=== PATIENT | female | born 1940 | race Caucasian/White ===

== ENCOUNTER 2023-05-29 19:45 | Inpatient (IN) | payer MEDICARE, OTHER, SELFPAY ==
[2023-05-29] VITALS (9 sets, daily range): BP systolic 92–162; BP diastolic 56–108; BMI 25.0; BMI 22.4
[2023-05-29] MEDS: DUONEB 3 ML INH ×2 (15:12→20:31)
--- NOTE | 2023-05-29 15:20 | ED.GENMED ---
History of Present Illness
General
Chief Complaint: Breathing Problem
Source: patient, family (Daughter) and ambulance crew
Exam Limitations: none
Time Seen by Provider: 05/29/23 15:13
Nursing documentation reviewed up to this point in time: agreed with
Travel History
Have you had any contact with someone who has COVID-19?: No
Do you have any symptoms of coronavirus? Fever > 100 degrees, chills, cough, shortness of breath, sore throat, loss of taste or smell, muscle aches, or headache?: No
History of Present Illness
History of Present Illness:
82-year-old female with past medical history of TIA/CVA, seizures, hypothyroidism who presents to the emergency department via EMS for evaluation of shortness of breath. Patient lives at home with her daughter. Patient reports rather sudden onset
of symptoms while she was walking during a PT session at home just prior to arrival. Per daughter she was in her normal state of health and then suddenly became very short of breath and began coughing and wheezing. EMS called. Per EMS on their
arrival she was hypoxic in the 70s although they did have difficulty getting a good pleth on pulse oximetry. She was placed on CPAP and was transported to the emergency room. On arrival here she continues to complain of shortness of breath. She
denies any chest pain. She says she started coughing shortly after onset of shortness of breath but has not had a cough prior to this. She denies any recent fevers or chills. Has not noticed any swelling or pain in the legs. Per daughter patient
had a recent echocardiogram that was normal.
Past History
Past History
ED Past Medical History: CVA, HTN, Hypercholesterolemia and Hypothyroidism
ED Past Surgical History: Gynecological (partial hysterectomy) and Orthopedic (right hip fracture)
Social History
Tobacco: Former smoker
Alcohol: Occasional
Personal:
Living: alone (with aids)
Review of Systems
Review of Systems
All Other Systems: ROS reviewed and negative except as documented in HPI and ROS
Constitutional: Denies fever or chills
EENT: Denies sore throat
Respiratory: Reports cough and trouble breathing
Cardiac: Denies chest pain or palpitations
ABD/GI: Denies abdominal pain, nausea or vomiting
: Denies flank pain
Musculoskeletal: Denies neck pain or back pain
Neurological: Denies headache, weakness or numbness
Phy Exam
Physical Exam
Physical Exam:
General: Awake, alert, oriented x3
Head: Normocephalic, atraumatic
Eyes: Conjunctiva normal, sclera anicteric
Throat: Airway intact, handling secretions
Neck: Trachea midline, supple without meningismus
Lungs: Mild tachypnea, low normal pulse ox 90-91% on room air; she is faint expiratory wheezing scattered throughout all lung cuellar and occasional coughing
Heart: Regular rate and rhythm, no murmurs, gallops, or rubs
Abd: Soft, non distended, nontender
Neuro: Cranial nerves grossly intact, speech fluid
Skin: no rash
Extremities: No edema in extremities, equal pulses in all extremities
Scores
Heart Failure Risk
Heart Failure Risk Score: Not Applicable
Heart Score for Chest Pain Patients
STEMI patient?: Not applicable
Withdrawal Assessment of Alcohol
Withdrawal Assessment Completed?: Not applicable
Course
Orders/Labs/Results
Orders:
Orders
05/29/23 14:59
Electrocardiogram (*1) Urgent
Reason for Study: Other
Other Reason for Exam: Respiratory Distress
Cardiac Monitoring- Treatment ONCE
EKG- Treatment ONCE
IV Insert/Care/Rem.- Treatment PRN
Pulse Ox/cont/shift [RESP] Urgent
Quantity: 1
Special Instructions: continuous pulse ox
05/29/23 15:03
Portable Chest Xray [CR Chest Portable - 1 View] Urgent
Comment:
Reason For Exam: sob
Reason Study Needs to be Portable: Patient Unstable
05/29/23 15:09
Ipratropium/Albuterol Sulfate [Duoneb] 3 ml .ROUTE .STK-MED ONE
05/29/23 15:10
Ipratropium/Albuterol Sulfate [Duoneb] 3 ml INH R NOW ONE
05/29/23 15:19
CT Chest Pe Study Urgent
Comment:
Reason For Exam: sudden onset SOB and hypoxia
05/29/23 15:23
Complete Blood Count/With Diff Urgent
Comprehensive Metabolic Panel Urgent
NT-proBNP Urgent
Troponin I Urgent
05/29/23 17:33
COVID-19 Antigen Urgent
Source: Nasal Swab
Influenza A+B Rapid Molecular Urgent
IRVING Source: Nasal Swab
Specimen Description:
Abnormal Lab Results
05/29/23
15:23
RBC 3.87 L 10^6/uL
(4.20-5.40)
MCV 104.1 H fL
(81.0-99.0)
MCH 35.7 H pg
(27.0-31.0)
Absolute Monos (auto) 1.0 H 10^3/uL
(0.1-0.6)
Monocytes % 14.2 H %
(1.7-9.3)
BUN 20 H mg/dl
(7-17)
Glucose 109 H mg/dl
(70-99)
Calcium 8.3 L mg/dl
(8.4-10.2)
AST 43 H U/L
(14-36)
05/29/23 15:23
05/29/23 15:23
Vital Signs
Initial and Last Documented VS:
Initial Vital Signs
Pulse Resp BP
92 27 132/89
05/29/23 15:00 05/29/23 15:00 05/29/23 15:00
Last Documented Vital Signs
Temp Pulse Resp BP Pulse Ox
36.6 C 77 19 122/108 96
05/29/23 15:40 05/29/23 16:30 05/29/23 16:30 05/29/23 16:00 05/29/23 16:30
MDM/Problems Addressed
Differential Diagnosis Includes:
Pneumonia/pneumonitis, asthma/bronchitis, pulmonary embolism, less likely acute MS without any chest pain
MDM/Problems Addressed:
82-year-old female with history as above presents for evaluation of abrupt onset shortness of breath associated with some coughing and wheezing. Hypoxic per EMS, apparently 70s prior to arrival though she is 90s here on room air. Mild tachypnea.
Physical exam as above. She does not appear edematous. She is normotensive. Somewhat goes against flash pulmonary edema; daughter reports recent echocardiogram was normal. PE would be a consideration given abrupt onset although she denies any
chest pain and no specific risk factors. Call for stat pleural chest x-ray, stat EKG. IV placed labs ongoing CBC and CMP, troponin, BNP. Given her wheezing we will treat the DuoNeb and some IV steroid. Will monitor closely reassess after the
above.
EKG shows sinus rhythm no STEMI. Chest x-ray reviewed by me appears to have opacity in the right midlung�although pneumonia would be consideration history really not consistent with this diagnosis. Will check CTA to rule out pulmonary embolism.
Labs reviewed: CBC unremarkable, CMP shows no clinically significant abnormalities. Troponin negative x 1, BNP was slightly elevated at 1610 but she has no overt signs of CHF on exam. Her CTA was negative for PE does show some widespread
groundglass opacities nonspecific which could include pulmonary edema or other inflammatory etiologies�I wonder if this may be an acute bronchitis; CHF consideration but she is not particularly edematous on exam and she apparently had a reassuring
echo recently�will hold on Lasix for now. She has improved wheezing with DuoNeb and steroid although her pulse ox did drop a bit to the high 80s she was placed on 2 L nasal cannula. Will admit now for continued treatment of suspected acute
bronchitis with resultant acute respiratory failure with hypoxia. Discussed with hospitalist for admission
*Radiology
Radiology exam reviewed: preliminary read by ED provider and radiology read reviewed
*Pulse Oximetry
Patient hypoxic: yes
*EKG
Comparison EKG: no comparison EKG present
Heart Rate: 85
Rate: normal
Rhythm: sinus
[place]: left axis deviation
Interval: normal interval
QRS Pattern: left bundle branch block
Ischemia: no ischemia
*Critical Care Note
Total Time (30-74mins, 75-104mins- exclusive of procedures): Not Applicable
Data Reviewed
Source: patient, family and ambulance crew
Patient Management
Discussion with other providers: Hospitalist (Discussed with hospitalist)
Escalation/DeEscalation of care consider admission/obs:
Admission indicated
ED Attending Note
-
Portions of this chart may have been created with voice recognition software.� Occasional wrong word or��sound alike� substitutions may have occurred due to the inherent limitations of voice recognition software.
Discharge Plan
Departure
Patient Disposition: Admit
Date of Disposition: 05/29/23
Time of Disposition: 17:41
Admit to doctor: Shanon
Presentation/result/management discussed w/ accepting MD/DO: Hospitalist
Discharge Problem:
Acute respiratory failure with hypoxia, Acute bronchitis
Prescriptions:
No Action
alendronate 70 MG tablet
70 mg PO VEGA
aspirin 81 MG tablet,delayed release (DR/EC)
81 mg PO DAILY
levothyroxine 100 MCG tablet
100 mcg PO DAILY
carbamazepine 200 MG tablet
200 mg PO TID
amlodipine 10 MG tablet
10 mg PO DAILY
geriatric fqpkxxpr-nwda-lwap [Spectravite Senior] 1 EACH tablet
1 ea PO DAILY@1200
metoprolol tartrate 25 MG tablet
25 mg PO BID
Fish Oil
1 cap PO DAILY@1200
atorvastatin 40 MG tablet
40 mg PO QPM 0RF
acetaminophen 325 MG tablet
650 mg PO Q4HPRN PRN (Reason: temp greater than 100.4 F) 0RF
prochlorperazine maleate 10 MG tablet
10 mg PO Q6HPRN PRN (Reason: Headache) 0RF
calcium carbonate [Oyster Shell Calcium 500] 500 MG tablet
500 mg PO NOON 0RF
ascorbic acid (vitamin C) [Vitamin C] 500 MG tablet
500 mg PO NOON 0RF
magnesium L-lactate [Magtab] 84 MG tablet extended release
84 mg PO NOON 0RF
ketorolac 10 MG tablet
10 mg PO Q6HPRN PRN (Reason: Pain ) Qty: 12 0RF
acetaminophen-codeine 1 TABLET tablet
1 tab PO Q4HPRN PRN (Reason: pain) Qty: 17 0RF
hydrocodone-acetaminophen 5-325 mg tablet
1 tab PO Q8H PRN (Reason: Pain) Qty: 10 0RF
Referrals:
UNKNOWN - PT DOES,NOT KNOW [Family Provider] -
Interventions
Interventions:
*Risk Screen - Suicide Last Done: 05/29/23 15:04
*General Assessment Last Done: 05/29/23 15:04
*Neglect/Abuse Screening Last Done: 05/29/23 15:04
ED- Cardiac Assessment Last Done: 05/29/23 15:33
ED- Pulmonary Assessment Last Done: 05/29/23 15:33
[2023-05-29 15:30] LABS: % Basophils 0.9 % (0-2); % Eosinophils 3.4 % (0-6); % Immature Granulocytes 0.4 % (0-0.5); % Lymphocytes 30.6 % (20.5-51.1); % Monocytes 14.2 % (1.7-9.3); % Neutrophils 50.5 % (42.2-75.2); Absolute Basophils 0.1 10^3/uL (0-0.2); Absolute Eosinophils 0.2 10^3/uL (0-0.7); Absolute Lymphocytes 2.1 10^3/uL (1.2-3.4); Absolute Neutrophils 3.4 10^3/uL (1.4-6.5); Hematocrit 40.3 % (37.0-47.0); Hemoglobin 13.8 g/dL (12.0-16.0); Mean Corp Hgb Conc. 34.2 g/dL (33.0-37.0); Mean Corpuscular Hgb 35.7 pg (27.0-31.0); Mean Corpuscular Volume 104.1 fL (81.0-99.0); Mean Platelet Volume 9.9 fL (7.4-10.4); Nucleated Red Blood Cells % 0 %; Platelet Count 166 10^3/uL (130-400); Red Blood Cell Count 3.87 10^6/uL (4.20-5.40); Red Cell Dist. Width 12.1 % (11.5-14.5); White Blood Cell Count 6.8 10^3/uL (4.8-10.8)
[2023-05-29 15:58] LABS: ALT (SGPT) 32 U/L (0-35); AST (SGOT) 43 U/L (14-36); Albumin 3.8 g/dl (3.5-5.0); Alkaline Phosphatase 95 U/L (38-126); Blood Urea Nitrogen 20 mg/dl (7-17); Calcium 8.3 mg/dl (8.4-10.2); Carbon Dioxide 27 mmol/L (22-30); Chloride 106 mmol/L (98-107); Glucose 109 mg/dl (70-99); Potassium 4.9 mmol/L (3.5-5.1); Sodium 137 mmol/L (135-145); Total Bilirubin 0.5 mg/dl (0.2-1.3); Total Protein 6.4 g/dl (6.3-8.2); eGFR > 60.00
[2023-05-29 16:03] LABS: NT-proBNP 1610 pg/ml; Troponin I 0.024 ng/ml
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
[2023-05-29 18:05] LABS: COVID-19 Antigen Negative (Negative)
[2023-05-29] MEDS: SOLU-MEDROL PF 40 MG IV (19:45)
--- NOTE | 2023-05-29 20:00 | PTCARENOTE ---
Patient received from ED via stretcher, patient unable to stand r/t respiratory status. Patient transferred to bed via draw sheet. Patient pleasantly confused, Arrived on 4L O2, patient weaned to 2L O2 by RT. Patient educated on room safety, fall
precautions, and call stacy. Reinforcement provided. Will monitor.
[2023-05-29] MEDS: LOPRESSOR 37.5 MG PO (21:04)
[2023-05-29] MEDS: TEGRETOL 200 MG PO (21:04)
[2023-05-29] MEDS: ARICEPT 10 MG PO (21:05)
[2023-05-29] MEDS: LIPITOR 40 MG PO (21:05)
[2023-05-29] MEDS: DESYREL 50 MG PO (21:05)
[2023-05-29] MEDS: ROBITUSSIN 200 MG PO (21:05)
[2023-05-29] MEDS: DEPAKOTE (12 HR RELEASE) 500 MG PO (21:11)
[2023-05-29] MEDS: XALATAN OPHTHALMIC SOLUTION 1 DROP BOTH EYES ×2 (22:01)
[2023-05-29] MEDS: COMBIGAN EYE DROPS 1 DROP LEFT EYE (22:02)
[2023-05-29] MEDS: AZOPT 1% OPHTHALMIC SUSPENSION 1 DROP LEFT EYE (22:02)
--- NOTE | 2023-05-29 23:48 | PTCARENOTE ---
Patient's 2300 BP low, PCT reported it was 92/58 on right arm. This RN checked BP manually on right and got 106/62. Patient completely asymptomatic. SBP was 166 when she arrived to floor. CARLTON Ochoa made aware of change in SBP. No new orders
received at this time. Will monitor.
[2023-05-30] VITALS (8 sets, daily range): BP systolic 75–146; BP diastolic 49–72; PULSE 67; O2SAT 99; BMI 22.4
[2023-05-30] MEDS: SOLU-MEDROL PF 40 MG IV ×2 (02:15→10:10)
[2023-05-30] MEDS: DUONEB INH ×2 (02:19→15:17)
--- NOTE | 2023-05-30 02:43 | PTCARENOTE ---
PCT reported BP to RN in patient's right arm. Patient again completely asymptomatic, mentation unchanged. This RN obtained manual BP of 80/55 in right arm. BP in left arm 140/72 manually. CARLTON Schaefer aware, will pass on in report to only
check BP in left arm. Per BATH TESTER patient has a hx low BP in right. Will monitor.
[2023-05-30 07:04] LABS: % Basophils 0.4 % (0-2); % Immature Granulocytes 0.5 % (0-0.5); % Lymphocytes 30.4 % (20.5-51.1); % Monocytes 3.8 % (1.7-9.3); % Neutrophils 64.9 % (42.2-75.2); Absolute Lymphocytes 1.7 10^3/uL (1.2-3.4); Absolute Monocytes 0.2 10^3/uL (0.1-0.6); Absolute Neutrophils 3.6 10^3/uL (1.4-6.5); Hematocrit 35.9 % (37.0-47.0); Hemoglobin 12.7 g/dL (12.0-16.0); Mean Corp Hgb Conc. 35.4 g/dL (33.0-37.0); Mean Corpuscular Volume 98.9 fL (81.0-99.0); Mean Platelet Volume 10.5 fL (7.4-10.4); Nucleated Red Blood Cells % 0 %; Platelet Count 146 10^3/uL (130-400); Red Blood Cell Count 3.63 10^6/uL (4.20-5.40); White Blood Cell Count 5.5 10^3/uL (4.8-10.8)
[2023-05-30] MEDS: ROBITUSSIN 200 MG PO ×3 (07:34→21:07)
[2023-05-30] MEDS: THERAGRAN 1 TABLET PO (07:34)
[2023-05-30] MEDS: SYNTHROID 100 MCG PO (07:34)
[2023-05-30] MEDS: LOPRESSOR PO (07:34)
[2023-05-30] MEDS: DEPAKOTE (12 HR RELEASE) 250 MG PO (07:34)
[2023-05-30] MEDS: TEGRETOL 200 MG PO ×3 (07:34→21:11)
[2023-05-30] MEDS: KCL 20 MEQ PO (07:34)
[2023-05-30] MEDS: COMBIGAN EYE DROPS 1 DROP LEFT EYE ×2 (07:35→21:12)
[2023-05-30] MEDS: AZOPT 1% OPHTHALMIC SUSPENSION 1 DROP LEFT EYE ×2 (07:35→21:12)
[2023-05-30] MEDS: DUONEB 3 ML INH ×2 (07:36→19:51)
[2023-05-30 09:19] LABS: Blood Urea Nitrogen 19 mg/dl (7-17); Calcium 8.4 mg/dl (8.4-10.2); Carbon Dioxide 25 mmol/L (22-30); Chloride 107 mmol/L (98-107); Estimated Creatinine Clearance 51 ml/min; Glucose 131 mg/dl (70-99); Potassium 4.9 mmol/L (3.5-5.1); Sodium 137 mmol/L (135-145); eGFR > 60.00
--- NOTE | 2023-05-30 09:46 | PTOTSP ---
ST Swallowing Assessment
Pt presents with mild oropharyngeal dysphagia characterized by difficulty with mastication 2/2 denture presence, prolonged mastication and bolus formation, timely and delayed, weak throat clears with liquid ingestion (straws>cups, sequential
sips>single sips) suggestive of possible penetration/aspiration, as well as intermittent belching s/p ingestion of liquids with subsequent throat clears suggestive of possible retrograde flow and/or penetration/aspiration events.
Pt presents with cognitive linguistic deficits that are suspected to be consistent with baseline 2/2 previous CVA and vascular dementia. Would confirm with pt's daughter when able.
Recommendations:
- IDDSI 6 (Soft Bite Sized Solids)/IDDSI 0 (Thin Liquids) - NO STRAWS, small single cup sips; med whole with water as tolerated (one at a time).
- Aspiration & reflux precautions
- Video fluoroscopic swallow study for further assessment.
--- NOTE | 2023-05-30 11:13 | W.PN.HOSP.TC ---
Today's Communication/Plan
-
echo
lasix
Assessment / Plan
Assessment / Plan
82-year-old male came to the hospital with worsening cough with sputum. Patient has chronic lower extremity swelling unchanged. Patient was taken off of Lasix few months ago secondary to worsening renal function.
She was wheezing for a couple months. Yesterday was doing PT and she had sudden SOB and wheezing . They have an Oxygen at home and she was placed on it. She gets [facility] services (Physician and nurses and PT) [facility] also
helps. She coughs when she eats. They cut up her food. LE edema for chronic. Patient was on Lasix at 1 point and was taken off because of dehydration. Daughter states that she does not drink enough fluids.
CTA-trachea and central airways patent. Moderate to marked GERD widespread ground glass opacities centrally and peripherally accompanying prominence of pulmonary interstitium. No pneumothorax. Pleural effusion or pericardial effusion.
# Acute hypoxic respiratory insufficiency
Admitted for acute bronchitis
On 2 to 4 L of oxygen
? CHF
COVID-negative
Status post nebulizer treatment in the ER with improvement-continue steroids and nebulizers now
Wean oxygen as tolerated
Pulmonary has been consulted, but looks more fluid OL
Rule out aspiration-speech evaluation
wean steroids
will give a dose of Lasix
# Transient hypotension with history of hypertension
Patient on metoprolol 37.5 mg p.o. twice daily as outpatient along with amlodipine 10 mg at night
# Hyperlipidemia-continue statin
# History of CVA in the past
Continue aspirin and statin
She aspirin only weekly because of 'Skin Bruising per the PCP '
Change to Daily.
PT OT
# Chronic left bundle branch block
# Vascular dementia
On donepezil and also trazodone at night for sleep
# Hypothyroidism-continue Synthroid
# Scoliosis
# History of seizures-continue carbamazepine 200mg 3 times daily, Depakote 250 mg in the morning and 5oo mg in the evening
Last SZ was several years ago.
# Glaucoma-continue Combigan eyedrops, brinzolamide, latanoprost
# Ambulatory dysfunction with severe left knee osteoarthritis
Follows with Dr. Lewis recently got injection
# Chronic osteoporotic compression fractures
T6, T9, T11, L1
# DVT prophylaxis-Lovenox
# Full code
Discussed with the patient's daughter
Plan of care discussed.
CODE STATUS addressed-full code for now
Anticipated Discharge: 24 - 48 hours
Subjective/Interval History
-
Date of Service: May 30, 2023
Objective Data
-
Labs:
Laboratory Results
05/30/23 05/30/23
06:37 08:23
WBC 5.5
Hgb 12.7
Hct 35.9 L
Plt Count 146
Sodium Cancelled 137
Potassium Cancelled 4.9
Chloride Cancelled 107
Carbon Dioxide Cancelled 25
BUN Cancelled 19 H
Creatinine Cancelled 0.8
Glucose Cancelled 131 H
Calcium Cancelled 8.4
Vital Signs:
Vital Signs
Temp Pulse Resp BP Pulse Ox
97.7 F 69 16 100/72 99
05/30/23 07:20 05/30/23 07:35 05/30/23 07:35 05/30/23 07:34 05/30/23 10:18
I&O
05/29/23 05/30/23 05/31/23
06:59 06:59 06:59
Intake Total 240 / 240
Balance 240 / 240
--- NOTE | 2023-05-30 12:29 | CON.PUL ---
Consultation
Consultation Request
Date/Time Consultation Requested: 05/30/23
Date/Time Consultation Performed: 05/30/23
Performing Provider: Renee
Reason for Consultation: Hypoxia
Medical History
-
History of Present Illness:
Patient is a 82 year old F with past history of CVA, vascular dementia, HTN/HLD, Seizures, presenting to ER for subacute onset of SOB and wheezing over the past couple weeks. She also reports concern for aspiration, notes coughing with
solid/liquid intake. She has history of chronic leg swelling but was taken off lasix few months prior due to worsening kidney function.
In ER, she was noted to have CTA with ground glass changes, proBNP 1610. Given Duoneb treatment and IV Solumedrol 40mg IV Q8h.
Was a former smoker, 1/2 PPD for 40 years, quit 30 years ago. Never diagnosed wtih asthma or COPD, denies family history of lung disease. Never had a PFT.
Past Medical History
Past Medical History: Other (see list below)
Social History
Tobacco: Former Smoker
Alcohol: None
Drug: None
Family History
Family History: Reviewed & Not Pertinent
Allergies / Home Medications
Allergies
Allergy/AdvReac Type Severity Reaction Status Date / Time
No Known Allergies Allergy Verified 04/27/23 11:49
Home Medications
Medication Instructions Recorded Confirmed Last Taken Type
amlodipine 10 mg tablet 10 mg PO HS 01/09/17 05/29/23 05/28/23 History
aspirin 81 mg tablet,delayed 81 mg PO WEEKLY 01/09/17 05/29/23 05/28/23 History
release
carbamazepine 200 mg tablet 200 mg PO TID 01/09/17 05/29/23 05/29/23 History
levothyroxine 100 mcg tablet 100 mcg PO DAILY 01/09/17 05/29/23 05/29/23 History
metoprolol tartrate 25 mg tablet 37.5 mg PO BID 01/09/17 05/29/23 05/29/23 History
atorvastatin 40 mg tablet 40 mg PO HS 05/29/23 05/29/23 05/28/23 History
brimonidine 0.2 %-timolol 0.5 % 1 drp LEFT EYE BID 05/29/23 05/29/23 05/29/23 History
eye drops (Combigan)
brinzolamide 1 % eye 1 drp LEFT EYE BID 05/29/23 05/29/23 05/29/23 History
drops,suspension
divalproex 250 mg tablet,delayed 250 mg PO DAILY 05/29/23 05/29/23 05/29/23 History
release
divalproex 250 mg tablet,delayed 500 mg PO QPM 05/29/23 05/29/23 05/28/23 History
release
donepezil 10 mg tablet 10 mg PO HS 05/29/23 05/29/23 05/28/23 History
latanoprost 0.005 % eye drops 1 drp BOTH EYES HS 05/29/23 05/29/23 05/28/23 History
isxbwbilcwss-owxrirsz-zptsut tablet 1 tab PO DAILY 05/29/23 05/29/23 05/29/23 History
potassium chloride 20 mEq 20 meq PO DAILY 05/29/23 05/29/23 05/29/23 History
tablet,extended release(part/cryst)
trazodone 50 mg tablet 50 mg PO HS 05/29/23 05/29/23 05/28/23 History
Review of Systems
-
History Source: Patient
All other systems: Negative unless noted
Vitals / Labs / Diagnostic Testing
Vital Signs
Temp Pulse Resp BP Pulse Ox
97.8 F 72 16 112/53 98
05/30/23 11:14 05/30/23 11:14 05/30/23 11:14 05/30/23 11:14 05/30/23 11:14
Lab Data
05/30/23 06:37
05/30/23 08:23
Microbiology
05/29/23 17:37 Nasal Swab Influenza Types A & B (LAURA) - Final
Negative for Influenza A & B, NAAT
Negative results must be combined with clinical observations
and patient history.
Nucleic Acid Amplification test (NAAT)performed on the
[employer] platform.
Diagnostic Testing:
Physical Exam
-
HEENT: Normocephalic, Anicteric and Moist Mucous Membranes
Cardiovascular: S1/S2, Regular Rhythm and Peripheral Edema
Respiratory: Rales and Non-Labored Respirations
GI: Soft, Non Distended and Non Tender
Neurology: Awake, Alert, Oriented, AO x 3 and No Motor Deficits
Skin: Warm, Dry and Good Color
General: Comfortable and Other (NAD)
Assessment
-
Patient is a 82 year old F with past history of CVA, vascular dementia, HTN/HLD, Seizures, presenting to ER for subacute onset of SOB and wheezing over the past couple weeks. She also reports concern for aspiration, notes coughing with
solid/liquid intake. She has history of chronic leg swelling but was taken off lasix few months prior due to worsening kidney function.
In ER, she was noted to have CTA with ground glass changes, proBNP 1610. Given Duoneb treatment and IV Solumedrol 40mg IV Q8h.
AE of HFpEF
Pulmonary edema
LE swelling
SOB
Suspect underlying COPD
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
Former smoker
HTN
CVA/TIAs
Vascular dementia
Osteoporosis
History of VTE
Hepatitis
Seizures
Hypothyroidism
Plan
No oxygen was needed on admission, currently saturating 95% on RA
Placed on 2L at 99%, can likely wean to off
She is not on home O2
No known history of lung disease is noted --
Was a former smoker, 1/2 PPD for 40 years, quit 30 years ago.
Never diagnosed wtih asthma or COPD, denies family history of lung disease.
Never had a PFT.
Suspect patient has underlying AE HFpEF given history/imaging
CXR obtained indicating pulmonary edema, LE swelling noted
Other imaging reviewed
ECHO results reviewed--normal function
proBNP 1610
Rule out infectious causes, check procal
Started on IV steroids, but currently not wheezing
I would stop this
Will need outpatient pulmonary evaluation in our office for PFTs and 6MWT
Reviewed with patient
Smoking history noted--certainly at risk for COPD
Quit 30 years ago, would not be a candidate for lung cancer screening
We will follow
Diagnostic Data
CXR 05/29/23- IMPRESSION: Chronic lung changes. Increased interstitial fibrosis and scarring when compared to the previous exam. No focal airspace process. Density in the right lateral lung base most consistent with a previous healed right rib
fracture. Please correlate with follow-up chest CT.
CT chest 05/29/23- IMPRESSION: No evidence of central pulmonary embolism. New marked widespread bilateral pulmonary groundglass opacities both ventrally and peripherally, nonspecific. Some of several differential diagnostic possibilities include
Covid, pulmonary edema and other inflammatory etiologies. Some possible underlying mild chronic interstitial changes. Multiple thoracic vertebral compression fractures again seen, likely chronic.
07/10/20- IMPRESSION:
1. No evidence of pulmonary embolism or thoracic aortic dissection.
2. Acute fractures of the right anterior third through fifth ribs in the mid clavicular line, without associated pneumothorax or pleural effusion. Old ninth posterior rib fracture.
3. Mild bibasilar subsegmental atelectasis, otherwise clear lungs.
4. Multiple compression fractures within the thoracolumbar spine, likely chronic. Please correlate for symptoms of acute fractures.
ECHO 05/30/23- �Normal biventricular size and systolic function without regional wall motion�abnormality.�Mild to moderate mitral regurgitation.�Mild pulmonary hypertension.�Compared to previous echo 01/10/2017, the degree of mitral regurgitation
has�improved on today's study.� Otherwise the findings are similar.�
[2023-05-30] MEDS: LASIX 40 MG IV (12:44)
--- NOTE | 2023-05-30 14:15 | PTOTSP ---
Speech Language Pathology
VIDEOFLUOROSCOPIC SWALLOWING EXAMINATION (VSE) completed. Mild oral dysphagia noted. Pharyngeal phase of swallow WFL. Only trace intermittent vallecular and base of tongue residue. No penetration/aspiration noted with any consistencies trialed.
Recommend:
(1) Continue regular solids/thin liquids
(2) General aspiration precautions
(3) Meds as tolerated
(4) GAS STATION ATTENDANT to sign off. Please reconsult as indicated.
[2023-05-30] MEDS: LOVENOX 40 MG SC (17:05)
[2023-05-30] MEDS: SOLU-MEDROL PF 20 MG IV (17:06)
[2023-05-30] MEDS: DEPAKOTE (12 HR RELEASE) 500 MG PO (17:06)
[2023-05-30] MEDS: LOPRESSOR 37.5 MG PO (21:07)
[2023-05-30] MEDS: DESYREL 50 MG PO (21:07)
[2023-05-30] MEDS: ARICEPT 10 MG PO (21:10)
[2023-05-30] MEDS: LIPITOR 40 MG PO (21:10)
[2023-05-31] MEDS: DUONEB 3 ML INH ×4 (01:24→19:49)
[2023-05-31] MEDS: SOLU-MEDROL PF 20 MG IV ×2 (02:09→09:34)
[2023-05-31] MEDS: FLUSH (NSS) 1 FLUSH IV (02:11)
[2023-05-31 03:25] VITALS: BP 81/61
[2023-05-31 06:00] VITALS: BMI 22.0
[2023-05-31] MEDS: SYNTHROID 100 MCG PO (06:05)
[2023-05-31 07:00] VITALS: BP 137/65
[2023-05-31 08:40] LABS: Blood Urea Nitrogen 36 mg/dl (7-17); Calcium 8.5 mg/dl (8.4-10.2); Carbon Dioxide 27 mmol/L (22-30); Chloride 98 mmol/L (98-107); Estimated Creatinine Clearance 37 ml/min; Glucose 129 mg/dl (70-99); Magnesium 2.2 mg/dl (1.6-2.3); Sodium 135 mmol/L (135-145); eGFR 50.17
[2023-05-31 08:49] LABS: Potassium 4.7 mmol/L (3.5-5.1)
[2023-05-31] MEDS: ASPIR LOW (ENTERIC COATED) 81 MG PO (09:33)
[2023-05-31] MEDS: THERAGRAN 1 TABLET PO (09:33)
[2023-05-31] MEDS: TEGRETOL 200 MG PO ×3 (09:33→20:59)
[2023-05-31] MEDS: DEPAKOTE (12 HR RELEASE) 250 MG PO (09:33)
[2023-05-31] MEDS: LOPRESSOR 37.5 MG PO ×2 (09:33→20:58)
[2023-05-31] MEDS: ROBITUSSIN 200 MG PO ×2 (09:34→16:24)
[2023-05-31] MEDS: COMBIGAN EYE DROPS 1 DROP LEFT EYE ×2 (09:34→20:59)
[2023-05-31] MEDS: AZOPT 1% OPHTHALMIC SUSPENSION 1 DROP LEFT EYE ×2 (09:36→20:59)
[2023-05-31 11:00] VITALS: BP 99/65
--- NOTE | 2023-05-31 13:35 | W.PN.HOSP.TC ---
Today's Communication/Plan
-
wean steroids
daughter doesn't want her to go to rehab
Assessment / Plan
Assessment / Plan
82-year-old male came to the hospital with worsening cough with sputum. Patient has chronic lower extremity swelling unchanged. Patient was taken off of Lasix few months ago secondary to worsening renal function.
She was wheezing for a couple months. Yesterday was doing PT and she had sudden SOB and wheezing . They have an Oxygen at home and she was placed on it. She gets [facility] services (Physician and nurses and PT) [facility] also
helps. She coughs when she eats. They cut up her food. LE edema for chronic. Patient was on Lasix at 1 point and was taken off because of dehydration. Daughter states that she does not drink enough fluids.
CTA-trachea and central airways patent. Moderate to marked GERD widespread ground glass opacities centrally and peripherally accompanying prominence of pulmonary interstitium. No pneumothorax. Pleural effusion or pericardial effusion.
# Acute hypoxic respiratory insufficiency
Admitted for acute bronchitis
On 2 L now
CHF ruled out.
Probable Atypical Pulm edema from Atypical infection-Add Doxy
COVID-negative
Status post nebulizer treatment in the ER with improvement-wean steroids and continue nebulizers now
Wean oxygen as tolerated
Pulmonary has been consulted, but looks more fluid OL
No Aspiration on speech eval.
wean steroids
will give a dose of Lasix
# Transient hypotension with history of hypertension
Patient on metoprolol 37.5 mg p.o. twice daily as outpatient along with amlodipine 10 mg at night
# Hyperlipidemia-continue statin
# History of CVA in the past
Continue aspirin and statin
She aspirin only weekly because of 'Skin Bruising per the PCP '
Changed to Daily. discussed with daughter
PT OT
# Chronic left bundle branch block
# Vascular dementia
On donepezil and also trazodone at night for sleep
# Hypothyroidism-continue Synthroid
# Scoliosis
# History of seizures-continue carbamazepine 200mg 3 times daily, Depakote 250 mg in the morning and 5oo mg in the evening
Last SZ was several years ago.
# Glaucoma-continue Combigan eyedrops, brinzolamide, latanoprost
# Ambulatory dysfunction with severe left knee osteoarthritis
Follows with Dr. Lewis recently got injection
# Chronic osteoporotic compression fractures
T6, T9, T11, L1
# DVT prophylaxis-Lovenox
# Full code
Discussed with the patient's daughter at bed side
Plan of care discussed.
D/W RN
Anticipated Discharge: Within 24 hours
Subjective/Interval History
-
Date of Service: May 31, 2023
Objective Data
-
Labs:
Laboratory Results
05/31/23
06:57
Sodium 135
Potassium 4.7
Chloride 98
Carbon Dioxide 27
BUN 36 H
Creatinine 1.1 H
Glucose 129 H
Calcium 8.5
Vital Signs:
Vital Signs
Temp Pulse Resp BP Pulse Ox
97.8 F 76 18 99/65 96
05/31/23 11:00 05/31/23 11:00 05/31/23 11:00 05/31/23 11:00 05/31/23 11:00
I&O
05/30/23 05/31/23 06/01/23
06:59 06:59 06:59
Intake Total 240 / 240 260 / 260
Output Total 500 / 500
Balance 240 / 240 -240 / -240
[2023-05-31 15:00] VITALS: BP 138/59
--- NOTE | 2023-05-31 16:23 | W.PN.PUL3 ---
Today's Communication / Plan
-
O2 and maintain SpO2 >90-94%
Outpatient PFTs
Diurese given CT Chest findings with intralobular septal thickening and patchy GGO --> this is due to volume overload
I/O
Mucinex + flutter valve
Assessment
-
Patient is a 82 year old F with past history of CVA, vascular dementia, HTN/HLD, Seizures, presenting to ER for subacute onset of SOB and wheezing over the past couple weeks. She also reports concern for aspiration, notes coughing with
solid/liquid intake. She has history of chronic leg swelling but was taken off lasix few months prior due to worsening kidney function.
In ER, she was noted to have CTA with ground glass changes, proBNP 1610. Given Duoneb treatment and IV Solumedrol 40mg IV Q8h.
AE of HFpEF
Pulmonary edema
LE swelling
SOB
Suspect underlying COPD
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
Former smoker
HTN
CVA/TIAs
Vascular dementia
Osteoporosis
History of VTE
Hepatitis
Seizures
Hypothyroidism
Plan
Continue supplemental O2 and wean as tolerated
Check ambulatory pulse pox prior to discharge
She is not on home O2
No known history of lung disease is noted --
Was a former smoker, 1/2 PPD for 40 years, quit 30 years ago.
Never diagnosed wtih asthma or COPD, denies family history of lung disease.
Never had a PFT.
Suspect patient has underlying AE HFpEF given history/imaging with intralobular septal thickening and patchy GGO
CXR obtained indicating pulmonary edema, LE swelling noted
Other imaging reviewed
ECHO results reviewed--normal function
proBNP 1610
Rule out infectious causes, check procal
I will start lasix 40mg IV daily x 3 days
Started on IV steroids, but currently not wheezing
Stop this
Will need outpatient pulmonary evaluation in our office for PFTs and 6MWT
Reviewed with patient
Smoking history noted--certainly at risk for COPD
Quit 30 years ago, would not be a candidate for lung cancer screening
We will follow
Diagnostic Data
CXR 05/29/23- IMPRESSION: Chronic lung changes. Increased interstitial fibrosis and scarring when compared to the previous exam. No focal airspace process. Density in the right lateral lung base most consistent with a previous healed right rib
fracture. Please correlate with follow-up chest CT.
CT chest 05/29/23- IMPRESSION: No evidence of central pulmonary embolism. New marked widespread bilateral pulmonary groundglass opacities both ventrally and peripherally, nonspecific. Some of several differential diagnostic possibilities include
Covid, pulmonary edema and other inflammatory etiologies. Some possible underlying mild chronic interstitial changes. Multiple thoracic vertebral compression fractures again seen, likely chronic.
07/10/20- IMPRESSION:
1. No evidence of pulmonary embolism or thoracic aortic dissection.
2. Acute fractures of the right anterior third through fifth ribs in the mid clavicular line, without associated pneumothorax or pleural effusion. Old ninth posterior rib fracture.
3. Mild bibasilar subsegmental atelectasis, otherwise clear lungs.
4. Multiple compression fractures within the thoracolumbar spine, likely chronic. Please correlate for symptoms of acute fractures.
ECHO 05/30/23- �Normal biventricular size and systolic function without regional wall motion�abnormality.�Mild to moderate mitral regurgitation.�Mild pulmonary hypertension.�Compared to previous echo 01/10/2017, the degree of mitral regurgitation
has�improved on today's study.� Otherwise the findings are similar.�
Subjective Data
-
Date of Service:
Date of Service: May 31, 2023
Chief Complaint: Pulmonary Follow Up
Subjective:
Seen today - on 2L/min. Complains of cough with difficulty getting phlegm out. No chest pain, GERBER, abd pain, n/v/f/c.
Review of Systems
General: Other (neg unless mentioned above)
Objective Data
Data Reviewed
Vital Signs / I&O / Oxygen:
Vital Signs
Temp Pulse Resp BP Pulse Ox
97.7 F 73 17 138/59 96
05/31/23 15:00 05/31/23 15:00 05/31/23 15:00 05/31/23 15:00 05/31/23 15:00
Intake and Output
05/30/23 05/31/23 06/01/23
06:59 06:59 06:59
Intake Total 240 / 240 260 / 260
Output Total 500 / 500
Balance 240 / 240 -240 / -240
SaO2 96
Nasal Cannula flow liters per 2
minute
Physical Exam
General: Comfortable and Chills (negative)
HEENT: Normocephalic, Anicteric and Other (no tracheal stridor)
Cardiovascular: S1-S2 and Peripheral Edema (negative)
Respiratory: Wheeze (negative), Crackles (bibasilar (right base and mid lung b/l)) and Rhonchi (negative)
GI: Soft, Non Distended, Non Tender and Normal Bowel Sounds
Neurology: AO x 3
Skin: Warm and Dry
Labs/Micro/Reports
Lab Data
05/30/23 06:37
05/31/23 06:57
Microbiology
05/29/23 17:37 Nasal Swab Influenza Types A & B (LAURA) - Final
Negative for Influenza A & B, NAAT
Negative results must be combined with clinical observations
and patient history.
Nucleic Acid Amplification test (NAAT)performed on the
[employer] platform.
[2023-05-31] MEDS: LOVENOX 40 MG SC (18:06)
[2023-05-31] MEDS: SOLU-MEDROL PF 10 MG IV (18:07)
[2023-05-31] MEDS: DEPAKOTE (12 HR RELEASE) 500 MG PO (18:08)
[2023-05-31 20:58] VITALS: BP 136/56
[2023-05-31] MEDS: ARICEPT 10 MG PO (20:58)
[2023-05-31] MEDS: LIPITOR 40 MG PO (20:58)
[2023-05-31] MEDS: DESYREL 50 MG PO (20:59)
[2023-05-31] MEDS: XALATAN OPHTHALMIC SOLUTION 1 DROP BOTH EYES (20:59)
--- NOTE | 2023-05-31 21:14 | PTCARENOTE ---
Patient satting 97% on 2LNC -- placed patient on 1LNC at this time, patient with no complaints of SOB at this time. Will monitor and recheck oxygen sats throughout evening. Call stacy within reach, will ring for assistance if needed.
[2023-05-31 23:23] VITALS: BP 120/49
[2023-06-01] MEDS: DUONEB 3 ML INH ×4 (00:57→19:21)
[2023-06-01] MEDS: SOLU-MEDROL PF 10 MG IV ×3 (02:03→17:21)
[2023-06-01] MEDS: FLUSH (NSS) 1 FLUSH IV (02:04)
[2023-06-01] MEDS: SYNTHROID 100 MCG PO (05:19)
[2023-06-01 05:52] VITALS: BMI 22.0
[2023-06-01 06:21] LABS: % Basophils 0.2 % (0-2); % Immature Granulocytes 0.4 % (0-0.5); % Lymphocytes 18.9 % (20.5-51.1); % Monocytes 9.8 % (1.7-9.3); % Neutrophils 70.7 % (42.2-75.2); Absolute Immature Granulocytes 0.1 10^3/uL (0-0.05); Absolute Lymphocytes 2.2 10^3/uL (1.2-3.4); Absolute Monocytes 1.1 10^3/uL (0.1-0.6); Absolute Neutrophils 8.3 10^3/uL (1.4-6.5); Hematocrit 34.4 % (37.0-47.0); Hemoglobin 11.8 g/dL (12.0-16.0); Mean Corp Hgb Conc. 34.3 g/dL (33.0-37.0); Mean Corpuscular Hgb 35.6 pg (27.0-31.0); Mean Corpuscular Volume 103.9 fL (81.0-99.0); Mean Platelet Volume 10.2 fL (7.4-10.4); Nucleated Red Blood Cells % 0 %; Platelet Count 156 10^3/uL (130-400); Red Blood Cell Count 3.31 10^6/uL (4.20-5.40); Red Cell Dist. Width 12.2 % (11.5-14.5); White Blood Cell Count 11.7 10^3/uL (4.8-10.8)
[2023-06-01 06:36] LABS: NT-proBNP 1830 pg/ml
[2023-06-01 06:40] LABS: Blood Urea Nitrogen 31 mg/dl (7-17); Carbon Dioxide 27 mmol/L (22-30); Chloride 101 mmol/L (98-107); Estimated Creatinine Clearance 37 ml/min; Glucose 131 mg/dl (70-99); Magnesium 2.3 mg/dl (1.6-2.3); Phosphorus 4.9 mg/dl (2.5-4.5); Potassium 4.6 mmol/L (3.5-5.1); Sodium 133 mmol/L (135-145); eGFR 50.17
[2023-06-01 06:46] LABS: Procalcitonin < 0.05 ng/ml (0.0-0.25)
[2023-06-01] MEDS: LOPRESSOR 37.5 MG PO ×2 (07:22→23:03)
[2023-06-01] MEDS: MUCINEX 1200 MG PO ×2 (07:22→23:03)
[2023-06-01] MEDS: TEGRETOL 200 MG PO ×3 (07:23→23:04)
[2023-06-01] MEDS: ASPIR LOW (ENTERIC COATED) 81 MG PO (07:23)
[2023-06-01] MEDS: DEPAKOTE (12 HR RELEASE) 250 MG PO (07:23)
[2023-06-01] MEDS: LASIX 40 MG IV (07:23)
[2023-06-01] MEDS: THERAGRAN 1 TABLET PO (07:27)
[2023-06-01] MEDS: AZOPT 1% OPHTHALMIC SUSPENSION 1 DROP LEFT EYE ×2 (07:27→23:02)
[2023-06-01] MEDS: COMBIGAN EYE DROPS 1 DROP LEFT EYE ×2 (07:28→23:02)
[2023-06-01 07:43] VITALS: BP 124/53
[2023-06-01 08:45] VITALS: PULSE 70; O2SAT 92
--- NOTE | 2023-06-01 10:40 | CM ---
receivable manager reviewed patient's chart and met with patient and spoke with patient's daughter Negra this morning. Patient has dementia. Per patient's daughter patient lives with daughter and son in law in a elevator accessible apartment. Patient is
independent with adl's and uses a walker with ambulation, both patient's daughter and son in law provide care for patient at home, patient has [facility] 9am-5pm, 10am-8am, patient also has [facility] home physical therapy [phone], Fax [phone]
[phone], patient is currently on one liter of oxygen, and patient did not require oxygen prior to admission.
Pharmacy; [facility]
Plan; Home with [facility]

[facility].
[phone]
.
[2023-06-01 11:18] VITALS: BP 131/61
--- NOTE | 2023-06-01 12:08 | W.PN.PUL3 ---
Today's Communication / Plan
-
O2 and maintain SpO2 >90-94%
Outpatient PFTs
Diurese given CT Chest findings with intralobular septal thickening and patchy GGO --> this is due to volume overload
I/O
Mucinex + flutter valve
Assessment
-
Patient is a 82 year old F with past history of CVA, vascular dementia, HTN/HLD, Seizures, presenting to ER for subacute onset of SOB and wheezing over the past couple weeks. She also reports concern for aspiration, notes coughing with
solid/liquid intake. She has history of chronic leg swelling but was taken off lasix few months prior due to worsening kidney function.
In ER, she was noted to have CTA with ground glass changes, proBNP 1610. Given Duoneb treatment and IV Solumedrol 40mg IV Q8h.
AE of HFpEF
Pulmonary edema
LE swelling
SOB
Suspect underlying COPD
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
Former smoker
HTN
CVA/TIAs
Vascular dementia
Osteoporosis
History of VTE
Hepatitis
Seizures
Hypothyroidism
Plan
Continue supplemental O2 and wean as tolerated
Check ambulatory pulse pox prior to discharge
She is not on home O2
No known history of lung disease is noted --
Was a former smoker, 1/2 PPD for 40 years, quit 30 years ago.
Never diagnosed wtih asthma or COPD, denies family history of lung disease.
Never had a PFT.
Suspect patient has underlying AE HFpEF given history/imaging with intralobular septal thickening and patchy GGO
CXR obtained indicating pulmonary edema, LE swelling noted
Other imaging reviewed
ECHO results reviewed--normal function
proBNP 1610
Rule out infectious causes, procal negative x1
Continue lasix 40mg IV daily x 3 days
Started on IV steroids, but currently not wheezing
Wean off this
Will need outpatient pulmonary evaluation in our office for PFTs and 6MWT
Reviewed with patient
Smoking history noted--certainly at risk for COPD
Quit 30 years ago, would not be a candidate for lung cancer screening
We will follow
Diagnostic Data
CXR 05/29/23- IMPRESSION: Chronic lung changes. Increased interstitial fibrosis and scarring when compared to the previous exam. No focal airspace process. Density in the right lateral lung base most consistent with a previous healed right rib
fracture. Please correlate with follow-up chest CT.
CT chest 05/29/23- IMPRESSION: No evidence of central pulmonary embolism. New marked widespread bilateral pulmonary groundglass opacities both ventrally and peripherally, nonspecific. Some of several differential diagnostic possibilities include
Covid, pulmonary edema and other inflammatory etiologies. Some possible underlying mild chronic interstitial changes. Multiple thoracic vertebral compression fractures again seen, likely chronic.
07/10/20- IMPRESSION:
1. No evidence of pulmonary embolism or thoracic aortic dissection.
2. Acute fractures of the right anterior third through fifth ribs in the mid clavicular line, without associated pneumothorax or pleural effusion. Old ninth posterior rib fracture.
3. Mild bibasilar subsegmental atelectasis, otherwise clear lungs.
4. Multiple compression fractures within the thoracolumbar spine, likely chronic. Please correlate for symptoms of acute fractures.
ECHO 05/30/23- �Normal biventricular size and systolic function without regional wall motion�abnormality.�Mild to moderate mitral regurgitation.�Mild pulmonary hypertension.�Compared to previous echo 01/10/2017, the degree of mitral regurgitation
has�improved on today's study.� Otherwise the findings are similar.�
Subjective Data
-
Date of Service:
Date of Service: June 01, 2023
Chief Complaint: Pulmonary Follow Up
Subjective:
Pt seen this AM. Resting in chair in NAD. Says her breating is better today, so is her cough. She is on 2L/min NC. Breathing comfortably. Denies CP, GERBER, f/c.
Review of Systems
General: Other (neg unless mentioned above)
Objective Data
Data Reviewed
Vital Signs / I&O / Oxygen:
Vital Signs
Temp Pulse Resp BP Pulse Ox
98.4 F 77 17 131/61 95
06/01/23 11:18 06/01/23 11:18 06/01/23 11:18 06/01/23 11:18 06/01/23 11:18
Intake and Output
05/31/23 06/01/23 06/02/23
06:59 06:59 06:59
Intake Total 260 / 260 600 / 600
Output Total 500 / 500
Balance -240 / -240 600 / 600
SaO2 95
Nasal Cannula flow liters per 1
minute
Physical Exam
General: Comfortable and Chills (negative)
HEENT: Normocephalic, Anicteric and Other (no tracheal stridor)
Cardiovascular: S1-S2 and Peripheral Edema (trace LE edema)
Respiratory: Wheeze (occasionally heard due to forced expiration), Crackles (bibasilar (right base and mid lung b/l)), Rhonchi (negative) and Accessory Resp Muscle Use (neg)
GI: Soft, Non Distended, Non Tender and Normal Bowel Sounds
Neurology: AO x 3
Skin: Warm and Dry
Labs/Micro/Reports
Lab Data
06/01/23 06:00
06/01/23 06:00
Microbiology
05/29/23 17:37 Nasal Swab Influenza Types A & B (LAURA) - Final
Negative for Influenza A & B, NAAT
Negative results must be combined with clinical observations
and patient history.
Nucleic Acid Amplification test (NAAT)performed on the
[employer] platform.
--- NOTE | 2023-06-01 12:51 | W.PN.HOSP.TC ---
Today's Communication/Plan
-
Watch creat
Wean O2 as tolerated
Hold Norvasc
Assessment / Plan
Assessment / Plan
82-year-old male came to the hospital with worsening cough with sputum. Patient has chronic lower extremity swelling unchanged. Patient was taken off of Lasix few months ago secondary to worsening renal function.
She was wheezing for a couple months. Yesterday was doing PT and she had sudden SOB and wheezing . They have an Oxygen at home and she was placed on it. She gets [facility] services (Physician and nurses and PT) [facility] also
helps. She coughs when she eats. They cut up her food. LE edema for chronic. Patient was on Lasix at 1 point and was taken off because of dehydration. Daughter states that she does not drink enough fluids.
CTA-trachea and central airways patent. Moderate to marked GERD widespread ground glass opacities centrally and peripherally accompanying prominence of pulmonary interstitium. No pneumothorax. Pleural effusion or pericardial effusion.
# Acute hypoxic respiratory insufficiency
Admitted for acute bronchitis
On 2 L now
CHF ruled out per echo, But still has clinical findings leading towards that
Probable Atypical Pulm edema from Atypical infection ?-Add Doxy
COVID-negative
Status post nebulizer treatment in the ER with improvement-wean steroids and continue nebulizers now
Wean oxygen as tolerated
Pulmonary has been consulted, but looks more fluid OL
No Aspiration on speech eval.
wean steroids
Got Lasix
# Transient hypotension with history of hypertension
Was on Metoprolol and Amlodipine as OP
Patient on metoprolol 37.5 mg p.o. twice daily as outpatient
Hold Amlodipine.
eventually change to JASPAL/ARB when creat stable given LE edema
# Hyperlipidemia-continue statin
# History of CVA in the past
Continue aspirin and statin
She aspirin only weekly because of 'Skin Bruising per the PCP '
Changed to Daily. discussed with daughter
PT OT
# Chronic left bundle branch block
# Vascular dementia
On donepezil and also trazodone at night for sleep
# Hypothyroidism-continue Synthroid
# Scoliosis
# History of seizures-continue carbamazepine 200mg 3 times daily, Depakote 250 mg in the morning and 5oo mg in the evening
Last SZ was several years ago.
# Glaucoma-continue Combigan eyedrops, brinzolamide, latanoprost
# Ambulatory dysfunction with severe left knee osteoarthritis
Follows with Dr. Lewis recently got injection
# Chronic osteoporotic compression fractures
T6, T9, T11, L1
# DVT prophylaxis-Lovenox
# Full code
05/31/23-Discussed with the patient's daughter at bed side
D/W RN
D/W Pulm
Anticipated Discharge: 24 - 48 hours
Subjective/Interval History
-
Date of Service: June 01, 2023
Objective Data
-
Labs:
Laboratory Results
06/01/23
06:00
WBC 11.7 H
Hgb 11.8 L
Hct 34.4 L
Plt Count 156
Sodium 133 L
Potassium 4.6
Chloride 101
Carbon Dioxide 27
BUN 31 H
Creatinine 1.1 H
Glucose 131 H
Calcium 8.0 L
Vital Signs:
Vital Signs
Temp Pulse Resp BP Pulse Ox
98.4 F 77 17 131/61 95
06/01/23 11:18 06/01/23 11:18 06/01/23 11:18 06/01/23 11:18 06/01/23 11:18
I&O
05/31/23 06/01/23 06/02/23
06:59 06:59 06:59
Intake Total 260 / 260 600 / 600
Output Total 500 / 500
Balance -240 / -240 600 / 600
[2023-06-01 15:11] VITALS: BP 137/45
[2023-06-01] MEDS: LOVENOX 40 MG SC (17:21)
[2023-06-01] MEDS: DEPAKOTE (12 HR RELEASE) 500 MG PO (17:21)
[2023-06-01] MEDS: XALATAN OPHTHALMIC SOLUTION 1 DROP BOTH EYES (23:02)
[2023-06-01] MEDS: ARICEPT 10 MG PO (23:03)
[2023-06-01] MEDS: DESYREL 50 MG PO (23:04)
[2023-06-01] MEDS: LIPITOR 40 MG PO (23:04)
[2023-06-01 23:20] VITALS: BP 163/62
[2023-06-02] MEDS: DUONEB 3 ML INH ×3 (01:26→13:48)
[2023-06-02] MEDS: SOLU-MEDROL PF 10 MG IV ×2 (02:30→09:30)
[2023-06-02 06:00] VITALS: BMI 22.1
[2023-06-02] MEDS: SYNTHROID 100 MCG PO (06:21)
[2023-06-02 07:42] VITALS: BP 110/64
[2023-06-02] MEDS: MUCINEX 1200 MG PO ×2 (09:13→21:48)
[2023-06-02] MEDS: THERAGRAN 1 TABLET PO (09:13)
[2023-06-02] MEDS: LOPRESSOR 37.5 MG PO ×2 (09:13→21:48)
[2023-06-02] MEDS: DEPAKOTE (12 HR RELEASE) 250 MG PO (09:14)
[2023-06-02] MEDS: COMBIGAN EYE DROPS 1 DROP LEFT EYE ×2 (09:14→21:50)
[2023-06-02] MEDS: TEGRETOL 200 MG PO ×3 (09:14→21:49)
[2023-06-02] MEDS: ASPIR LOW (ENTERIC COATED) 81 MG PO (09:14)
[2023-06-02] MEDS: LASIX 40 MG IV (09:15)
[2023-06-02] MEDS: AZOPT 1% OPHTHALMIC SUSPENSION 1 DROP LEFT EYE ×2 (09:15→21:50)
--- NOTE | 2023-06-02 10:43 | W.PN.HOSP.TC ---
Addendum entered and electronically signed by Wallace Davis MD 06/02/23 17:14:
Patient seen and examined
Discussed with resident
Discussed with patient's daughter at the bedside
Discussed with nursing and cardiology.
Impression/plan:
Acute hypoxic respiratory insufficiency
Chest x-ray on presentation suggestive of pulmonary edema.
Echocardiogram with preserved biventricular function and mild pulmonary hypertension.
LBBB.
Essential hypertension.
No evidence of infection given clinical presentation, also normal white count, normal procalcitonin level.
Initiated on IV Lasix with improvement of respiratory status.
Not clear reason for systemic corticosteroids, although patient reported with possible bronchospasm upon admission. Doubt systemic vasculitis.
Appreciate cardiology input.
Follow-up with chest x-ray in a.m. in response to diuresis.
Transition to oral Lasix
Outpatient ischemic elevation with nuclear stress test.
Consideration of SGLT2 inhibitor upon discharge checking cost.
Taper Solu-Medrol
Dementia.
Mental status close to baseline
Seizure disorder continue preadmission antiepileptic regimen.
Physical therapy assessed
Original Note:
Today's Communication/Plan
-
symptoms improved on IV lasix
transition to oral lasix
Reduce oral steroid dosage to 5mg
CXR in AM to follow up on Pulmonary edema
Check cost of Zumboxxiga
Assessment / Plan
Assessment / Plan
Impression:
Acute Hypoxic Respiratory Insufficiency
Pulmonary Edema
Conditions Prior to Admission
HTN
CVA/TIAs
Vascular dementia
Osteoporosis
History of VTE
Hepatitis
Seizures
Hypothyroidism
Glaucoma
Plan
Acute hypoxic respiratory insufficiency
Continue Supplemental O2
Wean off steroids
Continue Nebulizers
CXR 05/29 �Chronic lung changes. Increased interstitial fibrosis and scarring when compared to the previous exam. No focal airspace process. Density in the right lateral lung base most consistent with a previous healed right rib fracture
CT scan 05/29 No evidence of central pulmonary embolism. New marked widespread bilateral pulmonary groundglass opacities both ventrally and peripherally, nonspecific.
Echo Normal function
proBNP 1830
Continue Lasix
Transient hypotension with history of hypertension
Previously on Metoprolol and Amlodipine as outpatient
Continue Metoprolol
Hold Amlodipine
CRE 1.1 Baseline 0.7
Switch to JASPAL/ARB when cre stable
Hyperlipidemia
Continue Current regimen Atorvastatin
History of CVA/ Multiple TIA
Continue Aspirin and Statin.
Continue PT
Vascular dementia
Continue Donepezil and also trazodone at night for sleep
Hypothyroidism
continue Synthroid
History of Seizures
continue carbamazepine, Depakote
Last SZ was several years ago.
Glaucoma
continue Combigan eyedrops, brinzolamide, latanoprost
Ambulatory dysfunction with severe left knee osteoarthritis
Supportive care. Pt follows with Dr. Frye for nonoperative therapy, recently receiving injection.
Chronic osteoporotic compression fractures
CT imaging reviewed: There are degenerative changes in the thoracic spine as well as numerous partial vertebral compression fractures again seen including T6, T9, T11 and L1 sclerotic density within T12 is stable most likely a benign bone island.
Old right rib fractures are again seen.
No reproducible TTP
Continue PT and supportive care.
DVT prophylaxis- Lovenox
Full code
Anticipated Discharge: > 48 hours
Subjective/Interval History
-
Date of Service: June 02, 2023
Objective Data
-
Vital Signs:
Vital Signs
Temp Pulse Resp BP Pulse Ox
97.7 F 68 16 110/64 100
06/02/23 07:42 06/02/23 07:46 06/02/23 07:46 06/02/23 07:42 06/02/23 07:46
I&O
02/06/02/23 06/03/23
06:59 06:59 06:59
Intake Total 600 / 600 1020 / 1020
Balance 600 / 600 1020 / 1020
Physical Exam
-
General: Well Developed and Well Nourished
Respiratory: Wheezes and Crackles
Cardiac: Regular Rhythm and S1/S2
GI: Soft, Nontender and Nondistended
Musculoskeletal: No Clubbing and No Cyanosis
Neuro: Awake, Alert and Oriented
--- NOTE | 2023-06-02 13:12 | CON.CAR ---
Addendum entered and electronically signed by Edgar Mcclelland MD 06/02/23 13:50:
I saw and examined the patient.
The MILL ROLL REWINDER's note was reviewed and I agree with the note.
82-year-old woman with history of dementia, CVA, seizure disorder, left bundle branch block who presented with shortness of breath and wheezing. CT was negative for pulmonary embolism, bilateral groundglass opacities. COVID was negative. proBNP
mildly elevated 16 100-18 100. Patient has been seen by pulmonary as well as hospitalist. Has been treated with steroids but also was given IV Lasix. Echocardiogram with normal left ventricular function. At this point patient's respiratory
status is improved. No longer wheezing and is breathing comfortably. Appears to have had some response to diuretic although it is unclear how much response she also had to use of steroids. Patient has received IV Lasix the last couple days.
-Transition Lasix to 20 mg a day. Will need to have follow-up basic metabolic profile at least 1 week after discharge
[facility]
-Can consider outpatient Lexiscan nuclear perfusion stress test after recovery. This can also be done as an outpatient.
Original Note:
Consultation
Consultation Request
Date/Time Consultation Requested: 06/02/23 12:30p
Date/Time Consultation Performed: 06/02/23 1p
Requesting Provider: Dr. Davis
Performing Provider: CARLTON Medina for Dr. Mcclelland
Reason for Consultation: CHF
Medical History
-
Chief Complaint: sob
History of Present Illness:
Mrs. Wallace is an 82 yo female with HTN, seizure disorder, CVA, TIA, vascular dementia, LBBB, HLD, hypothyroidism and OA, who presents to the ER with c/o SOB and wheezing. She had been coughing, also after eating/drinking, recently per family.
Admitted to hospitalist. We are consulted for diastolic CHF. In the past she was on Lasix for chronic LE edema, but this was stopped due to LIGIA and dehydration several months ago. She was given IV Lasix yesterday and today. She denies SOB at
rest and feels she is improved from admission. Echo 05/30/23 with normal biventricular size and function, EF 55%, mild to moderate MR, mild PHTN.
CT with new marked widespread bilateral pulmonary ground glass opacities both ventrally and peripherally, nonspecific, some of several differential diagnostic possibilities include Covid, pulmonary edema and other inflammatory etiologies with some
possible underlying mild chronic interstitial changes.
Past Medical History
Past Medical History: Other (as above)
Social History
Tobacco: Former Smoker (quit in 1995)
Alcohol: Occasional
Personal:
Living: With Family (daughter)
Family History
Family History: Reviewed & Not Pertinent
Allergies / Home Medications
Allergy/AdvReac Type Severity Reaction Status Date / Time
No Known Allergies Allergy Verified 04/27/23 11:49
Medication Instructions Recorded Confirmed Type
amlodipine 10 mg tablet 10 mg PO HS 01/09/17 05/29/23 History
aspirin 81 mg tablet,delayed 81 mg PO WEEKLY 01/09/17 05/29/23 History
release
carbamazepine 200 mg tablet 200 mg PO TID 01/09/17 05/29/23 History
levothyroxine 100 mcg tablet 100 mcg PO DAILY 01/09/17 05/29/23 History
metoprolol tartrate 25 mg tablet 37.5 mg PO BID 01/09/17 05/29/23 History
atorvastatin 40 mg tablet 40 mg PO HS 05/29/23 05/29/23 History
brimonidine 0.2 %-timolol 0.5 % 1 drp LEFT EYE BID 05/29/23 05/29/23 History
eye drops (Combigan)
brinzolamide 1 % eye 1 drp LEFT EYE BID 05/29/23 05/29/23 History
drops,suspension
divalproex 250 mg tablet,delayed 250 mg PO DAILY 05/29/23 05/29/23 History
release
divalproex 250 mg tablet,delayed 500 mg PO QPM 05/29/23 05/29/23 History
release
donepezil 10 mg tablet 10 mg PO HS 05/29/23 05/29/23 History
latanoprost 0.005 % eye drops 1 drp BOTH EYES HS 05/29/23 05/29/23 History
oulewogyaewv-fysavudb-dzxghl tablet 1 tab PO DAILY 05/29/23 05/29/23 History
potassium chloride 20 mEq 20 meq PO DAILY 05/29/23 05/29/23 History
tablet,extended release(part/cryst)
trazodone 50 mg tablet 50 mg PO HS 05/29/23 05/29/23 History
Review of Systems
-
History Source: Patient
All other systems: Negative unless noted
Physical Exam
Vital Signs
Temp Pulse Resp BP Pulse Ox
97.7 F 68 16 110/64 100
06/02/23 07:42 06/02/23 07:46 06/02/23 07:46 06/02/23 07:42 06/02/23 07:46
Lab Results
06/01/23 06:00
06/01/23 06:00
Troponin I 0.024 ng/ml 05/29/23 15:23
Lmn-A-Xwtlbfebwqk Pept 1830 pg/ml 06/01/23 06:00
Physical Exam
General: Well Developed
HEENT: Normocephalic
Respiratory: Clear (mild fleeting rales bibasilar)
Cardiac: S1/S2 and Regular Rhythm
Breast: Deferred by me
GI: Soft, Non Distended and Normal Bowel Sounds
Genito-urinary: No Costovertebral Tender
Skin: Warm and Dry
Neuro: AO x 3
Hematologic/Lymphatic: No Lymphadenopathy
Psych: Calm
Impression / Plan
-
CHF - acute on chronic.
- EF 55% on echo.
- agree with IV Lasix, would switch to PO tomorrow.
- monitor renal function closely.
- will have case management check the cost of SGLT2 inhibitors.
LBBB - chronic, stable.
HTN - stable.
- held outpatient Amlodipine.
- continue Lopressor.
Dementia - chronic, stable.
Seizures - stable on meds, continue.
Data Reviewed
-
CT Scan: Report Reviewed by me (chest: new marked widespread bilateral pulmonary ground glass opacities both ventrally and peripherally, nonspecific. Some of several differential diagnostic possibilities include Covid, pulmonary edema and other
inflammatory etiologies. Some possible underlying mild chronic interstitial changes.)
Medical Tests (Nuc Med, Echo etc): Report Reviewed by me (Echo 05/30/23 with normal biventricular size and function, EF 55%, mild to moderate MR, mild PHTN.)
Labs: Labs Reviewed by me
Old Records: Reviewed
--- NOTE | 2023-06-02 14:36 | W.PN.PUL3 ---
Today's Communication / Plan
-
D/c CS
prn DNs
Diuresis
Dispo
Assessment
-
Patient is a 82 year old F with past history of CVA, vascular dementia, HTN/HLD, Seizures, presenting to ER for subacute onset of SOB and wheezing over the past couple weeks. She also reports concern for aspiration, notes coughing with
solid/liquid intake. She has history of chronic leg swelling but was taken off lasix few months prior due to worsening kidney function.
In ER, she was noted to have CTA with ground glass changes, proBNP 1610. Given Duoneb treatment and IV Solumedrol 40mg IV Q8h.
AE of HFpEF
Pulmonary edema
Suspect underlying COPD
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
Former smoker
HTN
CVA/TIAs
Vascular dementia
Osteoporosis
History of VTE
Hepatitis
Seizures
Hypothyroidism
Plan
Continue supplemental O2 and wean as tolerated
POx 96% on RA
She is not on home O2
No known history of lung disease is noted --
Was a former smoker, 1/2 PPD for 40 years, quit 30 years ago.
Never diagnosed with asthma or COPD, denies family history of lung disease.
Never had a PFT.
Suspect patient has underlying AE HFpEF given history/imaging with intralobular septal thickening and patchy GGO
CXR obtained indicating pulmonary edema, trace LE swelling noted
Other imaging reviewed
ECHO results reviewed--normal function
proBNP 1610
Rule out infectious causes, procal negative x1
Continue lasix, Cards adjusted to oral dosing
Started on IV steroids, but currently not wheezing
D/c MP
D/c q6h DNs, keep prn only
Will need outpatient pulmonary evaluation in our office for PFTs and 6MWT
Smoking history noted--certainly at risk for COPD
Quit 30 years ago, would not be a candidate for lung cancer screening
Disposition
Diagnostic Data
CXR 05/29/23- IMPRESSION: Chronic lung changes. Increased interstitial fibrosis and scarring when compared to the previous exam. No focal airspace process. Density in the right lateral lung base most consistent with a previous healed right rib
fracture. Please correlate with follow-up chest CT.
CT chest 05/29/23- IMPRESSION: No evidence of central pulmonary embolism. New marked widespread bilateral pulmonary groundglass opacities both ventrally and peripherally, nonspecific. Some of several differential diagnostic possibilities include
Covid, pulmonary edema and other inflammatory etiologies. Some possible underlying mild chronic interstitial changes. Multiple thoracic vertebral compression fractures again seen, likely chronic.
07/10/20- IMPRESSION:
1. No evidence of pulmonary embolism or thoracic aortic dissection.
2. Acute fractures of the right anterior third through fifth ribs in the mid clavicular line, without associated pneumothorax or pleural effusion. Old ninth posterior rib fracture.
3. Mild bibasilar subsegmental atelectasis, otherwise clear lungs.
4. Multiple compression fractures within the thoracolumbar spine, likely chronic. Please correlate for symptoms of acute fractures.
ECHO 05/30/23- �Normal biventricular size and systolic function without regional wall motion�abnormality.�Mild to moderate mitral regurgitation.�Mild pulmonary hypertension.�Compared to previous echo 01/10/2017, the degree of mitral regurgitation
has�improved on today's study.� Otherwise the findings are similar.�
Subjective Data
-
Date of Service:
Date of Service: June 02, 2023
Chief Complaint: Pulmonary Follow Up
Subjective:
No major events reported
On RA, comfortable
Denies major complaints
Review of Systems
General: Fever (n), Sweats (n), Chills (n) and Satisfactory Appetite
Cardiopulmonary: Dyspnea (n), Cough, Sputum Production (n), Wheezing (n) and Chest Pain (n)
GI: Abdominal Pain (n), Nausea (n) and Vomiting (n)
Neuro: Weakness
Objective Data
Data Reviewed
Vital Signs / I&O / Oxygen:
Vital Signs
Temp Pulse Resp BP Pulse Ox
97.7 F 72 16 110/64 96
06/02/23 07:42 06/02/23 13:49 06/02/23 13:49 06/02/23 07:42 06/02/23 13:49
Intake and Output
06/01/23 06/02/23 06/03/23
06:59 06:59 06:59
Intake Total 600 / 600 1020 / 1020
Balance 600 / 600 1020 / 1020
SaO2 96
Nasal Cannula flow liters per 1
minute
Physical Exam
General: Comfortable and Chills (negative)
HEENT: Normocephalic, Anicteric, Moist Mucous Membranes and Other (no tracheal stridor)
Cardiovascular: S1-S2, Regular Rhythm and Peripheral Edema (trace SAMSON)
Respiratory: Wheeze (occasionally heard due to forced expiration), Crackles (bibasilar (right base and mid lung b/l)), Rhonchi (negative), Accessory Resp Muscle Use (neg) and Stridor (n)
GI: Soft, Non Distended, Non Tender and Normal Bowel Sounds
Neurology: AO x 3
Skin: Warm and Dry
Labs/Micro/Reports
Lab Data
06/01/23 06:00
06/01/23 06:00
[2023-06-02 16:19] VITALS: BP 117/69
[2023-06-02] MEDS: DEPAKOTE (12 HR RELEASE) 500 MG PO (17:19)
[2023-06-02] MEDS: LOVENOX 40 MG SC (17:19)
[2023-06-02] MEDS: SOLU-MEDROL PF 5 MG IV (17:19)
[2023-06-02] MEDS: DESYREL 50 MG PO (21:49)
[2023-06-02] MEDS: ARICEPT 10 MG PO (21:49)
[2023-06-02] MEDS: LIPITOR 40 MG PO (21:49)
[2023-06-02] MEDS: XALATAN OPHTHALMIC SOLUTION 1 DROP BOTH EYES (21:50)
[2023-06-02 23:10] VITALS: BP 142/60
[2023-06-03] MEDS: SYNTHROID 100 MCG PO (05:21)
[2023-06-03 05:51] LABS: Blood Urea Nitrogen 40 mg/dl (7-17); Calcium 8.4 mg/dl (8.4-10.2); Carbon Dioxide 33 mmol/L (22-30); Chloride 97 mmol/L (98-107); Estimated Creatinine Clearance 34 ml/min; Glucose 96 mg/dl (70-99); Potassium 4.1 mmol/L (3.5-5.1); Sodium 137 mmol/L (135-145); eGFR 45.19
[2023-06-03 06:00] VITALS: BMI 22.2
[2023-06-03 07:00] VITALS: BP 100/56
[2023-06-03] MEDS: DEPAKOTE (12 HR RELEASE) 250 MG PO (08:53)
[2023-06-03] MEDS: ASPIR LOW (ENTERIC COATED) 81 MG PO (08:54)
[2023-06-03] MEDS: TEGRETOL 200 MG PO ×3 (08:54→21:22)
[2023-06-03] MEDS: MUCINEX 1200 MG PO ×2 (08:54→21:22)
[2023-06-03] MEDS: THERAGRAN 1 TABLET PO (08:55)
[2023-06-03] MEDS: COMBIGAN EYE DROPS 1 DROP LEFT EYE ×2 (08:56→21:23)
[2023-06-03] MEDS: AZOPT 1% OPHTHALMIC SUSPENSION 1 DROP LEFT EYE ×2 (08:56→21:23)
[2023-06-03] MEDS: LASIX IV (09:01)
[2023-06-03] MEDS: LOPRESSOR PO (09:01)
[2023-06-03 12:05] VITALS: BP 145/55; PULSE 65; O2SAT 96
--- NOTE | 2023-06-03 13:49 | CM ---
Patient seen at bedside. CM called to patient daughter about restarting the aides, and [facility]. Patient has [facility] 9am-5pm, 10am-8am, Patient daughter and family members are her aides. Patient also has [facility]
physical therapy [phone], . Patient daughter email is [email or web address], CM will email IMM to patient daughter. All questions answered. CM will continue to follow for discharge planning needs.
Plan; home with aides/[facility].
--- NOTE | 2023-06-03 14:07 | W.PN.HOSP.TC ---
Addendum entered and electronically signed by Wallace Davis MD 06/03/23 16:14:
Patient seen and examined
Discussed with resident
Discussed with patient's daughter over the phone.
Impression/plan:
Acute hypoxic respiratory insufficiency
Acute CHF preserved EF
Acute pulmonary edema.
LIGIA while on diuresis
Good response to IV diuresis
Improved respiratory status well on room air currently.
Follow-up chest x-ray with resolution of pulmonary edema.
Blood pressure soft with LIGIA and creatinine is to 1.2.
Hold Lasix today.
Monitor blood pressure for another 24 hours
Follow BMP in a.m.
Increase activity.
Current strategy would be discharged on as needed Lasix daily as needed for dyspnea, edema, weight gain over 2 to 3 pounds.
Outpatient cardiology follow-up
Original Note:
Today's Communication/Plan
-
follow up chest Xray shows No Acute pulmonary process. Resolved pulmonary edema on Lasix.
Hold lasix. Reassess Cre.
Discharge Patient if cre level lower.
Assessment / Plan
Assessment / Plan
Impression:
Acute Hypoxic Respiratory Insufficiency
Pulmonary Edema
Conditions Prior to Admission
HTN
CVA/TIAs
Vascular dementia
Osteoporosis
History of VTE
Hepatitis
Seizures
Hypothyroidism
Glaucoma
Plan
Acute hypoxic respiratory insufficiency
Continue Supplemental O2
Wean off steroids
Continue Nebulizers
CXR 05/29 �Chronic lung changes. Increased interstitial fibrosis and scarring when compared to the previous exam. No focal airspace process. Density in the right lateral lung base most consistent with a previous healed right rib fracture
CT scan 05/29 No evidence of central pulmonary embolism. New marked widespread bilateral pulmonary groundglass opacities both ventrally and peripherally, nonspecific.
Echo Normal function
proBNP 1830
Continue Lasix
Transient hypotension with history of hypertension
Previously on Metoprolol and Amlodipine as outpatient
Continue Metoprolol
Hold Amlodipine
CRE 1.1 Baseline 0.7
Switch to JASPAL/ARB when cre stable
Hyperlipidemia
Continue Current regimen Atorvastatin
History of CVA/ Multiple TIA
Continue Aspirin and Statin.
Continue PT
Vascular dementia
Continue Donepezil and also trazodone at night for sleep
Hypothyroidism
continue Synthroid
History of Seizures
continue carbamazepine, Depakote
Last SZ was several years ago.
Glaucoma
continue Combigan eyedrops, brinzolamide, latanoprost
Ambulatory dysfunction with severe left knee osteoarthritis
Supportive care. Pt follows with Dr. Frye for nonoperative therapy, recently receiving injection.
Chronic osteoporotic compression fractures
CT imaging reviewed: There are degenerative changes in the thoracic spine as well as numerous partial vertebral compression fractures again seen including T6, T9, T11 and L1 sclerotic density within T12 is stable most likely a benign bone island.
Old right rib fractures are again seen.
No reproducible TTP
Continue PT and supportive care.
DVT prophylaxis- Lovenox
Full code
Anticipated Discharge: 24 - 48 hours
Subjective/Interval History
-
Date of Service: June 03, 2023
Objective Data
-
Labs:
Laboratory Results
06/03/23
05:09
Sodium 137
Potassium 4.1
Chloride 97 L
Carbon Dioxide 33 H
BUN 40 H
Creatinine 1.2 H
Glucose 96
Calcium 8.4
Vital Signs:
Vital Signs
Temp Pulse Resp BP Pulse Ox
97.6 F 65 17 94/59 96
06/03/23 07:00 06/03/23 09:01 06/03/23 07:00 06/03/23 09:01 06/03/23 07:00
I&O
06/02/23 06/03/23 06/04/23
06:59 06:59 06:59
Intake Total 1020 / 1020 1620 / 1620
Balance 1020 / 1020 1620 / 1620
Physical Exam
-
General: Well Developed and Well Nourished
HEENT: Normocephalic and Atraumatic
Respiratory: Clear to Auscultation
Cardiac: Regular Rhythm and S1/S2
GI: Soft, Nontender and Nondistended
Musculoskeletal: No Clubbing and No Cyanosis
Skin: Warm and Dry
Neuro: Awake and Alert
[2023-06-03 15:00] VITALS: BP 125/49
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
[2023-06-03] MEDS: DEPAKOTE (12 HR RELEASE) 500 MG PO (17:01)
[2023-06-03] MEDS: LOVENOX 40 MG SC (17:01)
[2023-06-03] MEDS: ARICEPT 10 MG PO (21:22)
[2023-06-03] MEDS: LOPRESSOR 37.5 MG PO (21:22)
[2023-06-03] MEDS: DESYREL 50 MG PO (21:22)
[2023-06-03] MEDS: LIPITOR 40 MG PO (21:22)
[2023-06-03] MEDS: XALATAN OPHTHALMIC SOLUTION 1 DROP BOTH EYES (21:23)
[2023-06-03 23:28] VITALS: BP 141/56
--- NOTE | 2023-06-04 05:41 | DOWNTIME ---
There was a [employer]ra[employer] Finisher Downtime on 06/04/2023 from 0111 to 06/04/2023 at 0405. Downtime documentation of patient's care, including medication administrations, has been reconciled in the electronic record per guidelines. Refer to the
patient's paper chart under the miscellaneous tab to see printed paper medication records and downtime forms.
[2023-06-04] MEDS: SYNTHROID 100 MCG PO (05:48)
[2023-06-04 06:00] VITALS: BMI 22.2
[2023-06-04 07:43] VITALS: BP 117/55
[2023-06-04] MEDS: MUCINEX 1200 MG PO (08:35)
[2023-06-04] MEDS: DEPAKOTE (12 HR RELEASE) 250 MG PO (08:36)
[2023-06-04] MEDS: LOPRESSOR 37.5 MG PO (08:36)
[2023-06-04] MEDS: ASPIR LOW (ENTERIC COATED) 81 MG PO (08:36)
[2023-06-04] MEDS: TEGRETOL 200 MG PO (08:37)
[2023-06-04] MEDS: THERAGRAN 1 TABLET PO (08:37)
[2023-06-04] MEDS: AZOPT 1% OPHTHALMIC SUSPENSION 1 DROP LEFT EYE (08:37)
[2023-06-04] MEDS: COMBIGAN EYE DROPS 1 DROP LEFT EYE (08:37)
--- NOTE | 2023-06-04 12:17 | CM ---
Patient daughter updated and requested referral to [facility] for VN as well as [facility] pt[facility] and aides from [facility]. CM sent referral via all scripts to [facility] for nursing and please fax the clinicals to [phone]< [facility] physical
therapy [phone]. Patient will get aides from [facility] through her family. CM will continue to follow for discharge planning needs.
Plan; home with VN/aides
[2023-06-04 12:28] LABS: Blood Urea Nitrogen 30 mg/dl (7-17); Calcium 8.1 mg/dl (8.4-10.2); Carbon Dioxide 32 mmol/L (22-30); Chloride 101 mmol/L (98-107); Estimated Creatinine Clearance 34 ml/min; Glucose 128 mg/dl (70-99); Sodium 136 mmol/L (135-145); eGFR 45.19
--- NOTE | 2023-06-04 13:03 | W.DS.TRANS ---
DC Summary - Document Analyst
-
Discharge Instructions:
Discharge Diagnosis/Procedures Acute hypoxic respiratory insufficiency
Acute CHF preserved EF
Acute pulmonary edema.
LIGIA while on diuresis
Diet 2 Gram Sodium
Instructions:
Stand-Alone Forms:
Changes to Home Medications: Yes
Discharge Medications:
DC Medications w/original date entered in [facility]!
amlodipine 10 mg tablet 10 mg PO HS Blood Pressure 01/09/17
aspirin 81 mg tablet,delayed release 81 mg PO WEEKLY Blood Clot Prevention/Tx 01/09/17
carbamazepine 200 mg tablet 200 mg PO TID Seizures 01/09/17
levothyroxine 100 mcg tablet 100 mcg PO DAILY AT 0700 Thyroid 01/09/17
metoprolol tartrate 25 mg tablet 37.5 mg PO BID Blood Pressure 01/09/17
atorvastatin 40 mg tablet 40 mg PO HS High Cholesterol 05/29/23
brimonidine 0.2 %-timolol 0.5 % eye drops (Combigan) 1 drp LEFT EYE BID Eye Condition 05/29/23
brinzolamide 1 % eye drops,suspension 1 drp LEFT EYE BID Eye Condition 05/29/23
divalproex 250 mg tablet,delayed release 250 mg PO DAILY Seizures 05/29/23
divalproex 250 mg tablet,delayed release 500 mg PO QPM Seizures 05/29/23
donepezil 10 mg tablet 10 mg PO HS dementia 05/29/23
latanoprost 0.005 % eye drops 1 drp BOTH EYES HS Eye Condition 05/29/23
epljenobandm-anliuvtj-baambc tablet 1 tab PO DAILY Supplement 05/29/23
potassium chloride 20 mEq tablet,extended release(part/cryst) 20 meq PO DAILY Electrolyte Repletion 05/29/23
trazodone 50 mg tablet 50 mg PO HS Sleep 05/29/23
furosemide 20 mg tablet 20 mg PO DAILY #30 tabs 06/04/23
Home Medication Changes
Lasix added prn for weight gain
Pending Results: No
Additional Pending Results:
b12 level
[2023-06-04 13:37] LABS: Vitamin B12 629 pg/ml (239-931)
[2023-06-04 15:57] VITALS: PULSE 68; O2SAT 98
== END 2023-06-04 16:10 | disposition home health service (06) | DRG 292 ==
LOC: 3 WEST ACU 19:45
PROVIDERS: Emergency Medicine; Hospitalist; Internal Medicine Critical Care Medicine; ADMITTING PHYSICIAN Internal Medicine; ATTENDING PHYSICIAN Internal Medicine; EMERGENCY PHYSICIAN Emergency Medicine; OTHER PHYSICIAN Internal Medicine; OTHER PHYSICIAN Internal Medicine Cardiovascular Disease
DX: I11.0 Hypertensive heart disease with heart failure (principal); N17.9 Acute kidney failure, unspecified; I50.30 Unspecified diastolic (congestive) heart failure; I44.7 Left bundle-branch block, unspecified; F01.50 Vascular dementia, unspecified severity, without behavioral disturbance, psychotic disturbance, mood disturbance, and anxiety; E03.9 Hypothyroidism, unspecified; H40.9 Unspecified glaucoma; E78.00 Pure hypercholesterolemia, unspecified; M41.9 Scoliosis, unspecified; R06.89 Other abnormalities of breathing; Z87.891 Personal history of nicotine dependence; Z11.52 Encounter for screening for COVID-19
CPT/HCPCS: 71045; 71046; 71275; 74230; 80048; 80053; 82607; 83735; 83880; 84100; 84145; 84484; 85025; 87502; 87811; 92610; 92611; 93005; 93306; 94640; 97116; 97162; 97530; 99285; Q9967

== ENCOUNTER 2023-07-08 19:27 | Inpatient (IN) | payer MEDICARE, OTHER, SELFPAY ==
[2023-07-08] VITALS (17 sets, daily range): BP systolic 79–117; BP diastolic 52–79; BMI 23.1; BMI 22.2
[2023-07-08 17:11] LABS: Glucose - Point of Care 84 mg/dl (70-99)
--- NOTE | 2023-07-08 17:27 | ED.GENMED ---
History of Present Illness
General
Chief Complaint: Breathing Problem
Source: patient, family and ambulance crew
Exam Limitations: none
Time Seen by Provider: 07/08/23 17:06
Travel History
Have you had any contact with someone who has COVID-19?: Unable to Answer
Do you have any symptoms of coronavirus? Fever > 100 degrees, chills, cough, shortness of breath, sore throat, loss of taste or smell, muscle aches, or headache?: Unable to Answer
History of Present Illness
History of Present Illness:
Progressive shortness of breath over 3 to 4 days. Responded to nebulizers at home. Worse today. Hypoxic on medic arrival.
Past History
Past History
ED Past Medical History: CVA, HTN, Hypercholesterolemia and Hypothyroidism
ED Past Surgical History: Gynecological (partial hysterectomy) and Orthopedic (right hip fracture)
Social History
Tobacco: Former smoker
Alcohol: Occasional
Personal:
Living: alone (with aids)
Review of Systems
Review of Systems
All Other Systems: Not applicable
Constitutional: Denies fever
Cardiac: Reports no symptoms
ABD/GI: Reports no symptoms
Phy Exam
Physical Exam
Physical Exam:
GENERAL: Moderate respiratory distress. On high flow oxygen
EYE: Orbits normal.
NECK: Supple, no significant adenopathy.
ENT: Pharynx without erythema
CARDIAC: Regular rate and rhythm without any obvious murmurs.
LUNGS: Moderate respiratory distress. Tachypnea. Bibasilar Rales with expiratory wheezing
ABDOMEN: Soft, without focal tenderness or distention
NEUROLOGICAL: Alert and oriented , grossly non-focal. At times trouble with her speech which apparently is old
SKIN: Warm and dry, no rash or lesion, no discoloration, skin intact.
MUSCULOSKELETAL: No edema,no deformity.Good color
PSYCH: Normal and appropriate interaction.
Scores
Heart Failure Risk
Heart Failure Risk Score: Yes
History of Stroke or TIA: No
History of intubation for respiratory distress: No
Heart rate on ED arrival >/= 110: No
SaO2 <90% on arrival on room air: Yes
HR >/=110 during 3min walk test (or too ill to perform test): Yes
ECG has acute ischemic changes: No
Urea >/=12mmol/L (BUN 33.6mg/dL): No
Serum CO2>/=35mmol/L: No
Troponin I or T elevated to AK Level (0.4mg/dL): No
NT-proBNP >/=5,000ng/L (5,000pg/ml): No
HF Risk Score: 3
Admission Status: HIGH RISK 15.9% Consider SNF treatment or admission to hospital
Course
Orders/Labs/Results
Orders:
Orders
07/08/23 17:06
CXR Port [CR Chest Portable - 1 View] Urgent
Comment:
Reason For Exam: sob
Reason Study Needs to be Portable: Unable to Transport
07/08/23 17:07
Electrocardiogram (*1) Stat
Reason for Study: Other
Other Reason for Exam: chest pain
Cardiac Monitoring- Treatment ONCE
EKG- Treatment ONCE
IV Insert/Care/Rem.- Treatment PRN
O2 Therapy [RESP] Stat
Titrate/Wean O2 to maintain O2 sat greater than (%): 94
Pulse Ox/cont/shift [RESP] Stat
Quantity: 1
07/08/23 17:15
Furosemide [Lasix] 20 mg IV NOW STA
07/08/23 17:25
Basic Metabolic Panel Urgent
COVID-19 Antigen Urgent
Source: Nasal Swab
Complete Blood Count/With Diff Urgent
Blood Culture Q30M
IRVING Source: Blood/Venous
Specimen Description:
Blood Culture Q30M
IRVING Source: Blood/Venous
Specimen Description:
Influenza A+B Rapid Molecular Urgent
IRVING Source: Nasal Swab
Specimen Description:
07/08/23 17:28
Dexamethasone Sod Phosphate [Decadron] 6 mg IV NOW STA
07/08/23 17:59
NT-proBNP Urgent
Troponin I Urgent
Abnormal Lab Results
07/08/23
17:25
RBC 3.50 L 10^6/uL
(4.20-5.40)
Hct 36.2 L %
(37.0-47.0)
MCV 103.4 H fL
(81.0-99.0)
MCH 34.9 H pg
(27.0-31.0)
Absolute Lymphs (auto) 3.9 H 10^3/uL
(1.2-3.4)
Absolute Monos (auto) 1.8 H 10^3/uL
(0.1-0.6)
Neutrophils % 39.8 L %
(42.2-75.2)
Monocytes % 17.4 H %
(1.7-9.3)
BUN 24 H mg/dl
(7-17)
Glucose 101 H mg/dl
(70-99)
07/08/23 17:25
07/08/23 17:25
Vital Signs
Initial and Last Documented VS:
Initial Vital Signs
Pulse Resp
88 20
07/08/23 17:09 07/08/23 17:09
Last Documented Vital Signs
Temp Pulse Resp BP Pulse Ox
98.0 F 90 18 117/79 98
07/08/23 17:13 07/08/23 18:31 07/08/23 18:31 07/08/23 18:31 07/08/23 18:30
*Radiology
Radiology exam reviewed: preliminary read by ED provider (Interstitial changes) and radiology read reviewed (Suspect interstitial pneumonia)
*Pulse Oximetry
Patient hypoxic: yes
*EKG
Interpreted by ED Provider?: Yes
Interpretation: abnormal
Comparison EKG: no changes
Heart Rate: 81
Rate: normal
Rhythm: sinus
Purcell: normal axis
Interval: normal interval
QRS Pattern: left bundle branch block
Ischemia: non-specific ST changes
*Field Artillery Operations Man Interpretation
Rate: normal
Interpretation: normal
Heart Rate: 80
Rhythm: sinus
*Critical Care Note
Total Time (30-74mins, 75-104mins- exclusive of procedures): Not Applicable
Update Note
Update Note:
Patient rechecked multiple times. Is remained stable. Interstitial pneumonia by x-ray. Doubt primary CHF although she does have a 2-1/2 kg weight gain. Discussed with hospitalist. Family updated.
ED Attending Note
-
Portions of this chart may have been created with voice recognition software.� Occasional wrong word or��sound alike� substitutions may have occurred due to the inherent limitations of voice recognition software.
Discharge Plan
Departure
Patient Disposition: Admit
Date of Disposition: 07/08/23
Time of Disposition: 18:13
Presentation/result/management discussed w/ accepting MD/DO: Hospitalist
Discharge Problem:
Respiratory distress, Interstitial pneumonitis, Possible mild CHF
Prescriptions:
No Action
aspirin 81 MG tablet,delayed release (DR/EC)
81 mg PO WEEKLY
levothyroxine 100 MCG tablet
100 mcg PO DAILY AT 0700
carbamazepine 200 MG tablet
200 mg PO TID
amlodipine 10 MG tablet
10 mg PO HS
metoprolol tartrate 25 MG tablet
37.5 mg PO BID
latanoprost 0.005 % drops
1 drp BOTH EYES HS
divalproex 250 mg tablet,delayed release (DR/EC)
250 mg PO DAILY
divalproex 250 mg tablet,delayed release (DR/EC)
500 mg PO QPM
trazodone 50 mg tablet
50 mg PO HS
brinzolamide 1 % drops,suspension
1 drp LEFT EYE BID
donepezil 10 mg tablet
10 mg PO HS
potassium chloride 20 mEq tablet,ER particles/crystals
20 meq PO DAILY
nvoticjjauzt-caoznuis-cweyrd Tablet
1 tab PO DAILY
brimonidine-timolol [Combigan] 0.2-0.5 % drops
1 drp LEFT EYE BID
atorvastatin 40 MG tablet
40 mg PO HS
famotidine 40 mg Tablet
40 mg PO DAILY
furosemide 20 mg tablet
20 mg PO MOWEFR
Interventions
Interventions:
*Risk Screen - Suicide Last Done: 07/08/23 17:07
*General Assessment Last Done: 07/08/23 17:07
*Neglect/Abuse Screening Last Done: 07/08/23 17:07
*ED COVID-19 Vaccine History Last Done: 07/08/23 17:07
ED- Cardiac Assessment Last Done: 07/08/23 18:25
ED- Pulmonary Assessment Last Done: 07/08/23 18:25
[2023-07-08] MEDS: DECADRON 6 MG IV (17:39)
[2023-07-08 17:43] LABS: % Basophils 0.6 % (0-2); % Eosinophils 3.7 % (0-6); % Immature Granulocytes 0.4 % (0-0.5); % Lymphocytes 38.1 % (20.5-51.1); % Monocytes 17.4 % (1.7-9.3); % Neutrophils 39.8 % (42.2-75.2); Absolute Basophils 0.1 10^3/uL (0-0.2); Absolute Eosinophils 0.4 10^3/uL (0-0.7); Absolute Lymphocytes 3.9 10^3/uL (1.2-3.4); Absolute Monocytes 1.8 10^3/uL (0.1-0.6); Hematocrit 36.2 % (37.0-47.0); Hemoglobin 12.2 g/dL (12.0-16.0); Mean Corp Hgb Conc. 33.7 g/dL (33.0-37.0); Mean Corpuscular Hgb 34.9 pg (27.0-31.0); Mean Corpuscular Volume 103.4 fL (81.0-99.0); Mean Platelet Volume 10.1 fL (7.4-10.4); Nucleated Red Blood Cells % 0 %; Platelet Count 190 10^3/uL (130-400); Red Cell Dist. Width 12.4 % (11.5-14.5); White Blood Cell Count 10.1 10^3/uL (4.8-10.8)
[2023-07-08 17:58] LABS: Blood Urea Nitrogen 24 mg/dl (7-17); Calcium 8.8 mg/dl (8.4-10.2); Carbon Dioxide 27 mmol/L (22-30); Chloride 102 mmol/L (98-107); Glucose 101 mg/dl (70-99); Sodium 135 mmol/L (135-145); eGFR > 60.00
[2023-07-08 18:10] LABS: COVID-19 Antigen Negative (Negative)
[2023-07-08 18:34] LABS: NT-proBNP 1750 pg/ml; Troponin I 0.014 ng/ml
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
[2023-07-08] MEDS: VIBRAMYCIN 260 MG IV (19:44)
[2023-07-08 20:35] LABS: Procalcitonin < 0.05 ng/ml (0.0-0.25)
[2023-07-08] MEDS: STERILE WATER FOR INJECTION 10 ML IV (20:52)
[2023-07-08] MEDS: ROCEPHIN 1000 MG IV (20:53)
[2023-07-08] MEDS: ARICEPT 10 MG PO (23:05)
[2023-07-08] MEDS: LIPITOR 40 MG PO (23:05)
[2023-07-08] MEDS: DESYREL 50 MG PO (23:06)
[2023-07-08] MEDS: TEGRETOL 200 MG PO (23:06)
[2023-07-08] MEDS: AZOPT 1% OPHTHALMIC SUSPENSION LEFT EYE (23:48)
[2023-07-08] MEDS: COMBIGAN EYE DROPS LEFT EYE (23:48)
[2023-07-08] MEDS: XALATAN OPHTHALMIC SOLUTION BOTH EYES (23:49)
--- NOTE | 2023-07-08 23:49 | PTCARENOTE ---
Addendum entered by Alexandrea Ang 07/09/23 00:03:
This RN cannot verify accuracy of VS prior to arrival to IMU
Original Note:
Pt arrived to this unit via stretcher from ED. Pt was incontinent of urine upon arrival. This RN performed hygiene care and placed a clean purewick. Pt AAOx3, but exhibits expressive aphasia at times, which is noted to be pt's baseline. Pt can
usually find the right words if given enough time to respond. Denies pain, discomfort, SOB at this time. 98% on 2L sleeping.
[2023-07-09] VITALS (47 sets, daily range): BP systolic 63–163; BP diastolic 47–106; PULSE 72; O2SAT 97; BMI 22.3
[2023-07-09] MEDS: ProAmatine 10 MG PO (02:41)
[2023-07-09] MEDS: DECADRON 4 MG IV ×2 (02:41→10:15)
--- NOTE | 2023-07-09 03:48 | PTCARENOTE ---
Pt had several episodes of low BP while sleeping. Upon waking pt, BP increased spontaneously, but still under 90 systolic. MOLD FINISHER ordered 10mg midodrine PO. BP increased to 101 systolic following dose. BP alarmed low again at next assessment and this
RN was able to capture 85/56 MAP 66 upon waking pt. Pt appears drowsy, but otherwise denies symptoms. HR follows trend, low at times of deep sleep and higher when woken up. This RN will continue to closely monitor throughout remainder of shift. Call
stacy placed within reach. Bed alarm in place for pt safety.
--- NOTE | 2023-07-09 03:58 | DOWNTIME ---
There was a [employer] Client Reexaminer Downtime on 07/09/2023 from 0100 to 07/09/2023 at 0322. Downtime documentation of patient's care, including medication administrations, has been reconciled in the electronic record per guidelines. Refer to the
patient's paper chart under the miscellaneous tab to see printed paper medication records and downtime forms.
[2023-07-09] MEDS: SYNTHROID 100 MCG PO (05:26)
[2023-07-09 05:45] LABS: % Basophils 0.4 % (0-2); % Immature Granulocytes 0.3 % (0-0.5); % Lymphocytes 23.5 % (20.5-51.1); % Monocytes 7.9 % (1.7-9.3); % Neutrophils 67.9 % (42.2-75.2); Absolute Lymphocytes 1.6 10^3/uL (1.2-3.4); Absolute Monocytes 0.5 10^3/uL (0.1-0.6); Absolute Neutrophils 4.6 10^3/uL (1.4-6.5); Hematocrit 35.3 % (37.0-47.0); Hemoglobin 12.2 g/dL (12.0-16.0); Mean Corp Hgb Conc. 34.6 g/dL (33.0-37.0); Mean Corpuscular Hgb 34.7 pg (27.0-31.0); Mean Corpuscular Volume 100.3 fL (81.0-99.0); Mean Platelet Volume 9.9 fL (7.4-10.4); Nucleated Red Blood Cells % 0 %; Platelet Count 170 10^3/uL (130-400); Red Blood Cell Count 3.52 10^6/uL (4.20-5.40); Red Cell Dist. Width 12.2 % (11.5-14.5); White Blood Cell Count 6.8 10^3/uL (4.8-10.8)
--- NOTE | 2023-07-09 06:01 | W.PN.UPDATE ---
Update Note
Progress Note Update
during [employer] downtime RN reported soft BP 80s/40s map good @70. midorine ordered. Avoiding ivf as pt may have component of HF as well.
Once [facility] returned,upon review of previous admit it seemed pt bp was better on left arm. Asked Rn to check bp on left arm- bp improved 123/77
Will have bp check in left arm going forward.
[2023-07-09 06:05] LABS: ALT (SGPT) 24 U/L (0-35); AST (SGOT) 34 U/L (14-36); Albumin 3.5 g/dl (3.5-5.0); Alkaline Phosphatase 71 U/L (38-126); Blood Urea Nitrogen 19 mg/dl (7-17); Carbon Dioxide 21 mmol/L (22-30); Chloride 108 mmol/L (98-107); Estimated Creatinine Clearance 50 ml/min; Glucose 129 mg/dl (70-99); Potassium 4.9 mmol/L (3.5-5.1); Sodium 135 mmol/L (135-145); Total Bilirubin 0.4 mg/dl (0.2-1.3); Total Protein 6.2 g/dl (6.3-8.2); eGFR > 60.00
[2023-07-09] MEDS: VIBRAMYCIN 260 MG IV ×2 (08:19→20:03)
[2023-07-09] MEDS: PEPCID 20 MG PO (08:19)
[2023-07-09] MEDS: TEGRETOL 200 MG PO ×3 (08:19→22:50)
[2023-07-09] MEDS: THERAGRAN 1 TABLET PO (08:19)
[2023-07-09] MEDS: DEPAKOTE (12 HR RELEASE) 250 MG PO (08:19)
[2023-07-09] MEDS: COMBIGAN EYE DROPS 1 DROP LEFT EYE ×2 (08:20→20:06)
[2023-07-09] MEDS: AZOPT 1% OPHTHALMIC SUSPENSION 1 DROP LEFT EYE ×2 (08:20→20:06)
--- NOTE | 2023-07-09 09:11 | CON.PUL ---
Consultation
Consultation Request
Date/Time Consultation Requested: 07/09/23
Date/Time Consultation Performed: 07/09/23
Performing Provider: Renee
Reason for Consultation: SOB
Medical History
-
History of Present Illness:
Patient is a 83-year-old female with history of CHF, CVA, dementia, HTN presenting to ED from home complaining of increased shortness of breath over the past 3 to 4 days. It was reported that she was initially improving with use of nebulizer at
home, but developed worsening symptoms in past 24 hours [employer]ONECUT[employer] despite this. EMS reported she was hypoxic on their arrival, she was 98% on arrival to ER. Family notes that she generally does not need O2 at rest, but when sick or ill she may require
O2. She has a concentrator at home.
Patient with recent admission for exacerbation of heart failure with underlying COPD suspected. She was discharged 06/04/23 was recommended outpatient follow-up with pulm for PFTs and 6-minute walk test but had yet to get to her appt which is
scheduled for next week.
Former smoker, 1PPD for 40 years, quit in her 50s.
Initial CXR showing basilar interstitial pattern, proBNP 1750. Son notes she has gained about 2lbs in weight last few days. She does not follow a fluid restricted diet.
No fever/chills, sick contacts.
Past Medical History
Past Medical History: Other (see list below)
Social History
Tobacco: Former Smoker
Alcohol: None
Drug: None
Family History
Family History: Reviewed & Not Pertinent
Allergies / Home Medications
Allergies
Allergy/AdvReac Type Severity Reaction Status Date / Time
No Known Allergies Allergy Verified 04/27/23 11:49
Home Medications
�Medication �Instructions �Recorded �Confirmed �Last Taken �Type
amlodipine 10 mg tablet 10 mg PO HS Blood Pressure 01/09/17 07/08/23 05/28/23 History
aspirin 81 mg tablet,delayed 81 mg PO WEEKLY Blood Clot 01/09/17 07/08/23 05/28/23 History
release Prevention/Tx
carbamazepine 200 mg tablet 200 mg PO TID Seizures 01/09/17 07/08/23 05/29/23 History
levothyroxine 100 mcg tablet 100 mcg PO DAILY AT 0700 Thyroid 01/09/17 07/08/23 05/29/23 History
metoprolol tartrate 25 mg tablet 37.5 mg PO BID Blood Pressure 01/09/17 07/08/23 05/29/23 History
atorvastatin 40 mg tablet 40 mg PO HS High Cholesterol 05/29/23 07/08/23 05/28/23 History
brimonidine 0.2 %-timolol 0.5 % 1 drp LEFT EYE BID Eye Condition 05/29/23 07/08/23 05/29/23 History
eye drops (Combigan)
brinzolamide 1 % eye 1 drp LEFT EYE BID Eye Condition 05/29/23 07/08/23 05/29/23 History
drops,suspension
divalproex 250 mg tablet,delayed 250 mg PO DAILY Seizures 05/29/23 07/08/23 05/29/23 History
release
divalproex 250 mg tablet,delayed 500 mg PO QPM Seizures 05/29/23 07/08/23 05/28/23 History
release
donepezil 10 mg tablet 10 mg PO HS dementia 05/29/23 07/08/23 05/28/23 History
latanoprost 0.005 % eye drops 1 drp BOTH EYES HS Eye Condition 05/29/23 07/08/23 05/28/23 History
wsbflhplxlog-fwrdrvdp-mwfdtn tablet 1 tab PO DAILY Supplement 05/29/23 07/08/23 05/29/23 History
potassium chloride 20 mEq 20 meq PO DAILY Electrolyte 05/29/23 07/08/23 05/29/23 History
tablet,extended release(part/cryst) Repletion
trazodone 50 mg tablet 50 mg PO HS Sleep 05/29/23 07/08/23 05/28/23 History
famotidine 40 mg tablet 40 mg PO DAILY Gastrointestinal 07/08/23 07/08/23 Unknown History
Issue
furosemide 20 mg tablet 20 mg PO MOWEFR Fluid 07/08/23 07/08/23 Unknown History
Retention/Swelling
Review of Systems
-
History Source: Patient
All other systems: Negative unless noted
Vitals / Labs / Diagnostic Testing
Vital Signs
Temp Pulse Resp BP Pulse Ox
96.9 F L 59 15 142/57 98
07/09/23 07:39 07/09/23 07:00 07/09/23 07:00 07/09/23 07:00 07/09/23 07:00
Lab Data
07/09/23 05:23
07/09/23 05:23
Microbiology
07/08/23 17:25 Nasal Swab Influenza Types A & B ([facility]) - Final
Negative for Influenza A & B, NAAT
Negative results must be combined with clinical observations
and patient history.
Nucleic Acid Amplification test (NAAT)performed on the
[employer] platform.
Diagnostic Testing:
Physical Exam
-
HEENT: Normocephalic, Anicteric and Moist Mucous Membranes
Cardiovascular: S1/S2 and Regular Rhythm
Respiratory: Clear and Non-Labored Respirations
GI: Soft, Non Distended and Non Tender
Neurology: Awake, Alert, Oriented, AO x 3, No Motor Deficits and Other (somewhat confused)
Skin: Warm, Dry and Good Color
General: Comfortable and Other (NAD)
Assessment
-
Patient is a 83-year-old female with history of CHF, CVA, dementia, HTN presenting to ED from home complaining of increased shortness of breath over the past 3 to 4 days. It was reported that she was initially improving with use of nebulizer at
home, but developed worsening symptoms in past 24 hours [employer] despite this. EMS reported she was hypoxic on their arrival, she was 98% on arrival to ER. Initial CXR showing basilar interstitial pattern, proBNP 1750. Son notes she has gained about
2lbs in weight last few days. We are consulted for eval.
AE of HFpEF, mild
Acute hypoxic resp insufficiency
Pulmonary edema
Suspect underlying COPD
Progressive SOB
Weight gain
Abnormal CXR
Conditions present [employer]
Chronic HFpEF
Former smoker, 1PPD for 40 years, quit in her 50s
HTN
CVA/TIAs
Vascular dementia
Osteoporosis
History of VTE/DVT
Hepatitis
Seizures
Hypothyroidism
Glaucoma
Plan
Continue supplemental O2 and wean as tolerated
POx 97% on 2L NC
Family notes that she generally does not need O2 at rest, but when sick or ill she may require O2
She has a concentrator at home
Eventual home O2 eval
No known history of lung disease is noted -- suspect COPD, but no prior PFT available
Was a former smoker, 1 PPD for 40 years, quit 30 years ago.
Never diagnosed with asthma or COPD, denies family history of lung disease.
Never had a PFT.
Outpatient FU recommended, but patient was not able to make appt yet
Not on inhalers at home, just using as needed neb treatments
Suspect patient has underlying AE HFpEF given history/imaging with intralobular septal thickening and patchy GGO
CXR obtained indicating pulmonary edema, trace LE swelling noted
Family notes 2-3 lbs weight gain
She is not following a fluid restricted diet
ECHO results reviewed--normal function
proBNP 1750, prior 1610
Continue lasix, Cards consult
Rule out infectious causes, procal negative on this admission
I would stop abx and observe off
I see no indication for IV steroids, currently not wheezing
Can evaluate on an as needed basis
Will need outpatient pulmonary evaluation in our office for PFTs and 6MWT
Smoking history noted--certainly at risk for COPD
Quit 30 years ago, would not be a candidate for lung cancer screening
Reviewed with patient and LUISA at bedside
Disposition
Patient with recent admission for exacerbation of heart failure with underlying COPD suspected. She was discharged 06/04/23 was recommended outpatient follow-up with pulm for PFTs and 6-minute walk test but had yet to get to her appt which is
scheduled for next week.
Instructed to keep appt
We will follow
Diagnostic Data
CXR 07/08/23- Interstitial airway disease at both lung bases suggesting interstitial pneumonia. There are right-sided rib fractures. There is thoracic dextroscoliosis
CXR 05/29/23- IMPRESSION: Chronic lung changes. Increased interstitial fibrosis and scarring when compared to the previous exam. No focal airspace process. Density in the right lateral lung base most consistent with a previous healed right rib
fracture. Please correlate with follow-up chest CT.
CT chest 05/29/23- IMPRESSION: No evidence of central pulmonary embolism. New marked widespread bilateral pulmonary groundglass opacities both ventrally and peripherally, nonspecific. Some of several differential diagnostic possibilities include
Covid, pulmonary edema and other inflammatory etiologies. Some possible underlying mild chronic interstitial changes. Multiple thoracic vertebral compression fractures again seen, likely chronic.
07/10/20- IMPRESSION:
1. No evidence of pulmonary embolism or thoracic aortic dissection.
2. Acute fractures of the right anterior third through fifth ribs in the mid clavicular line, without associated pneumothorax or pleural effusion. Old ninth posterior rib fracture.
3. Mild bibasilar subsegmental atelectasis, otherwise clear lungs.
4. Multiple compression fractures within the thoracolumbar spine, likely chronic. Please correlate for symptoms of acute fractures.
ECHO 05/30/23- �Normal biventricular size and systolic function without regional wall motion�abnormality.�Mild to moderate mitral regurgitation.�Mild pulmonary hypertension.�Compared to previous echo 01/10/2017, the degree of mitral regurgitation
has�improved on today's study.� Otherwise the findings are similar.�
--- NOTE | 2023-07-09 12:58 | W.PN.HOSP.TC ---
Today's Communication/Plan
-
stop steroids
tsh w/ reflex free t4
troponin
echo
cont empiric abx for now
cont to hold lasix for today
Assessment / Plan
Assessment / Plan
Physical Exam
General: Comfortable and Other (aphasia, chronic, history of memory dementia)
HEENT: NormoCephalic, Anicteric, PERRLA, [place] Conjunctivae and Other (Chronic stuttering of voice with long pauses, history of memory dementia)
Respiratory: Rhonchi (Increased left lung base on inspiration, prolonged expiratory wheezing bilaterally)
Cardiac: S1/S2 and Regular Rhythm; No Murmur, Rub, Gallop or Peripheral Edema
Breast: Deferred by me
GI: Soft, Non Tender, Non Distended and Normal Bowel Sounds
Rectal: Deferred by Provider
Genito-urinary: Deferred by me
Musculoskeletal: No Clubbing, No Cyanosis and No Edema
Skin: Warm and Dry; No Rash
Neuro: Awake, Alert, Oriented (To name, place, some of history has baseline dementia-mild with Chronic stuttering of voice with long pauses, history of memory dementia), Nonfocal/grossly intact and Cranial Nerves Intact; No Slurred Speech, Facial
Droop or Tremors
Psych: Calm
#Hypotensive episode
#?Pneumonia
-responded well to fluids
-unclear source, possibly infectious v less likely cardiac/obstructive
-Doubt obstructive as HR not tachycardic although on BB, not hypoxic nor tachypneic;
-Cont empiric abx for now
-F/u Cultures
-CT Chest to further differentiate CXR findings
-Procal neg although with presentation, would still continue empiric therapy for now
-Acapella/Incentive rich
-F/u cultures
-F/u TSh w/ reflext ft4, Troponin
-Stop steroids, no wheezing
-appreciate pulm recs
-ECHO
#Chronic CHF preserved EF
I/O, daily weights, 64.9 kg prior 62.2 kg with BNP appears same
Hold Lasix due to severe hypotension
-BNP 1758 appears prior to baseline
-If hemodynamically stable - resume tomorrow
#? COPD
#Former smoker 1/2 pack a day for 40 years quit 30 years ago
Was to follow with pulmonary for PFTs and 6-minute walk test during May admission
-f/u outpatient
#Hypertension
-hold antihypertensives
#HLD
Continue atorvastatin
#History CVA/multiple TIAs
-Continue aspirin, statin
#Hx seizures
-Last seizure was reported several years ago
-Continue Tegretol, Depakote
#Vascular dementia /chronic stuttering of voice
Continue donepezil, trazodone at night for sleep
#Hypothyroidism
Continue Synthroid
#Glaucoma
Continue eyedrops
#Chronic ambulatory dysfunction with severe left knee OA
PT/OT consult
-Patient follows with Dr. Smart gets injections
#Chronic osteoporotic compression fractures T6, T9, T11 11 and L1 sclerotic density with an T12
#Old rib fractures
DVT prophylaxis
Subcu Lovenox
Full code
Total time spent on today's encounter was 50 minutes which included time spent in counseling the patient/family regarding diagnosis and treatment plan as listed above, goals of care, and symptom management. Case was discussed with nursing staff,
specialists, and care coordinators/case management. All labs and imaging personally reviewed by me. Remainder the time spent in detailed review of previous records, lab data, imaging, and other medical provider documentation.
Anticipated Discharge: > 48 hours
Subjective/Interval History
-
Date of Service: July 09, 2023
normotensive now. still with cough.
Objective Data
-
Labs:
Laboratory Results
07/09/23
05:23
WBC 6.8
Hgb 12.2
Hct 35.3 L
Plt Count 170
Sodium 135
Potassium 4.9
Chloride 108 H
Carbon Dioxide 21 L
BUN 19 H
Creatinine 0.8
Glucose 129 H
Calcium 9.0
Total Bilirubin 0.4
AST 34
ALT 24
Alkaline Phosphatase 71
Vital Signs:
Vital Signs
Temp Pulse Resp BP Pulse Ox
98.3 F 59 15 142/57 98
07/09/23 11:30 07/09/23 07:00 07/09/23 07:00 07/09/23 07:00 07/09/23 07:00
I&O
07/08/23 07/09/23 07/10/23
06:59 06:59 06:59
Output Total 1050 / 1050
Balance -1050 / -1050
Review of Systems
-
History Source: Patient
All other systems: Not reviewed unless documented
Physical Exam
-
General: Well Developed and Well Nourished
HEENT: Normocephalic and Atraumatic
Respiratory: Clear to Auscultation
Cardiac: Regular Rhythm and S1/S2
GI: Soft, Nontender and Nondistended
Musculoskeletal: No Clubbing and No Cyanosis
Skin: Warm and Dry
Neuro: Awake and Alert
Data Reviewed
-
Diagnostic Radiology: Image personally visualized and interpreted and Report Reviewed by me
Labs: Labs Reviewed by me
[2023-07-09] MEDS: LASIX 40 MG IV (14:42)
[2023-07-09] MEDS: DUONEB 3 ML INH ×2 (14:57→19:16)
--- NOTE | 2023-07-09 15:05 | RR ---
Rec'd call from CT following test, reporting that Pt had desatted to the 70's while waiting for her next test. Following desat on monitor in IMU - Pt had some problems on the floor with pulse ox probe reading properly, however nurse checked probe
several times and wave form had a good pleth. Pt returned to floor and SpO2 ~ 60's; Placed on 100% Non-rebreather and Rapid Response called. A Rapid Response was called on this patient, please see Rapid Response form.
[2023-07-09 15:13] LABS: B.E. -5.7 mmol/L; HCO3 19.4 mmol/L (21-28); O2 Saturation % 98.5 % (94-98); PCO2 36 mmHg (32-35); PO2 157 mmHg (83-108); pH 7.34 (7.35-7.45)
[2023-07-09 15:15] LABS: Hematocrit 40.2 % (37.0-47.0); Hemoglobin 13.7 g/dL (12.0-16.0); Mean Corp Hgb Conc. 34.1 g/dL (33.0-37.0); Mean Corpuscular Hgb 34.9 pg (27.0-31.0); Mean Corpuscular Volume 102.3 fL (81.0-99.0); Mean Platelet Volume 10.1 fL (7.4-10.4); Platelet Count 210 10^3/uL (130-400); Red Blood Cell Count 3.93 10^6/uL (4.20-5.40); Red Cell Dist. Width 12.1 % (11.5-14.5); White Blood Cell Count 10.2 10^3/uL (4.8-10.8)
[2023-07-09 15:23] LABS: INR 1.05; PT 13.7 Sec (11.4-14.6)
[2023-07-09 15:27] LABS: ALT (SGPT) 25 U/L (0-35); AST (SGOT) 34 U/L (14-36); Albumin 3.8 g/dl (3.5-5.0); Alkaline Phosphatase 89 U/L (38-126); Blood Urea Nitrogen 23 mg/dl (7-17); Carbon Dioxide 19 mmol/L (22-30); Chloride 105 mmol/L (98-107); Estimated Creatinine Clearance 40 ml/min; Glucose 132 mg/dl (70-99); Potassium 5.2 mmol/L (3.5-5.1); Sodium 134 mmol/L (135-145); Total Bilirubin 0.5 mg/dl (0.2-1.3); Total Protein 6.8 g/dl (6.3-8.2)
[2023-07-09 15:28] LABS: Lactic Acid 3.6 mmol/L (0.7-2.0)
[2023-07-09 15:39] LABS: Troponin I 0.014 ng/ml
--- NOTE | 2023-07-09 16:40 | CM ---
Addendum entered by Eusebia Bates RN 07/09/23 16:56:
[facility] Request for SN/PT/OT and WHOLESALER.
Original Note:
Patient with Dx Hypotensive episode, Possible Pneumonia. Rapid response this afternoon - O2 desatted- placed on NRB. Receiving IV Abx, IV Lasix. PT & OT recommend HH.
Met with patient earlier today; she was able to speak a few sentences.
Spoke with patient's daughter Negra;
the patient resides with her daughter and son in law in a 2nd floor apartment with elevator.
She is assisted with ADLs such as showering with supervision, and is able to dress herself.
Daughter relays that patient is motivated to be as independent as possible.
The patient is ambulatory with her RW, and able to go out with her Dtr/LUISA.
The daughter is her paid caregiver through [employer] through the Waiver Program.
Negra is on disability for back problems and has some difficulty assisting her mother.
She has contacted the program to request another caregiver but none is available.
DME - RW, shower chair, w/c nebulizer
VN - current with [facility], prior recent VN with [facility]
SNF - [facility], [place]
PCP - Janette De Guzman
Pharmacy - [facility] , [place]
Daughter does not want her mother to go to SNF again for rehab and prefers she return home with VN.
The daughter would like [facility] VN again at discharge.
Referral placed for [facility].
Plan watch for home O2 needs.
Plan probable home with [facility] VN.
[2023-07-09] MEDS: LOVENOX 40 MG SC (17:11)
[2023-07-09] MEDS: DEPAKOTE (12 HR RELEASE) 500 MG PO (17:11)
[2023-07-09] MEDS: STERILE WATER FOR INJECTION 10 ML IV (20:02)
[2023-07-09] MEDS: ROCEPHIN 1000 MG IV (20:03)
[2023-07-09] MEDS: XALATAN OPHTHALMIC SOLUTION 1 DROP BOTH EYES (20:05)
[2023-07-09 20:32] LABS: TSH Reflex To Free T4 0.76 uIU/ml (0.47-4.68)
[2023-07-09 21:02] LABS: Troponin I 0.093 ng/ml
[2023-07-09] MEDS: ARICEPT 10 MG PO (22:50)
[2023-07-09] MEDS: DESYREL 50 MG PO (22:50)
[2023-07-09] MEDS: LIPITOR 40 MG PO (22:50)
[2023-07-10] VITALS (17 sets, daily range): BP systolic 64–154; BP diastolic 49–99; PULSE 89; O2SAT 94; BMI 22.4
[2023-07-10] MEDS: SYNTHROID 100 MCG PO (04:57)
[2023-07-10 05:40] LABS: % Basophils 0.5 % (0-2); % Immature Granulocytes 0.8 % (0-0.5); % Monocytes 18.1 % (1.7-9.3); % Neutrophils 49.6 % (42.2-75.2); Absolute Basophils 0.1 10^3/uL (0-0.2); Absolute Eosinophils 0.1 10^3/uL (0-0.7); Absolute Immature Granulocytes 0.1 10^3/uL (0-0.05); Absolute Lymphocytes 3.9 10^3/uL (1.2-3.4); Absolute Monocytes 2.4 10^3/uL (0.1-0.6); Absolute Neutrophils 6.5 10^3/uL (1.4-6.5); Hematocrit 31.9 % (37.0-47.0); Mean Corp Hgb Conc. 34.5 g/dL (33.0-37.0); Mean Corpuscular Hgb 35.1 pg (27.0-31.0); Mean Corpuscular Volume 101.9 fL (81.0-99.0); Mean Platelet Volume 9.9 fL (7.4-10.4); Nucleated Red Blood Cells % 0 %; Platelet Count 188 10^3/uL (130-400); Red Blood Cell Count 3.13 10^6/uL (4.20-5.40); Red Cell Dist. Width 12.4 % (11.5-14.5)
[2023-07-10 05:45] LABS: ALT (SGPT) 20 U/L (0-35); AST (SGOT) 27 U/L (14-36); Alkaline Phosphatase 84 U/L (38-126); Blood Urea Nitrogen 41 mg/dl (7-17); Calcium 8.4 mg/dl (8.4-10.2); Carbon Dioxide 26 mmol/L (22-30); Chloride 104 mmol/L (98-107); Estimated Creatinine Clearance 36 ml/min; Glucose 100 mg/dl (70-99); Potassium 4.2 mmol/L (3.5-5.1); Sodium 135 mmol/L (135-145); Total Bilirubin 0.3 mg/dl (0.2-1.3); Total Protein 5.4 g/dl (6.3-8.2); eGFR 49.86
[2023-07-10] MEDS: DUONEB 3 ML INH ×4 (07:43→19:26)
--- NOTE | 2023-07-10 08:09 | CON.CAR ---
Addendum entered and electronically signed by Edgar Mcclelland MD 07/10/23 10:34:
I saw and examined the patient.
The [employer] ACCOUNT EXECUTIVE's note was reviewed and I agree with the note.
83 y/o female with hypertension, seizure disorder, CVA, vascular dementia,
PAD,LBBB, dyslipidemia, HFpEF, suspected COPD, for SOB and cough and is being treated for suspected PNA with ABX. . Minimal elevation in troponin,non-ischemic myocardial injury in setting of acute illness. No symptoms to suggest angina.. Echo
with normal left ventricular function. No additional cardiac testing required at this time. Continue to monitor response to diuretic given for suspected acute on chronic HFpEF. Monitor renal function
Original Note:
Consultation
Consultation Request
Date/Time Consultation Requested: 07/09/232144
Date/Time Consultation Performed: 07/10/23 0800
Requesting Provider: Myriam Damon
Performing Provider: Britt VINCENT for Dr. Mcclelland
Reason for Consultation: abnormal troponin
Medical History
-
Chief Complaint: cough and SOB
History of Present Illness:
83 y/o female with hypertension, seizure disorder, CVA, TIA, vascular dementia, LBBB, dyslipidemia, HFpEF, suspected COPD, and hypothyroidism who is here for SOB and cough. She was treated for suspected PNA with ABX. She also received steroids and
breathing treatments, with suspected COPD. Finally, she is being diuresed for suspected tsaoc-sc-wqekfuj HFpEF. We are consulted since troponin was noted to be abnormal. She denies any CP.
Past Medical History
Past Medical History: CHF, COPD (suspected), CVA, HTN, Hypothyroidism, Seizures and Other (LBBB)
Social History
Tobacco: Former Smoker
Family History
Family History: Reviewed & Not Pertinent
Allergies / Home Medications
Allergy/AdvReac Type Severity Reaction Status Date / Time
No Known Allergies Allergy Verified 04/27/23 11:49
�Medication �Instructions �Recorded �Confirmed �Type
amlodipine 10 mg tablet 10 mg PO HS Blood Pressure 01/09/17 07/08/23 History
aspirin 81 mg tablet,delayed 81 mg PO WEEKLY Blood Clot 01/09/17 07/08/23 History
release Prevention/Tx
carbamazepine 200 mg tablet 200 mg PO TID Seizures 01/09/17 07/08/23 History
levothyroxine 100 mcg tablet 100 mcg PO DAILY AT 0700 Thyroid 01/09/17 07/08/23 History
metoprolol tartrate 25 mg tablet 37.5 mg PO BID Blood Pressure 01/09/17 07/08/23 History
atorvastatin 40 mg tablet 40 mg PO HS High Cholesterol 05/29/23 07/08/23 History
brimonidine 0.2 %-timolol 0.5 % 1 drp LEFT EYE BID Eye Condition 05/29/23 07/08/23 History
eye drops (Combigan)
brinzolamide 1 % eye 1 drp LEFT EYE BID Eye Condition 05/29/23 07/08/23 History
drops,suspension
divalproex 250 mg tablet,delayed 250 mg PO DAILY Seizures 05/29/23 07/08/23 History
release
divalproex 250 mg tablet,delayed 500 mg PO QPM Seizures 05/29/23 07/08/23 History
release
donepezil 10 mg tablet 10 mg PO HS dementia 05/29/23 07/08/23 History
latanoprost 0.005 % eye drops 1 drp BOTH EYES HS Eye Condition 05/29/23 07/08/23 History
sumgbqjwgwjh-wfadvejk-stjrki tablet 1 tab PO DAILY Supplement 05/29/23 07/08/23 History
potassium chloride 20 mEq 20 meq PO DAILY Electrolyte 05/29/23 07/08/23 History
tablet,extended release(part/cryst) Repletion
trazodone 50 mg tablet 50 mg PO HS Sleep 05/29/23 07/08/23 History
famotidine 40 mg tablet 40 mg PO DAILY Gastrointestinal 07/08/23 07/08/23 History
Issue
furosemide 20 mg tablet 20 mg PO MOWEFR Fluid 07/08/23 07/08/23 History
Retention/Swelling
Review of Systems
-
History Source: Patient and Other (and chart)
Respiratory: Cough and Trouble Breathing
Musculoskeletal: Edema
Physical Exam
Vital Signs
Temp Pulse Resp BP Pulse Ox
97.7 F 90 21 125/56 96
07/10/23 03:36 07/10/23 07:45 07/10/23 07:45 07/10/23 06:00 07/10/23 07:45
Lab Results
07/10/23 04:58
07/10/23 04:58
Troponin I 0.070 ng/ml H* 07/10/23 02:57
Rhv-F-Jupwvmlaeul Pept 1750 pg/ml 07/08/23 17:59
Physical Exam
General: Well Developed, Well Nourished and No Apparent Distress
HEENT: Normocephalic and Anicteric
Respiratory: Crackles and Rhonchi
Cardiac: Regular Rhythm
Musculoskeletal: Edema (+1 BLE edema)
Skin: Warm and Dry
Neuro: Awake and Alert
Psych: Calm
Impression / Plan
-
SOB/cough/hypoxia:
-improved
-likely multifactorial with PNA, suspected COPD (pulm consulted this admit), and muvtn-vb-fovdzig HFpEF exacerbation
Owtft-io-kdaffoq HFpEF:
-agree with IV lasix, which requires intensive monitoring
-recent echo as below, normal EF and mild to moderate MR
Abnormal troponin:
-up to 0.093
-acute non-ischemic myocardial injury in setting of acute illness (hypotension, hypoxia)
-Follow-up study for LVEF this admit showed normal biventricular size and systolic function without regional wall motion abnormality. Estimated LVEF 50-55%.
LBBB:
- chronic and stable
PAD:
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
-on ASA, statin
-check arm and leg BP's and document
Data Reviewed
-
EKG: Tracing Personally Visualized and interpreted (NSR with LBBB)
Radiology: Report Reviewed by me (CXR: Interstitial airway disease at both lung bases suggesting interstitial pneumonia)
CT Scan: Report Reviewed by me (CT scan: Compared to CXR, significant improvement in lung inflation. Linear densities are present within the lingula and the left lower lobe, compatible with linear atelectasis and/or scarring. No evidence of focal
consolidation to suggest pneumonia. No evidence for pulmonary mass.Significant vascul)
Medical Tests (Nuc Med, Echo etc): Report Reviewed by me (Echo 07/09/23: Follow up study for LVEF. Technically limited study. Normal biventricular size and systolic function without regional wall motion abnormality. Estimated LVEF 50-55%.) and
Other (echo 05/30/23: Normal biventricular size and systolic function without regional wall motion abnormality. Mild to moderate mitral regurgitation. Mild pulmonary hypertension.)
Labs: Labs Reviewed by me
[2023-07-10] MEDS: COMBIGAN EYE DROPS 1 DROP LEFT EYE ×2 (08:11→19:42)
[2023-07-10] MEDS: AZOPT 1% OPHTHALMIC SUSPENSION 1 DROP LEFT EYE ×2 (08:11→19:42)
[2023-07-10] MEDS: DEPAKOTE (12 HR RELEASE) 250 MG PO (08:11)
[2023-07-10] MEDS: LASIX 20 MG IV (08:12)
[2023-07-10] MEDS: PEPCID 20 MG PO (08:13)
[2023-07-10] MEDS: TEGRETOL 200 MG PO ×3 (08:13→21:13)
[2023-07-10] MEDS: THERAGRAN 1 TABLET PO (08:13)
[2023-07-10] MEDS: VIBRAMYCIN 260 MG IV (08:14)
[2023-07-10 09:49] LABS: NT-proBNP 2830 pg/ml
--- NOTE | 2023-07-10 11:47 | PN.CDI ---
CDI
- -
CDI:
Physician Documentation Request
Admit Date: 07/08/23 19:27
Dear Doctor Tay,
Please review the following and provide your response in the progress notes.
Clinical Indicators:
The diagnosis of septic shock was documented on 07/07 H&P but is not consistently noted in subsequent documentation.
- IV abx Ceftriaxone, Vibramycin given
- H&P 'Septic shock 2/2 interstitial pneumonia/pneumonitis'
Please clarify the following:
____ - Septic shock was present on admission and is now resolved.
____ - Septic shock was present on admission and is still being monitored, evaluated or treated
____ - Septic shock was ruled out
____ - Septic shock is still a likely, suspected, probable diagnosis
____ - Other
Use of terms such as suspected, likely, concern for, or probable (associated with a specific diagnosis that is being evaluated, monitored, or treated as if it exists) are acceptable and can be coded in the inpatient setting, when documented at the
time of discharge.
Thank you,
Lilly Her RN
CDI Specialist
Please use your independent medical judgment in providing your response.
--- NOTE | 2023-07-10 11:55 | PN.CDI ---
CDI
- -
CDI:
Physician Documentation Request
Admit Date: 07/08/23 19:27
Dear Doctor Tay,
Please review the following and provide your response in the progress notes.
Clinical Indicators:
The diagnosis of septic shock was documented on 07/07 H&P but is not consistently noted in subsequent documentation.
- IV abx Ceftriaxone, Vibramycin given
- H&P 'Septic shock 2/2 interstitial pneumonia/pneumonitis'
- 07/08 PN 'Hypotensive episode...responded well to fluids'
Please clarify the following:
____ - Septic shock was present on admission and is now resolved.
____ - Septic shock was present on admission and is still being monitored, evaluated or treated
____ - Septic shock was ruled out
____ - Septic shock is still a likely, suspected, probable diagnosis
____ - Other
Use of terms such as suspected, likely, concern for, or probable (associated with a specific diagnosis that is being evaluated, monitored, or treated as if it exists) are acceptable and can be coded in the inpatient setting, when documented at the
time of discharge.
Thank you,
Lilly Her RN
CDI Specialist
Please use your independent medical judgment in providing your response.
--- NOTE | 2023-07-10 12:31 | W.PN.PUL3 ---
Today's Communication / Plan
-
Currently on room air, no new events
ECHO obtained, stable
Home O2 eval, PT/OT assessments
Outpatient pulmonary FU scheduled for next week, keep appt
Discharge planning per team
Assessment
-
Patient is a 83-year-old female with history of CHF, CVA, dementia, HTN presenting to ED from home complaining of increased shortness of breath over the past 3 to 4 days. It was reported that she was initially improving with use of nebulizer at
home, but developed worsening symptoms in past 24 hours FRUIT DUMPER despite this. EMS reported she was hypoxic on their arrival, she was 98% on arrival to ER. Initial CXR showing basilar interstitial pattern, proBNP 1750. Son notes she has gained about
2lbs in weight last few days. We are consulted for eval.
AE of HFpEF, mild
Acute hypoxic resp insufficiency
Pulmonary edema
Suspect underlying COPD
Progressive SOB
Weight gain
Abnormal CXR
Conditions present FRUIT DUMPER
Chronic HFpEF
Former smoker, 1PPD for 40 years, quit in her 50s
HTN
CVA/TIAs
Vascular dementia
Osteoporosis
History of VTE/DVT
Hepatitis
Seizures
Hypothyroidism
Glaucoma
Plan
Continue supplemental O2 and wean as tolerated
POx 97%on room air
Family notes that she generally does not need O2 at rest, but when sick or ill she may require O2
She has a concentrator at home
Eventual home O2 eval
Deconditioning is a factor
No known history of lung disease is noted -- suspect COPD, but no prior PFT available
Was a former smoker, 1 PPD for 40 years, quit 30 years ago.
Never diagnosed with asthma or COPD, denies family history of lung disease.
Never had a PFT.
Outpatient FU recommended, but patient was not able to make appt yet
Not on inhalers at home, just using as needed neb treatments
Suspect patient has underlying AE HFpEF given history/imaging with intralobular septal thickening and patchy GGO
CXR obtained indicating pulmonary edema, trace LE swelling noted
Family notes 2-3 lbs weight gain
She is not following a fluid restricted diet
ECHO results reviewed--normal function
proBNP 1750, prior 1610
Continue lasix, Cards consult
Rule out infectious causes-- procal negative on this admission
I would stop abx and observe off
I see no indication for IV steroids, currently not wheezing
Can evaluate on an as needed basis
Will need outpatient pulmonary evaluation in our office for PFTs and 6MWT
Smoking history noted--certainly at risk for COPD
Quit 30 years ago, would not be a candidate for lung cancer screening
Reviewed with patient and LUISA at bedside
Disposition
Patient with recent admission for exacerbation of heart failure with underlying COPD suspected.
She was discharged 06/04/23 was recommended outpatient follow-up with pulm for PFTs and 6-minute walk test but had yet to get to her appt which is scheduled for next week.
Instructed to keep appt
PT/OT
Discharge planning per team
Diagnostic Data
CXR 07/08/23- Interstitial airway disease at both lung bases suggesting interstitial pneumonia. There are right-sided rib fractures. There is thoracic dextroscoliosis
CXR 05/29/23- IMPRESSION: Chronic lung changes. Increased interstitial fibrosis and scarring when compared to the previous exam. No focal airspace process. Density in the right lateral lung base most consistent with a previous healed right rib
fracture. Please correlate with follow-up chest CT.
CT chest 05/29/23- IMPRESSION: No evidence of central pulmonary embolism. New marked widespread bilateral pulmonary groundglass opacities both ventrally and peripherally, nonspecific. Some of several differential diagnostic possibilities include
Covid, pulmonary edema and other inflammatory etiologies. Some possible underlying mild chronic interstitial changes. Multiple thoracic vertebral compression fractures again seen, likely chronic.
07/10/20- IMPRESSION:
1. No evidence of pulmonary embolism or thoracic aortic dissection.
2. Acute fractures of the right anterior third through fifth ribs in the mid clavicular line, without associated pneumothorax or pleural effusion. Old ninth posterior rib fracture.
3. Mild bibasilar subsegmental atelectasis, otherwise clear lungs.
4. Multiple compression fractures within the thoracolumbar spine, likely chronic. Please correlate for symptoms of acute fractures.
ECHO 07/09/23- Follow up study for LVEF. Technically limited study. Normal biventricular size and systolic function without regional wall motion abnormality. Estimated LVEF 50-55%. Compared to 05/30/23: no significant change.
ECHO 05/30/23- �Normal biventricular size and systolic function without regional wall motion�abnormality.�Mild to moderate mitral regurgitation.�Mild pulmonary hypertension.�Compared to previous echo 01/10/2017, the degree of mitral regurgitation
has�improved on today's study.� Otherwise the findings are similar.�
Subjective Data
-
Date of Service:
Date of Service: July 10, 2023
Chief Complaint: Pulmonary Follow Up
Subjective:
no acute events on, RN WOUND noted
patient now on RA, no new complaints
sitting in chair
Objective Data
Data Reviewed
Vital Signs / I&O / Oxygen:
Vital Signs
Temp Pulse Resp BP Pulse Ox
98.0 F 89 20 131/99 99
07/10/23 11:00 07/10/23 11:14 07/10/23 11:14 07/10/23 11:44 07/10/23 11:14
Intake and Output
07/09/23 07/10/23 07/11/23
06:59 06:59 06:59
Output Total 1050 / 1050 550 / 550 1050 / 1050
Balance -1050 / -1050 -550 / -550 -1050 / -1050
SaO2 99
Nasal Cannula flow liters per 1
minute
Physical Exam
General: Comfortable and Other (NAD, anxious/tremors noted, answering appropriately)
HEENT: Normocephalic, Anicteric and Moist Mucous Membranes
Cardiovascular: S1-S2, Regular Rhythm and Peripheral Edema (trace)
Respiratory: Clear (otherwise), Wheeze (slight wheeze on R) and Non-Labored Respirations
GI: Soft, Non Distended and Non Tender
Neurology: Awake, Alert, Oriented (to self and place, somewhat confused on time), Tremors and Other (at baseline forgetful)
Skin: Warm, Dry and Good Color
Labs/Micro/Reports
Lab Data
07/10/23 04:58
07/10/23 04:58
Laboratory Results
07/09/23 07/09/23
14:35 14:49
PT 13.7
INR 1.05
pH 7.34 L
pCO2 36 H
pO2 157 H
HCO3 19.4 L
O2 Delivery Level
Microbiology
07/08/23 17:25 Blood/Venous Blood Culture - Preliminary
No Growth in 24 hours- Final report to follow
07/08/23 17:25 Blood/Venous Blood Culture - Preliminary
No Growth in 24 hours- Final report to follow
07/08/23 17:25 Nasal Swab Influenza Types A & B (LAURA) - Final
Negative for Influenza A & B, NAAT
Negative results must be combined with clinical observations
and patient history.
Nucleic Acid Amplification test (NAAT)performed on the
[employer] platform.
--- NOTE | 2023-07-10 13:21 | W.PN.HOSP.TC ---
Today's Communication/Plan
-
f/u final cultures
switch to po lasix
Assessment / Plan
Assessment / Plan
Physical Exam
General: Comfortable and Other (aphasia, chronic, history of memory dementia)
HEENT: NormoCephalic, Anicteric, PERRLA, [place] Conjunctivae and Other (Chronic stuttering of voice with long pauses, history of memory dementia)
Respiratory: Rhonchi (Increased left lung base on inspiration, prolonged expiratory wheezing bilaterally)
Cardiac: S1/S2 and Regular Rhythm; No Murmur, Rub, Gallop or Peripheral Edema
Breast: Deferred by me
GI: Soft, Non Tender, Non Distended and Normal Bowel Sounds
Rectal: Deferred by Provider
Genito-urinary: Deferred by me
Musculoskeletal: No Clubbing, No Cyanosis and No Edema
Skin: Warm and Dry; No Rash
Neuro: Awake, Alert, Oriented (To name, place, some of history has baseline dementia-mild with Chronic stuttering of voice with long pauses, history of memory dementia), Nonfocal/grossly intact and Cranial Nerves Intact; No Slurred Speech, Facial
Droop or Tremors
Psych: Calm
#Hypotensive episode
-responded well to fluids - may be related to antihypertensives
-unclear source, possibly infectious v less likely cardiac/obstructive
-Doubt obstructive as HR not tachycardic although on BB, not hypoxic nor tachypneic;
-Cont empiric abx for now
-F/u Cultures
-CT Chest unremarkable for consolidation
-Procal neg although with presentation, would still continue empiric therapy for now
-Acapella/Incentive rich
-F/u TSh w - WNL
-Stop steroids, no wheezing
-appreciate pulm recs
-ECHO - EF 50-55%; Mild concentric LVH
#Acute on chronic CHF preserved EF
-responded well to 40mg iv lasix after hypoxic event 07/07; crackles were present during event
-Will anticipate dcing on lasix daily with close f/u with cardiology/pcp
I/O, daily weights
#? COPD
#Former smoker 1/2 pack a day for 40 years quit 30 years ago
Was to follow with pulmonary for PFTs and 6-minute walk test during May admission
-f/u outpatient
#Leucocytosis
-ctm
#Hypertension
-hold antihypertensives
#HLD
Continue atorvastatin
#History CVA/multiple TIAs
-Continue aspirin, statin
#Hx seizures
-Last seizure was reported several years ago
-Continue Tegretol, Depakote
#Vascular dementia /chronic stuttering of voice
Continue donepezil, trazodone at night for sleep
#Hypothyroidism
Continue Synthroid
#Glaucoma
Continue eyedrops
#Chronic ambulatory dysfunction with severe left knee OA
PT/OT consult
-Patient follows with Dr. Smart gets injections
#Chronic osteoporotic compression fractures T6, T9, T11 11 and L1 sclerotic density with an T12
#Old rib fractures
DVT prophylaxis
Subcu Lovenox
Full code
Total time spent on today's encounter was 52 minutes which included time spent in counseling the patient/family regarding diagnosis and treatment plan as listed above, goals of care, and symptom management. Case was discussed with nursing staff,
specialists, and care coordinators/case management. All labs and imaging personally reviewed by me. Remainder the time spent in detailed review of previous records, lab data, imaging, and other medical provider documentation.
Anticipated Discharge: Within 24 hours
Subjective/Interval History
-
Date of Service: July 10, 2023
went hypoxic to the 80s after CT angio yest, responded well to lasix
Objective Data
-
Labs:
Laboratory Results
07/10/23
04:58
WBC 13.0 H
Hgb 11.0 L
Hct 31.9 L
Plt Count 188
Sodium 135
Potassium 4.2
Chloride 104
Carbon Dioxide 26
BUN 41 H
Creatinine 1.1 H
Glucose 100 H
Calcium 8.4
Total Bilirubin 0.3
AST 27
ALT 20
Alkaline Phosphatase 84
Vital Signs:
Vital Signs
Temp Pulse Resp BP Pulse Ox
98.0 F 101 11 119/78 97
07/10/23 11:00 07/10/23 12:01 07/10/23 12:01 07/10/23 12:01 07/10/23 12:00
I&O
07/09/23 07/10/23 07/11/23
06:59 06:59 06:59
Intake Total 980 / 980
Output Total 1050 / 1050 550 / 550 1050 / 1050
Balance -1050 / -1050 -550 / -550 -70 / -70
Review of Systems
-
History Source: Patient
All other systems: Not reviewed unless documented
Data Reviewed
-
Diagnostic Radiology: Image personally visualized and interpreted and Report Reviewed by me
Labs: Labs Reviewed by me
--- NOTE | 2023-07-10 14:52 | PTOTSP ---
Dysphagia Evaluation
Patient presents with WFL-mild oral stage of swallowing and no signs of pharyngeal dysphagia. She had a recent video swallow study 05/30/2023 with mild oral stage and WFL pharyngeal stage of swallowing. No penetration or aspiration occurred.
Recommend:
1. Regular, thin liquids
2. Medications as best tolerated
3. Meal tray set up and assist with cutting foods as needed
4. General aspiration precautions
5. No further dysphagia tx warranted at the acute care level.
[2023-07-10] MEDS: LOVENOX 40 MG SC (17:12)
[2023-07-10] MEDS: DEPAKOTE (12 HR RELEASE) 500 MG PO (17:12)
--- NOTE | 2023-07-10 17:25 | PTCARENOTE ---
Pt remained stable this shift, continues on room air, returned to bed at 5 pm, dinner tray ordered but pt declined eating, stating 'I just don't feel like eating.' Daughter called for update again this afternoon. VSS -will continue to monitor.
[2023-07-10] MEDS: ROCEPHIN 1000 MG IV (19:34)
[2023-07-10] MEDS: VIBRAMYCIN 100 MG PO (19:34)
[2023-07-10] MEDS: STERILE WATER FOR INJECTION 10 ML IV (19:34)
[2023-07-10] MEDS: ARICEPT 10 MG PO (21:12)
[2023-07-10] MEDS: LIPITOR 40 MG PO (21:12)
[2023-07-10] MEDS: DESYREL 50 MG PO (21:12)
[2023-07-10] MEDS: XALATAN OPHTHALMIC SOLUTION 1 DROP BOTH EYES (21:13)
[2023-07-11] VITALS (12 sets, daily range): BP systolic 120–157; BP diastolic 46–116; PULSE 78; O2SAT 98; BMI 22.0
[2023-07-11 04:38] LABS: % Basophils 0.6 % (0-2); % Eosinophils 1.7 % (0-6); % Immature Granulocytes 0.7 % (0-0.5); % Lymphocytes 38.2 % (20.5-51.1); % Neutrophils 39.8 % (42.2-75.2); Absolute Basophils 0.1 10^3/uL (0-0.2); Absolute Eosinophils 0.2 10^3/uL (0-0.7); Absolute Immature Granulocytes 0.1 10^3/uL (0-0.05); Absolute Lymphocytes 3.8 10^3/uL (1.2-3.4); Absolute Monocytes 1.9 10^3/uL (0.1-0.6); Absolute Neutrophils 3.9 10^3/uL (1.4-6.5); Hematocrit 29.3 % (37.0-47.0); Hemoglobin 9.9 g/dL (12.0-16.0); Mean Corp Hgb Conc. 33.8 g/dL (33.0-37.0); Mean Corpuscular Hgb 35.1 pg (27.0-31.0); Mean Corpuscular Volume 103.9 fL (81.0-99.0); Mean Platelet Volume 9.9 fL (7.4-10.4); Nucleated Red Blood Cells % 0 %; Platelet Count 170 10^3/uL (130-400); Red Blood Cell Count 2.82 10^6/uL (4.20-5.40); Red Cell Dist. Width 12.6 % (11.5-14.5); White Blood Cell Count 9.9 10^3/uL (4.8-10.8)
[2023-07-11 05:03] LABS: ALT (SGPT) 18 U/L (0-35); AST (SGOT) 26 U/L (14-36); Albumin 2.8 g/dl (3.5-5.0); Alkaline Phosphatase 67 U/L (38-126); Blood Urea Nitrogen 40 mg/dl (7-17); Calcium 8.2 mg/dl (8.4-10.2); Carbon Dioxide 26 mmol/L (22-30); Chloride 104 mmol/L (98-107); Estimated Creatinine Clearance 40 ml/min; Glucose 90 mg/dl (70-99); Potassium 4.3 mmol/L (3.5-5.1); Sodium 138 mmol/L (135-145); Total Bilirubin 0.2 mg/dl (0.2-1.3); Total Protein 5.2 g/dl (6.3-8.2)
[2023-07-11] MEDS: SYNTHROID 100 MCG PO (06:08)
[2023-07-11] MEDS: DUONEB 3 ML INH ×4 (07:04→21:09)
--- NOTE | 2023-07-11 07:54 | PN.CDI ---
CDI
- -
CDI:
Physician Documentation Request
Admit Date: 07/08/23 19:27
Dear Doctor Tay,
Please review the following and provide your response in the progress notes.
Clinical Indicators:
- 07/08 Rapid response 'Pt had desatted to the 70's while waiting for her next test'
- 'Pt returned to floor and SpO2 ~ 60's; Placed on 100% Non-rebreather'
- 07/09 PN 'went hypoxic to the 80s after CT angio yest, responded well to lasix'
Clarify which of the following accurately represents the patient's respiratory status:
Acute hypoxic respiratory failure
Hypoxia only
Other
Additional information for Respiratory Failure:
Recognized criteria for Respiratory Failure (Source: [facility] Hospitalist Feb 2013)
ABGs: (1 or more) Symptoms Please indicate type if known
1. p)2 <60 or RA SPO2 <91% on RA 1. Tachypnea, SOB, dyspnea Hypoxic
2. pCO2 50 and pH <7.35 2. Use of accessory muscles Hypercapnic
3. pO2 decrease of pCO2 increase by 3. Pallor or cyanosis Hypoxic and Hypercapnic
10 mmHg from baseline if known 4. Anxiety or restlessness Unable to determine
5. Unable to speak in full sentences
Supplemental O2 of > 40% (5LPM) Intubation is not required
Use of terms such as suspected, likely, concern for, or probable (associated with a specific diagnosis that is being evaluated, monitored, or treated as if it exists) are acceptable and can be coded in the inpatient setting, when documented at the
time of discharge.
Thank you,
Lilly Her RN
CDI Specialist
Please use your independent medical judgment in providing your response.
--- NOTE | 2023-07-11 07:59 | PN.CDI ---
CDI
- -
CDI:
Physician Documentation Request
Admit Date: 07/08/23 19:27
Dear Doctor Tay,
Please review the following and provide your response in the progress notes.
Clinical Indicators:
The diagnosis of pneumonia was documented on 07/08 PN but is not consistently noted in subsequent documentation.
- 07/08 PN 'Hypotensive episode...?Pneumonia...unclear source, possibly infectious v less likely cardiac/obstructive'
- 07/07 CXR 'Interstitial airway disease at both lung bases suggesting interstitial pneumonia'
- 07/09 Pulmonary 'Rule out infectious causes-- procal negative on this admission...I would stop abx and observe off'
- IV abx Ceftriaxone and Doxycycline
-
Please clarify the following:
____ - Pneumonia was present on admission and is now resolved.
____ - Pneumonia was present on admission and is still being monitored, evaluated or treated
____ - Pneumonia was ruled out
____ - Pneumonia is still a likely, suspected, probable diagnosis
____ - Other
Use of terms such as suspected, likely, concern for, or probable (associated with a specific diagnosis that is being evaluated, monitored, or treated as if it exists) are acceptable and can be coded in the inpatient setting, when documented at the
time of discharge.
Thank you,
Lilly Her RN
CDI Specialist
Please use your independent medical judgment in providing your response.
[2023-07-11] MEDS: PEPCID 20 MG PO (09:30)
[2023-07-11] MEDS: DEPAKOTE (12 HR RELEASE) 250 MG PO (09:30)
[2023-07-11] MEDS: THERAGRAN 1 TABLET PO (09:30)
[2023-07-11] MEDS: TEGRETOL 200 MG PO ×3 (09:30→20:36)
[2023-07-11] MEDS: VIBRAMYCIN 100 MG PO ×2 (09:30→20:36)
[2023-07-11] MEDS: LASIX 20 MG PO (09:30)
[2023-07-11] MEDS: AZOPT 1% OPHTHALMIC SUSPENSION 1 DROP LEFT EYE ×2 (09:30→20:37)
[2023-07-11] MEDS: COMBIGAN EYE DROPS 1 DROP LEFT EYE ×2 (09:31→20:37)
--- NOTE | 2023-07-11 10:21 | W.HF.CON ---
Heart Failure
- LV Function
Left ventricular function study result: LV Ejection fraction >40%
Ejection Fraction Percentage: 50-55
- ARNI
Patient already on ARNI: No
Heart Failure ARNI Not Indicated: LV Ejection Fraction >/= 40%
- ACEI/ARB
Patient already on ACEI/ARB: No
Heart Failure ACEI/ARB Not Indicated: LV Ejection Fraction > 40%
- Beta Ruthann
Patient already on Evidence Based Beta Ruthann: No
Heart Failure Evidence Based Beta Ruthann Not Indicated: LV Ejection Fraction > 40%
- Mineralocorticord Receptor Antagonist
Patient already on MRA: No
Heart Failure MRA Not Indicated: LV Ejection Fraction > 40%
- SGLT-2 Inhibitor
Patient already on SGLT-2 Inhibitor: No
Heart Failure SGLT-2 Inhibitor Not Indicated: LV Ejection Fraction >40%
- NYHA CHF Classification
NYHA CHF Classification Level: Class III - Symptoms w/ min exertion, interferes w/ nml daily activity
- ACC/AHA Stage
ACC/AHA Stage: Stage C: Symptomatic Heart Failure
--- NOTE | 2023-07-11 10:39 | W.PN.CD ---
Today's Communication / Plan
-
oximetry stable on room air. Some exertional symptoms when she went to bathroom.
Now on oral diuretic. Monitor weights and edema
Patient remains on Doxycycline
Reviewed with hospitalists who is determining discharge plan
consider ambulatory pulse ox
Impression / Plan
-
SOB/cough/hypoxia:
-improved
-likely multifactorial with PNA, suspected COPD (pulm consulted this admit), and [id number] HFpEF exacerbation
[place]-mh-wstxvkh HFpEF:
-aInitially treated with IV lasix . converted to oral by hospitalists. Monitor on current regimen . Monitor weights. If increased weights or edema then addtional dose adjustment may be needed
-recent echo as below, normal EF and mild to moderate MR
Abnormal troponin:
-up to 0.093
-acute non-ischemic myocardial injury in setting of acute illness (hypotension, hypoxia)
-Follow-up study for LVEF this admit showed normal biventricular size and systolic function without regional wall motion abnormality. Estimated LVEF 50-55%.
LBBB:
- chronic and stable
PAD:
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
-on ASA, statin
-check arm and leg BP's and document
Physical Exam
Vital Signs/Labs
Vital Signs
Temp Pulse Resp BP Pulse Ox
97.5 F 96 14 147/84 92
07/11/23 07:17 07/11/23 09:30 07/11/23 08:00 07/11/23 09:30 07/11/23 08:00
07/10/23 07/11/23 07/12/23
06:59 06:59 06:59
Actual Weight 62.8 kg 61.7 kg
07/11/23 04:09
07/11/23 04:09
PT 13.7 Sec (11.4-14.6) 07/09/23 14:35
INR 1.05 07/09/23 14:35
07/08/23 07/08/23 07/10/23
17:25 17:59 02:57
Kqf-X-Ygqhmakoydg Pept Cancelled 1750 7600
LAB Results
07/08/23 07/08/23 07/09/23
17:25 17:59 14:35
Troponin I Cancelled 0.014 0.014
07/09/23 07/10/23 07/10/23
20:24 02:57 08:00
Troponin I 0.093 H* D 0.070 H* Cancelled
Physical Exam
Constitutional: No acute distress
Cardiovascular: Rhythm & rate is regular and Pedal edema is absent
Respiratory: Rhonchi Absent
GI: Soft and Non tender
Neuro/Psych: Alert and Oriented
Other: Other (trace ankle edema)
Data Reviewed
-
Date of Service: July 11, 2023
Echo: Report Reviewed by me
Medical Tests (PFT, Pathology etc): Report Reviewed by me
Labs: Labs Reviewed by me
--- NOTE | 2023-07-11 11:08 | PTCARENOTE ---
Spoke with patient's daughter on the phone this morning. approx 0740. She was asking about discharge and an update on her mother. All questions were answered and advised we would give her a call when we know more about discharge.
Patient's daughter then at the bedside at 0900, asking the same questions that were answered on the phone. She was asking when the physician would be by and RN stated that he would when he was able. Daughter then states 'so this is a waiting game,'
which I replied yes. She appeared surprised. She also reported no one has been talking to her or answering her questions and she has not spoken with any doctors since her mother has been hospitalized.
She also has concerns about her mother being discharged (shortness of breath and weakness.) I advised patient would be seen by PT but weakness is not a reason to keep her hospitalized. I answered questions about antibiotics and heart failure. I gave
her the educational heart failure booklet, which she reports she has never seen before. I answered all questions to my ability.
--- NOTE | 2023-07-11 12:23 | W.PN.PUL3 ---
Addendum entered and electronically signed by Ly Duran, DO 07/11/23 15:04:
Ambulated with PT, sats >90%, noted to be 96% on room air
No need for O2 at rest or with exertion
Original Note:
Today's Communication / Plan
-
Home O2 eval
Continue OOB/PT, ambulation
Lasix per cards
Outpatient pulmonary FU recommended
Discharge planning per team
Assessment
-
Patient is a 83-year-old female with history of CHF, CVA, dementia, HTN presenting to ED from home complaining of increased shortness of breath over the past 3 to 4 days. It was reported that she was initially improving with use of nebulizer at
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 EMS reported she was hypoxic on their arrival, she was 98% on arrival to ER. Initial CXR showing basilar interstitial pattern, proBNP 1750. Son notes she has gained about
2lbs in weight last few days. We are consulted for eval.
AE of HFpEF, mild
Acute hypoxic resp insufficiency
Pulmonary edema
Suspect underlying COPD
Progressive SOB
Weight gain
Abnormal CXR
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
Chronic HFpEF
Former smoker, 1PPD for 40 years, quit in her 50s
HTN
CVA/TIAs
Vascular dementia
Osteoporosis
History of VTE/DVT
Hepatitis
Seizures
Hypothyroidism
Glaucoma
Plan
Continue supplemental O2 and wean as tolerated
POx 97%on room air
Family notes that she generally does not need O2 at rest, but when sick or ill she may require O2
She has a concentrator at home
Eventual home O2 eval
Deconditioning is a factor
No known history of lung disease is noted -- suspect COPD, but no prior PFT available
Was a former smoker, 1 PPD for 40 years, quit 30 years ago.
Never diagnosed with asthma or COPD, denies family history of lung disease.
Never had a PFT.
Outpatient FU recommended, but patient was not able to make appt yet
Not on inhalers at home, just using as needed neb treatments
Suspect patient has underlying AE HFpEF given history/imaging with intralobular septal thickening and patchy GGO
CXR obtained indicating pulmonary edema, trace LE swelling noted
Family notes 2-3 lbs weight gain
She is not following a fluid restricted diet
ECHO results reviewed--normal function
proBNP 1750, prior 1610
Continue lasix, Cards consult
Rule out infectious causes-- procal negative on this admission
I would stop abx and observe off
I see no indication for IV steroids, currently not wheezing
Can evaluate on an as needed basis
Will need outpatient pulmonary evaluation in our office for PFTs and 6MWT
Smoking history noted--certainly at risk for COPD
Quit 30 years ago, would not be a candidate for lung cancer screening
Reviewed with patient and LUISA at bedside
Disposition
Patient with recent admission for exacerbation of heart failure with underlying COPD suspected.
She was discharged 06/04/23 was recommended outpatient follow-up with pulm for PFTs and 6-minute walk test but had yet to get to her appt which is scheduled for next week.
Instructed to keep appt
PT/OT
Discharge planning per team
Diagnostic Data
CXR 07/08/23- Interstitial airway disease at both lung bases suggesting interstitial pneumonia. There are right-sided rib fractures. There is thoracic dextroscoliosis
CXR 05/29/23- IMPRESSION: Chronic lung changes. Increased interstitial fibrosis and scarring when compared to the previous exam. No focal airspace process. Density in the right lateral lung base most consistent with a previous healed right rib
fracture. Please correlate with follow-up chest CT.
CT chest 05/29/23- IMPRESSION: No evidence of central pulmonary embolism. New marked widespread bilateral pulmonary groundglass opacities both ventrally and peripherally, nonspecific. Some of several differential diagnostic possibilities include
Covid, pulmonary edema and other inflammatory etiologies. Some possible underlying mild chronic interstitial changes. Multiple thoracic vertebral compression fractures again seen, likely chronic.
07/10/20- IMPRESSION:
1. No evidence of pulmonary embolism or thoracic aortic dissection.
2. Acute fractures of the right anterior third through fifth ribs in the mid clavicular line, without associated pneumothorax or pleural effusion. Old ninth posterior rib fracture.
3. Mild bibasilar subsegmental atelectasis, otherwise clear lungs.
4. Multiple compression fractures within the thoracolumbar spine, likely chronic. Please correlate for symptoms of acute fractures.
ECHO 07/09/23- Follow up study for LVEF. Technically limited study. Normal biventricular size and systolic function without regional wall motion abnormality. Estimated LVEF 50-55%. Compared to 05/30/23: no significant change.
ECHO 05/30/23- �Normal biventricular size and systolic function without regional wall motion�abnormality.�Mild to moderate mitral regurgitation.�Mild pulmonary hypertension.�Compared to previous echo 01/10/2017, the degree of mitral regurgitation
has�improved on today's study.� Otherwise the findings are similar.�
Subjective Data
-
Date of Service:
Date of Service: July 11, 2023
Chief Complaint: Pulmonary Follow Up
Subjective:
no acute events on, stable on room air
able to ambulate more, less sob
no new complaints
Objective Data
Data Reviewed
Vital Signs / I&O / Oxygen:
Vital Signs
Temp Pulse Resp BP Pulse Ox
98.2 F 79 20 157/116 94
07/11/23 11:16 07/11/23 11:20 07/11/23 11:20 07/11/23 10:00 07/11/23 11:52
Intake and Output
07/10/23 07/11/23 07/12/23
06:59 06:59 06:59
Intake Total 980 / 980
Output Total 550 / 550 1050 / 1050 300 / 300
Balance -550 / -550 -70 / -70 -300 / -300
SaO2 94
Nasal Cannula flow liters per 1
minute
Physical Exam
General: Comfortable and Other (NAD, anxious/tremors noted, answering appropriately)
HEENT: Normocephalic, Anicteric and Moist Mucous Membranes
Cardiovascular: S1-S2, Regular Rhythm and Peripheral Edema (trace)
Respiratory: Clear (otherwise), Wheeze (slight wheeze on R) and Non-Labored Respirations
GI: Soft, Non Distended and Non Tender
Neurology: Awake, Alert, Oriented (to self and place, somewhat confused on time), Tremors and Other (at baseline forgetful)
Skin: Warm, Dry and Good Color
Labs/Micro/Reports
Lab Data
07/11/23 04:09
07/11/23 04:09
Microbiology
07/08/23 17:25 Blood/Venous Blood Culture - Preliminary
No Growth in 48 hours- Final report to follow
07/08/23 17:25 Blood/Venous Blood Culture - Preliminary
No Growth in 48 hours- Final report to follow
07/08/23 17:25 Nasal Swab Influenza Types A & B (LAURA) - Final
Negative for Influenza A & B, NAAT
Negative results must be combined with clinical observations
and patient history.
Nucleic Acid Amplification test (NAAT)performed on the
[employer] platform.
--- NOTE | 2023-07-11 14:55 | W.PN.HOSP.TC ---
Today's Communication/Plan
-
IV lasix
ambu pulse ox
Pt/OT
LE dopplers
Assessment / Plan
Assessment / Plan
Physical Exam
General: Comfortable and Other (aphasia, chronic, history of memory dementia)
HEENT: NormoCephalic, Anicteric, PERRLA, [place] Conjunctivae and Other (Chronic stuttering of voice with long pauses, history of memory dementia)
Respiratory: Rhonchi (Increased left lung base on inspiration, prolonged expiratory wheezing bilaterally)
Cardiac: S1/S2 and Regular Rhythm; No Murmur, Rub, Gallop or Peripheral Edema
Breast: Deferred by me
GI: Soft, Non Tender, Non Distended and Normal Bowel Sounds
Rectal: Deferred by Provider
Genito-urinary: Deferred by me
Musculoskeletal: No Clubbing, No Cyanosis and No Edema
Skin: Warm and Dry; No Rash
Neuro: Awake, Alert, Oriented (To name, place, some of history has baseline dementia-mild with Chronic stuttering of voice with long pauses, history of memory dementia), Nonfocal/grossly intact and Cranial Nerves Intact; No Slurred Speech, Facial
Droop or Tremors
Psych: Calm
#Hypotensive episode
-responded well to fluids - may be related to antihypertensives
-unclear source, possibly infectious v less likely cardiac/obstructive
-Doubt obstructive as HR not tachycardic although on BB, not hypoxic nor tachypneic at that time;
-Cont empiric abx for now - no clear source - since improvement with abx -will give 5 days abx
-F/u Cultures
-CT Chest unremarkable for consolidation
-Procal neg although with presentation, would still continue empiric therapy for now
-Acapella/Incentive rich
-F/u TSh w - WNL
-Stop steroids, no wheezing
-appreciate pulm recs
-ECHO - EF 50-55%; Mild concentric LVH
#Acute on Chronic Hypoxic Respiratory Failure
#Acute on chronic HFpEF
-responded well to 40mg iv lasix after hypoxic event 07/07; crackles were present during event
-Cont IV lasix x 1-2 days - Will anticipate dcing on lasix daily with close f/u with cardiology/pcp
I/O, daily weights
-LE dopplers
-Ambulatory Pulse Ox
-Inc Rich
#? COPD
#Former smoker 1/2 pack a day for 40 years quit 30 years ago
Was to follow with pulmonary for PFTs and 6-minute walk test during May admission
-f/u outpatient
#Leucocytosis
-ctm
#Hypertension
-hold antihypertensives
#HLD
Continue atorvastatin
#History CVA/multiple TIAs
-Continue aspirin, statin
#Hx seizures
-Last seizure was reported several years ago
-Continue Tegretol, Depakote
#Vascular dementia /chronic stuttering of voice
Continue donepezil, trazodone at night for sleep
#Hypothyroidism
Continue Synthroid
#Glaucoma
Continue eyedrops
#Chronic ambulatory dysfunction with severe left knee OA
PT/OT consult
-Patient follows with Dr. Smart gets injections
#Chronic osteoporotic compression fractures T6, T9, T11 11 and L1 sclerotic density with an T12
#Old rib fractures
DVT prophylaxis
Subcu Lovenox
Full code
Total time spent on today's encounter was 51 minutes which included time spent in counseling the patient/family regarding diagnosis and treatment plan as listed above, goals of care, and symptom management. Case was discussed with nursing staff,
specialists, and care coordinators/case management. All labs and imaging personally reviewed by me. Remainder the time spent in detailed review of previous records, lab data, imaging, and other medical provider documentation.
Anticipated Discharge: 24 - 48 hours
Subjective/Interval History
-
Date of Service: July 11, 2023
still sob upon ambulation
Objective Data
-
Labs:
Laboratory Results
07/11/23
04:09
WBC 9.9
Hgb 9.9 L
Hct 29.3 L
Plt Count 170
Sodium 138
Potassium 4.3
Chloride 104
Carbon Dioxide 26
BUN 40 H
Creatinine 1.0
Glucose 90
Calcium 8.2 L
Total Bilirubin 0.2
AST 26
ALT 18
Alkaline Phosphatase 67
Vital Signs:
Vital Signs
Temp Pulse Resp BP Pulse Ox
98.2 F 78 17 125/64 94
07/11/23 11:16 07/11/23 12:00 07/11/23 12:00 07/11/23 12:00 07/11/23 13:10
I&O
07/10/23 07/11/23 07/12/23
06:59 06:59 06:59
Intake Total 980 / 980
Output Total 550 / 550 1050 / 1050 300 / 300
Balance -550 / -550 -70 / -70 -300 / -300
Review of Systems
-
History Source: Patient
All other systems: Not reviewed unless documented
Physical Exam
-
General: Well Developed and Well Nourished
HEENT: Normocephalic and Atraumatic
Respiratory: Clear to Auscultation
Cardiac: Regular Rhythm and S1/S2
GI: Soft, Nontender and Nondistended
Musculoskeletal: No Clubbing and No Cyanosis
Skin: Warm and Dry
Neuro: Awake and Alert
--- NOTE | 2023-07-11 15:46 | CM ---
Patient with Dx Hypotensive episode, Acute on Chronic Hypoxic Respiratory Failure, Acute on chronic HF. Room air. PT/OT recommend HH, O2 sat 96% with activity.
Jodran HERNÁNDEZ accepted in [facility].
Met with patient and daughter; they are aware that Jordan HERNÁNDEZ is setup for d/c. IMM completed. Daughter aware O2 sat today shows no need for home O2.
Plan home with [place] [facility].
[2023-07-11] MEDS: LASIX 40 MG IV (15:54)
[2023-07-11] MEDS: DEPAKOTE (12 HR RELEASE) 500 MG PO (17:07)
[2023-07-11] MEDS: LOVENOX 40 MG SC (17:07)
[2023-07-11] MEDS: ROCEPHIN 1000 MG IV (20:35)
[2023-07-11] MEDS: LIPITOR 40 MG PO (20:36)
[2023-07-11] MEDS: ARICEPT 10 MG PO (20:36)
[2023-07-11] MEDS: DESYREL 50 MG PO (20:36)
[2023-07-11] MEDS: STERILE WATER FOR INJECTION 10 ML IV (20:36)
[2023-07-11] MEDS: XALATAN OPHTHALMIC SOLUTION 1 DROP BOTH EYES (20:41)
[2023-07-12] VITALS (11 sets, daily range): BP systolic 109–166; BP diastolic 48–96; BMI 22.1
[2023-07-12] MEDS: SYNTHROID 100 MCG PO (05:59)
[2023-07-12 06:14] LABS: % Basophils 0.7 % (0-2); % Immature Granulocytes 0.4 % (0-0.5); % Lymphocytes 35.2 % (20.5-51.1); % Monocytes 19.9 % (1.7-9.3); % Neutrophils 41.8 % (42.2-75.2); Absolute Basophils 0.1 10^3/uL (0-0.2); Absolute Eosinophils 0.2 10^3/uL (0-0.7); Absolute Lymphocytes 3.2 10^3/uL (1.2-3.4); Absolute Monocytes 1.8 10^3/uL (0.1-0.6); Absolute Neutrophils 3.8 10^3/uL (1.4-6.5); Hematocrit 31.9 % (37.0-47.0); Hemoglobin 10.8 g/dL (12.0-16.0); Mean Corp Hgb Conc. 33.9 g/dL (33.0-37.0); Mean Corpuscular Hgb 34.5 pg (27.0-31.0); Mean Corpuscular Volume 101.9 fL (81.0-99.0); Mean Platelet Volume 9.4 fL (7.4-10.4); Nucleated Red Blood Cells % 0 %; Platelet Count 173 10^3/uL (130-400); Red Blood Cell Count 3.13 10^6/uL (4.20-5.40); Red Cell Dist. Width 12.6 % (11.5-14.5)
[2023-07-12 06:38] LABS: ALT (SGPT) 20 U/L (0-35); AST (SGOT) 27 U/L (14-36); Albumin 2.9 g/dl (3.5-5.0); Alkaline Phosphatase 68 U/L (38-126); Blood Urea Nitrogen 35 mg/dl (7-17); Calcium 8.2 mg/dl (8.4-10.2); Carbon Dioxide 28 mmol/L (22-30); Chloride 108 mmol/L (98-107); Estimated Creatinine Clearance 40 ml/min; Glucose 99 mg/dl (70-99); Potassium 3.8 mmol/L (3.5-5.1); Sodium 138 mmol/L (135-145); Total Bilirubin 0.4 mg/dl (0.2-1.3); Total Protein 5.3 g/dl (6.3-8.2)
[2023-07-12] MEDS: DUONEB 3 ML INH ×4 (07:17→20:41)
[2023-07-12] MEDS: THERAGRAN 1 TABLET PO (08:05)
[2023-07-12] MEDS: TEGRETOL 200 MG PO ×3 (08:05→21:11)
[2023-07-12] MEDS: PEPCID 20 MG PO (08:05)
[2023-07-12] MEDS: VIBRAMYCIN 100 MG PO ×2 (08:05→21:11)
[2023-07-12] MEDS: DEPAKOTE (12 HR RELEASE) 250 MG PO (08:05)
[2023-07-12] MEDS: LASIX 40 MG IV ×2 (08:06→17:15)
--- NOTE | 2023-07-12 11:30 | W.PN.CD ---
Today's Communication / Plan
-
- I added Na+/fluid restriction to her diet
- I increased Lasix to BID
- Let's aim for weight loss and significant improvement in mild LE edema
- Once adequately diuresed we will need to add GDMT such as SGLT inhibition and MRA
Impression / Plan
-
SOB/cough/hypoxia:
-likely multifactorial with PNA, suspected COPD (pulm consulted this admit), and [id number] HFpEF exacerbation
Pmhpn-et-mzgkmgn HFpEF:
- If she has heart failure she has not achieved adequate diuresis based on her weight
- I added Na+/fluid restriction to her diet
- I increased Lasix to BID
- Let's aim for weight loss and significant improvement in mild LE edema
- Once adequately diuresed we will need to add GDMT such as SGLT inhibition and MRA
Abnormal troponin, acute non-ischemic myocardial injury in setting of acute illness (hypotension, hypoxia)
LBBB
PAD:
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
-on ASA, statin
-check arm and leg BP's and document
Physical Exam
Vital Signs/Labs
Vital Signs
Temp Pulse Resp BP Pulse Ox
98.6 F 88 18 152/78 96
07/12/23 07:35 07/12/23 11:17 07/12/23 11:17 07/12/23 09:29 07/12/23 11:17
07/11/23 07/12/23 07/13/23
06:59 06:59 06:59
Actual Weight 61.7 kg 62.1 kg
07/12/23 06:04
07/12/23 06:04
PT 13.7 Sec (11.4-14.6) 07/09/23 14:35
INR 1.05 07/09/23 14:35
07/08/23 07/08/23 07/10/23
17:25 17:59 02:57
Imi-Z-Htckdjnjpop Pept Cancelled [id number]
LAB Results
07/09/23 07/09/23 07/10/23
14:35 20:24 02:57
Troponin I 0.014 0.093 H* D 0.070 H*
07/10/23
08:00
Troponin I Cancelled
Physical Exam
Constitutional: No acute distress
Cardiovascular: Rhythm & rate is regular and Pedal edema present
Respiratory: Respiratory effort normal, Rhonchi Absent and Crackles Present
GI: Soft and Distention absent
Neuro/Psych: AO x 3
Data Reviewed
-
Date of Service: July 12, 2023
[2023-07-12] MEDS: AZOPT 1% OPHTHALMIC SUSPENSION 1 DROP LEFT EYE ×2 (12:42→21:12)
[2023-07-12] MEDS: COMBIGAN EYE DROPS 1 DROP LEFT EYE ×2 (12:42→21:12)
[2023-07-12] MEDS: SOLU-MEDROL PF 60 MG IV ×2 (12:43→17:16)
--- NOTE | 2023-07-12 13:41 | W.PN.PUL3 ---
Today's Communication / Plan
-
Home O2 eval prior to discharge
Continue OOB/PT, ambulation
Lasix per cards --> reduce aggressive diuresis as she appears more euvolemic on phsyical exam today and is on room air breathing comfortably with no volume overload seen on CT chest from 07/09/2023
Start to wean down steroids to 40mg IV q8hr tomorrow (07/13/2023)
Outpatient pulmonary FU recommended
Discharge planning per team
Assessment
-
Patient is a 83-year-old female with history of CHF, CVA, dementia, HTN presenting to ED from home complaining of increased shortness of breath over the past 3 to 4 days. It was reported that she was initially improving with use of nebulizer at
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 EMS reported she was hypoxic on their arrival, she was 98% on arrival to ER. Initial CXR showing basilar interstitial pattern, proBNP 1750. Son notes she has gained about
2lbs in weight last few days. We are consulted for eval.
AE of HFpEF, mild
Acute hypoxic resp insufficiency
Pulmonary edema
Suspect underlying COPD
Progressive SOB -at this point she appears euvolemic and there definitely seems to be component of physical deconditioning in the setting of suspected COPD exacerbation
Weight gain
Abnormal CXR
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
Chronic HFpEF
Former smoker, 1PPD for 40 years, quit in her 50s
HTN
CVA/TIAs
Vascular dementia
Osteoporosis
History of VTE/DVT
Hepatitis
Seizures
Hypothyroidism
Glaucoma
Plan
Continue supplemental O2 and wean as tolerated
POx 97%on room air
Family notes that she generally does not need O2 at rest, but when sick or ill she may require O2
She has a concentrator at home
Eventual home O2 eval
Deconditioning is a factor
No known history of lung disease is noted -- suspect COPD, but no prior PFT available
Was a former smoker, 1 PPD for 40 years, quit 30 years ago.
Never diagnosed with asthma or COPD, denies family history of lung disease.
Never had a PFT.
Currently on Solu-Medrol 60 mg IV q6hr --> would start to wean this to 40mg IV q8hr tomorrow
Outpatient FU recommended, but patient was not able to make appt yet
Not on inhalers at home, just using as needed neb treatments
Suspect patient has underlying AE HFpEF given history/imaging with intralobular septal thickening and patchy GGO
CXR obtained indicating pulmonary edema, trace LE swelling noted
CT chest from 07/09/2023 does not show groundglass opacities or evidence of volume overload
Family notes 2-3 lbs weight gain
She is not following a fluid restricted diet
ECHO results reviewed--normal function
proBNP 1750, prior 1610
As of 07/11, she currently appears euvolemic although she still has +1 lower extremity edema --> could start to become less aggressive with diuresis; cardiology on board
Rule out infectious causes-- procal negative on this admission
I would stop abx and observe off
I see no indication for IV steroids, currently not wheezing
Can evaluate on an as needed basis
Will need outpatient pulmonary evaluation in our office for PFTs and 6MWT
Smoking history noted--certainly at risk for COPD
Quit 30 years ago, would not be a candidate for lung cancer screening
Reviewed with patient and LUISA at bedside
Disposition
Patient with recent admission for exacerbation of heart failure with underlying COPD suspected.
She was discharged 06/04/23 was recommended outpatient follow-up with pulm for PFTs and 6-minute walk test but had yet to get to her appt which is scheduled for next week.
Instructed to keep appt
PT/OT
Discharge planning per team
Diagnostic Data
CXR 07/08/23- Interstitial airway disease at both lung bases suggesting interstitial pneumonia. There are right-sided rib fractures. There is thoracic dextroscoliosis
CXR 05/29/23- IMPRESSION: Chronic lung changes. Increased interstitial fibrosis and scarring when compared to the previous exam. No focal airspace process. Density in the right lateral lung base most consistent with a previous healed right rib
fracture. Please correlate with follow-up chest CT.
CT chest 05/29/23- IMPRESSION: No evidence of central pulmonary embolism. New marked widespread bilateral pulmonary groundglass opacities both ventrally and peripherally, nonspecific. Some of several differential diagnostic possibilities include
Covid, pulmonary edema and other inflammatory etiologies. Some possible underlying mild chronic interstitial changes. Multiple thoracic vertebral compression fractures again seen, likely chronic.
07/10/20- IMPRESSION:
1. No evidence of pulmonary embolism or thoracic aortic dissection.
2. Acute fractures of the right anterior third through fifth ribs in the mid clavicular line, without associated pneumothorax or pleural effusion. Old ninth posterior rib fracture.
3. Mild bibasilar subsegmental atelectasis, otherwise clear lungs.
4. Multiple compression fractures within the thoracolumbar spine, likely chronic. Please correlate for symptoms of acute fractures.
CT Chest with IV contrast 07-09-2023:
Compared to chest radiograph of July 08, 2023, significant improvement in lung inflation.
Linear densities are present within the lingula and the left lower lobe, compatible with linear atelectasis and/or scarring.
No evidence of focal consolidation to suggest pneumonia. No evidence for pulmonary mass.
Significant vascular calcifications. Findings raise concern for hemodynamically significant stenoses involving the origin of the right brachiocephalic artery and the origin of the left subclavian artery.
Multiple compression deformities of the thoracic and upper lumbar spine, stable from previous CT of May 29, 2023.
ECHO 07/09/23- Follow up study for LVEF. Technically limited study. Normal biventricular size and systolic function without regional wall motion abnormality. Estimated LVEF 50-55%. Compared to 05/30/23: no significant change.
ECHO 05/30/23- �Normal biventricular size and systolic function without regional wall motion�abnormality.�Mild to moderate mitral regurgitation.�Mild pulmonary hypertension.�Compared to previous echo 01/10/2017, the degree of mitral regurgitation
has�improved on today's study.� Otherwise the findings are similar.�
Subjective Data
-
Date of Service:
Date of Service: July 12, 2023
Chief Complaint: Pulmonary Follow Up
Subjective:
Patient seen today at bedside. Pulling 1250 cc from incentive spirometer. She is on room air breathing comfortably. Still feels short of breath with walking. No overnight events reported. She denies chest pain, headache, abdominal pain, fevers
or chills.
Review of Systems
General: Other (Negative unless mentioned above)
Objective Data
Data Reviewed
Vital Signs / I&O / Oxygen:
Vital Signs
Temp Pulse Resp BP Pulse Ox
98.2 F 112 23 159/79 76
07/12/23 11:02 07/12/23 13:05 07/12/23 13:05 07/12/23 13:05 07/12/23 13:05
Intake and Output
07/11/23 07/12/23 07/13/23
06:59 06:59 06:59
Intake Total 980 / 980 960 / 960 780 / 780
Output Total 1050 / 1050 1600 / 1600 325 / 325
Balance -70 / -70 -640 / -640 455 / 455
SaO2 76
Nasal Cannula flow liters per 1
minute
Physical Exam
General: Comfortable and Other (NAD, anxious/tremors noted, answering appropriately)
HEENT: Normocephalic, Anicteric and Moist Mucous Membranes
Cardiovascular: S1-S2 and Peripheral Edema (+1 LE edema)
Respiratory: Wheeze (Negative), Crackles (left base), Rhonchi (Negative) and Non-Labored Respirations
GI: Soft, Non Distended and Non Tender
Neurology: Awake, Alert, Oriented (to self and place, somewhat confused on time) and Other (at baseline forgetful)
Skin: Warm, Dry and Good Color
Labs/Micro/Reports
Lab Data
07/12/23 06:04
07/12/23 06:04
Microbiology
07/08/23 17:25 Blood/Venous Blood Culture - Preliminary
No Growth in 72 hours- Final report to follow
07/08/23 17:25 Blood/Venous Blood Culture - Preliminary
No Growth in 72 hours- Final report to follow
--- NOTE | 2023-07-12 14:36 | W.PN.HOSP.TC ---
Today's Communication/Plan
-
restart solumedrol
duonebs standing
iv lasix bid
Assessment / Plan
Assessment / Plan
Physical Exam
General: Comfortable and Other (aphasia, chronic, history of memory dementia)
HEENT: NormoCephalic, Anicteric, PERRLA, [place] Conjunctivae and Other (Chronic stuttering of voice with long pauses, history of memory dementia)
Respiratory: Rhonchi (Increased left lung base on inspiration, prolonged expiratory wheezing bilaterally)
Cardiac: S1/S2 and Regular Rhythm; No Murmur, Rub, Gallop or Peripheral Edema
Breast: Deferred by me
GI: Soft, Non Tender, Non Distended and Normal Bowel Sounds
Rectal: Deferred by Provider
Genito-urinary: Deferred by me
Musculoskeletal: No Clubbing, No Cyanosis and No Edema
Skin: Warm and Dry; No Rash
Neuro: Awake, Alert, Oriented (To name, place, some of history has baseline dementia-mild with Chronic stuttering of voice with long pauses, history of memory dementia), Nonfocal/grossly intact and Cranial Nerves Intact; No Slurred Speech, Facial
Droop or Tremors
Psych: Calm
#Hypotensive episode
-responded well to fluids - may be related to antihypertensives
-unclear source, possibly infectious v less likely cardiac/obstructive
-Doubt obstructive as HR not tachycardic although on BB, not hypoxic nor tachypneic at that time;
-Cont empiric abx for now - no clear source - since improvement with abx -will give 5 days abx
-F/u Cultures
-CT Chest unremarkable for consolidation
-Procal neg although with presentation, would still continue empiric therapy for now
-Acapella/Incentive rich
-F/u TSh w - WNL
-restart steroids for wheezing
-appreciate pulm recs
-ECHO - EF 50-55%; Mild concentric LVH
#Acute on Chronic Hypoxic Respiratory Failure
#Acute on chronic HFpEF
#COPD Exacerbation
-responded well to 40mg iv lasix after hypoxic event 07/07; crackles were present during event
-Lasix IV BID - i doubt this wheezing is all cardiac in nature
I/O, daily weights
-LE dopplers - negative
-Ambulatory Pulse Ox
-Inc Rich
-Start solumedrol
#? COPD
#Former smoker 1 pack a day for 50 years quit 30 years ago
Was to follow with pulmonary for PFTs and 6-minute walk test during May admission
-f/u outpatient
-see plan above
-duonebs standing
start Solumedrol
#Leucocytosis
-ctm
-resolving
#Hypertension
-hold antihypertensives
#HLD
Continue atorvastatin
#History CVA/multiple TIAs
-Continue aspirin, statin
#Hx seizures
-Last seizure was reported several years ago
-Continue Tegretol, Depakote
#Vascular dementia /chronic stuttering of voice
Continue donepezil, trazodone at night for sleep
#Hypothyroidism
Continue Synthroid
#Glaucoma
Continue eyedrops
#Chronic ambulatory dysfunction with severe left knee OA
PT/OT consult
-Patient follows with Dr. Smart gets injections
#Chronic osteoporotic compression fractures T6, T9, T11 11 and L1 sclerotic density with an T12
#Old rib fractures
DVT prophylaxis
Subcu Lovenox
Full code
Total time spent on today's encounter was 52 minutes which included time spent in counseling the patient/family regarding diagnosis and treatment plan as listed above, goals of care, and symptom management. Case was discussed with nursing staff,
specialists, and care coordinators/case management. All labs and imaging personally reviewed by me. Remainder the time spent in detailed review of previous records, lab data, imaging, and other medical provider documentation.
Anticipated Discharge: > 48 hours
Subjective/Interval History
-
Date of Service: July 12, 2023
Bilateral wheezing this morning
Objective Data
-
Labs:
Laboratory Results
07/12/23
06:04
WBC 9.0
Hgb 10.8 L
Hct 31.9 L
Plt Count 173
Sodium 138
Potassium 3.8
Chloride 108 H
Carbon Dioxide 28
BUN 35 H
Creatinine 1.0
Glucose 99
Calcium 8.2 L
Total Bilirubin 0.4
AST 27
ALT 20
Alkaline Phosphatase 68
Vital Signs:
Vital Signs
Temp Pulse Resp BP Pulse Ox
98.2 F 112 23 159/79 76
07/12/23 11:02 07/12/23 13:05 07/12/23 13:05 07/12/23 13:05 07/12/23 13:05
I&O
07/11/23 07/12/23 07/13/23
06:59 06:59 06:59
Intake Total 980 / 980 960 / 960 780 / 780
Output Total 1050 / 1050 1600 / 1600 325 / 325
Balance -70 / -70 -640 / -640 455 / 455
Review of Systems
-
History Source: Patient
All other systems: Not reviewed unless documented
Data Reviewed
-
Diagnostic Radiology: Image personally visualized and interpreted and Report Reviewed by me
Labs: Labs Reviewed by me
[2023-07-12] MEDS: LOVENOX 40 MG SC (17:16)
[2023-07-12] MEDS: DEPAKOTE (12 HR RELEASE) 500 MG PO (17:16)
[2023-07-12] MEDS: DESYREL 50 MG PO (21:11)
[2023-07-12] MEDS: ARICEPT 10 MG PO (21:11)
[2023-07-12] MEDS: LIPITOR 40 MG PO (21:11)
[2023-07-12] MEDS: STERILE WATER FOR INJECTION 10 ML IV (21:11)
[2023-07-12] MEDS: ROCEPHIN 1000 MG IV (21:12)
[2023-07-12] MEDS: XALATAN OPHTHALMIC SOLUTION 1 DROP BOTH EYES (21:13)
[2023-07-12] MEDS: NORVASC 10 MG PO (21:14)
[2023-07-13] VITALS (10 sets, daily range): BP systolic 112–149; BP diastolic 54–86; BMI 21.6
[2023-07-13] MEDS: SOLU-MEDROL PF 60 MG IV ×2 (00:21→06:01)
[2023-07-13] MEDS: SYNTHROID 100 MCG PO (06:02)
[2023-07-13 06:25] LABS: Blood Urea Nitrogen 39 mg/dl (7-17); Calcium 8.9 mg/dl (8.4-10.2); Carbon Dioxide 29 mmol/L (22-30); Chloride 102 mmol/L (98-107); Estimated Creatinine Clearance 36 ml/min; Glucose 141 mg/dl (70-99); Potassium 4.1 mmol/L (3.5-5.1); Sodium 142 mmol/L (135-145); eGFR 49.86
[2023-07-13] MEDS: DUONEB 3 ML INH ×4 (07:35→19:56)
[2023-07-13] MEDS: DEPAKOTE (12 HR RELEASE) 250 MG PO (08:38)
[2023-07-13] MEDS: AZOPT 1% OPHTHALMIC SUSPENSION 1 DROP LEFT EYE ×2 (08:38→20:11)
[2023-07-13] MEDS: TEGRETOL 200 MG PO ×3 (08:38→21:50)
[2023-07-13] MEDS: COMBIGAN EYE DROPS 1 DROP LEFT EYE ×2 (08:38→20:11)
[2023-07-13] MEDS: PEPCID 20 MG PO (08:38)
[2023-07-13] MEDS: VIBRAMYCIN 100 MG PO ×2 (08:38→20:11)
[2023-07-13] MEDS: LASIX 40 MG IV (08:38)
[2023-07-13] MEDS: THERAGRAN 1 TABLET PO (08:38)
--- NOTE | 2023-07-13 09:31 | W.PN.PUL3 ---
Today's Communication / Plan
-
Home O2 eval prior to discharge
Continue OOB/PT, ambulation
Lasix per cards --> reduce aggressive diuresis as she appears more euvolemic on physical exam (on 07/11 + 07/12) and is on room air breathing comfortably with no volume overload seen on CT chest from 07/09/2023
Start to wean down steroids to 40mg IV q8hr today (07/13/2023)
Outpatient pulmonary FU recommended
Discharge planning per team
Assessment
-
Patient is a 83-year-old female with history of CHF, CVA, dementia, HTN presenting to ED from home complaining of increased shortness of breath over the past 3 to 4 days. It was reported that she was initially improving with use of nebulizer at
home, but developed worsening symptoms in past 24 hours [employer] despite this. EMS reported she was hypoxic on their arrival, she was 98% on arrival to ER. Initial CXR showing basilar interstitial pattern, proBNP 1750. Son notes she has gained about
2lbs in weight last few days. We are consulted for eval.
AE of HFpEF, mild
Acute hypoxic resp insufficiency
Pulmonary edema
Suspect underlying COPD
Progressive SOB -at this point she appears euvolemic and there definitely seems to be component of physical deconditioning in the setting of suspected COPD exacerbation
Weight gain
Abnormal CXR
Conditions present [employer]
Chronic HFpEF
Former smoker, 1PPD for 40 years, quit in her 50s
HTN
CVA/TIAs
Vascular dementia
Osteoporosis
History of VTE/DVT
Hepatitis
Seizures
Hypothyroidism
Glaucoma
Plan
Continue supplemental O2 and wean as tolerated
POx 97%on room air
Family notes that she generally does not need O2 at rest, but when sick or ill she may require O2
She has a concentrator at home
Eventual home O2 eval
Deconditioning is a factor
No known history of lung disease is noted -- suspect COPD, but no prior PFT available
Was a former smoker, 1 PPD for 40 years, quit 30 years ago.
Never diagnosed with asthma or COPD, denies family history of lung disease.
Never had a PFT.
Currently on Solu-Medrol 60 mg IV q6hr --> would start to wean this to 40mg IV q8hr today
Outpatient FU recommended, but patient was not able to make appt yet
Not on inhalers at home, just using as needed neb treatments
Suspect patient has underlying AE HFpEF given history/imaging with intralobular septal thickening and patchy GGO
CXR obtained indicating pulmonary edema, trace LE swelling noted
CT chest from 07/09/2023 does not show groundglass opacities or evidence of volume overload
Family notes 2-3 lbs weight gain
She is not following a fluid restricted diet
ECHO results reviewed--normal function
proBNP 1750, prior 1610
As of 07/11, she currently appears euvolemic although she still has +1 lower extremity edema --> would become less aggressive with diuresis; tomorrow will change to PO lasix. Cardiology on board
Rule out infectious causes-- procal negative on this admission
I would stop abx and observe off
I see no indication for IV steroids, currently not wheezing
Can evaluate on an as needed basis
Will need outpatient pulmonary evaluation in our office for PFTs and 6MWT
Smoking history noted--certainly at risk for COPD
Quit 30 years ago, would not be a candidate for lung cancer screening
Reviewed with patient and LUISA at bedside
Disposition
Patient with recent admission for exacerbation of heart failure with underlying COPD suspected.
She was discharged 06/04/23 was recommended outpatient follow-up with pulm for PFTs and 6-minute walk test but had yet to get to her appt which is scheduled for next week.
Instructed to keep appt
PT/OT - recommending home health
Discharge planning per team
I discussed patient's clinical status with her daughter, Negra, and answered all her questions. Apparently Mara has been weak and deconditioned and sedentary at home as well with difficulty taking deep breaths; so this is a chronic process
with regards to her physical deconditioning and shortness of breath/HOPSON.
Total time spent today was 35 minutes for this encounter. Time includes reviewing laboratory test/imaging results, reviewing pertinent medical records, obtaining and reviewing medical history, performing an appropriate exam, ordering medications,
tests and procedures. Time also includes documentation of this encounter, coordinating patient care and communicating with other healthcare professionals. Total time does not include separately billed tests performed on this date of service.
Diagnostic Data
CXR 07/08/23- Interstitial airway disease at both lung bases suggesting interstitial pneumonia. There are right-sided rib fractures. There is thoracic dextroscoliosis
CXR 05/29/23- IMPRESSION: Chronic lung changes. Increased interstitial fibrosis and scarring when compared to the previous exam. No focal airspace process. Density in the right lateral lung base most consistent with a previous healed right rib
fracture. Please correlate with follow-up chest CT.
CT chest 05/29/23- IMPRESSION: No evidence of central pulmonary embolism. New marked widespread bilateral pulmonary groundglass opacities both ventrally and peripherally, nonspecific. Some of several differential diagnostic possibilities include
Covid, pulmonary edema and other inflammatory etiologies. Some possible underlying mild chronic interstitial changes. Multiple thoracic vertebral compression fractures again seen, likely chronic.
07/10/20- IMPRESSION:
1. No evidence of pulmonary embolism or thoracic aortic dissection.
2. Acute fractures of the right anterior third through fifth ribs in the mid clavicular line, without associated pneumothorax or pleural effusion. Old ninth posterior rib fracture.
3. Mild bibasilar subsegmental atelectasis, otherwise clear lungs.
4. Multiple compression fractures within the thoracolumbar spine, likely chronic. Please correlate for symptoms of acute fractures.
CT Chest with IV contrast 07-09-2023:
Compared to chest radiograph of July 08, 2023, significant improvement in lung inflation.
Linear densities are present within the lingula and the left lower lobe, compatible with linear atelectasis and/or scarring.
No evidence of focal consolidation to suggest pneumonia. No evidence for pulmonary mass.
Significant vascular calcifications. Findings raise concern for hemodynamically significant stenoses involving the origin of the right brachiocephalic artery and the origin of the left subclavian artery.
Multiple compression deformities of the thoracic and upper lumbar spine, stable from previous CT of May 29, 2023.
ECHO 07/09/23- Follow up study for LVEF. Technically limited study. Normal biventricular size and systolic function without regional wall motion abnormality. Estimated LVEF 50-55%. Compared to 05/30/23: no significant change.
ECHO 05/30/23- �Normal biventricular size and systolic function without regional wall motion�abnormality.�Mild to moderate mitral regurgitation.�Mild pulmonary hypertension.�Compared to previous echo 01/10/2017, the degree of mitral regurgitation
has�improved on today's study.� Otherwise the findings are similar.�
LE Duplex 07-11-2023: No sonographic evidence for lower extremity venous thrombosis.
Subjective Data
-
Date of Service:
Date of Service: July 13, 2023
Chief Complaint: Pulmonary Follow Up
Subjective:
Patient seen and evaluated bedside. She is on room air breathing comfortably. Heart rate 105 and BP 149/82. No acute events reported from overnight. She denies chest pain, headache, abdominal pain, fevers or chills.
Review of Systems
General: Other (Negative unless mentioned above)
Objective Data
Data Reviewed
Vital Signs / I&O / Oxygen:
Vital Signs
Temp Pulse Resp BP Pulse Ox
98.3 F 90 15 138/86 96
07/13/23 07:30 07/13/23 07:41 07/13/23 07:41 07/13/23 00:00 07/13/23 07:41
Intake and Output
07/12/23 07/13/23 07/14/23
06:59 06:59 06:59
Intake Total 960 / 960 880 / 880
Output Total 1600 / 1600 825 / 825 300 / 300
Balance -640 / -640 55 / 55 -300 / -300
SaO2 96
Nasal Cannula flow liters per 1
minute
Physical Exam
General: Comfortable and Other (NAD, anxious, answering appropriately)
HEENT: Normocephalic, Anicteric and Moist Mucous Membranes
Cardiovascular: S1-S2, Peripheral Edema (+2 LE edema) and Other (Tachycardic)
Respiratory: Wheeze (Negative), Crackles (Bibasilar), Rhonchi (Negative) and Non-Labored Respirations
GI: Soft, Non Distended and Non Tender
Neurology: Awake, Alert, Oriented (to self and place, somewhat confused on time) and Other (at baseline forgetful)
Skin: Warm, Dry and Good Color
Labs/Micro/Reports
Lab Data
07/12/23 06:04
07/13/23 06:00
Microbiology
07/08/23 17:25 Blood/Venous Blood Culture - Preliminary
No Growth in 4 days- Final report to follow
07/08/23 17:25 Blood/Venous Blood Culture - Preliminary
No Growth in 4 days- Final report to follow
--- NOTE | 2023-07-13 10:26 | W.PN.CD ---
Today's Communication / Plan
-
- Stop IV Lasix
- Start PO Lasix tomorrow
- As outpatient can consider adding GDMT such as SGLT inhibition, ARNI, MRA
Impression / Plan
-
SOB/cough/hypoxia:
-likely multifactorial with PNA, suspected COPD (pulm consulted this admit), and wxqkw-zo-dacokel HFpEF exacerbation
-Seems much more pulmonary than HF
Edheq-ko-rhguffe HFpEF:
- Goal weight may be above today's weight of 60.7 kg
- Continue Na+/fluid restriction to her diet
- Stop IV Lasix => move to PO tomorrow
- LE edema is improved
- Once adequately diuresed we will need to add GDMT such as SGLT inhibition, ARNI, and MRA => defer to outpt setting as this admit seems much more pulmonary etiology
Abnormal troponin, acute non-ischemic myocardial injury in setting of acute illness (hypotension, hypoxia)
LBBB
PAD:
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
-on ASA, statin
-check arm and leg BP's and document
Physical Exam
Vital Signs/Labs
Vital Signs
Temp Pulse Resp BP Pulse Ox
98.3 F 90 15 138/86 96
07/13/23 07:30 07/13/23 07:41 07/13/23 07:41 07/13/23 00:00 07/13/23 07:41
07/12/23 07/13/23 07/14/23
06:59 06:59 06:59
Actual Weight 62.1 kg 60.7 kg
07/12/23 06:04
07/13/23 06:00
PT 13.7 Sec (11.4-14.6) 07/09/23 14:35
INR 1.05 07/09/23 14:35
07/08/23 07/08/23 07/10/23
17:25 17:59 02:57
Hsi-U-Hamqkhqaplj Pept Cancelled [id number]
LAB Results
07/10/23
08:00
Troponin I Cancelled
Physical Exam
Constitutional: No acute distress
EENT: Anicteric
Cardiovascular: Rhythm & rate is regular and Pedal edema present (trace)
Respiratory: Crackles Absent
GI: Soft and Distention absent
Data Reviewed
-
Date of Service: July 13, 2023
--- NOTE | 2023-07-13 15:01 | W.PN.HOSP.TC ---
Today's Communication/Plan
-
stop lasix, start po tomorrow
wean steroids
Assessment / Plan
Assessment / Plan
Physical Exam
General: Comfortable and Other (aphasia, chronic, history of memory dementia)
HEENT: NormoCephalic, Anicteric, PERRLA, [place] Conjunctivae and Other (Chronic stuttering of voice with long pauses, history of memory dementia)
Respiratory: Rhonchi (Increased left lung base on inspiration, prolonged expiratory wheezing bilaterally)
Cardiac: S1/S2 and Regular Rhythm; No Murmur, Rub, Gallop or Peripheral Edema
Breast: Deferred by me
GI: Soft, Non Tender, Non Distended and Normal Bowel Sounds
Rectal: Deferred by Provider
Genito-urinary: Deferred by me
Musculoskeletal: No Clubbing, No Cyanosis and No Edema
Skin: Warm and Dry; No Rash
Neuro: Awake, Alert, Oriented (To name, place, some of history has baseline dementia-mild with Chronic stuttering of voice with long pauses, history of memory dementia), Nonfocal/grossly intact and Cranial Nerves Intact; No Slurred Speech, Facial
Droop or Tremors
Psych: Calm
#Hypotensive episode
-responded well to fluids - may be related to antihypertensives
-unclear source, possibly infectious v less likely cardiac/obstructive
-Doubt obstructive as HR not tachycardic although on BB, not hypoxic nor tachypneic at that time;
-Cont empiric abx for now - no clear source - since improvement with abx -will give 5 days abx
-F/u Cultures - ngtd
-CT Chest unremarkable for consolidation
-Procal neg although with presentation, would still continue empiric therapy for now
-Acapella/Incentive rich
-F/u TSh w - WNL
-restart steroids for wheezing
-appreciate pulm recs
-ECHO - EF 50-55%; Mild concentric LVH
#Acute on Chronic Hypoxic Respiratory Failure
#Acute on chronic HFpEF
#COPD Exacerbation
-responded well to 40mg iv lasix after hypoxic event 07/07; crackles were present during event
-Lasix IV BID - i doubt this wheezing is all cardiac in nature - stopped today, switch to PO tomorrow
I/O, daily weights
-LE dopplers - negative
-Ambulatory Pulse Ox
-Inc [place]
-Start solumedrol - wean today
#? COPD
#Former smoker 1 pack a day for 50 years quit 30 years ago
Was to follow with pulmonary for PFTs and 6-minute walk test during May admission
-f/u outpatient
-see plan above
-duonebs standing
Solumedrol - wean today
#Leucocytosis
-ctm
-resolving
#Hypertension
-hold antihypertensives
#HLD
Continue atorvastatin
#History CVA/multiple TIAs
-Continue aspirin, statin
#Hx seizures
-Last seizure was reported several years ago
-Continue Tegretol, Depakote
#Vascular dementia /chronic stuttering of voice
Continue donepezil, trazodone at night for sleep
#Hypothyroidism
Continue Synthroid
#Glaucoma
Continue eyedrops
#Chronic ambulatory dysfunction with severe left knee OA
PT/OT consult
-Patient follows with Dr. Smart gets injections
#Chronic osteoporotic compression fractures T6, T9, T11 11 and L1 sclerotic density with an T12
#Old rib fractures
DVT prophylaxis
Subcu Lovenox
Full code
Total time spent on today's encounter was 53 minutes which included time spent in counseling the patient/family regarding diagnosis and treatment plan as listed above, goals of care, and symptom management. Case was discussed with nursing staff,
specialists, and care coordinators/case management. All labs and imaging personally reviewed by me. Remainder the time spent in detailed review of previous records, lab data, imaging, and other medical provider documentation.
Anticipated Discharge: 24 - 48 hours
Subjective/Interval History
-
Date of Service: July 13, 2023
Wheezing improved today
Objective Data
-
Labs:
Laboratory Results
07/13/23
06:00
Sodium 142
Potassium 4.1
Chloride 102
Carbon Dioxide 29
BUN 39 H
Creatinine 1.1 H
Glucose 141 H
Calcium 8.9
Vital Signs:
Vital Signs
Temp Pulse Resp BP Pulse Ox
98.5 F 94 17 122/69 96
07/13/23 11:09 07/13/23 12:31 07/13/23 12:31 07/13/23 12:31 07/13/23 11:21
I&O
07/12/23 07/13/23 07/14/23
06:59 06:59 06:59
Intake Total 960 / 960 880 / 880
Output Total 1600 / 1600 825 / 825 600 / 600
Balance -640 / -640 55 / 55 -600 / -600
Review of Systems
-
History Source: Patient
All other systems: Not reviewed unless documented
Physical Exam
-
General: Well Developed and Well Nourished
HEENT: Normocephalic and Atraumatic
Respiratory: Clear to Auscultation
Cardiac: Regular Rhythm and S1/S2
GI: Soft, Nontender and Nondistended
Musculoskeletal: No Clubbing and No Cyanosis
Skin: Warm and Dry
Neuro: Awake and Alert
Data Reviewed
-
Diagnostic Radiology: Image personally visualized and interpreted and Report Reviewed by me
Labs: Labs Reviewed by me
[2023-07-13] MEDS: SOLU-MEDROL PF 40 MG IV ×2 (15:28→21:57)
[2023-07-13] MEDS: LOVENOX 40 MG SC (17:28)
[2023-07-13] MEDS: DEPAKOTE (12 HR RELEASE) 500 MG PO (17:28)
--- NOTE | 2023-07-13 18:36 | PTCARENOTE ---
Remains on Rair sao2 96%, Slightly HOPSON but improved from yesterday. Pleasant, scattered I/E wheezing, AF on tele. OOB in chair all day- educated on fluid restriction and 2 gm Na diet- d/w daughter as well.
[2023-07-13] MEDS: ROCEPHIN 1000 MG IV (20:10)
[2023-07-13] MEDS: STERILE WATER FOR INJECTION 10 ML IV (20:10)
--- NOTE | 2023-07-13 20:50 | PTCARENOTE ---
Assumed care from day RN. Pt appeared to be resting comfortably in the chair. Pt had no complaints at this time. Assessment care and vitals as charted.
[2023-07-13] MEDS: NORVASC 10 MG PO (21:50)
[2023-07-13] MEDS: DESYREL 50 MG PO (21:54)
[2023-07-13] MEDS: LIPITOR 40 MG PO (21:54)
[2023-07-13] MEDS: ARICEPT 10 MG PO (21:55)
[2023-07-13] MEDS: XALATAN OPHTHALMIC SOLUTION 1 DROP BOTH EYES (21:55)
[2023-07-14] VITALS (15 sets, daily range): BP systolic 107–151; BP diastolic 46–97; PULSE 92; O2SAT 94; BMI 21.5
[2023-07-14] MEDS: SOLU-MEDROL PF 40 MG IV ×2 (05:06→20:35)
[2023-07-14] MEDS: SYNTHROID 100 MCG PO (05:07)
[2023-07-14 05:29] LABS: Hematocrit 35.7 % (37.0-47.0); Mean Corp Hgb Conc. 33.6 g/dL (33.0-37.0); Mean Corpuscular Hgb 35.1 pg (27.0-31.0); Mean Corpuscular Volume 104.4 fL (81.0-99.0); Mean Platelet Volume 9.7 fL (7.4-10.4); Platelet Count 215 10^3/uL (130-400); Red Blood Cell Count 3.42 10^6/uL (4.20-5.40); Red Cell Dist. Width 12.6 % (11.5-14.5); White Blood Cell Count 12.6 10^3/uL (4.8-10.8)
[2023-07-14 05:55] LABS: Blood Urea Nitrogen 46 mg/dl (7-17); Calcium 8.7 mg/dl (8.4-10.2); Carbon Dioxide 28 mmol/L (22-30); Chloride 101 mmol/L (98-107); Estimated Creatinine Clearance 36 ml/min; Glucose 124 mg/dl (70-99); Potassium 4.2 mmol/L (3.5-5.1); Sodium 136 mmol/L (135-145); eGFR 49.86
[2023-07-14] MEDS: DUONEB 3 ML INH ×4 (07:58→18:10)
--- NOTE | 2023-07-14 08:23 | W.PN.CD ---
Addendum entered and electronically signed by Anastacio Vazquez MD 07/14/23 08:26:
We will sign off please call back with questions/concerns.
Original Note:
Today's Communication / Plan
-
lasix 40 mg daily
OOB and ambulate
Impression / Plan
-
SOB/cough/hypoxia:
-likely multifactorial with PNA, suspected COPD (pulm consulted this admit), and [id number] HFpEF exacerbation
-Seems much more pulmonary than HF
Yifyu-tl-evqhibt HFpEF:
- Goal weight may be above today's weight of 60.7 kg
- Continue Na+/fluid restriction to her diet
- lasix 40 mg daily
- LE edema is improved
- Once adequately diuresed we will need to add GDMT such as SGLT inhibition, ARNI, and MRA => defer to outpt setting as this admit seems much more pulmonary etiology
Abnormal troponin, acute non-ischemic myocardial injury in setting of acute illness (hypotension, hypoxia)
LBBB
PAD:
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
-on ASA, statin
-check arm and leg BP's and document
Subjective:
Continues to feel better
Physical Exam
Vital Signs/Labs
Vital Signs
Temp Pulse Resp BP Pulse Ox
97.9 F 91 16 134/50 96
07/14/23 07:54 07/14/23 08:06 07/14/23 08:06 07/14/23 06:00 07/14/23 08:06
07/13/23 07/14/23 07/15/23
06:59 06:59 06:59
Actual Weight 133 lb 13.129 oz 132 lb 15.02 oz
07/14/23 05:11
07/14/23 05:11
PT 13.7 Sec (11.4-14.6) 07/09/23 14:35
INR 1.05 07/09/23 14:35
07/08/23 07/08/23 07/10/23
17:25 17:59 02:57
How-Z-Agotavhlglf Pept Cancelled [id number]
Physical Exam
Constitutional: No acute distress
EENT: Anicteric and Moist mucous membranes
Cardiovascular: Rhythm & rate is regular and Pedal edema present (trace)
Respiratory: Respiratory effort normal, Wheeze Present (mild) and Crackles Present (trace)
GI: Soft and Non tender
Neuro/Psych: Alert and Oriented
Data Reviewed
-
Date of Service: July 14, 2023
EKG: Tracing Personally Visualized and interpreted (nsr)
Echo: Report Reviewed by me
Labs: Labs Reviewed by me
[2023-07-14] MEDS: DEPAKOTE (12 HR RELEASE) 250 MG PO (09:03)
[2023-07-14] MEDS: LASIX 40 MG PO (09:03)
[2023-07-14] MEDS: PEPCID 20 MG PO (09:03)
[2023-07-14] MEDS: VIBRAMYCIN 100 MG PO ×2 (09:03→20:35)
[2023-07-14] MEDS: THERAGRAN 1 TABLET PO (09:03)
[2023-07-14] MEDS: TEGRETOL 200 MG PO ×3 (09:03→21:25)
[2023-07-14] MEDS: COMBIGAN EYE DROPS 1 DROP LEFT EYE ×2 (09:04→20:36)
[2023-07-14] MEDS: AZOPT 1% OPHTHALMIC SUSPENSION 1 DROP LEFT EYE ×2 (09:04→20:36)
--- NOTE | 2023-07-14 09:10 | W.PN.PUL.V3 ---
Today's Communication / Plan
-
Wean oxygen
Decrease methylprednisolone
Diuresis as tolerated-on Lasix orally now
Outpatient pulmonary follow-up
Assessment
-
Patient is a 83-year-old female with history of CHF, CVA, dementia, HTN presenting to ED from home complaining of increased shortness of breath over the past 3 to 4 days. It was reported that she was initially improving with use of nebulizer at
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 EMS reported she was hypoxic on their arrival, she was 98% on arrival to ER. Initial CXR showing basilar interstitial pattern, proBNP 1750. Son notes she has gained about
2lbs in weight last few days. We are consulted for eval.
AE of HFpEF, mild
Acute hypoxic resp insufficiency
Pulmonary edema
Suspect underlying COPD
Progressive SOB -at this point she appears euvolemic and there definitely seems to be component of physical deconditioning in the setting of suspected COPD exacerbation
Weight gain
Abnormal CXR
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
Chronic HFpEF
Former smoker, 1PPD for 40 years, quit in her 50s
HTN
CVA/TIAs
Vascular dementia
Osteoporosis
History of VTE/DVT
Hepatitis
Seizures
Hypothyroidism
Glaucoma
Plan
Respiratory status slowly improving
Wean supplemental oxygen
Assess discharge supplemental oxygen needs prior to discharge-patient does have a oxygen concentrator at home
Methylprednisolone 40 mg IV every 8 hours-begin to wean
At home uses nebulizers as needed-no inhalers
Diuresis as tolerated
Monitor renal function, electrolytes, intake/output, lower extremity edema and weight
Replace electrolytes as needed
Cardiology following-correspondence reviewed-signed off 07/14/2023
Echocardiogram noted-normal function
Cultures reviewed
Observe off antibiotics
Will need outpatient pulmonary evaluation in our office for PFTs and 6MWT
Smoking history noted--certainly at risk for COPD
Quit 30 years ago, would not be a candidate for lung cancer screening
Patient with recent admission for exacerbation of heart failure with underlying COPD suspected.
She was discharged 06/04/23 was recommended outpatient follow-up with pulm for PFTs and 6-minute walk test but had yet to get to her appt which is scheduled for next week.
Instructed to keep appt
Pulmonary team has discussed patient's clinical status with her daughter, Negra, and answered all her questions. Apparently Mara has been weak and deconditioned and sedentary at home as well with difficulty taking deep breaths; so this is a
chronic process with regards to her physical deconditioning and shortness of breath/HOPSON.
Diagnostic Data
CXR 07/08/23- Interstitial airway disease at both lung bases suggesting interstitial pneumonia. There are right-sided rib fractures. There is thoracic dextroscoliosis
CXR 05/29/23- IMPRESSION: Chronic lung changes. Increased interstitial fibrosis and scarring when compared to the previous exam. No focal airspace process. Density in the right lateral lung base most consistent with a previous healed right rib
fracture. Please correlate with follow-up chest CT.
CT chest 05/29/23- IMPRESSION: No evidence of central pulmonary embolism. New marked widespread bilateral pulmonary groundglass opacities both ventrally and peripherally, nonspecific. Some of several differential diagnostic possibilities include
Covid, pulmonary edema and other inflammatory etiologies. Some possible underlying mild chronic interstitial changes. Multiple thoracic vertebral compression fractures again seen, likely chronic.
07/10/20- IMPRESSION:
1. No evidence of pulmonary embolism or thoracic aortic dissection.
2. Acute fractures of the right anterior third through fifth ribs in the mid clavicular line, without associated pneumothorax or pleural effusion. Old ninth posterior rib fracture.
3. Mild bibasilar subsegmental atelectasis, otherwise clear lungs.
4. Multiple compression fractures within the thoracolumbar spine, likely chronic. Please correlate for symptoms of acute fractures.
CT Chest with IV contrast 07-09-2023:
Compared to chest radiograph of July 08, 2023, significant improvement in lung inflation.
Linear densities are present within the lingula and the left lower lobe, compatible with linear atelectasis and/or scarring.
No evidence of focal consolidation to suggest pneumonia. No evidence for pulmonary mass.
Significant vascular calcifications. Findings raise concern for hemodynamically significant stenoses involving the origin of the right brachiocephalic artery and the origin of the left subclavian artery.
Multiple compression deformities of the thoracic and upper lumbar spine, stable from previous CT of May 29, 2023.
ECHO 07/09/23- Follow up study for LVEF. Technically limited study. Normal biventricular size and systolic function without regional wall motion abnormality. Estimated LVEF 50-55%. Compared to 05/30/23: no significant change.
ECHO 05/30/23- �Normal biventricular size and systolic function without regional wall motion�abnormality.�Mild to moderate mitral regurgitation.�Mild pulmonary hypertension.�Compared to previous echo 01/10/2017, the degree of mitral regurgitation
has�improved on today's study.� Otherwise the findings are similar.�
LE Duplex 07-11-2023: No sonographic evidence for lower extremity venous thrombosis.
Subjective Data
-
Date of Service:
Date of Service: July 14, 2023
Chief Complaint: Pulmonary Follow Up and Dyspnea Follow Up
Subjective:
Still has some shortness of breath, cough, no worse, no chest pain, abdominal pain
Review of Systems
General: Other (Per HPI)
Objective Data
Data Reviewed
Vital Signs / I&O:
Vital Signs
Temp Pulse Resp BP Pulse Ox
97.9 F 87 16 127/60 96
07/14/23 07:54 07/14/23 09:03 07/14/23 08:06 07/14/23 09:03 07/14/23 08:06
Intake and Output
07/13/23 07/14/23 07/15/23
06:59 06:59 06:59
Intake Total 880 / 880 1640 / 1640
Output Total 825 / 825 1450 / 1450
Balance 55 / 55 190 / 190
SaO2: 96
Nasal Cannula flow liters per minute: 1
Physical Exam
General: Comfortable and Other (NAD, anxious, answering appropriately)
HEENT: Normocephalic, Anicteric and Moist Mucous Membranes
Cardiovascular: S1-S2, Peripheral Edema (+2 LE edema) and Other (Tachycardic)
Respiratory: Wheeze (Negative), Crackles (Bibasilar), Rhonchi (Negative) and Non-Labored Respirations
GI: Soft, Non Distended and Non Tender
Neurology: Awake, Alert, Oriented (to self and place, somewhat confused on time) and Other (at baseline forgetful)
Skin: Warm, Dry and Good Color
Labs/Micro/Reports
Lab Data
07/14/23 05:11
07/14/23 05:11
Microbiology
07/08/23 17:25 Blood/Venous Blood Culture - Final
No Growth - Final Report
07/08/23 17:25 Blood/Venous Blood Culture - Final
No Growth - Final Report
--- NOTE | 2023-07-14 12:38 | PTCARENOTE ---
Spoke with patient's daughter and updated her over the phone. She is under the weather and not able to make it in today.
--- NOTE | 2023-07-14 14:47 | W.PN.HOSP.TC ---
Addendum entered and electronically signed by Ronald Cross MD 07/14/23 15:59:
Acute hypoxic respiratory failure
Pneumonia, unlikely although still will provide abx course
Original Note:
Today's Communication/Plan
-
po lasix
wean steroids
Assessment / Plan
Assessment / Plan
Physical Exam
General: Comfortable and Other (aphasia, chronic, history of memory dementia)
HEENT: NormoCephalic, Anicteric, PERRLA, [place] Conjunctivae and Other (Chronic stuttering of voice with long pauses, history of memory dementia)
Respiratory: Rhonchi (Increased left lung base on inspiration, prolonged expiratory wheezing bilaterally)
Cardiac: S1/S2 and Regular Rhythm; No Murmur, Rub, Gallop or Peripheral Edema
Breast: Deferred by me
GI: Soft, Non Tender, Non Distended and Normal Bowel Sounds
Rectal: Deferred by Provider
Genito-urinary: Deferred by me
Musculoskeletal: No Clubbing, No Cyanosis and No Edema
Skin: Warm and Dry; No Rash
Neuro: Awake, Alert, Oriented (To name, place, some of history has baseline dementia-mild with Chronic stuttering of voice with long pauses, history of memory dementia), Nonfocal/grossly intact and Cranial Nerves Intact; No Slurred Speech, Facial
Droop or Tremors
Psych: Calm
#Hypotensive episode
-responded well to fluids - may be related to antihypertensives
-unclear source, possibly infectious v less likely cardiac/obstructive
-Doubt obstructive as HR not tachycardic although on BB, not hypoxic nor tachypneic at that time;
-Cont empiric abx for now - no clear source - since improvement with abx -will give 5 days abx
-F/u Cultures - ngtd
-CT Chest unremarkable for consolidation
-Procal neg although with presentation, would still continue empiric therapy for now
-Acapella/Incentive rich
-F/u TSh w - WNL
-restart steroids for wheezing - slowly improving
-appreciate pulm recs
-ECHO - EF 50-55%; Mild concentric LVH
#Acute on Chronic Hypoxic Respiratory Failure
#Acute on chronic HFpEF
#COPD Exacerbation
-responded well to 40mg iv lasix after hypoxic event 07/07; crackles were present during event
-Lasix IV BID - i doubt this wheezing is all cardiac in nature - stopped today, switch to PO
I/O, daily weights
-LE dopplers - negative
-Ambulatory Pulse Ox
-Inc Rich
-solumedrol - wean today
#? COPD
#Former smoker 1 pack a day for 50 years quit 30 years ago
Was to follow with pulmonary for PFTs and 6-minute walk test during May admission
-f/u outpatient
-see plan above
-duonebs standing
Solumedrol - wean as tolerated
#Leucocytosis
-ctm
-most likely 2/2 to steroids at this time - ctm
#Hypertension
-hold antihypertensives
#HLD
Continue atorvastatin
#History CVA/multiple TIAs
-Continue aspirin, statin
#Hx seizures
-Last seizure was reported several years ago
-Continue Tegretol, Depakote
#Vascular dementia /chronic stuttering of voice
Continue donepezil, trazodone at night for sleep
#Hypothyroidism
Continue Synthroid
#Glaucoma
Continue eyedrops
#Chronic ambulatory dysfunction with severe left knee OA
PT/OT consult
-Patient follows with Dr. Smart gets injections
#Chronic osteoporotic compression fractures T6, T9, T11 11 and L1 sclerotic density with an T12
#Old rib fractures
DVT prophylaxis
Subcu Lovenox
Full code
Total time spent on today's encounter was 51 minutes which included time spent in counseling the patient/family regarding diagnosis and treatment plan as listed above, goals of care, and symptom management. Case was discussed with nursing staff,
specialists, and care coordinators/case management. All labs and imaging personally reviewed by me. Remainder the time spent in detailed review of previous records, lab data, imaging, and other medical provider documentation.
Anticipated Discharge: 24 - 48 hours
Subjective/Interval History
-
Date of Service: July 14, 2023
wheezing improved
Objective Data
-
Labs:
Laboratory Results
07/14/23
05:11
WBC 12.6 H
Hgb 12.0
Hct 35.7 L
Plt Count 215 D
Sodium 136
Potassium 4.2
Chloride 101
Carbon Dioxide 28
BUN 46 H
Creatinine 1.1 H
Glucose 124 H
Calcium 8.7
Vital Signs:
Vital Signs
Temp Pulse Resp BP Pulse Ox
98.2 F 92 24 107/90 97
07/14/23 11:10 07/14/23 12:23 07/14/23 12:23 07/14/23 12:23 07/14/23 13:21
I&O
07/13/23 07/14/23 07/15/23
06:59 06:59 06:59
Intake Total 880 / 880 1640 / 1640 360 / 360
Output Total 825 / 825 1450 / 1450
Balance 55 / 55 190 / 190 360 / 360
Review of Systems
-
History Source: Patient
All other systems: Not reviewed unless documented
Physical Exam
-
General: Well Developed and Well Nourished
HEENT: Normocephalic and Atraumatic
Respiratory: Clear to Auscultation
Cardiac: Regular Rhythm and S1/S2
GI: Soft, Nontender and Nondistended
Musculoskeletal: No Clubbing and No Cyanosis
Skin: Warm and Dry
Neuro: Awake and Alert
Data Reviewed
-
Diagnostic Radiology: Image personally visualized and interpreted and Report Reviewed by me
Labs: Labs Reviewed by me
[2023-07-14] MEDS: LOVENOX 40 MG SC (17:03)
[2023-07-14] MEDS: DEPAKOTE (12 HR RELEASE) 500 MG PO (17:03)
--- NOTE | 2023-07-14 17:33 | CM ---
Patient with Dx Hypotensive episode, Acute on Chronic Hypoxic Respiratory Failure, Acute on chronic HF. Room air. Receiving IV ceftriaxone, IV Solumedrol. PT/OT recommend HH.
CM continuing to follow.
Plan home with Jordan HERNÁNDEZ.
[2023-07-14] MEDS: ROCEPHIN 1000 MG IV (20:36)
[2023-07-14] MEDS: LIPITOR 40 MG PO (21:24)
[2023-07-14] MEDS: STERILE WATER FOR INJECTION 10 ML IV (21:24)
[2023-07-14] MEDS: ARICEPT 10 MG PO (21:25)
[2023-07-14] MEDS: NORVASC 10 MG PO (21:25)
[2023-07-14] MEDS: DESYREL 50 MG PO (21:25)
[2023-07-14] MEDS: XALATAN OPHTHALMIC SOLUTION 1 DROP BOTH EYES (21:28)
[2023-07-15] VITALS (12 sets, daily range): BP systolic 117–140; BP diastolic 45–89; PULSE 103; O2SAT 97; BMI 21.4
--- NOTE | 2023-07-15 00:35 | PTCARENOTE ---
Pt SPO2 dropping into the mid-high 80's during sleep. 1L NC applied, SPO2 92-94%. Pt easily arousable. Pt had no complaints. Assessment care and vitals as charted.
[2023-07-15] MEDS: SYNTHROID 100 MCG PO (05:36)
[2023-07-15 05:48] LABS: Hematocrit 31.4 % (37.0-47.0); Hemoglobin 10.9 g/dL (12.0-16.0); Mean Corp Hgb Conc. 34.7 g/dL (33.0-37.0); Mean Platelet Volume 9.5 fL (7.4-10.4); Platelet Count 205 10^3/uL (130-400); Red Blood Cell Count 3.11 10^6/uL (4.20-5.40); Red Cell Dist. Width 12.6 % (11.5-14.5); White Blood Cell Count 11.1 10^3/uL (4.8-10.8)
[2023-07-15 06:30] LABS: Blood Urea Nitrogen 48 mg/dl (7-17); Calcium 8.4 mg/dl (8.4-10.2); Carbon Dioxide 27 mmol/L (22-30); Chloride 105 mmol/L (98-107); Estimated Creatinine Clearance 40 ml/min; Glucose 124 mg/dl (70-99); Potassium 4.4 mmol/L (3.5-5.1); Sodium 136 mmol/L (135-145)
[2023-07-15] MEDS: DUONEB 3 ML INH ×4 (07:16→19:17)
--- NOTE | 2023-07-15 08:42 | W.PN.HOSP.TC ---
Today's Communication/Plan
-
see A/P
Assessment / Plan
Assessment / Plan
Physical Exam
General: Comfortable and Other (aphasia, chronic, history of memory dementia)
HEENT: NormoCephalic, Anicteric, PERRLA, [place] Conjunctivae and Other (Chronic stuttering of voice with long pauses, history of memory dementia)
Respiratory: Expiratory wheezing bilaterally
Cardiac: S1/S2 and Regular Rhythm; No Murmur, Rub, Gallop or Peripheral Edema
Breast: Deferred by me
GI: Soft, Non Tender, Non Distended and Normal Bowel Sounds
Rectal: Deferred by Provider
Genito-urinary: Deferred by me
Musculoskeletal: No Clubbing, No Cyanosis and No Edema
Skin: Warm and Dry; No Rash
Neuro: Awake, Alert, Oriented (To name, place, some of history has baseline dementia-mild with Chronic stuttering of voice with long pauses, history of memory dementia), Nonfocal/grossly intact and Cranial Nerves Intact; No Slurred Speech, Facial
Droop or Tremors
Psych: Calm
A/P:
# Hypotensive episode
responded well to fluids - may be related to antihypertensives
Pt was started with empiric abx Ceftriaxone/Doxycycline - no clear source - since improvement with abx - treat for 5 days
Procal neg, CT Chest unremarkable for consolidation, Cultures negative
Acapella/Incentive rich
TSH WNL at 0.76
restarted steroids for wheezing - slowly improving
appreciate pulm recs
ECHO - EF 50-55%; Mild concentric LVH
# Acute on Chronic Hypoxic Respiratory Failure
# Acute on Chronic HFpEF
# COPD Exacerbation
Responded well to 40mg iv lasix after hypoxic event 07/07; crackles were present during event
off Lasix IV BID, switch to PO Lasix 40 mg daily, I/O and daily weights
LE dopplers - negative
Check Ambulatory Pulse Ox prior to discharge
Wean Solumoledrol
# ?COPD
# Former smoker 1 pack a day for 50 years quit 30 years ago
Was to follow with pulmonary for PFTs and 6-minute walk test during May admission
f/u outpatient
duonebs standing
Wean Solumoledrol
# Mild Leucocytosis
most likely 2/2 to steroids at this time - ctm
# Hypertension
hold antihypertensives
# HLD
Continue atorvastatin
# History CVA/multiple TIAs
Continue aspirin, statin
# Hx seizures
Last seizure was reported several years ago
Continue Tegretol, Depakote
# Vascular dementia /chronic stuttering of voice
Continue donepezil, trazodone at night for sleep
# Hypothyroidism
Continue Synthroid
# Glaucoma
Continue eyedrops
# Chronic ambulatory dysfunction with severe left knee OA
PT/OT recc HH
# Chronic osteoporotic compression fractures T6, T9, T11 11 and L1 sclerotic density with an T12
# Old rib fractures
DVT prophylaxis: Subcu Lovenox
Full code
Total time spent on today's encounter was 51 minutes which included time spent in counseling the patient/family regarding diagnosis and treatment plan as listed above, goals of care, and symptom management. Case was discussed with nursing staff,
specialists, and care coordinators/case management. All labs and imaging personally reviewed by me. Remainder the time spent in detailed review of previous records, lab data, imaging, and other medical provider documentation.
Anticipated Discharge: 24 - 48 hours
Subjective/Interval History
-
Date of Service: July 15, 2023
Objective Data
-
Labs:
Laboratory Results
07/15/23
05:41
WBC 11.1 H
Hgb 10.9 L
Hct 31.4 L
Plt Count 205
Sodium 136
Potassium 4.4
Chloride 105
Carbon Dioxide 27
BUN 48 H
Creatinine 1.0
Glucose 124 H
Calcium 8.4
Vital Signs:
Vital Signs
Temp Pulse Resp BP Pulse Ox
36.4 C 81 16 140/50 94
07/15/23 03:10 07/15/23 07:17 07/15/23 07:17 07/15/23 06:00 07/15/23 07:17
I&O
07/14/23 07/15/23 07/16/23
06:59 06:59 06:59
Intake Total 1640 / 1640 1260 / 1260
Output Total 1450 / 1450 1050 / 1050 300 / 300
Balance 190 / 190 210 / 210 -300 / -300
Review of Systems
-
All other systems: Reviewed and negative
Data Reviewed
-
Diagnostic Radiology: Report Reviewed by me
CT Scan: Report Reviewed by me
Labs: Labs Reviewed by me
[2023-07-15] MEDS: LASIX 40 MG PO (08:58)
[2023-07-15] MEDS: DEPAKOTE (12 HR RELEASE) 250 MG PO (08:59)
[2023-07-15] MEDS: PEPCID 20 MG PO (08:59)
[2023-07-15] MEDS: THERAGRAN 1 TABLET PO (08:59)
[2023-07-15] MEDS: VIBRAMYCIN 100 MG PO (08:59)
[2023-07-15] MEDS: ASPIR LOW (ENTERIC COATED) 81 MG PO (08:59)
[2023-07-15] MEDS: TEGRETOL 200 MG PO ×3 (08:59→21:44)
[2023-07-15] MEDS: SOLU-MEDROL PF 40 MG IV ×2 (09:00→20:13)
[2023-07-15] MEDS: AZOPT 1% OPHTHALMIC SUSPENSION 1 DROP LEFT EYE ×2 (09:01→21:43)
[2023-07-15] MEDS: COMBIGAN EYE DROPS 1 DROP LEFT EYE ×2 (09:01→21:43)
--- NOTE | 2023-07-15 09:26 | W.PN.PUL.V3 ---
Today's Communication / Plan
-
No change in steroids
Aspiration precautions
Continue nebulizers
Wean oxygen
Stable from a pulmonary perspective for transfer out of IMU
Assessment
-
Patient is a 83-year-old female with history of CHF, CVA, dementia, HTN presenting to ED from home complaining of increased shortness of breath over the past 3 to 4 days. It was reported that she was initially improving with use of nebulizer at
home, but developed worsening symptoms in past 24 hours [employer] despite this. EMS reported she was hypoxic on their arrival, she was 98% on arrival to ER. Initial CXR showing basilar interstitial pattern, proBNP 1750. Son notes she has gained about
2lbs in weight last few days. We are consulted for eval.
AE of HFpEF, mild
Acute hypoxic resp insufficiency
Pulmonary edema
Suspect underlying COPD
Progressive SOB -at this point she appears euvolemic and there definitely seems to be component of physical deconditioning in the setting of suspected COPD exacerbation
Weight gain
Abnormal CXR
Conditions present [employer]:
Chronic HFpEF
Former smoker, 1PPD for 40 years, quit in her 50s
HTN
CVA/TIAs
Vascular dementia
Osteoporosis
History of VTE/DVT
Hepatitis
Seizures
Hypothyroidism
Glaucoma
Plan
Respiratory status still somewhat tenuous with ongoing wheezing
Wean supplemental oxygen
Assess discharge supplemental oxygen needs prior to discharge-patient does have a oxygen concentrator at home
Methylprednisolone 40 mg IV every 12 hours-no change
At home uses nebulizers as needed-no inhalers
Continue diuresis as tolerated
Monitor renal function, electrolytes, intake/output, lower extremity edema and weight
Replace electrolytes as needed
Cardiology following-correspondence reviewed-signed off 07/14/2023
Echocardiogram noted-normal function
Cultures reviewed
Continue to observe off antibiotics
Will need outpatient pulmonary evaluation in our office for PFTs and 6MWT
Smoking history noted--certainly at risk for COPD
Quit 30 years ago, would not be a candidate for lung cancer screening
Patient with recent admission for exacerbation of heart failure with underlying COPD suspected.
She was discharged 06/04/23 was recommended outpatient follow-up with pulm for PFTs and 6-minute walk test but had yet to get to her appt which is scheduled for next week.
Instructed to keep appt
Pulmonary team has discussed patient's clinical status with her daughter, Negra, and answered all her questions. Apparently Mara has been weak and deconditioned and sedentary at home as well with difficulty taking deep breaths; so this is a
chronic process with regards to her physical deconditioning and shortness of breath/HOPSON.
Diagnostic Data
CXR 07/08/23- Interstitial airway disease at both lung bases suggesting interstitial pneumonia. There are right-sided rib fractures. There is thoracic dextroscoliosis
CXR 05/29/23- IMPRESSION: Chronic lung changes. Increased interstitial fibrosis and scarring when compared to the previous exam. No focal airspace process. Density in the right lateral lung base most consistent with a previous healed right rib
fracture. Please correlate with follow-up chest CT.
CT chest 05/29/23- IMPRESSION: No evidence of central pulmonary embolism. New marked widespread bilateral pulmonary groundglass opacities both ventrally and peripherally, nonspecific. Some of several differential diagnostic possibilities include
Covid, pulmonary edema and other inflammatory etiologies. Some possible underlying mild chronic interstitial changes. Multiple thoracic vertebral compression fractures again seen, likely chronic.
07/10/20- IMPRESSION:
1. No evidence of pulmonary embolism or thoracic aortic dissection.
2. Acute fractures of the right anterior third through fifth ribs in the mid clavicular line, without associated pneumothorax or pleural effusion. Old ninth posterior rib fracture.
3. Mild bibasilar subsegmental atelectasis, otherwise clear lungs.
4. Multiple compression fractures within the thoracolumbar spine, likely chronic. Please correlate for symptoms of acute fractures.
CT Chest with IV contrast 07-09-2023:
Compared to chest radiograph of July 08, 2023, significant improvement in lung inflation.
Linear densities are present within the lingula and the left lower lobe, compatible with linear atelectasis and/or scarring.
No evidence of focal consolidation to suggest pneumonia. No evidence for pulmonary mass.
Significant vascular calcifications. Findings raise concern for hemodynamically significant stenoses involving the origin of the right brachiocephalic artery and the origin of the left subclavian artery.
Multiple compression deformities of the thoracic and upper lumbar spine, stable from previous CT of May 29, 2023.
ECHO 07/09/23- Follow up study for LVEF. Technically limited study. Normal biventricular size and systolic function without regional wall motion abnormality. Estimated LVEF 50-55%. Compared to 05/30/23: no significant change.
ECHO 05/30/23- �Normal biventricular size and systolic function without regional wall motion�abnormality.�Mild to moderate mitral regurgitation.�Mild pulmonary hypertension.�Compared to previous echo 01/10/2017, the degree of mitral regurgitation
has�improved on today's study.� Otherwise the findings are similar.�
LE Duplex 07-11-2023: No sonographic evidence for lower extremity venous thrombosis.
Subjective Data
-
Date of Service:
Date of Service: July 15, 2023
Chief Complaint: Pulmonary Follow Up and Dyspnea Follow Up
Subjective:
Feels a little better, still has some shortness of breath, no chest pain, productive cough, or abdominal pain
Review of Systems
General: Other (Per HPI)
Objective Data
Data Reviewed
Vital Signs / I&O:
Vital Signs
Temp Pulse Resp BP Pulse Ox
97.6 F 81 16 140/50 94
07/15/23 03:10 07/15/23 07:17 07/15/23 07:17 07/15/23 06:00 07/15/23 07:17
Intake and Output
07/14/23 07/15/23 07/16/23
06:59 06:59 06:59
Intake Total 1640 / 1640 1260 / 1260
Output Total 1450 / 1450 1050 / 1050 300 / 300
Balance 190 / 190 210 / 210 -300 / -300
SaO2: 94
Nasal Cannula flow liters per minute: 1
Physical Exam
General: Comfortable and Other (NAD, anxious, answering appropriately)
HEENT: Normocephalic, Anicteric and Moist Mucous Membranes
Cardiovascular: S1-S2, Peripheral Edema (+2 LE edema) and Other (Tachycardic)
Respiratory: Wheeze (Expiratory), Crackles (Bibasilar), Rhonchi (Negative) and Non-Labored Respirations
GI: Soft, Non Distended and Non Tender
Neurology: Awake, Alert, Oriented (to self and place, somewhat confused on time) and Other (at baseline forgetful)
Skin: Warm, Dry and Good Color
Labs/Micro/Reports
Lab Data
07/15/23 05:41
07/15/23 05:41
Microbiology
07/08/23 17:25 Blood/Venous Blood Culture - Final
No Growth - Final Report
07/08/23 17:25 Blood/Venous Blood Culture - Final
No Growth - Final Report
[2023-07-15] MEDS: LOVENOX 40 MG SC (17:30)
[2023-07-15] MEDS: DEPAKOTE (12 HR RELEASE) 500 MG PO (17:30)
[2023-07-15] MEDS: ARICEPT 10 MG PO (21:43)
[2023-07-15] MEDS: XALATAN OPHTHALMIC SOLUTION 1 DROP BOTH EYES (21:43)
[2023-07-15] MEDS: LIPITOR 40 MG PO (21:44)
[2023-07-15] MEDS: NORVASC 10 MG PO (21:44)
[2023-07-15] MEDS: DESYREL 50 MG PO (21:44)
[2023-07-16] VITALS (8 sets, daily range): BP systolic 97–153; BP diastolic 43–70; PULSE 96; O2SAT 97; BMI 21.6
[2023-07-16] MEDS: SYNTHROID 100 MCG PO (05:59)
[2023-07-16] MEDS: DUONEB 3 ML INH ×4 (08:23→20:43)
[2023-07-16 08:42] LABS: Hematocrit 34.5 % (37.0-47.0); Hemoglobin 11.7 g/dL (12.0-16.0); Mean Corp Hgb Conc. 33.9 g/dL (33.0-37.0); Mean Corpuscular Hgb 34.8 pg (27.0-31.0); Mean Corpuscular Volume 102.7 fL (81.0-99.0); Mean Platelet Volume 9.7 fL (7.4-10.4); Platelet Count 211 10^3/uL (130-400); Red Blood Cell Count 3.36 10^6/uL (4.20-5.40); Red Cell Dist. Width 12.6 % (11.5-14.5); White Blood Cell Count 12.1 10^3/uL (4.8-10.8)
[2023-07-16] MEDS: PEPCID 20 MG PO (08:47)
[2023-07-16] MEDS: ASPIR LOW (ENTERIC COATED) 81 MG PO (08:47)
[2023-07-16] MEDS: DEPAKOTE (12 HR RELEASE) 250 MG PO (08:47)
[2023-07-16] MEDS: THERAGRAN 1 TABLET PO (08:47)
[2023-07-16] MEDS: SOLU-MEDROL PF 40 MG IV ×2 (08:47→21:24)
[2023-07-16] MEDS: TEGRETOL 200 MG PO ×3 (08:47→21:23)
[2023-07-16] MEDS: LASIX 40 MG PO (08:47)
[2023-07-16] MEDS: AZOPT 1% OPHTHALMIC SUSPENSION 1 DROP LEFT EYE ×2 (08:48→21:27)
[2023-07-16] MEDS: COMBIGAN EYE DROPS 1 DROP LEFT EYE ×2 (08:48→21:26)
--- NOTE | 2023-07-16 08:59 | W.PN.PUL.V3 ---
Today's Communication / Plan
-
No change in methylprednisolone
Continue nebulizers
Diuresis as tolerated
Assessment
-
Patient is a 83-year-old female with history of CHF, CVA, dementia, HTN presenting to ED from home complaining of increased shortness of breath over the past 3 to 4 days. It was reported that she was initially improving with use of nebulizer at
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 EMS reported she was hypoxic on their arrival, she was 98% on arrival to ER. Initial CXR showing basilar interstitial pattern, proBNP 1750. Son notes she has gained about
2lbs in weight last few days. We are consulted for eval.
AE of HFpEF, mild
Acute hypoxic resp insufficiency
Pulmonary edema
Suspect underlying COPD
Progressive SOB -at this point she appears euvolemic and there definitely seems to be component of physical deconditioning in the setting of suspected COPD exacerbation
Weight gain
Abnormal CXR
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
Chronic HFpEF
Former smoker, 1PPD for 40 years, quit in her 50s
HTN
CVA/TIAs
Vascular dementia
Osteoporosis
History of VTE/DVT
Hepatitis
Seizures
Hypothyroidism
Glaucoma
Plan
Pulmonary status stable with exception of ongoing wheezing
Wean supplemental oxygen-attempt to wean
Assess discharge supplemental oxygen needs prior to discharge-patient does have a oxygen concentrator at home
Methylprednisolone 40 mg IV every 12 hours-no change
At home uses nebulizers as needed-no inhalers
Continue nebulizers-DuoNebs
Methylprednisolone 40 mg IV every 12 hours-no change
Diuresis as tolerated-serum creatinine increasing
Continue to follow renal function, electrolytes, intake/output, lower extremity edema and weight
Continue to replace electrolytes as needed
Cardiology following-correspondence reviewed-signed off 07/14/2023
Echocardiogram noted-normal function
Cultures reviewed
Continue to observe off antibiotics
DVT prophylaxis-on Lovenox
Nutrition
Early mobilization
Will need outpatient pulmonary evaluation in our office for PFTs and 6MWT
Smoking history noted--certainly at risk for COPD
Quit 30 years ago, would not be a candidate for lung cancer screening
Patient with recent admission for exacerbation of heart failure with underlying COPD suspected.
She was discharged 06/04/23 was recommended outpatient follow-up with pulm for PFTs and 6-minute walk test but had yet to get to her appt which is scheduled for next week.
Instructed to keep appt
Pulmonary team has discussed patient's clinical status with her daughter, Negra, and answered all her questions. Apparently Mara has been weak and deconditioned and sedentary at home as well with difficulty taking deep breaths; so this is a
chronic process with regards to her physical deconditioning and shortness of breath/H[place]SON.
Diagnostic Data
CXR 07/08/23- Interstitial airway disease at both lung bases suggesting interstitial pneumonia. There are right-sided rib fractures. There is thoracic dextroscoliosis
CXR 05/29/23- IMPRESSION: Chronic lung changes. Increased interstitial fibrosis and scarring when compared to the previous exam. No focal airspace process. Density in the right lateral lung base most consistent with a previous healed right rib
fracture. Please correlate with follow-up chest CT.
CT chest 05/29/23- IMPRESSION: No evidence of central pulmonary embolism. New marked widespread bilateral pulmonary groundglass opacities both ventrally and peripherally, nonspecific. Some of several differential diagnostic possibilities include
Covid, pulmonary edema and other inflammatory etiologies. Some possible underlying mild chronic interstitial changes. Multiple thoracic vertebral compression fractures again seen, likely chronic.
07/10/20- IMPRESSION:
1. No evidence of pulmonary embolism or thoracic aortic dissection.
2. Acute fractures of the right anterior third through fifth ribs in the mid clavicular line, without associated pneumothorax or pleural effusion. Old ninth posterior rib fracture.
3. Mild bibasilar subsegmental atelectasis, otherwise clear lungs.
4. Multiple compression fractures within the thoracolumbar spine, likely chronic. Please correlate for symptoms of acute fractures.
CT Chest with IV contrast 07-09-2023:
Compared to chest radiograph of July 08, 2023, significant improvement in lung inflation.
Linear densities are present within the lingula and the left lower lobe, compatible with linear atelectasis and/or scarring.
No evidence of focal consolidation to suggest pneumonia. No evidence for pulmonary mass.
Significant vascular calcifications. Findings raise concern for hemodynamically significant stenoses involving the origin of the right brachiocephalic artery and the origin of the left subclavian artery.
Multiple compression deformities of the thoracic and upper lumbar spine, stable from previous CT of May 29, 2023.
ECHO 07/09/23- Follow up study for LVEF. Technically limited study. Normal biventricular size and systolic function without regional wall motion abnormality. Estimated LVEF 50-55%. Compared to 05/30/23: no significant change.
ECHO 05/30/23- �Normal biventricular size and systolic function without regional wall motion�abnormality.�Mild to moderate mitral regurgitation.�Mild pulmonary hypertension.�Compared to previous echo 01/10/2017, the degree of mitral regurgitation
has�improved on today's study.� Otherwise the findings are similar.�
LE Duplex 07-11-2023: No sonographic evidence for lower extremity venous thrombosis.
Subjective Data
-
Date of Service:
Date of Service: July 16, 2023
Chief Complaint: Pulmonary Follow Up and Dyspnea Follow Up
Subjective:
No more shortness of breath than yesterday, still with some wheezing, offers no complaints of chest pain or abdominal pain
Review of Systems
General: Other (Per HPI)
Objective Data
Data Reviewed
Vital Signs / I&O:
Vital Signs
Temp Pulse Resp BP Pulse Ox
98.0 F 72 16 150/70 99
07/16/23 07:29 07/16/23 08:26 07/16/23 08:26 07/16/23 08:45 07/16/23 08:26
Intake and Output
07/15/23 07/16/23 07/17/23
06:59 06:59 06:59
Intake Total 1260 / 1260 680 / 680
Output Total 1050 / 1050 650 / 650
Balance 210 / 210 30 / 30
SaO2: 99
Nasal Cannula flow liters per minute: 1
Physical Exam
General: Respiratory Distress (n), Comfortable and Other (NAD, anxious, answering appropriately)
HEENT: Normocephalic, Anicteric and Moist Mucous Membranes
Cardiovascular: Regular Rhythm, Peripheral Edema (+2 LE edema) and Other (Tachycardic)
Respiratory: Wheeze (Expiratory), Crackles (Bibasilar), Rhonchi (Negative) and Non-Labored Respirations
GI: Soft, Non Distended and Non Tender
Neurology: Awake, Alert, No Motor Deficits and Other (at baseline forgetful)
Skin: Warm, Good Color, Cyanosis (n), Jaundice (n) and Rash (n)
Labs/Micro/Reports
Lab Data
07/16/23 08:04
Microbiology
07/08/23 17:25 Blood/Venous Blood Culture - Final
No Growth - Final Report
07/08/23 17:25 Blood/Venous Blood Culture - Final
No Growth - Final Report
[2023-07-16 09:18] LABS: Blood Urea Nitrogen 46 mg/dl (7-17); Calcium 9.1 mg/dl (8.4-10.2); Carbon Dioxide 29 mmol/L (22-30); Chloride 100 mmol/L (98-107); Estimated Creatinine Clearance 36 ml/min; Glucose 88 mg/dl (70-99); Magnesium 2.3 mg/dl (1.6-2.3); Potassium 4.3 mmol/L (3.5-5.1); Sodium 136 mmol/L (135-145); eGFR 49.86
--- NOTE | 2023-07-16 12:55 | W.PN.HOSP.TC ---
Today's Communication/Plan
-
see A/P
Assessment / Plan
Assessment / Plan
A/P:
# Hypotensive episode responded well to fluids - may be related to antihypertensives
Pt was started with empiric abx Ceftriaxone/Doxycycline - no clear source - since improvement with abx - treated for 5 days
Procal neg, CT Chest unremarkable for consolidation, cultures negative
Acapella/Incentive rich
TSH WNL at 0.76
restarted steroids for wheezing- slowly improving
appreciate pulm recs
ECHO - EF 50-55%; Mild concentric LVH
# Acute on chronic Hypoxic Respiratory Failure
# Acute on Chronic HFpEF
# COPD Exacerbation
She is on home O2, currently on RA
Responded well to 40mg iv lasix after hypoxic event 07/07; crackles were present during event
off Lasix IV BID, switch to PO Lasix 40 mg daily, I/O and daily weights
LE dopplers - negative
Check Ambulatory Pulse Ox prior to discharge
Wean Solumoledrol
# ?COPD
# Former smoker 1 pack a day for 50 years quit 30 years ago
Was to follow with pulmonary for PFTs and 6-minute walk test during May admission
f/u outpatient
duonebs standing
Wean Solumoledrol
# Mild Leucocytosis
most likely 2/2 to steroids at this time - ctm
# Hypertension
hold antihypertensives
# HLD
Continue atorvastatin
# History CVA/multiple TIAs
Continue aspirin, statin
# Hx seizures
Last seizure was reported several years ago
Continue Tegretol, Depakote
# Vascular dementia /chronic stuttering of voice
Continue donepezil, trazodone at night for sleep
# Hypothyroidism
Continue Synthroid
# Glaucoma
Continue eyedrops
# Chronic ambulatory dysfunction with severe left knee OA
PT/OT recc HH
# Chronic osteoporotic compression fractures T6, T9, T11 11 and L1 sclerotic density with an T12
# Old rib fractures
DVT prophylaxis: Subcu Lovenox
Full code
DW daughter on the phone
Anticipated Discharge: Within 24 hours
Subjective/Interval History
-
Date of Service: July 16, 2023
Objective Data
-
Labs:
Laboratory Results
07/16/23
08:04
WBC 12.1 H
Hgb 11.7 L
Hct 34.5 L
Plt Count 211
Sodium 136
Potassium 4.3
Chloride 100
Carbon Dioxide 29
BUN 46 H
Creatinine 1.1 H
Glucose 88
Calcium 9.1
Vital Signs:
Vital Signs
Temp Pulse Resp BP Pulse Ox
36.5 C 77 16 119/60 98
07/16/23 11:02 07/16/23 11:53 07/16/23 11:53 07/16/23 11:02 07/16/23 11:53
I&O
07/15/23 07/16/23 07/17/23
06:59 06:59 06:59
Intake Total 1260 / 1260 680 / 680
Output Total 1050 / 1050 650 / 650
Balance 210 / 210 30 / 30
Review of Systems
-
All other systems: Reviewed and negative
Physical Exam
-
General: Well Developed, Well Nourished, No Apparent Distress, Comfortable and Conversant
HEENT: Normocephalic and Atraumatic
Respiratory: Clear to Auscultation, Wheezes and Non Labored Respirations; Negative Accessory Resp Muscle Use
Cardiac: Regular Rhythm and S1/S2
GI: Soft, Nontender and Nondistended
Musculoskeletal: No Clubbing and No Cyanosis
Skin: Warm and Dry
Neuro: Awake, Alert and Oriented
Psych: Calm and Intact Judgement/Insight
Data Reviewed
-
Labs: Labs Reviewed by me
--- NOTE | 2023-07-16 14:40 | CM ---
Spoke with patients daughter Mara via phone.
Per daughter and MD patient for a probable d/c home tomorrow with Jordan HERNÁNDEZ to follow.
Daughter with concerns re VN coming out in a timely manner.
TC to nurse liaison and discussed.
Nurse Liaison will have admissions nurse contact the patients daughter.
Gave Liaison the patients MD and phone numbers. (they already had)
[facility] Referral updated in [facility].
Plan: home with Jordan HERNÁNDEZ, daughter will transport.
[2023-07-16] MEDS: DEPAKOTE (12 HR RELEASE) 500 MG PO (17:41)
[2023-07-16] MEDS: LOVENOX 40 MG SC (17:41)
[2023-07-16] MEDS: LIPITOR 40 MG PO (21:20)
[2023-07-16] MEDS: DESYREL 50 MG PO (21:21)
[2023-07-16] MEDS: NORVASC 10 MG PO (21:21)
[2023-07-16] MEDS: ARICEPT 10 MG PO (21:21)
[2023-07-16] MEDS: XALATAN OPHTHALMIC SOLUTION 1 DROP BOTH EYES (21:27)
[2023-07-17 04:00] VITALS: BP 116/48
[2023-07-17 05:27] VITALS: BMI 22.0
[2023-07-17] MEDS: SYNTHROID 100 MCG PO (05:30)
[2023-07-17] MEDS: DUONEB 3 ML INH ×2 (07:11→11:09)
[2023-07-17 07:30] VITALS: BP 121/91
[2023-07-17 07:31] LABS: Hematocrit 32.1 % (37.0-47.0); Mean Corp Hgb Conc. 34.3 g/dL (33.0-37.0); Mean Corpuscular Volume 102.2 fL (81.0-99.0); Mean Platelet Volume 9.8 fL (7.4-10.4); Platelet Count 215 10^3/uL (130-400); Red Blood Cell Count 3.14 10^6/uL (4.20-5.40); Red Cell Dist. Width 12.8 % (11.5-14.5); White Blood Cell Count 11.3 10^3/uL (4.8-10.8)
[2023-07-17 07:55] LABS: Blood Urea Nitrogen 46 mg/dl (7-17); Calcium 8.7 mg/dl (8.4-10.2); Carbon Dioxide 29 mmol/L (22-30); Chloride 102 mmol/L (98-107); Estimated Creatinine Clearance 33 ml/min; Glucose 121 mg/dl (70-99); Potassium 4.6 mmol/L (3.5-5.1); Sodium 135 mmol/L (135-145); eGFR 44.91
[2023-07-17] MEDS: TEGRETOL 200 MG PO (08:50)
[2023-07-17] MEDS: THERAGRAN 1 TABLET PO (08:50)
[2023-07-17] MEDS: ASPIR LOW (ENTERIC COATED) 81 MG PO (08:50)
[2023-07-17] MEDS: COMBIGAN EYE DROPS 1 DROP LEFT EYE (08:51)
[2023-07-17] MEDS: DEPAKOTE (12 HR RELEASE) 250 MG PO (08:51)
[2023-07-17] MEDS: LASIX 40 MG PO (08:51)
[2023-07-17] MEDS: PEPCID 20 MG PO (08:51)
[2023-07-17] MEDS: AZOPT 1% OPHTHALMIC SUSPENSION 1 DROP LEFT EYE (08:52)
[2023-07-17] MEDS: SOLU-MEDROL PF 40 MG IV (08:52)
--- NOTE | 2023-07-17 09:55 | W.PN.PUL.V3 ---
Today's Communication / Plan
-
Change methylprednisolone to prednisone with slow taper
Home nebulizers 3 times daily
Outpatient pulmonary follow-up
Reviewed with daughter Negra at length
Assessment
-
Patient is a 83-year-old female with history of CHF, CVA, dementia, HTN presenting to ED from home complaining of increased shortness of breath over the past 3 to 4 days. It was reported that she was initially improving with use of nebulizer at
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 EMS reported she was hypoxic on their arrival, she was 98% on arrival to ER. Initial CXR showing basilar interstitial pattern, proBNP 1750. Son notes she has gained about
2lbs in weight last few days. We are consulted for eval.
AE of HFpEF, mild
Acute hypoxic resp insufficiency
Pulmonary edema
Suspect underlying COPD
Progressive SOB -at this point she appears euvolemic and there definitely seems to be component of physical deconditioning in the setting of suspected COPD exacerbation
Weight gain
Abnormal CXR
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
Chronic HFpEF
Former smoker, 1PPD for 40 years, quit in her 50s
HTN
CVA/TIAs
Vascular dementia
Osteoporosis
History of VTE/DVT
Hepatitis
Seizures
Hypothyroidism
Glaucoma
Plan
Respiratory status has improved-ongoing mild wheezing
Wean supplemental oxygen-attempt to wean-currently on room air
Assess discharge supplemental oxygen needs prior to discharge-patient does have a oxygen concentrator at home
Convert methylprednisolone to prednisone with slow taper
At home uses nebulizers as needed-no inhalers
Continue [id number] times daily at home
Continue diuresis as tolerated-serum creatinine increasing
Monitor renal function, electrolytes, intake/output, lower extremity edema and weight
Replace electrolytes as needed
Cardiology following-correspondence reviewed-signed off 07/14/2023
Echocardiogram noted-normal function
Cultures reviewed
Continue to observe off antibiotics
DVT prophylaxis-on Lovenox
Nutrition
Early mobilization
Will need outpatient pulmonary evaluation in our office for PFTs and 6MWT
Smoking history noted--certainly at risk for COPD
Quit 30 years ago, would not be a candidate for lung cancer screening
Patient with recent admission for exacerbation of heart failure with underlying COPD suspected.
She was discharged 06/04/23 was recommended outpatient follow-up with pulm for PFTs and 6-minute walk test but had yet to get to her appt which is scheduled for next week.
Instructed to keep appt
Reviewed with nursing as well as daughter at the bedside
Dr. Ziegler reviewed clinical status today with daughter Negra and answered all her questions
Diagnostic Data
CXR 07/08/23- Interstitial airway disease at both lung bases suggesting interstitial pneumonia. There are right-sided rib fractures. There is thoracic dextroscoliosis
CXR 05/29/23- IMPRESSION: Chronic lung changes. Increased interstitial fibrosis and scarring when compared to the previous exam. No focal airspace process. Density in the right lateral lung base most consistent with a previous healed right rib
fracture. Please correlate with follow-up chest CT.
CT chest 05/29/23- IMPRESSION: No evidence of central pulmonary embolism. New marked widespread bilateral pulmonary groundglass opacities both ventrally and peripherally, nonspecific. Some of several differential diagnostic possibilities include
Covid, pulmonary edema and other inflammatory etiologies. Some possible underlying mild chronic interstitial changes. Multiple thoracic vertebral compression fractures again seen, likely chronic.
07/10/20- IMPRESSION:
1. No evidence of pulmonary embolism or thoracic aortic dissection.
2. Acute fractures of the right anterior third through fifth ribs in the mid clavicular line, without associated pneumothorax or pleural effusion. Old ninth posterior rib fracture.
3. Mild bibasilar subsegmental atelectasis, otherwise clear lungs.
4. Multiple compression fractures within the thoracolumbar spine, likely chronic. Please correlate for symptoms of acute fractures.
CT Chest with IV contrast 07-09-2023:
Compared to chest radiograph of July 08, 2023, significant improvement in lung inflation.
Linear densities are present within the lingula and the left lower lobe, compatible with linear atelectasis and/or scarring.
No evidence of focal consolidation to suggest pneumonia. No evidence for pulmonary mass.
Significant vascular calcifications. Findings raise concern for hemodynamically significant stenoses involving the origin of the right brachiocephalic artery and the origin of the left subclavian artery.
Multiple compression deformities of the thoracic and upper lumbar spine, stable from previous CT of May 29, 2023.
ECHO 07/09/23- Follow up study for LVEF. Technically limited study. Normal biventricular size and systolic function without regional wall motion abnormality. Estimated LVEF 50-55%. Compared to 05/30/23: no significant change.
ECHO 05/30/23- �Normal biventricular size and systolic function without regional wall motion�abnormality.�Mild to moderate mitral regurgitation.�Mild pulmonary hypertension.�Compared to previous echo 01/10/2017, the degree of mitral regurgitation
has�improved on today's study.� Otherwise the findings are similar.�
LE Duplex 07-11-2023: No sonographic evidence for lower extremity venous thrombosis.
Subjective Data
-
Date of Service:
Date of Service: July 17, 2023
Chief Complaint: Pulmonary Follow Up and Dyspnea Follow Up
Subjective:
Feels better, less short of breath, still with some wheezing, no chest pain or abdominal pain or increased leg swelling
Review of Systems
General: Other (Per HPI)
Objective Data
Data Reviewed
Vital Signs / I&O:
Vital Signs
Temp Pulse Resp BP Pulse Ox
97.7 F 87 18 121/91 98
07/17/23 07:30 07/17/23 08:51 07/17/23 07:30 07/17/23 08:51 07/17/23 07:30
Intake and Output
07/16/23 07/17/23 07/18/23
06:59 06:59 06:59
Intake Total 680 / 680 240 / 240
Output Total 650 / 650
Balance 30 / 30 240 / 240
SaO2: 98
Nasal Cannula flow liters per minute: 1
Physical Exam
General: Respiratory Distress (n), Comfortable and Other (NAD, anxious, answering appropriately)
HEENT: Normocephalic, Anicteric and Moist Mucous Membranes
Cardiovascular: Regular Rhythm, Peripheral Edema (+2 LE edema) and Other (Tachycardic)
Respiratory: Wheeze (Expiratory), Crackles (Bibasilar), Rhonchi (Negative) and Non-Labored Respirations
GI: Soft, Non Distended and Non Tender
Neurology: Awake, Alert, No Motor Deficits and Other (at baseline forgetful)
Skin: Warm, Good Color, Cyanosis (n), Jaundice (n) and Rash (n)
Labs/Micro/Reports
Lab Data
07/17/23 06:59
07/17/23 06:59
[2023-07-17 11:28] VITALS: BP 130/58
--- NOTE | 2023-07-17 13:03 | W.PN.HOSP.TC ---
Addendum entered and electronically signed by Bailey Cervantes MD 07/17/23 15:49:
Total DC time 40 minutes
Original Note:
Today's Communication/Plan
-
see A/P
Assessment / Plan
Assessment / Plan
A/P:
# Hypotensive episode responded well to fluids - may be related to antihypertensives
Pt was started with empiric abx Ceftriaxone/Doxycycline - no clear source - since improvement with abx - was treated for 5 days
Procal neg, CT Chest unremarkable for consolidation, cultures negative
Acapella/Incentive rich
TSH WNL at 0.76
restarted steroids for wheezing- slowly improving
appreciate pulm recs
ECHO - EF 50-55%; Mild concentric LVH
# Acute on chronic Hypoxic Respiratory Failure
# Acute on Chronic HFpEF
# COPD Exacerbation
She is on home O2, currently on RA
off Lasix IV BID, switch to PO Lasix 40 mg daily, I/O and daily weights
LE dopplers - negative
# COPD exacerbation
# Former smoker 1 pack a day for 50 years quit 30 years ago
Was to follow with pulmonary for PFTs and 6-minute walk test during May admission
f/u outpatient
duonebs standing
will change IV Solumoledrol to PO prednisone, start 40 mg daily and wean outpt
# Mild Leucocytosis
most likely 2/2 to steroids at this time - ctm
# Hypertension
hold antihypertensives
# HLD
Continue atorvastatin
# History CVA/multiple TIAs
Continue aspirin, statin
# Hx seizures
Last seizure was reported several years ago
Continue Tegretol, Depakote
# Vascular dementia /chronic stuttering of voice
Continue donepezil, trazodone at night for sleep
# Hypothyroidism
Continue Synthroid
# Glaucoma
Continue eyedrops
# Chronic ambulatory dysfunction with severe left knee OA
PT/OT recc HH
# Chronic osteoporotic compression fractures T6, T9, T11 11 and L1 sclerotic density with an T12
# Old rib fractures
DVT prophylaxis: Subcu Lovenox
Full code
DW Pulm
DW daughter on the phone
Anticipated Discharge: Today
Subjective/Interval History
-
Date of Service: July 17, 2023
Objective Data
-
Labs:
Laboratory Results
07/17/23
06:59
WBC 11.3 H
Hgb 11.0 L
Hct 32.1 L
Plt Count 215
Sodium 135
Potassium 4.6
Chloride 102
Carbon Dioxide 29
BUN 46 H
Creatinine 1.2 H
Glucose 121 H
Calcium 8.7
Vital Signs:
Vital Signs
Temp Pulse Resp BP Pulse Ox
36.5 C 81 20 99/49 95
07/17/23 11:32 07/17/23 11:32 07/17/23 11:32 07/17/23 11:32 07/17/23 11:12
I&O
07/16/23 07/17/23 07/18/23
06:59 06:59 06:59
Intake Total 680 / 680 240 / 240
Output Total 650 / 650
Balance 30 / 30 240 / 240
Review of Systems
-
All other systems: Reviewed and negative
Physical Exam
-
General: Well Developed, Well Nourished, No Apparent Distress, Comfortable and Conversant
HEENT: Normocephalic and Atraumatic
Respiratory: Clear to Auscultation and Non Labored Respirations; Negative Wheezes (resolved ) or Accessory Resp Muscle Use
Cardiac: Regular Rhythm and S1/S2
GI: Soft, Nontender and Nondistended
Musculoskeletal: No Clubbing and No Cyanosis
Skin: Warm and Dry
Neuro: Awake, Alert and Oriented
Psych: Calm and Intact Judgement/Insight
Data Reviewed
-
Labs: Labs Reviewed by me
--- NOTE | 2023-07-17 13:43 | W.DCSUMMARY ---
Discharge Summary
Discharge Data
Date of Admission: 07/08/23
Date of Discharge: 07/17/23
-
Pending Results: No
Hospital Course
Principal Diagnosis:
Acute on Chronic heart failure with preserved ejection fraction (HFpEF)
COPD Exacerbation
Hypotensive episode responded well to fluids, hence likely related to antihypertensives
Mild leukocytosis due to steroid
Chronic Diagnoses:�
Hypertension
Hyperlipidemia, on atorvastatin
History of stroke
History of seizure, on Tegretol, Depakote
Vascular dementia /chronic stuttering of voice
Hypothyroidism, on Synthroid
Glaucoma
Chronic ambulatory dysfunction with severe left knee osteoarthritis
Chronic osteoporotic compression fractures T6, T9, T11 11 and L1 sclerotic density with an T12
Consultations:�
Cardiology
Pulmonary
Procedures:�
None
Clinical course:�
This is a 83-year-old female, with past medical history as stated above, who presented with dry cough and shortness of breath.
Problem 1:
Acute on Chronic HFpEF.
The patient received IV Lasix initially, and this was subsequently changed to oral Lasix 40 mg daily.
She can continue with oral Lasix 40 mg daily going forward.
Problem 2:
COPD exacerbation.
The patient received IV Solumedrol while in the hospital, and was discharged with oral prednisone 40 mg daily to continue outpatient tapering.
Problem 3:
Hypotensive episode responded to fluids, hence likely related to antihypertensives.
Of note, the patient did receive empiric antibiotics Ceftriaxone/Doxycycline for 5 days.
Her Procal was negative, CT Chest was unremarkable and cultures were negative.
Her prior to admission Toprol was discontinued, and she can continue with Norvasc 10 mg daily.
As for the rest of her medical problems, they were stable during her hospital stay.
Discharge Plan
-
Patient Disposition: Home with Home Care
Discharge Diagnosis/Procedures: Acute on chronic Hypoxic Respiratory Failure with Acute on Chronic heart failure; possible COPD exacerbation; Hypotensive episode may be related to antihypertensives (responded well to fluids)
Condition: Fair
Diet: As tolerated, 2 Gram Sodium and Restrict fluids to 48 oz
Activity: As tolerated
Blood Work: BMP in 1 week, result to PCP
Other Services: VN
Specialty Instructions: Weigh Daily- Call MD for wt gain/loss 3 lbs overnight/5 lbs in 1 week
Instructions: *CBC Heart Failure Instructions
Referrals:
Ly Duran, DO [Active] - (Pt has appt next week, keep please)
UNKNOWN - PT NOT,INTERVIEWE [Family Provider] - in less than 1 week
Additional Discharge Medication Instructions: Continued Lasix at 40 mg daily.
Stop potassium supplement for now.
Continue prednisone taper as instructed.
Stop metoprolol.
Prescriptions:
New
prednisone 10 mg Tablet
See Rx Instructions .ROUTE .COMPLEX Qty: 30 0RF
Rx Instructions:
Take By Mouth:
40 mg daily x3 days, 30 mg daily x3 days,
20 mg daily x3 days, 10 mg daily x3 days.
furosemide [Lasix] 40 mg tablet
40 mg PO DAILY Qty: 30 0RF
Continued
aspirin 81 MG tablet,delayed release (DR/EC)
81 mg PO WEEKLY
levothyroxine 100 MCG tablet
100 mcg PO DAILY AT 0700
carbamazepine 200 MG tablet
200 mg PO TID
amlodipine 10 MG tablet
10 mg PO HS
latanoprost 0.005 % drops
1 drp BOTH EYES HS
divalproex 250 mg tablet,delayed release (DR/EC)
250 mg PO DAILY
divalproex 250 mg tablet,delayed release (DR/EC)
500 mg PO QPM
trazodone 50 mg tablet
50 mg PO HS
brinzolamide 1 % drops,suspension
1 drp LEFT EYE BID
donepezil 10 mg tablet
10 mg PO HS
eowvkdecshjb-ztyylubw-xuusku Tablet
1 tab PO DAILY
brimonidine-timolol [Combigan] 0.2-0.5 % drops
1 drp LEFT EYE BID
atorvastatin 40 MG tablet
40 mg PO HS
famotidine 40 mg Tablet
40 mg PO DAILY
Discontinued
metoprolol tartrate 25 MG tablet
37.5 mg PO BID
potassium chloride 20 mEq tablet,ER particles/crystals
20 meq PO DAILY
furosemide 20 mg tablet
20 mg PO MOWEFR
Discharge Orders:
Discharge Patient (As Directed); Ordered 07/17/23
Ordered By: Bailey Cervantes
Discharge Date and Time
Print Language: JAPANESE
--- NOTE | 2023-07-17 15:03 | CM ---
Spoke with patient and daughter.
Patien for d/c home, daughter and son in law will transport.
IMM completed.
Plan:home with [facility]ERN[facility]
fax# [phone]
--- NOTE | 2023-07-18 08:34 | CM ---
D/c summary faxed to [facility] (aide services under the waiver program)

x [phone].
== END 2023-07-17 15:23 | disposition home health service (06) | DRG 291 ==
LOC: 4 WEST ACU 19:27
PROVIDERS: Clinical Nurse Specialist Family Health; Internal Medicine; Internal Medicine Cardiovascular Disease; Nurse Practitioner Family; ADMITTING PHYSICIAN Hospitalist; ATTENDING PHYSICIAN Internal Medicine; EMERGENCY PHYSICIAN Emergency Medicine; OTHER PHYSICIAN Internal Medicine; OTHER PHYSICIAN Internal Medicine Cardiovascular Disease
DX: I11.0 Hypertensive heart disease with heart failure (principal); I50.33 Acute on chronic diastolic (congestive) heart failure; J96.21 Acute and chronic respiratory failure with hypoxia; J18.9 Pneumonia, unspecified organism; J44.1 Chronic obstructive pulmonary disease with (acute) exacerbation; M80.08XA Age-related osteoporosis with current pathological fracture, vertebra(e), initial encounter for fracture; J98.11 Atelectasis; I95.2 Hypotension due to drugs; I5A Non-ischemic myocardial injury (non-traumatic); E03.9 Hypothyroidism, unspecified; T46.5X5A Adverse effect of other antihypertensive drugs, initial encounter; Y92.9 Unspecified place or not applicable; E78.00 Pure hypercholesterolemia, unspecified; I44.7 Left bundle-branch block, unspecified; G40.909 Epilepsy, unspecified, not intractable, without status epilepticus; M17.12 Unilateral primary osteoarthritis, left knee; T38.0X5A Adverse effect of glucocorticoids and synthetic analogues, initial encounter; F01.50 Vascular dementia, unspecified severity, without behavioral disturbance, psychotic disturbance, mood disturbance, and anxiety; D72.829 Elevated white blood cell count, unspecified; H40.9 Unspecified glaucoma; Z11.52 Encounter for screening for COVID-19; Z90.711 Acquired absence of uterus with remaining cervical stump; Z87.891 Personal history of nicotine dependence; Z79.82 Long term (current) use of aspirin; Z79.890 Hormone replacement therapy; Z86.73 Personal history of transient ischemic attack (TIA), and cerebral infarction without residual deficits; Z86.718 Personal history of other venous thrombosis and embolism; Z99.81 Dependence on supplemental oxygen
CPT/HCPCS: 93308; 36600; 71045; 71260; 80048; 80053; 82805; 82962; 83605; 83735; 83880; 84145; 84443; 84484; 85025; 85027; 85610; 87040; 87502; 87811; 92610; 93005; 93321; 93325; 93970; 94640; 96374; 97116; 97163; 97167; 97530; 99285; Q9967

== ENCOUNTER 2024-04-19 13:03 | Inpatient (IN) | payer MEDICARE, OTHER, SELFPAY ==
[2024-04-14] VITALS (15 sets, daily range): BP systolic 72–135; BP diastolic 43–105; BMI 24.0
--- NOTE | 2024-04-14 17:18 | ED.GENMED ---
History of Present Illness
General
Chief Complaint: Failure to Thrive
Source: patient and ambulance crew
Time Seen by Provider: 04/14/24 16:58
History of Present Illness
History of Present Illness:
83-year-old female brought to the emergency room by ambulance for evaluation of generalized weakness. Per medics the patient has been less energetic and having difficulty getting around. She had a 'fall'. Patient states that she was trying to the
bathroom and sort of fell backwards she denies hitting her head but seems unclear. Medics state the family thought the patient was having difficulty speaking. She has a history of CVAs with unclear residual sequela. Patient denies vomiting or
diarrhea. Medics state the patient's had poor oral intake. She is complaining of a headache.
Past History
Past History
ED Past Medical History: CVA, HTN, Hypercholesterolemia and Hypothyroidism
ED Past Surgical History: Gynecological (partial hysterectomy) and Orthopedic (right hip fracture)
Social History
Tobacco: Former smoker
Alcohol: Occasional
Personal:
Living: alone (with aids)
Phy Exam
Physical Exam
Physical Exam:
General: Awake, Alert, Oriented X3. Patient appears chronically ill and cachectic
Vitals: Hypotensive, no fever by oral temperature though rectal temperature pending
Head: Atraumatic
Eyes: Pupils equal, EOMI
Throat: Airway intact, no exudates, significantly dry
Neck: Trachea midline, no midline tenderness to palpation
Lungs: Decreased breath sounds bilaterally with expiratory wheezing
Heart: Regular rate, no murmurs
Abd: Soft, Nontender, No pulsatile mass
Neuro: Appears to have a right facial droop, moving all 4 extremities, she is able to answer questions though perhaps mildly confused
Skin: Warm, dry, no rash
Extremities: pulses equal b/l, no edema
Course
Orders/Labs/Results
Orders:
Orders
04/14/24 17:08
EKG [Electrocardiogram (*1)] Urgent
Reason for Study: Fatigue / Weakness
04/14/24 17:09
EKG- Treatment ONCE
04/14/24 17:10
Complete Blood Count/With Diff Urgent
Comprehensive Metabolic Panel Urgent
TSH Reflex To Free T4 Urgent
Comment: ADDON
04/14/24 17:16
Cardiac Monitoring- Treatment ONCE
Straight cath- Treatment ONCE
04/14/24 17:17
Electrocardiogram (*1) Urgent
Reason for Study: Other
Other Reason for Exam: sepsis
Lactated Ringers [Lr] 1,800 ml IV BOLUS
CR Chest - 2 Views Urgent
Comment:
Reason For Exam: cough, wheezing
04/14/24 17:18
Ipratropium/Albuterol Sulfate [Duoneb] 3 ml INH R NOW ONE
04/14/24 17:19
CT Cervical Spine W/o Iv Contr Urgent
Comment:
Reason For Exam: fall possible head injury
CT Head W/o Iv Contrast Urgent
Comment:
Reason For Exam: headache, fall
04/14/24 17:32
COVID-19 Antigen Urgent
Source: Nasal Swab
Lactic Acid Q4H
Comment: CANCEL 2nd LACTIC ACID IF 1st LACTIC ACID IS LESS THAN 2
Procalcitonin Urgent
PCT Algorithmm Indication: Sepsis
Tegretol (Carbamazepine) Urgent
Urinalysis Reflex To Culture Urgent
Date Specimen was Collected: 04/14/24
Time Specimen was Collected: 17:31
Valproic Acid Level [Depakane] Urgent
Venous Blood Gas Urgent
%Oxygen/Room Air: ra
Blood Culture Urgent
IRVING Source: Blood/Venous
Specimen Description:
Influenza A+B Rapid Molecular Urgent
IRVING Source: Nasal Swab
Specimen Description:
04/14/24 19:12
Electrocardiogram (*1) Urgent
Reason for Study: Fatigue / Weakness
04/14/24 20:47
Add On- LAB Urgent
Tests Added?: tsh reflex to t4
04/14/24 20:50
Troponin I Urgent
04/14/24 22:00
Flush (0.9% Sodium Chloride) [Flush (Nss)] See Dose Instructions IV PER PROTOCOL
04/14/24 22:02
Admit/Transfer Patient As Directed
Co-Sign Provider:
Level of Care: Observation services
Assign to:: Telemetry
Physician / Group: Antoine
Diagnosis: Change in Mental Status
Reason for Telemetry: CVA/TIA
Date to Stop Telemetry: 04/17/24
Time to Stop Telemetry: 11:00
PRN Pain Medication Management As Directed
May give lesser potent ordered pain med per pt: Yes
preference::
Protocol:: Medication orders for pain may be administered in a
manner that supports deferring to patient preference
when the pt is:
- Requesting an ordered lesser potent pain medication.
Least to most potent pain medications are defined
as: acetaminophen < NSAID < tramadol < opioids
(morphine, oxycodone, hydromorphone).
- Requesting a lesser dose of the same medication IF
ORDERED.
- Requesting a less intrusive route of administration
if both routes are prescribed by the provider (PO <
IV).
04/14/24 22:04
Code Status As Directed
Resuscitation Status: Do not resuscitate
Reached after discussion with pt or family/Healthcare POA: Yes
DNR Bracelet Application ONCE
04/15/24 00:12
Acetaminophen [Tylenol] 650 mg PO Q4HPRN PRN
Carbamazepine [Tegretol] 200 mg PO BID
Divalproex Delayed Rel. 12 Hr [Depakote (12 Hr Release)] 250 mg PO BID
Lactated Ringers [Lr] 1,000 ml IV 80 mls/hr
04/15/24 00:12
Activity As Directed
Activity Level: Ambulate
With Assistance
Bladder Scan As Directed
Follow Bladder Retention/Intermittent Cath Algorithm?: Yes
PRN if no void in __ hours: 6
Frequency: Per Retention Algorithm
If Bladder Scan Result >: 400
then:: Straight cath
EKG with chest pain [ECG as needed] As Directed
ECG as needed for:: Chest Pain
I/O [Intake/ Output] As Directed
Frequency: Per unit guidelines
Neurological Checks As Directed
Frequency: q4h
Orthostatic Vital Signs As Directed
Orthostatic VS Frequency: BID
Pneumatic Compression Sleeves As Directed
Type: Knee high
Straight Cath As Directed
Frequency: Per Retention Algorithm
Additional Instructions: straight cath as needed per acute urinary retention algorithm for 24 hrs
Additional Instructions: for bladder scan greater than 400 mL
Vital Signs As Directed
Frequency: Per unit guidelines
Weight As Directed
Frequency: Daily
Oxygen Therapy [O2 Therapy] [RESP] Routine
Titrate/Wean O2 to maintain O2 sat greater than (%): 94
Ot Eval And Treat Routine
PT Consult [Pt Eval And Treat] Routine
Activity Level: Ambulate
With Assistance
Speech Therapy Eval & Treat Routine
DX Deep Vein Thrombosis Video Routine
04/15/24 06:00
EKG [Electrocardiogram (*1)] IN AM
Reason for Study: Chest Pain
Regular
At Your Request: Limited Participation
Basic Metabolic Panel IN AM
Cardiovascular Evaluation IN AM
Complete Blood Count/No Diff IN AM
Cortisol, Random IN AM
MR Brain Without Contrast IN AM
Comment:
Reason For Exam: Change in MS, Prior CVA
Recent pill cam endoscopy?: No
Levothyroxine [Synthroid] 100 mcg PO DAILY @ 0600
04/15/24 08:00
Aspirin Chewable [Low Strength Aspirin] 81 mg PO DAILY
Brimonidine Tartrate/Timolol [Combigan Eye Drops] 1 drop LEFT EYE BID
Brinzolamide [Azopt 1% Ophthalmic Suspension] 1 drop LEFT EYE BID
Famotidine [Pepcid] 20 mg PO BID
Tiotropium [place] 2.5 Mcg [Spiriva Respimat 2.5 Mcg] 2 puff INH R DAILY
04/15/24 22:00
Atorvastatin [Lipitor] 40 mg PO HS
Donepezil HCl [Aricept] 10 mg PO HS
Latanoprost [Xalatan Ophthalmic Solution] 1 drop BOTH EYES HS
Trazodone [Desyrel] 50 mg PO HS
04/17/24 11:00
DC Protocol for Telemetry ONCE
Abnormal Lab Results
04/14/24 04/14/24
17:10 17:32
RBC 3.69 L 10^6/uL
(4.20-5.40)
MCV 102.2 H fL
(81.0-99.0)
MCH 34.7 H pg
(27.0-31.0)
Absolute Monos (auto) 1.1 H 10^3/uL
(0.1-0.6)
Monocytes % 13.7 H %
(1.7-9.3)
VBG pCO2 52 H mmHg
(35-48)
VBG HCO3 32.2 H mmol/L
(22-27)
Carbon Dioxide 31 H mmol/L
(22-30)
BUN 25 H mg/dl
(7-17)
Creatinine 1.1 H mg/dL
(0.6-1.0)
Glucose 127 H mg/dl
(70-99)
AST 41 H U/L
(14-36)
04/14/24 17:10
04/14/24 17:10
Vital Signs
Initial and Last Documented VS:
Initial Vital Signs
Temp Pulse Resp BP Pulse Ox
98.3 F 79 18 83/60 99
04/14/24 16:53 04/14/24 16:53 04/14/24 16:53 04/14/24 16:53 04/14/24 16:53
Last Documented Vital Signs
Temp Pulse Resp BP Pulse Ox
97.8 F 76 16 121/52 97
04/15/24 00:31 04/15/24 00:31 04/15/24 00:31 04/15/24 00:31 04/15/24 00:31
MDM/Problems Addressed
MDM/Problems Addressed:
Previous records indicate the patient had a left MCA infarct many years ago. Previous records also reveal a significant history of COPD and congestive heart failure with preserved ejection fraction she had hypotensive episodes during her last
hospitalization which did respond to IV fluids. She also history of seizures on Tegretol and valproic acid.
There is no evidence for an acute CVA at this time. CT today looks unchanged. Patient was hypotensive on arrival which did seem to respond to IV fluids. After IV fluids were stopped however the patient again dropped her pressure into the 70s.
Remainder of fluid bolus was administered. Patient will require hospitalization to make sure that she maintains normotension. Suspect the source of hypotension is dehydration with the addition of the effective blood pressure medications.
*Radiology
Radiology exam reviewed: radiology read reviewed
*Pulse Oximetry
Patient hypoxic: no
*EKG
Interpreted by ED Provider?: Yes
Interpretation: abnormal
Heart Rate: 70
Rate: normal
Rhythm: sinus
QRS Pattern: left bundle branch block
Ischemia: no ischemia
*Supervisor Quality Control Interpretation
Rate: normal
Interpretation: abnormal
Rhythm: sinus
*Critical Care Note
Total Time (30-74mins, 75-104mins- exclusive of procedures): Not Applicable
ED Attending Note
-
Portions of this chart may have been created with voice recognition software.� Occasional wrong word or��sound alike� substitutions may have occurred due to the inherent limitations of voice recognition software.
Discharge Plan
Departure
Patient Disposition: Admit
Date of Disposition: 04/14/24
Time of Disposition: 21:13
Admit to: IMU
Presentation/result/management discussed w/ accepting MD/DO: Hospitalist
Condition: Fair
Discharge Problem:
Acute hypotension, Acute dehydration
Interventions
Interventions:
*Risk Screen - Suicide Last Done: 04/14/24 17:01
*General Assessment Last Done: 04/14/24 17:01
*Neglect/Abuse Screening Last Done: 04/14/24 17:01
ED- Fall Risk Assessment Last Done: 04/14/24 17:01
*ED COVID-19 Vaccine History Last Done: 04/14/24 17:01
[2024-04-14] MEDS: LR 1800 IV (17:38)
[2024-04-14 17:41] LABS: % Basophils 0.5 % (0-2); % Eosinophils 3.7 % (0-6); % Immature Granulocytes 0.5 % (0-0.5); % Lymphocytes 32.5 % (20.5-51.1); % Monocytes 13.7 % (1.7-9.3); % Neutrophils 49.1 % (42.2-75.2); Absolute Eosinophils 0.3 10^3/uL (0-0.7); Absolute Lymphocytes 2.7 10^3/uL (1.2-3.4); Absolute Monocytes 1.1 10^3/uL (0.1-0.6); Absolute Neutrophils 4.1 10^3/uL (1.4-6.5); Hematocrit 37.7 % (37.0-47.0); Hemoglobin 12.8 g/dL (12.0-16.0); Mean Corpuscular Hgb 34.7 pg (27.0-31.0); Mean Corpuscular Volume 102.2 fL (81.0-99.0); Mean Platelet Volume 9.7 fL (7.4-10.4); Nucleated Red Blood Cells % 0 %; Platelet Count 204 10^3/uL (130-400); Red Blood Cell Count 3.69 10^6/uL (4.20-5.40); White Blood Cell Count 8.3 10^3/uL (4.8-10.8)
[2024-04-14] MEDS: DUONEB 3 ML INH (17:41)
[2024-04-14 17:44] LABS: Urine Albumin Negative (Neg - Trace); Urine Bilirubin Negative (Negative); Urine Character Clear (Clear); Urine Color Yellow; Urine Glucose Negative (Negative); Urine Ketone Negative (Negative); Urine Leukocyte Negative (Negative); Urine Nitrite Negative (Negative); Urine Occult Blood Negative (Negative); Urine Urobilinogen Negative (Neg - 1+)
[2024-04-14 17:58] LABS: Tegretol (Carbamazepine) 10.8 ug/ml (4-12)
[2024-04-14 18:00] LABS: Depakane 66.4 ug/ml (50.0-120.0)
[2024-04-14 18:02] LABS: Venous Blood Gas B.E. 6.1 mmol/L (-4 to +4); Venous Blood Gas HCO3 32.2 mmol/L (22-27); Venous Blood Gas O2 Sat % 66.4 %; Venous Blood Gas pCO2 52 mmHg (35-48); Venous Blood Gas pO2 40 mmHg (30-50)
[2024-04-14 18:08] LABS: Procalcitonin < 0.05 ng/ml (0.0-0.25)
[2024-04-14 18:11] LABS: ALT (SGPT) 29 U/L (0-35); AST (SGOT) 41 U/L (14-36); Albumin 3.7 g/dl (3.5-5.0); Alkaline Phosphatase 92 U/L (38-126); Blood Urea Nitrogen 25 mg/dl (7-17); Calcium 8.6 mg/dl (8.4-10.2); Carbon Dioxide 31 mmol/L (22-30); Chloride 98 mmol/L (98-107); Estimated Creatinine Clearance 32 ml/min; Glucose 127 mg/dl (70-99); Potassium 3.7 mmol/L (3.5-5.1); Sodium 137 mmol/L (135-145); Total Bilirubin 0.2 mg/dl (0.2-1.3); Total Protein 6.3 g/dl (6.3-8.2); eGFR 49.86
[2024-04-14 18:50] LABS: COVID-19 Antigen Negative (Negative)
[2024-04-14 20:05] LABS: Lactic Acid 1.6 mmol/L (0.7-2.0)
[2024-04-14 21:22] LABS: Troponin I 0.023 ng/ml
[2024-04-14 21:30] LABS: TSH Reflex To Free T4 1.81 uIU/ml (0.47-4.68)
--- NOTE | 2024-04-14 22:07 | HPS.HSE ---
Family Physician
-
Family Physician: Kiana Dave
Chief Complaint
-
Weakness, Slurred Speech
History of Present Illness
Patient is an 83y F with PMH significant for ASCVD / prior CVAs, vascular dementia and hypertension who presents to ED for evaluation of weakness, confusion and slurred speech. History obtained primarily from family via phone. Patient offers no
complaints at present. She does not recall or cannot convey what events led to this hospitalization.
Family states that patient has seemed increasingly weak and confused over the past few days. Today she had great trouble even transferring / ambulating to the bathroom - which is unusual.
Her speech seemed slurred and she seemed more confused than usual.
Patient has had no recent evident symptoms of cough, N/V/D, fevers / chills, etc. Daughter was ill recently with GI symptoms - but patient has exhibited no such symptoms.
Shimon her prior history of CVAs, patient was brought to the ED for further evaluation.
In the ED, patient was noted to have multiple low BP readings. These were followed by normal BP readings only minutes later in each case and do not appear to be accurate.
Medical History
Past Medical History
Past Medical History: Reports Other
Additional Past Medical History:
ASCVD (Major CVA in her 30s. Multiple smaller events since that time)
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
Vascular Dementia
Hypertension
Hypothyroidism
Chronic HFpEF
GERD
COPD
Glaucoma
History of DVT
Past Surgical History: Reports Other
Additional Past Surgical History:
Partial Hysterectomy
Right Femur ORIF
Social History
Tobacco: Former Smoker (Quit smoking in 1995)
Alcohol: None
Drug: None
Living: With Family
Family History
Family History: Not pertinent
Allergies / Home Medications
Allergies reflects when Allergies were last updated in [employer].
Home Medications with original date entered in [employer]
Allergy/Medication List:
Allergies
Allergy/AdvReac Type Severity Reaction Status Date / Time
No Known Allergies Allergy Verified 04/27/23 11:49
Home Medications
amlodipine 10 mg tablet 10 mg PO HS Blood Pressure 01/09/17
aspirin 81 mg tablet,delayed release 81 mg PO WEEKLY Blood Clot Prevention/Tx 01/09/17
carbamazepine 200 mg tablet 200 mg PO BID Seizures 01/09/17
levothyroxine 100 mcg tablet 100 mcg PO DAILY AT 0700 Thyroid 01/09/17
atorvastatin 40 mg tablet 40 mg PO HS High Cholesterol 05/29/23
brimonidine 0.2 %-timolol 0.5 % eye drops (Combigan) 1 drp LEFT EYE BID Eye Condition 05/29/23
brinzolamide 1 % eye drops,suspension 1 drp LEFT EYE BID Eye Condition 05/29/23
divalproex 250 mg tablet,delayed release 250 mg PO BID Seizures 05/29/23
donepezil 10 mg tablet 10 mg PO HS dementia 05/29/23
latanoprost 0.005 % eye drops 1 drp BOTH EYES HS Eye Condition 05/29/23
trazodone 50 mg tablet 50 mg PO HS Sleep 05/29/23
furosemide 40 mg tablet (Lasix) 40 mg PO DAILY #30 tabs 07/17/23
albuterol sulfate 90 mcg/actuation aerosol inhaler 2 puff inhalation Q6H PRN SOB 04/14/24
famotidine 20 mg tablet 20 mg PO BID 04/14/24
potassium chloride 20 mEq tablet,extended release 20 meq PO DAILY 04/14/24
umeclidinium 62.5 mcg-vilanterol 25 mcg/actuation powdr for inhalation (Anoro Ellipta) 1 inh inhalation DAILY 04/14/24
Review of Systems
-
History Source: Patient and Family
A 12 point ROS was completed and negative except as noted: Yes
Constitutional: Reports Fatigue; Denies Fever or Chills
Respiratory: Denies Cough or Trouble Breathing
Cardiac: Denies Chest Pain or Palpitations
Abdomen/GI: Denies Abdominal Pain, Nausea, Vomiting or Diarrhea
: Denies Dysuria, Frequency or Bleeding
Musculoskeletal: Denies Edema
Neurological: Reports Weakness and Other (Slurred speech); Denies Dizzy or Headache
Psych: Denies Depression or Anxiety
Physical Exam
Vital Signs
Vital Signs
Temp Pulse Resp BP Pulse Ox
98.3 F 75 14 103/92 99
04/14/24 16:53 04/14/24 18:45 04/14/24 18:45 04/14/24 18:30 04/14/24 16:53
Physical Exam
General: Other (83y F in no acute distress.)
HEENT: Other (Dry MM. Neck supple. )
Respiratory: Clear; No Wheezes, Rales or Rhonchi
Cardiac: S1/S2 and Regular Rhythm; No Murmur
GI: Soft, Non Tender, Non Distended and Normal Bowel Sounds
Musculoskeletal: No Clubbing, No Cyanosis and No Edema
Neuro: Awake, Alert and Other (Slurred / thickened speech. ? L facial droop. Generalized weakness without evident focality.)
Psych: No Agitated, Anxious or Depressed
Laboratory Results
-
04/14/24 17:10
04/14/24 17:10
Laboratory Results
Lactic Acid Cancelled 04/14/24 21:30
Total Bilirubin 0.2 mg/dl (0.2-1.3) 04/14/24 17:10
AST 41 U/L (14-36) H 04/14/24 17:10
ALT 29 U/L (0-35) 04/14/24 17:10
Alkaline Phosphatase 92 U/L (38-126) 04/14/24 17:10
Troponin I 0.023 ng/ml 04/14/24 20:50
Impression/Plan
-
A/P: Patient is an 83y F with PMH significant for prior CVAs, hypertension and dementia who presents to ED for evaluation of weakness, slurred speech and confusion.
Weakness / Slurred Speech
ASCVD / Prior CVAs
- Observe overnight for further evaluation and treatment.
- Monitor for any neurologic changes.
- ASA daily for now (takes weekly at home?).
- MRI in AM to rule out any new areas of ischemia.
- Has large L encephalomalacia from major L MCA stroke in her 30s.
- Also noted to have severe cerebellar volume loss.
- PT / OT / Speech evaluations.
- Neuro eval if any new MRI abnormalities.
Hypotension
- BP readings are somewhat nonsensical.
- Low readings followed immediately by normal ones seem inaccurate.
- Will hold amlodipine for now.
- Had similar presentation in june and metoprolol was discontinued at that time.
- Follow BP and adjust med regimen as needed.
Seizure Disorder
- Stable. No evident seizure activity.
- VPA and Carbamazepine levels are within range.
- Continue current AEDs with no changes.
Hypothyroidism
- Stable. Continue T4 supplementation.
COPD without Acute Exacerbation
- Stable. Continue current Anoro and albuterol PRN.
Glaucoma
- Stable. Continue current gtts.
Vascular Dementia
- Stable. Continue trazodone.
DVT Prophylaxis: SCDs
Code Status: DNR
[2024-04-15] VITALS (9 sets, daily range): BP systolic 78–127; BP diastolic 45–79; PULSE 78–83; O2SAT 98; BMI 24.0
[2024-04-15] MEDS: LR 1000 IV ×2 (00:46→13:31)
[2024-04-15] MEDS: TEGRETOL 200 MG PO ×3 (01:01→19:39)
[2024-04-15] MEDS: DEPAKOTE (12 HR RELEASE) 250 MG PO ×3 (01:02→19:39)
[2024-04-15] MEDS: SYNTHROID 100 MCG PO (05:38)
[2024-04-15 06:49] LABS: Hematocrit 36.7 % (37.0-47.0); Hemoglobin 12.3 g/dL (12.0-16.0); Mean Corp Hgb Conc. 33.5 g/dL (33.0-37.0); Mean Corpuscular Hgb 35.1 pg (27.0-31.0); Mean Corpuscular Volume 104.9 fL (81.0-99.0); Platelet Count 181 10^3/uL (130-400); Red Cell Dist. Width 12.1 % (11.5-14.5); White Blood Cell Count 7.7 10^3/uL (4.8-10.8)
[2024-04-15 07:10] LABS: Blood Urea Nitrogen 16 mg/dl (7-17); Calcium 8.5 mg/dl (8.4-10.2); Carbon Dioxide 31 mmol/L (22-30); Chloride 99 mmol/L (98-107); Estimated Creatinine Clearance 35 ml/min; Glucose 92 mg/dl (70-99); HDL Cholesterol 65 mg/dl; Potassium 3.6 mmol/L (3.5-5.1); Sodium 139 mmol/L (135-145); Total Cholesterol 114 mg/dl (50-199)
[2024-04-15 07:40] LABS: Cortisol, Random 19.1 ug/dl
[2024-04-15 08:02] LABS: LDL Cholesterol, Calculated 34 mg/dl; Triglyceride 78 mg/dl (10-149); Very Low Density Lipoprotein 15 mg/dl (0-30)
[2024-04-15] MEDS: SPIRIVA RESPIMAT 2.5 MCG 2 PUFF INH (08:27)
[2024-04-15] MEDS: STRIVERDI RESPIMAT 2 PUFF INH (08:27)
[2024-04-15] MEDS: PEPCID 20 MG PO (08:30)
[2024-04-15] MEDS: LOW STRENGTH ASPIRIN 81 MG PO (08:30)
[2024-04-15] MEDS: AZOPT 1% OPHTHALMIC SUSPENSION 1 DROP LEFT EYE ×2 (08:39→21:19)
[2024-04-15 09:37] LABS: Glycohemoglobin (HgbA1c) 5.6 % (4.0-5.6)
--- NOTE | 2024-04-15 10:29 | PTOTSP ---
ST Acute Care Evaluation
Pt currently presents with clinical signs consistent with mild oropharyngeal dysphagia and possible esophageal dysfunction characterized by prolonged mastication and bolus formation, occasional coughing with ingestion of solids, and fairly
persistent belching with intake as well as reported recent ENT visualization of erythema on laryngoscopy and CT indication of possible inflammatory esophagitis.
Recommendations:
- DOWNGRADE diet to SOFT BITE SIZED SOLIDS (L6) and THIN LIQUIDS with meds as tolerated.
- ASPIRATION and REFLUX precautions: HOB upright for ALL PO intake and for 60 minutes AFTER PO intake; small bites/sips; chew food thoroughly; alternate bites/sips; eat/drink slowly.
- MACADAM RAKER to f/u re: diet tolerance and to determine if pt would benefit from an instrumental swallow study.
Communication Strategies:
- Care team members to speak loudly, slowly, with distinct word boundaries.
- Ask simple, direct, yes/no questions.
- Give patient choices to choose from.
- Avoid asking open-ended questions.
- Contact family members for more information when needed.
[2024-04-15] MEDS: COMBIGAN EYE DROPS 1 DROP LEFT EYE (12:38)
--- NOTE | 2024-04-15 12:58 | W.PN.HOSP.TC ---
Today's Communication/Plan
-
Assessment / Plan
Assessment / Plan
Concern for CVA
-brain mri
-neuro consult
-continue asa and statin
-may need to order a eeg
seizure
-continue aed's
-avoid agents that lower seizure threshold
hypothyroidism
-continue levothyroxine
Anticipated Discharge: > 48 hours
Subjective/Interval History
-
Date of Service: April 15, 2024
Seen and examined. No acute overnight
Remains lethargic. Able to tell me she is at [facility]. Still slurring her speech. Not able to tell me year. Tells me that she lives with her daughter
Objective Data
-
Labs:
Laboratory Results
04/15/24 04/15/24
05:45 05:46
WBC 7.7
Hgb 12.3
Hct 36.7 L
Plt Count 181
Sodium 139
Potassium 3.6
Chloride 99
Carbon Dioxide 31 H
BUN 16
Creatinine 1.0
Glucose 92
Calcium 8.5
Vital Signs:
Vital Signs
Temp Pulse Resp BP Pulse Ox
97.8 F 80 16 93/45 99
04/15/24 00:31 04/15/24 08:34 04/15/24 08:34 04/15/24 03:00 04/15/24 08:34
Physical Exam
-
General: Appears Chronically Ill and Cachectic
HEENT: Normocephalic and Atraumatic
Respiratory: Clear to Auscultation
Cardiac: Regular Rhythm and S1/S2; Negative Murmur
GI: Soft, Nontender, Nondistended and Normal Bowel Sounds
Skin: Warm
Neuro: Awake and Other (4/5 motor strenght in b/l UE/LE. no pronator drift. )
[2024-04-15] MEDS: NSS 500 IV (16:24)
--- NOTE | 2024-04-15 18:15 | PTCARENOTE ---
Pt pulled over from ED stretcher. BP 78/46 HR 69. MD notified, Fluid bolus ordered. AAOx2, does not know the year. Pt has slurred speech and expressive aphasia. NIH score 4. Son-in-law at bedside states she looks better than she did in the am. He
requested the results of MRI, MD notified. Pt and family member oriented to unit by this RN. Call stacy in reach, will continue to monitor.
[2024-04-15] MEDS: ALPHAGAN 0.2% EYE DROPS 1 DROP OPHTH (21:19)
[2024-04-15] MEDS: ARICEPT 10 MG PO (21:19)
[2024-04-15] MEDS: LIPITOR 40 MG PO (21:19)
[2024-04-15] MEDS: DESYREL 50 MG PO (21:19)
[2024-04-15] MEDS: TIMOPTIC 0.5% OPHTHALMIC SOLUTION 1 DROP LEFT EYE (21:20)
[2024-04-15] MEDS: COMBIGAN EYE DROPS LEFT EYE (21:24)
[2024-04-15] MEDS: XALATAN OPHTHALMIC SOLUTION BOTH EYES (22:28)
[2024-04-16 03:57] VITALS: BP 99/56
[2024-04-16] MEDS: SYNTHROID 100 MCG PO (05:23)
[2024-04-16] MEDS: LR 1000 IV (05:23)
[2024-04-16 07:00] VITALS: BP 103/50
[2024-04-16] MEDS: STRIVERDI RESPIMAT 2 PUFF INH (07:33)
[2024-04-16] MEDS: SPIRIVA RESPIMAT 2.5 MCG 2 PUFF INH (07:33)
[2024-04-16] MEDS: PEPCID 20 MG PO (09:11)
[2024-04-16] MEDS: ALPHAGAN 0.2% EYE DROPS 1 DROP OPHTH ×2 (09:12→20:12)
[2024-04-16] MEDS: TEGRETOL 200 MG PO ×2 (09:12→20:11)
[2024-04-16] MEDS: LOW STRENGTH ASPIRIN 81 MG PO (09:12)
[2024-04-16] MEDS: DEPAKOTE (12 HR RELEASE) 250 MG PO ×2 (09:12→20:11)
[2024-04-16] MEDS: TIMOPTIC 0.5% OPHTHALMIC SOLUTION 1 DROP LEFT EYE ×2 (09:13→20:12)
[2024-04-16] MEDS: AZOPT 1% OPHTHALMIC SUSPENSION 1 DROP LEFT EYE ×2 (09:14→20:12)
[2024-04-16 14:22] VITALS: BP 113/70; PULSE 75
[2024-04-16 15:00] VITALS: BP 92/62
--- NOTE | 2024-04-16 15:16 | W.PN.HOSP.TC ---
Today's Communication/Plan
-
Assessment / Plan
Assessment / Plan
Concern for CVA
-brain mri
-neuro consult
-continue asa and statin
-may need to order a eeg
seizure
-continue aed's
-avoid agents that lower seizure threshold
hypothyroidism
-continue levothyroxine.
Hypotension
-Unclear as to etiology
-Random cortisol 19, hemoglobin stable, afebrile/no white count, less likely PE as no hypoxia/tachycardia
-Check 2D echocardiogram
-IV fluids
-Sputum culture urine culture follow-up on blood culture
-Empiric antibiotic be started once cultures obtained
Anticipated Discharge: 24 - 48 hours
Subjective/Interval History
-
Date of Service: April 16, 2024
Seen and examined. More awake today. Able to tell me year where she is. No new complaints. No acute overnight events.
Daughter updated over phone
Objective Data
-
Vital Signs:
Vital Signs
Temp Pulse Resp BP Pulse Ox
97.6 F 73 16 103/50 93
04/16/24 07:00 04/16/24 07:40 04/16/24 07:40 04/16/24 07:00 04/16/24 07:40
I&O
04/15/24 04/16/24 04/17/24
06:59 06:59 06:59
Intake Total 200 / 200
Balance 200 / 200
Physical Exam
-
General: Well Developed and Well Nourished
HEENT: Normocephalic and Atraumatic
Respiratory: Clear to Auscultation
Cardiac: Regular Rhythm and S1/S2
GI: Soft, Nontender and Nondistended
Skin: Warm
Neuro: Awake and Alert
Psych: Calm
[2024-04-16] MEDS: NSS 500 IV (15:58)
[2024-04-16] MEDS: ROCEPHIN 1000 MG IV (15:58)
[2024-04-16] MEDS: STERILE WATER FOR INJECTION 10 ML IV (15:58)
--- NOTE | 2024-04-16 18:54 | CON.NEURO ---
Neuro Assessment/Plan
Assessment
Brain MRI imgs reviewed, chronic L MCA territory encephalomalacia, and area of encephalomalacia right occipital consistent with chronic stroke
exam otherwise non focal, does not support cerebrovascular cause of her symptoms.
Plan
Dementia continue Aricept 10 mg
epilepsy continue Carbamazepine 200 mg TID, Depakote 250 AM, 500 bedtime
Consultation
Order
Date of Consultation: 04/16/24
Requesting Provider: Bennett Whiteside
Reason for Consult: Stroke
Subjective/Objective
Subjective Data
Date of Service: April 16, 2024
Patient is an 83y F with PMH significant for ASCVD / prior CVAs, vascular dementia and hypertension who presents to ED for evaluation of weakness, confusion and slurred speech. History obtained primarily from family via phone. Patient offers no
complaints at present. She does not recall or cannot convey what events led to this hospitalization.
Family states that patient has seemed increasingly weak and confused over the past few days.
found to be hypotensive
today patient offers no complaints, feels at her baseline
Objective Data
Vital Signs
Temp Pulse Resp BP Pulse Ox
36.4 C 80 16 92/62 96
04/16/24 15:00 04/16/24 15:00 04/16/24 15:00 04/16/24 15:00 04/16/24 15:00
Lab Results
04/15/24 05:45
04/15/24 05:46
Sodium 139 mmol/L (135-145) 04/15/24 05:46
Potassium 3.6 mmol/L (3.5-5.1) 04/15/24 05:46
BUN 16 mg/dl (7-17) 04/15/24 05:46
Glucose 92 mg/dl (70-99) 04/15/24 05:46
Calcium 8.5 mg/dl (8.4-10.2) 04/15/24 05:46
LDL Cholesterol, Calc 34 mg/dl 04/15/24 05:46
Patient Allergies
No Known Allergies Allergy (Verified 04/27/23 11:49)
Physical Exam
-
AAOx3, speech mildly dysarthric, Aphasia conductive (difficulty repeating)
difficulty complex commands
VFF, EOMI, face symmetric
full strength b/l UE/LE
sensation intact touch/pin
Medications
-
Active Medications
Generic Name Dose Route Start Last Admin
Trade Name Freq PRN Reason Stop Dose Admin
Acetaminophen 650 mg 04/15/24 00:12
Acetaminophen 325 Mg Tablet PO 05/13/24 00:11
Q4HPRN PRN
Mild Pain / Temp > 101
Aspirin 81 mg 04/15/24 08:00 04/16/24 09:12
Aspirin 81 Mg Chewable Tablet PO 05/13/24 07:59 81 mg
DAILY VIKTOR Administration
Atorvastatin Calcium 40 mg 04/15/24 22:00 04/15/24 21:19
Atorvastatin (Lipitor) 40 Mg Tablet PO 05/13/24 21:59 40 mg
HS VIKTOR Administration
Brimonidine Tartrate 0 drop 04/15/24 21:00 04/16/24 09:12
Brimonidine 0.2% (Ophthalmic Solution) Bottle OPHTH 05/13/24 20:59 1 drop
BID VIKTOR Administration
Brinzolamide 1 drop 04/15/24 08:00 04/16/24 09:14
Brinzolamide 1% (Ophthalmic Suspension) 15 Ml Bottle LEFT EYE 05/13/24 07:59 1 drop
BID VIKTOR Administration
Carbamazepine 200 mg 04/15/24 00:12 04/16/24 09:12
Carbamazepine 200 Mg Tablet PO 05/13/24 00:11 200 mg
BID VIKTOR Administration
Ceftriaxone Sodium 1,000 mg 04/16/24 16:00 04/16/24 15:58
Ceftriaxone 1000 Mg / 10 Ml Vial IV 1,000 mg
Q24H VIKTOR Administration
Divalproex Sodium 250 mg 04/15/24 00:12 04/16/24 09:12
Divalproex 250 Mg Delayed Release (12 Hr) Tablet PO 05/13/24 00:11 250 mg
BID VIKTOR Administration
Donepezil HCl 10 mg 04/15/24 22:00 04/15/24 21:19
Donepezil Hcl 10 Mg Tablet PO 05/13/24 21:59 10 mg
HS VIKTOR Administration
Doxycycline Hyclate 100 mg 04/16/24 20:00
Doxycycline 100 Mg Capsule PO
Q12 VIKTOR
Famotidine 20 mg 04/16/24 08:00 04/16/24 09:11
Famotidine 20 Mg Tablet PO 05/14/24 07:59 20 mg
DAILY VIKTOR Administration
Sodium Chloride 500 mls @ 250 mls/hr 04/16/24 16:00 04/16/24 15:58
Nss IV 500 mls
.Q2H VIKTOR Administration
Latanoprost 1 drop 04/15/24 22:00 04/15/24 22:28
Latanoprost 0.005% (Ophthalmic Solution) 2.5 Ml Bottle BOTH EYES 05/13/24 21:59 Not Given
HS VIKTOR
Levothyroxine Sodium 100 mcg 04/15/24 06:00 04/16/24 05:23
Levothyroxine 100 Mcg Tablet PO 05/13/24 05:59 100 mcg
DAILY @ 0600 VIKTOR Administration
Olodaterol 2 puff 04/15/24 08:00 04/16/24 07:33
Olodaterol (Striverdi Respimat) 2.5 Mcg Inhaler INH 05/13/24 07:59 2 puff
R DAILY VIKTOR Administration
Sodium Chloride 0 flush 04/14/24 22:00
Sodium Chloride 0.9% (Flush) Syringe IV 05/12/24 21:59
PER PROTOCOL VIKTOR
Sterile Water 10 ml 04/16/24 16:00 04/16/24 15:58
Sterile Water For Injection 10 Ml Vial IV 05/14/24 15:59 10 ml
Q24H VIKTOR Administration
Timolol Maleate 0 drop 04/15/24 21:00 04/16/24 09:13
Timolol 0.5% (Ophthalmic Solution) Bottle LEFT EYE 05/13/24 20:59 1 drop
BID VIKTOR Administration
Tiotropium [place] 2 puff 04/15/24 08:00 04/16/24 07:33
Tiotropium (Spiriva Respimat) 2.5 Mcg Inhaler INH 05/13/24 07:59 2 puff
R DAILY VIKTOR Administration
Trazodone HCl 50 mg 04/15/24 22:00 04/15/24 21:19
Trazodone 50 Mg Tablet PO 05/13/24 21:59 50 mg
HS VIKTOR Administration
Home Medications
�Medication �Instructions �Recorded
amlodipine 10 mg tablet 10 mg PO HS Blood Pressure 01/09/17
carbamazepine 200 mg tablet 200 mg PO TID Seizures 01/09/17
levothyroxine 100 mcg tablet 100 mcg PO DAILY AT 0700 Thyroid 01/09/17
atorvastatin 40 mg tablet 40 mg PO HS High Cholesterol 05/29/23
brimonidine 0.2 %-timolol 0.5 % 1 drp LEFT EYE BID Eye Condition 05/29/23
eye drops (Combigan)
brinzolamide 1 % eye 1 drp LEFT EYE BID Eye Condition 05/29/23
drops,suspension
divalproex 250 mg tablet,delayed 250 mg PO DAILY Seizures 05/29/23
release
donepezil 10 mg tablet 10 mg PO HS memory/dementia 05/29/23
latanoprost 0.005 % eye drops 1 drp BOTH EYES HS Eye Condition 05/29/23
trazodone 50 mg tablet 50 - 100 mg PO HS sleep 05/29/23
albuterol sulfate 90 mcg/actuation 2 puff inhalation R Q6HPRN PRN SOB 04/14/24
aerosol inhaler
famotidine 20 mg tablet 20 mg PO BID Gastrointestinal Issue 04/14/24
potassium chloride 20 mEq 20 meq PO DAILY Electrolyte 04/14/24
tablet,extended release Repletion
umeclidinium 62.5 mcg-vilanterol 1 inh inhalation R DAILY 04/14/24
25 mcg/actuation powdr for Lung/Breathing Issues
inhalation (Anoro Ellipta)
divalproex 250 mg tablet,delayed 500 mg PO QPM Seizures 04/15/24
release
revefenacin 175 mcg/3 mL solution 175 mcg inhalation R DAILYPRN PRN 04/15/24
for nebulization (Yupelri) only if cannot inhale anoro
[2024-04-16 19:38] VITALS: BP 125/66
[2024-04-16] MEDS: VIBRAMYCIN 100 MG PO (20:19)
[2024-04-16] MEDS: NSS 1000 IV (20:26)
[2024-04-16] MEDS: NSS IV ×2 (20:29)
[2024-04-16] MEDS: XALATAN OPHTHALMIC SOLUTION 1 DROP BOTH EYES (21:25)
[2024-04-16] MEDS: DESYREL 50 MG PO (21:25)
[2024-04-16] MEDS: LIPITOR 40 MG PO (21:25)
[2024-04-16] MEDS: ARICEPT 10 MG PO (21:25)
[2024-04-16 23:34] VITALS: BP 124/60
[2024-04-17] VITALS (8 sets, daily range): BP systolic 86–156; BP diastolic 53–95; PULSE 71–103; BMI 24.0
[2024-04-17] MEDS: SYNTHROID 100 MCG PO (05:43)
[2024-04-17] MEDS: SPIRIVA RESPIMAT 2.5 MCG 2 PUFF INH (08:41)
[2024-04-17] MEDS: STRIVERDI RESPIMAT 2 PUFF INH (08:41)
[2024-04-17] MEDS: DEPAKOTE (12 HR RELEASE) 250 MG PO ×2 (09:59→20:04)
[2024-04-17] MEDS: VIBRAMYCIN 100 MG PO ×2 (09:59→20:05)
[2024-04-17] MEDS: PEPCID 20 MG PO (09:59)
[2024-04-17] MEDS: TEGRETOL 200 MG PO ×2 (10:00→20:04)
[2024-04-17] MEDS: LOW STRENGTH ASPIRIN 81 MG PO (10:00)
[2024-04-17] MEDS: ALPHAGAN 0.2% EYE DROPS 1 DROP OPHTH ×2 (10:11→20:06)
[2024-04-17] MEDS: TIMOPTIC 0.5% OPHTHALMIC SOLUTION 1 DROP LEFT EYE ×2 (10:12→20:06)
[2024-04-17] MEDS: AZOPT 1% OPHTHALMIC SUSPENSION 1 DROP LEFT EYE ×2 (10:13→20:06)
--- NOTE | 2024-04-17 13:20 | CM ---
Addendum entered by Tita Rubio 04/17/24 14:44:
[facility], [facility] Office

Original Note:
Initial assessment completed with patient's daughter/primary contact via phone
Pharmacy verified: [facility] @ [address] [facility]
CASAS form explained to daughter; form dated and timed @ 1311
Daughter reported that patient lives with her and her son-in-law in a one floor apartment; elevator access to 2nd floor apartment entry; patient's bathroom has tub w/ shower
PLOF: Daughter reported that patient able to toilet, dress, and feed self; ambulates with a Rollator; utilizes a bath bench to get in/out of tub; Private Caregivers assist with ADLs; Daughter manages medication administration
SNF stay 5 years ago
Explained to daughter that PT recommended SNF; Daughter plans to take patient home with [facility] services (Referral sent via [facility])
Son-in-law will transport home
Plan: Discharge to Home when medically stable with [facility]
--- NOTE | 2024-04-17 13:35 | W.PN.HOSP.TC ---
Today's Communication/Plan
-
Assessment / Plan
Assessment / Plan
General: Well Developed and Well Nourished
HEENT: Normocephalic and Atraumatic
Respiratory: Clear to Auscultation
Cardiac: Regular Rhythm and S1/S2
GI: Soft, Nontender and Nondistended
Skin: Warm
Neuro: Awake and Alert
Psych: Calm
Concern for CVA
-brain mri with no acute findings
-As there were no acute findings on brain MRI and no evidence of focal neurological deficits on exam known agent for neurology at this time
-continue asa and statin
-may need to order a eeg
seizure
-continue aed's
-avoid agents that lower seizure threshold
hypothyroidism
-continue levothyroxine.
Hypotension
-Unclear as to etiology
-Random cortisol 19, hemoglobin stable, afebrile/no white count, less likely PE as no hypoxia/tachycardia
-Check 2D echocardiogram
-IV fluids
-Sputum culture urine culture follow-up on blood culture
-Empiric antibiotic be started once cultures obtained
--- Initially improved therefore suspected that empiric antibiotics did help however after returning from CT scan again hypotensive
------ will check right upper quadrant ultrasound as CT cannot exclude acute cholecystitis
------ check orthostatic vitals to rule out autonomic instability as a potential etiology
------ maintain MAP greater than 65 or follow-up mental status, give IV fluids as needed
Anticipated Discharge: 24 - 48 hours
Subjective/Interval History
-
Date of Service: April 17, 2024
Seen and examined. No new complaints. No acute overnight events.
Blood pressure since 7 PM last night has remained stable however after returning from CT scan repeat blood pressure again hypotensive without change in mental status per
Check right upper quadrant ultrasound and orthostatic
Objective Data
-
Vital Signs:
Vital Signs
Temp Pulse Resp BP Pulse Ox
97.5 F 70 19 90/64 98
04/17/24 12:03 04/17/24 12:03 04/17/24 12:03 04/17/24 12:03 04/17/24 12:03
I&O
04/16/24 04/17/24 04/18/24
06:59 06:59 06:59
Intake Total 200 / 200 660 / 660
Balance 200 / 200 660 / 660
[2024-04-17] MEDS: STERILE WATER FOR INJECTION 10 ML IV (15:50)
[2024-04-17] MEDS: ROCEPHIN 1000 MG IV (15:50)
[2024-04-17] MEDS: LIPITOR 40 MG PO (21:14)
[2024-04-17] MEDS: ARICEPT 10 MG PO (21:14)
[2024-04-17] MEDS: DESYREL 50 MG PO (21:14)
[2024-04-17] MEDS: XALATAN OPHTHALMIC SOLUTION 1 DROP BOTH EYES (21:14)
[2024-04-18 03:23] VITALS: BP 106/75
[2024-04-18] MEDS: SYNTHROID 100 MCG PO (05:07)
[2024-04-18 06:00] VITALS: BMI 23.8
[2024-04-18 07:27] LABS: Hematocrit 33.8 % (37.0-47.0); Hemoglobin 11.4 g/dL (12.0-16.0); Mean Corp Hgb Conc. 33.7 g/dL (33.0-37.0); Mean Corpuscular Hgb 35.3 pg (27.0-31.0); Mean Corpuscular Volume 104.6 fL (81.0-99.0); Mean Platelet Volume 9.7 fL (7.4-10.4); Platelet Count 164 10^3/uL (130-400); Red Blood Cell Count 3.23 10^6/uL (4.20-5.40); Red Cell Dist. Width 12.3 % (11.5-14.5); White Blood Cell Count 8.1 10^3/uL (4.8-10.8)
[2024-04-18 07:57] LABS: Blood Urea Nitrogen 12 mg/dl (7-17); Calcium 8.2 mg/dl (8.4-10.2); Carbon Dioxide 30 mmol/L (22-30); Chloride 105 mmol/L (98-107); Estimated Creatinine Clearance 39 ml/min; Glucose 104 mg/dl (70-99); Potassium 3.8 mmol/L (3.5-5.1); Sodium 141 mmol/L (135-145); eGFR > 60.00
[2024-04-18] MEDS: STRIVERDI RESPIMAT 2 PUFF INH (08:06)
[2024-04-18] MEDS: SPIRIVA RESPIMAT 2.5 MCG 2 PUFF INH (08:06)
[2024-04-18 08:46] VITALS: BP 130/64
[2024-04-18] MEDS: ALPHAGAN 0.2% EYE DROPS 1 DROP OPHTH ×2 (10:21→20:13)
[2024-04-18] MEDS: VIBRAMYCIN 100 MG PO ×2 (10:22→20:13)
[2024-04-18] MEDS: LOW STRENGTH ASPIRIN 81 MG PO (10:22)
[2024-04-18] MEDS: TIMOPTIC 0.5% OPHTHALMIC SOLUTION 1 DROP LEFT EYE ×2 (10:22→20:14)
[2024-04-18] MEDS: DEPAKOTE (12 HR RELEASE) 250 MG PO ×2 (10:22→20:13)
[2024-04-18] MEDS: PEPCID 20 MG PO (10:22)
[2024-04-18] MEDS: TEGRETOL 200 MG PO ×2 (10:22→20:13)
[2024-04-18] MEDS: AZOPT 1% OPHTHALMIC SUSPENSION 1 DROP LEFT EYE ×2 (10:22→20:13)
[2024-04-18 12:30] VITALS: BP 150/77
--- NOTE | 2024-04-18 15:14 | CHAP ---
Kendal was welcoming - greeted me with a smile, even though it's an effort for her to speak. 'I'm hanging in there,' she said. She appreciated prayer. Emotional and spiritual support provided.
[2024-04-18 16:33] VITALS: BP 99/52
[2024-04-18] MEDS: ROCEPHIN 1000 MG IV (16:53)
[2024-04-18] MEDS: STERILE WATER FOR INJECTION 10 ML IV (16:53)
--- NOTE | 2024-04-18 17:20 | W.PN.HOSP.TC ---
Today's Communication/Plan
-
Continues to have intermittent hypotensive episodes
Unclear sure as to etiology
As her blood pressure is labile hesitant starting midodrine at this time.
Continue empiric antibiotics for now.
Follow-up on abdominal ultrasound
Assessment / Plan
Assessment / Plan
General: Well Developed and Well Nourished
HEENT: Normocephalic and Atraumatic
Respiratory: Clear to Auscultation
Cardiac: Regular Rhythm and S1/S2
GI: Soft, Nontender and Nondistended
Skin: Warm
Neuro: Awake and Alert
Psych: Calm
Concern for CVA
-brain mri with no acute findings
-As there were no acute findings on brain MRI and no evidence of focal neurological deficits on exam known agent for neurology at this time
-continue asa and statin
-may need to order a eeg
seizure
-continue aed's
-avoid agents that lower seizure threshold
hypothyroidism
-continue levothyroxine.
Hypotension
-Unclear as to etiology
-Random cortisol 19, hemoglobin stable, afebrile/no white count, less likely PE as no hypoxia/tachycardia
-Check 2D echocardiogram
-IV fluids
-Sputum culture urine culture follow-up on blood culture
-Empiric antibiotic be started once cultures obtained
--- Initially improved therefore suspected that empiric antibiotics did help however after returning from CT scan again hypotensive
------ will check right upper quadrant ultrasound as CT cannot exclude acute cholecystitis
------ check orthostatic vitals to rule out autonomic instability as a potential etiology
------ maintain MAP greater than 65 or follow-up mental status, give IV fluids as needed
Anticipated Discharge: 24 - 48 hours
Subjective/Interval History
-
Date of Service: April 18, 2024
Seen and examined. No new complaint
Objective Data
-
Labs:
Laboratory Results
04/18/24
07:13
WBC 8.1
Hgb 11.4 L
Hct 33.8 L
Plt Count 164
Sodium 141
Potassium 3.8
Chloride 105
Carbon Dioxide 30
BUN 12
Creatinine 0.9
Glucose 104 H
Calcium 8.2 L
Vital Signs:
Vital Signs
Temp Pulse Resp BP Pulse Ox
97.3 F 90 20 99/52 99
04/18/24 16:33 04/18/24 16:33 04/18/24 16:33 04/18/24 16:33 04/18/24 16:33
I&O
04/17/24 04/18/24 04/19/24
06:59 06:59 06:59
Intake Total 660 / 660 1020 / 1020
Balance 660 / 660 1020 / 1020
[2024-04-18 19:05] VITALS: BP 148/64
[2024-04-18 19:59] VITALS: BP 125/63
[2024-04-18] MEDS: LIPITOR 40 MG PO (21:07)
[2024-04-18] MEDS: ARICEPT 10 MG PO (21:07)
[2024-04-18] MEDS: DESYREL 50 MG PO (21:08)
[2024-04-18] MEDS: XALATAN OPHTHALMIC SOLUTION 1 DROP BOTH EYES (21:08)
[2024-04-19 03:40] VITALS: BP 128/65
[2024-04-19] MEDS: SYNTHROID 100 MCG PO (05:16)
[2024-04-19 06:00] VITALS: BMI 23.9
[2024-04-19 07:10] VITALS: BP 94/60
[2024-04-19 07:19] LABS: Hematocrit 33.6 % (37.0-47.0); Hemoglobin 11.1 g/dL (12.0-16.0); Mean Corpuscular Hgb 34.5 pg (27.0-31.0); Mean Corpuscular Volume 104.3 fL (81.0-99.0); Mean Platelet Volume 9.8 fL (7.4-10.4); Platelet Count 165 10^3/uL (130-400); Red Blood Cell Count 3.22 10^6/uL (4.20-5.40); Red Cell Dist. Width 12.4 % (11.5-14.5); White Blood Cell Count 7.8 10^3/uL (4.8-10.8)
[2024-04-19] MEDS: STRIVERDI RESPIMAT 2 PUFF INH (07:20)
[2024-04-19] MEDS: SPIRIVA RESPIMAT 2.5 MCG 2 PUFF INH (07:20)
[2024-04-19 07:58] LABS: Blood Urea Nitrogen 14 mg/dl (7-17); Calcium 8.2 mg/dl (8.4-10.2); Carbon Dioxide 31 mmol/L (22-30); Chloride 106 mmol/L (98-107); Estimated Creatinine Clearance 39 ml/min; Glucose 99 mg/dl (70-99); Potassium 4.3 mmol/L (3.5-5.1); Sodium 141 mmol/L (135-145); eGFR > 60.00
[2024-04-19] MEDS: TEGRETOL 200 MG PO ×2 (08:06→21:16)
[2024-04-19] MEDS: ALPHAGAN 0.2% EYE DROPS 1 DROP OPHTH ×2 (08:06→21:16)
[2024-04-19] MEDS: LOW STRENGTH ASPIRIN 81 MG PO (08:06)
[2024-04-19] MEDS: VIBRAMYCIN 100 MG PO (08:06)
[2024-04-19] MEDS: DEPAKOTE (12 HR RELEASE) 250 MG PO ×2 (08:06→21:16)
[2024-04-19] MEDS: PEPCID 20 MG PO (08:07)
[2024-04-19] MEDS: TIMOPTIC 0.5% OPHTHALMIC SOLUTION 1 DROP LEFT EYE ×2 (08:07→21:15)
[2024-04-19] MEDS: AZOPT 1% OPHTHALMIC SUSPENSION 1 DROP LEFT EYE ×2 (08:07→21:16)
--- NOTE | 2024-04-19 10:09 | PTOTSP ---
Speech Therapy Follow-Up:
Assessed tolerance of upgraded regular solids with thins. WFL-mild oral phase of swallow with no signs of pharyngeal dysphagia at bedside. No overt s/s aspiration. Patient denied difficulty.
Recommend:
1. Upgrade to regular, thin liquids
2. Medications as best tolerated
3. Meal tray set up/assist as needed
4. Aspiration precautions
ST to f/u to ensure diet tolerance. Discussed recommendations with MD and RN.
--- NOTE | 2024-04-19 10:50 | W.PN.HOSP.TC ---
Today's Communication/Plan
-
Stop antibiotics
Midodrine
Cardiology consult
PT/OT
Assessment / Plan
Assessment / Plan
Gen-awake, alert, NAD
HEENT-NC, AT, anicteric, clear oral mm
Neck-supple
CV-reg, no M, +S1/S2
Lungs-clear B/L
Abd-soft, NT, ND
Ext-no edema
Musculoskeletal-no cyanosis, clubbing
Skin-warm and dry
Neuro-grossly non-focal
Psych-calm, cooperative
Presentation with weakness/slurred speech -brain MRI completed, no stroke noted.
Persistent hypotension -pressure in the left arm (94/60) is higher than the right arm. Not orthostatic based on vitals. Seems asymptomatic from a hypotension standpoint. No evidence of adrenal insufficiency. No evidence of infection. No
evidence of volume depletion. Echocardiogram shows LVEF 55 to 60%, no regional wall motion abnormalities, normal RV size and function, mild to moderate MR, aortic sclerosis without stenosis. Mild TR.
Possible autonomic insufficiency. Can start midodrine and monitor. Antihypertensives are on hold. Discussed with daughter at the bedside. Daughter requesting cardiology consult.
Hyperlipidemia - atorvastatin.
No history of epilepsy -confirmed with daughter and primary care physician. She has been on chronic carbamazepine and Depakote for mood stabilization. Carbamazepine dose was reduced to twice daily compared to 3 times daily prior to admission.
Hypothyroidism
-continue levothyroxine.
COPD without exacerbation
Glaucoma
Vascular dementia
DNR
Dispo - potential discharge tomorrow if stable. Updated daughter at the bedside. -She is requesting home with home care, not interested in SNF.
Anticipated Discharge: Within 24 hours
Subjective/Interval History
-
Date of Service: April 19, 2024
Patient seen and examined. Complaining of head pain.
Objective Data
-
Labs:
Laboratory Results
04/19/24
07:00
WBC 7.8
Hgb 11.1 L
Hct 33.6 L
Plt Count 165
Sodium 141
Potassium 4.3
Chloride 106
Carbon Dioxide 31 H
BUN 14
Creatinine 0.9
Glucose 99
Calcium 8.2 L
Vital Signs:
Vital Signs
Temp Pulse Resp BP Pulse Ox
97.8 F 77 15 94/60 98
04/19/24 07:10 04/19/24 07:25 04/19/24 07:25 04/19/24 07:10 04/19/24 07:25
I&O
04/18/24 04/19/24 04/20/24
06:59 06:59 06:59
Intake Total 1020 / 1020 600 / 600
Balance 1020 / 1020 600 / 600
Review of Systems
-
Unable to obtain full review of systems at this time due to: Dementia
History Source: Patient and Family
All other systems: Reviewed and negative
[2024-04-19 11:10] VITALS: BP 99/63
--- NOTE | 2024-04-19 11:17 | CON.CAR ---
Addendum entered and electronically signed by Matthew Hernandez MD 04/19/24 15:59:
I saw and examined the patient.
The GLOVE TAGGER's note was reviewed and I agree with the note.
Comment: BP seems to be low in all 4 extremities despite evidence of upper extremity arterial disease. Echo, tele, single troponin, and echo are unremarkable. Etiology of hypotension is unclear. Her cortisol drawn early AM is over 18 so adrenal
insufficiency seems less likely. Let's stop amlodipine and use midodrine. If the low BP proves to be temporary than suspect that midodrine will be able to be weaned off and likely amlodipine will need to be introduced. No good cardiac reason for
hypotension. Will defer further w/u of hypotension to medicine. LBBB and mild/mod MR are stable. Her HFpEF has not needed active treatment recently.
Original Note:
Consultation
Consultation Request
Date/Time Consultation Requested: 04/19/2024 11:00
Date/Time Consultation Performed: 04/19/2024 11:15
Requesting Provider: Dr. Coulter
Performing Provider: CARLTON Nickerson for Dr. Hernandez
Reason for Consultation: Hypotension
Medical History
-
Chief Complaint: Weakness
History of Present Illness:
Kendal Wallace is an 83-year-old female (known to Dr. Mcclelland, her primary outside machinist), with HFpEF, COPD, prior CVA, LBBB, PAD, vascular dementia, and COPD who presented to the emergency department with a chief complaint of weakness. Her
daughter is at the bedside and is assisting in this consultation as the patient has chronic aphasia. The patient's daughter had been caring for both her mother (this patient) and her [id number] together in the same room when her [id number]
on . She states her mother got a little depressed and spent a day in bed. She has had a significant decline since [place]. She was having difficulties transferring and ambulating to the bathroom. At her baseline, she is
able to use the steps and ambulate with a walker. Neurology saw the patient as there were reports of weakness along with slurred speech on admission. Her MRI was stable. Cardiology was consulted for hypotension.
Past Medical History
Past Medical History: CHF, COPD, CVA, HTN, Hypercholesterolemia, Hypothyroidism, Psychiatric (Mood disorder) and Other (Vascular dementia, PAD, LBBB)
Social History
Tobacco: Former Smoker
Alcohol: None
Living: With Family
Employment: Retired
Family History
Family History: Reviewed & Not Pertinent
Allergies / Home Medications
Allergy/AdvReac Type Severity Reaction Status Date / Time
No Known Allergies Allergy Verified 04/27/23 11:49
�Medication �Instructions �Recorded �Confirmed �Type
amlodipine 10 mg tablet 10 mg PO HS Blood Pressure 01/09/17 04/15/24 History
carbamazepine 200 mg tablet 200 mg PO TID Seizures 01/09/17 04/15/24 History
levothyroxine 100 mcg tablet 100 mcg PO DAILY AT 0700 Thyroid 01/09/17 04/15/24 History
atorvastatin 40 mg tablet 40 mg PO HS High Cholesterol 05/29/23 04/15/24 History
brimonidine 0.2 %-timolol 0.5 % 1 drp LEFT EYE BID Eye Condition 05/29/23 04/15/24 History
eye drops (Combigan)
brinzolamide 1 % eye 1 drp LEFT EYE BID Eye Condition 05/29/23 04/15/24 History
drops,suspension
divalproex 250 mg tablet,delayed 250 mg PO DAILY Seizures 05/29/23 04/15/24 History
release
donepezil 10 mg tablet 10 mg PO HS memory/dementia 05/29/23 04/15/24 History
latanoprost 0.005 % eye drops 1 drp BOTH EYES HS Eye Condition 05/29/23 04/15/24 History
trazodone 50 mg tablet 50 - 100 mg PO HS sleep 05/29/23 04/15/24 History
albuterol sulfate 90 mcg/actuation 2 puff inhalation R Q6HPRN PRN SOB 04/14/24 04/15/24 History
aerosol inhaler
famotidine 20 mg tablet 20 mg PO BID Gastrointestinal Issue 04/14/24 04/15/24 History
potassium chloride 20 mEq 20 meq PO DAILY Electrolyte 04/14/24 04/15/24 History
tablet,extended release Repletion
umeclidinium 62.5 mcg-vilanterol 1 inh inhalation R DAILY 04/14/24 04/15/24 History
25 mcg/actuation powdr for Lung/Breathing Issues
inhalation (Anoro Ellipta)
divalproex 250 mg tablet,delayed 500 mg PO QPM Seizures 04/15/24 04/15/24 History
release
revefenacin 175 mcg/3 mL solution 175 mcg inhalation R DAILYPRN PRN 04/15/24 04/15/24 History
for nebulization (Yupelri) only if cannot inhale anoro
Review of Systems
-
History Source: Patient
All other systems: Negative unless noted
Constitutional: Fatigue
EENT: No Symptoms
Respiratory: No Symptoms
Cardiac: No Symptoms
Abdomen/GI: No Symptoms
: No Symptoms
Musculoskeletal: No Symptoms
Skin: No Symptoms
Neurological: No Symptoms
Endocrine: No Symptoms
Hematologic/Lymphatic: No Symptoms
Physical Exam
Vital Signs
Temp Pulse Resp BP Pulse Ox
97.9 F 78 17 99/63 98
04/19/24 11:10 04/19/24 11:10 04/19/24 11:10 04/19/24 11:10 04/19/24 11:10
Lab Results
04/19/24 07:00
04/19/24 07:00
Troponin I 0.023 ng/ml 04/14/24 20:50
Physical Exam
General: Well Developed, Well Nourished, No Apparent Distress and Comfortable
HEENT: Normocephalic and Anicteric
Respiratory: Clear and Non Labored Respirations
Cardiac: S1/S2, Regular Rhythm and Peripheral Edema (Trace bilateral lower extremity edema)
Breast: Deferred by me
GI: Soft, Non Tender, Non Distended and Normal Bowel Sounds
Rectal: Deferred by Provider
Genito-urinary: No Costovertebral Tender
Musculoskeletal: No Clubbing and No Cyanosis
Skin: Warm and Dry
Neuro: AO x 3
Hematologic/Lymphatic: No Lymphadenopathy
Psych: Calm
Impression / Plan
-
Hypotension
-Check supine BP on all extremities
-Amlodipine on hold
-Random cortisol 19
HFpEF, chronic
-Not in acute/decompensated HF, dry weight ~60-61kg
-Follow daily weight, I/O, and BMP
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
Prior CVAs, left MCA infarct, posterior right occipital infarct, MRI stable
LBBB, chronic
Vascular dementia
Mood disorder, on carbamazepine & divalproex
COPD, without acute exacerbation
Data Reviewed
-
EKG: Report Reviewed by me (Sinus rhythm, LBBB)
Medical Tests (Nuc Med, Echo etc): Report Reviewed by me
Labs: Labs Reviewed by me
Old Records: Reviewed
[2024-04-19 15:10] VITALS: BP 71/49
[2024-04-19] MEDS: ProAmatine 5 MG PO ×2 (15:31→18:31)
[2024-04-19] MEDS: NSS 250 IV (15:32)
[2024-04-19 19:05] VITALS: BP 148/64
[2024-04-19] MEDS: XALATAN OPHTHALMIC SOLUTION 1 DROP BOTH EYES (21:15)
[2024-04-19] MEDS: ARICEPT 10 MG PO (21:16)
[2024-04-19] MEDS: DESYREL 50 MG PO (21:16)
[2024-04-19] MEDS: LIPITOR 40 MG PO (21:16)
[2024-04-19 23:04] VITALS: BP 109/73
[2024-04-20] VITALS (7 sets, daily range): BP systolic 88–164; BP diastolic 54–80; BMI 24.1
[2024-04-20] MEDS: SYNTHROID 100 MCG PO (05:33)
[2024-04-20 07:09] LABS: Hematocrit 33.4 % (37.0-47.0); Hemoglobin 11.2 g/dL (12.0-16.0); Mean Corp Hgb Conc. 33.5 g/dL (33.0-37.0); Mean Corpuscular Hgb 34.8 pg (27.0-31.0); Mean Corpuscular Volume 103.7 fL (81.0-99.0); Mean Platelet Volume 9.4 fL (7.4-10.4); Platelet Count 166 10^3/uL (130-400); Red Blood Cell Count 3.22 10^6/uL (4.20-5.40); Red Cell Dist. Width 12.4 % (11.5-14.5); White Blood Cell Count 7.6 10^3/uL (4.8-10.8)
[2024-04-20] MEDS: SPIRIVA RESPIMAT 2.5 MCG 2 PUFF INH (07:19)
[2024-04-20] MEDS: STRIVERDI RESPIMAT 2 PUFF INH (07:19)
[2024-04-20 07:55] LABS: Blood Urea Nitrogen 14 mg/dl (7-17); Calcium 8.3 mg/dl (8.4-10.2); Carbon Dioxide 28 mmol/L (22-30); Chloride 105 mmol/L (98-107); Estimated Creatinine Clearance 44 ml/min; Glucose 98 mg/dl (70-99); Potassium 4.5 mmol/L (3.5-5.1); Sodium 138 mmol/L (135-145); eGFR > 60.00
--- NOTE | 2024-04-20 08:10 | W.PN.CD ---
Today's Communication / Plan
-
check bp in LUE
check carotid u/s
check le art u/s with yo
Impression / Plan
-
83-year-old female (known to Dr. Mcclelland, her primary metal melter), with HFpEF, COPD, prior CVA with chronic aphasia, LBBB, PAD, vascular dementia, and COPD who presented to the emergency department with a chief complaint of weakness. She has had
a steady decline since with the of her roommate and subsequent depression.
Hypotension
-labs all normal, no signs of hypoperfusion
-Review of imaging showed extensive atherosclerosis of the brachiocephalic and Left subclavian stnenosis.
-BP seems elevated in the LUE
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 GIven gradients seen on vs, will assume the right sided is significant.
-will check le u/s and YO to see if we can obtain an accurate bp in the lest.
-echo normal
-Random cortisol 19
-continue amlodipine hold and give midodrine
HFpEF, chronic
-Not in acute/decompensated HF, dry weight ~60-61kg
-Follow daily weight, I/O, and BMP
PAD, hemodynamically significant stenoses involving the origin of the right brachiocephalic artery and the origin of the left subclavian artery on CT, continue high dose statin and asa
Prior CVAs, left MCA infarct, posterior right occipital infarct, MRI stable
LBBB, chronic
Vascular dementia
Mood disorder, on carbamazepine & divalproex
COPD, without acute exacerbation
Subjective:
she has expressive aphasia, but alert and comfortable
Data:
TTE 04/16/24: LV ejection fraction is 55-60%. No regional wall motion abnormalities are seen.
Normal right ventricular size and function.
Mild to moderate mitral regurgitation.
Aortic sclerosis without stenosis.
Mild tricuspid regurgitation. Estimated pulmonary artery pressure of 35-[address] Chest; 07/09/23:
Vascular calcification with no thoracic aortic aneurysm. There is significant calcification at the origin of the right brachiocephalic artery, suggestive of a hemodynamically significant stenosis. No evidence for significant stenosis of the left
common carotid artery origin. There is focal calcification at the origin of the left subclavian artery, fairly significant, also raising concern for a hemodynamically significant stenosis.
CTA of head and neck 01/09/2017:The origins of the great vessels are remarkable for significant ossification at the origin of the RIGHT vertebral artery, with limited visualization, no definite contrast within the RIGHT vertebral artery at the mid
cervical neck region. The RIGHT vertebral artery is diminutive compared to the LEFT.
-There is significant atherosclerotic vascular disease, with calcification at the origin of the RIGHT vertebral artery suggesting occlusion at the origin with reconstitution in the mid cervical neck. There is also significant calcification at the
origin of the brachiocephalic artery.
Physical Exam
Vital Signs/Labs
Vital Signs
Temp Pulse Resp BP Pulse Ox
97.7 F 78 16 88/54 97
04/20/24 07:10 04/20/24 07:22 04/20/24 07:22 04/20/24 07:10 04/20/24 07:22
04/19/24 04/20/24 04/21/24
06:59 06:59 06:59
Actual Weight 61.099 kg 61.643 kg
04/20/24 06:51
04/20/24 06:51
Triglycerides 78 mg/dl (10-149) 04/15/24 05:46
LDL Cholesterol, Calc 34 mg/dl 04/15/24 05:46
VLDL Cholesterol, Calc 15 mg/dl (0-30) 04/15/24 05:46
HDL Cholesterol 65 mg/dl 04/15/24 05:46
Physical Exam
Constitutional: No acute distress
Cardiovascular: Rhythm & rate is regular, Pedal edema is absent, JVD pressure is normal, Systolic murmur absent and Diastolic murmur absent
Respiratory: Respiratory effort normal, Lungs clear to auscul., Wheeze Absent and Crackles Absent
Neuro/Psych: AO x 3
Data Reviewed
-
Date of Service: April 20, 2024
Medical Decision Making: Review of Case with other Provider (nurse macias check bp in [facility], Dr Coulter will try to establish the site for most accurate bp evaluation)
EKG: Other (sinus on tele)
Old Records: Reviewed (imaging of chest and head/neck see note )
[2024-04-20] MEDS: DEPAKOTE (12 HR RELEASE) 250 MG PO ×2 (08:27→20:40)
[2024-04-20] MEDS: TEGRETOL 200 MG PO ×2 (08:27→20:40)
[2024-04-20] MEDS: PEPCID 20 MG PO (08:27)
[2024-04-20] MEDS: TIMOPTIC 0.5% OPHTHALMIC SOLUTION 1 DROP LEFT EYE ×2 (08:28→20:40)
[2024-04-20] MEDS: AZOPT 1% OPHTHALMIC SUSPENSION 1 DROP LEFT EYE ×2 (08:29→20:40)
[2024-04-20] MEDS: ALPHAGAN 0.2% EYE DROPS 1 DROP OPHTH ×2 (08:29→20:39)
[2024-04-20] MEDS: ProAmatine 10 MG PO (08:31)
[2024-04-20] MEDS: LOW STRENGTH ASPIRIN 81 MG PO (08:32)
--- NOTE | 2024-04-20 10:15 | W.PN.HOSP.TC ---
Addendum entered and electronically signed by Rudi Coulter DO 04/20/24 16:26:
Carotid and upper extremity ultrasound concerning for subclavian steal syndrome. Does have bilateral subclavian arterial disease, appears to be worse on the right side accounting for the lower pressures on the right arm. She does have complaints
of lightheadedness and presented to the hospital with complaints of weakness and slurred speech.
Consult vascular surgery.
Confirms severe PAD with a right ankle-brachial index of 0.4. Right toe brachial index 0.17.
Left a voicemail for patient's daughter. Discussed with nursing.
Original Note:
Today's Communication/Plan
-
Await ultrasound
Discharge
Assessment / Plan
Assessment / Plan
Gen-awake, alert, NAD
HEENT-NC, AT, anicteric, clear oral mm
Neck-supple
CV-reg, no M, +S1/S2
Lungs-clear B/L
Abd-soft, NT, ND
Ext-no edema
Musculoskeletal-no cyanosis, clubbing
Skin-warm and dry
Neuro-grossly non-focal
Psych-calm, cooperative
Presentation with weakness/slurred speech -brain MRI completed, no stroke noted.
Persistent hypotension -pressure in the left arm is higher than the right arm, concern for right subclavian arterial stenosis. Not orthostatic based on vitals. Seems asymptomatic from a hypotension standpoint. No evidence of adrenal
insufficiency. No evidence of infection. No evidence of volume depletion. Echocardiogram shows LVEF 55 to 60%, no regional wall motion abnormalities, normal RV size and function, mild to moderate MR, aortic sclerosis without stenosis. Mild TR.
Started on midodrine 5 mg 3 times daily yesterday, dose increased to 10 mg this morning. Will likely discharge on 5 mg dose.
Ultrasound of upper extremities to evaluate for subclavian arterial stenosis ordered by cardiology.
Hyperlipidemia - atorvastatin.
No history of epilepsy -confirmed with daughter and primary care physician. She has been on chronic carbamazepine and Depakote for mood stabilization. Carbamazepine dose was reduced to twice daily compared to 3 times daily prior to admission.
Hypothyroidism
-continue levothyroxine.
COPD without exacerbation
Glaucoma
Vascular dementia
DNR
Dispo - potential discharge today if stable. Daughter is requesting home with home care, not interested in SNF.
Anticipated Discharge: Today
Subjective/Interval History
-
Date of Service: April 20, 2024
Patient seen and examined. Sleeping when I walked in. Looks comfortable. Admits to feeling lightheaded and dizzy.
Objective Data
-
Labs:
Laboratory Results
04/20/24
06:51
WBC 7.6
Hgb 11.2 L
Hct 33.4 L
Plt Count 166
Sodium 138
Potassium 4.5
Chloride 105
Carbon Dioxide 28
BUN 14
Creatinine 0.8
Glucose 98
Calcium 8.3 L
Vital Signs:
Vital Signs
Temp Pulse Resp BP Pulse Ox
97.7 F 78 16 88/54 97
04/20/24 07:10 04/20/24 07:22 04/20/24 07:22 04/20/24 07:10 04/20/24 07:22
I&O
04/19/24 04/20/24 04/21/24
06:59 06:59 06:59
Intake Total 600 / 600 660 / 660
Balance 600 / 600 660 / 660
Review of Systems
-
Unable to obtain full review of systems at this time due to: Dementia
History Source: Patient
All other systems: Reviewed and negative
[2024-04-20] MEDS: ProAmatine PO (12:53)
--- NOTE | 2024-04-20 17:18 | CM ---
Spoke with Awa at [facility] to provide update. Awa requested that she be notified of when patient is discharged.
Plan: Case management will continue to follow and assist with discharge planning. Home with Jordan HERNÁNDEZ.
[2024-04-20] MEDS: ProAmatine 5 MG PO (17:29)
[2024-04-20] MEDS: LIPITOR PO (21:47)
[2024-04-20] MEDS: LIPITOR 40 MG PO (21:47)
[2024-04-20] MEDS: XALATAN OPHTHALMIC SOLUTION 1 DROP BOTH EYES (21:48)
[2024-04-20] MEDS: DESYREL 50 MG PO (21:48)
[2024-04-20] MEDS: ARICEPT 10 MG PO (21:48)
[2024-04-21] VITALS (10 sets, daily range): BP systolic 93–164; BP diastolic 59–85; PULSE 73–75; O2SAT 98; BMI 24.3
[2024-04-21] MEDS: SYNTHROID 100 MCG PO (05:05)
[2024-04-21 08:00] LABS: Hematocrit 32.1 % (37.0-47.0); Hemoglobin 10.6 g/dL (12.0-16.0); Mean Corpuscular Hgb 34.3 pg (27.0-31.0); Mean Corpuscular Volume 103.9 fL (81.0-99.0); Mean Platelet Volume 9.7 fL (7.4-10.4); Platelet Count 162 10^3/uL (130-400); Red Blood Cell Count 3.09 10^6/uL (4.20-5.40); Red Cell Dist. Width 12.5 % (11.5-14.5); White Blood Cell Count 7.5 10^3/uL (4.8-10.8)
[2024-04-21] MEDS: SPIRIVA RESPIMAT 2.5 MCG 2 PUFF INH (08:15)
[2024-04-21] MEDS: STRIVERDI RESPIMAT 2 PUFF INH (08:15)
--- NOTE | 2024-04-21 08:16 | W.PN.CD ---
Today's Communication / Plan
-
-Continue to use left arm for BPs and then will await vascular input.
- note lower BP this morning was right arm. reviewed with nursing to use left arm for BP
Impression / Plan
-
83-year-old female (known to Dr. 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 She has had
a steady decline since with the of her roommate and subsequent depression.
Hypotension
-labs all normal, no signs of hypoperfusion
-Review of imaging showed extensive atherosclerosis of the brachiocephalic and Left subclavian stnenosis. on CT. patient has since had Daiana, carotid IS whoch demonstrate bilat sibcalian stenosi among other findings.
-Continue to use left arm for BPs and then will await vascular input.
-Random cortisol 19
-continue amlodipine hold and give midodrine
PAD, hemodynamically significant stenoses involving the origin of the right brachiocephalic artery and the origin of the left subclavian artery on CT, Carotid US and lower ext arterial us/daiana as below . await vascular input.
HFpEF, chronic
- resp status stable
-Not in acute/decompensated HF, dry weight ~60-61kg
-Follow daily weight, I/O, and BMP
Prior CVAs, left MCA infarct, posterior right occipital infarct, MRI stable
LBBB, chronic
Vascular dementia
Mood disorder, on carbamazepine & divalproex
COPD, without acute exacerbation
Subjective:
she has expressive aphasia, but alert and comfortable
Data:
TTE 04/16/24: LV ejection fraction is 55-60%. No regional wall motion abnormalities are seen.
Normal right ventricular size and function.
Mild to moderate mitral regurgitation.
Aortic sclerosis without stenosis.
Mild tricuspid regurgitation. Estimated pulmonary artery pressure of 35-40
mmHg.
US artewrial lower ext04/20/23
1. Right ankle-brachial index measures 0.4, severely depressed. Right toe brachial index 0.17. Abnormal spectral Doppler waveforms throughout the arteries of the right lower extremity is suggestive of aortoiliac inflow disease. Moderate stenosis
within the proximal SFA, peak systolic velocity 411 cm/s. Mild stenosis near the origin of the profunda femoris artery. Infrapopliteal and small vessel disease may be present.
2. Left ankle brachial index 1.13, within normal limits. Left toe brachial index 0.67. Scattered arterial plaque. Mild stenosis within the left proximal SFA.
vascular US 04/20/23
1. RIGHT CAROTID: Low velocity is seen throughout the right common carotid artery, possibly related to brachiocephalic plaque/stenosis seen on prior CT dated 04/17/2024. This makes internal to common carotid ratios inaccurate to quantify carotid bulb
stenosis. Calcified plaque is seen within the right carotid bulb, however cannot be accurately quantified on ultrasound. Consider CTA or MRI of the neck for further characterization.
2. Retrograde flow within the right vertebral artery, and multifocal stenoses within the right subclavian artery, suggestive of subclavian steal.
3. LEFT CAROTID: Heavily calcified plaque within the left carotid bulb. Velocity measurements are suggestive of greater than 70% stenosis, however internal to common carotid ratio is suggestive of 50-69%. CTA or MRA may be helpful for further
characterization.
4. Multifocal plaque and stenosis within the left subclavian artery.
CT Chest; 07/09/23:
Vascular calcification with no thoracic aortic aneurysm. There is significant calcification at the origin of the right brachiocephalic artery, suggestive of a hemodynamically significant stenosis. No evidence for significant stenosis of the left
common carotid artery origin. There is focal calcification at the origin of the left subclavian artery, fairly significant, also raising concern for a hemodynamically significant stenosis.
CTA of head and neck 01/09/2017:The origins of the great vessels are remarkable for significant ossification at the origin of the RIGHT vertebral artery, with limited visualization, no definite contrast within the RIGHT vertebral artery at the mid
cervical neck region. The RIGHT vertebral artery is diminutive compared to the LEFT.
-There is significant atherosclerotic vascular disease, with calcification at the origin of the RIGHT vertebral artery suggesting occlusion at the origin with reconstitution in the mid cervical neck. There is also significant calcification at the
origin of the brachiocephalic artery.
Physical Exam
Vital Signs/Labs
Vital Signs
Temp Pulse Resp BP Pulse Ox
97.7 F 44 16 93/72 97
04/21/24 07:41 04/21/24 07:41 04/21/24 07:41 04/21/24 07:41 04/21/24 07:41
04/20/24 04/21/24 04/22/24
06:59 06:59 06:59
Actual Weight 61.643 kg 62.142 kg
04/21/24 07:29
Triglycerides 78 mg/dl (10-149) 04/15/24 05:46
LDL Cholesterol, Calc 34 mg/dl 04/15/24 05:46
VLDL Cholesterol, Calc 15 mg/dl (0-30) 04/15/24 05:46
HDL Cholesterol 65 mg/dl 04/15/24 05:46
Physical Exam
Cardiovascular: Rhythm & rate is regular
Respiratory: Lungs clear to auscul.
GI: Soft and Non tender
Neuro/Psych: Alert
Data Reviewed
-
Date of Service: April 21, 2024
Medical Decision Making: Reviewed Test Results and Review of Case with other Provider (reviewed issueswith nursing staff)
Medical Tests (PFT, Pathology etc): Report Reviewed by me
Labs: Labs Reviewed by me
[2024-04-21 08:22] LABS: Blood Urea Nitrogen 17 mg/dl (7-17); Calcium 7.9 mg/dl (8.4-10.2); Carbon Dioxide 27 mmol/L (22-30); Estimated Creatinine Clearance 39 ml/min; Glucose 102 mg/dl (70-99); Potassium 4.3 mmol/L (3.5-5.1); Sodium 137 mmol/L (135-145); eGFR > 60.00
[2024-04-21] MEDS: PEPCID 20 MG PO (08:33)
[2024-04-21] MEDS: LOW STRENGTH ASPIRIN 81 MG PO (08:33)
[2024-04-21] MEDS: TEGRETOL 200 MG PO ×2 (08:33→21:10)
[2024-04-21] MEDS: DEPAKOTE (12 HR RELEASE) 250 MG PO ×2 (08:33→21:10)
[2024-04-21] MEDS: ProAmatine 5 MG PO ×2 (08:33→14:00)
[2024-04-21] MEDS: ALPHAGAN 0.2% EYE DROPS 1 DROP OPHTH ×2 (08:34→21:12)
[2024-04-21] MEDS: TIMOPTIC 0.5% OPHTHALMIC SOLUTION 1 DROP LEFT EYE ×2 (08:34→21:11)
[2024-04-21] MEDS: AZOPT 1% OPHTHALMIC SUSPENSION 1 DROP LEFT EYE ×2 (08:35→21:11)
[2024-04-21 08:38] LABS: Chloride 106 mmol/L (98-107)
--- NOTE | 2024-04-21 10:17 | W.PN.HOSP.TC ---
Today's Communication/Plan
-
Await vascular surgery input
Assessment / Plan
Assessment / Plan
Gen-awake, alert, NAD
HEENT-NC, AT, anicteric, clear oral mm
Neck-supple
CV-reg, no M, +S1/S2
Lungs-clear B/L
Abd-soft, NT, ND
Ext-no edema
Musculoskeletal-no cyanosis, clubbing
Skin-warm and dry
Neuro-grossly non-focal
Psych-calm, cooperative
Presentation with weakness/slurred speech -brain MRI completed, no stroke noted. Concern for subclavian steal syndrome as the cause.
Persistent hypotension -pressure in the left arm is higher than the right arm, concern for right subclavian arterial stenosis. Not orthostatic based on vitals. Seems asymptomatic from a hypotension standpoint. No evidence of adrenal
insufficiency. No evidence of infection. No evidence of volume depletion. Echocardiogram shows LVEF 55 to 60%, no regional wall motion abnormalities, normal RV size and function, mild to moderate MR, aortic sclerosis without stenosis. Mild TR.
Started on midodrine 5 mg 3 times daily.
Ultrasound of upper extremities concerning for subclavian steal syndrome, worse disease on the right side. Vascular surgery consulted.
Hyperlipidemia - atorvastatin.
No history of epilepsy -confirmed with daughter and primary care physician. She has been on chronic carbamazepine and Depakote for mood stabilization. Carbamazepine dose was reduced to twice daily compared to 3 times daily prior to admission.
Hypothyroidism
-continue levothyroxine.
COPD without exacerbation
Glaucoma
Vascular dementia
DNR
Family updated at the bedside.
Anticipated Discharge: > 48 hours
Subjective/Interval History
-
Date of Service: April 21, 2024
Patient seen and examined. No complaints.
Objective Data
-
Labs:
Laboratory Results
04/21/24
07:29
WBC 7.5
Hgb 10.6 L
Hct 32.1 L
Plt Count 162
Sodium 137
Potassium 4.3
Chloride 106
Carbon Dioxide 27
BUN 17
Creatinine 0.9
Glucose 102 H
Calcium 7.9 L
Vital Signs:
Vital Signs
Temp Pulse Resp BP Pulse Ox
97.7 F 83 16 126/66 93
04/21/24 07:41 04/21/24 08:16 04/21/24 08:16 04/21/24 08:54 04/21/24 08:16
I&O
04/20/24 04/21/24 04/22/24
06:59 06:59 06:59
Intake Total 660 / 660 1240 / 1240
Balance 660 / 660 1240 / 1240
Review of Systems
-
Unable to obtain full review of systems at this time due to: Dementia
History Source: Patient
All other systems: Reviewed and negative
--- NOTE | 2024-04-21 11:13 | CON.VAS ---
Consultation
Consultation Request
Performing Provider: Sundeep
Reason for Consultation: subclavian steal
Medical History
-
Chief Complaint: Confusion, slurred speech
History of Present Illness:
83 yo female with PMH ASCVD/prior CVAs and TIAs, dementia, CHF, COPD, and hypertension. Pt admitted through the ER on 04/19/24 for evaluation of weakness, confusion and slurred speech. Family states pt usually had some difficulty getting her words out
but not usual for her to slur her words. They believe that the 3 days prior to admission she seemed weaker then usual and increasingly confused. Pt has dementia at baseline. Former smoker, quit in 1995.
Patients's daughter notes that the patient chronically has episodes of some slurring of speech following her prior strokes. Often these occur in the setting of a UTI or other infectious process. However on Day she had an acute episode
that the daughter felt was distinct with somewhat aphasia difficulty getting any words out. Daughter noted that the patient generally became weak. Not unilateral. But generalized weakness overall. Therefore presented to the hospital. Patient
denies any prior recent episodes of amaurosis, unilateral numbness or weakness or any other expressive aphasia type episodes.
Pt seen at bedside this am with Dr Urbano and Daughter at bedside.
Past Medical History
Past Medical History: Other (ASCVD (Major CVA in her 30s. 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
Past Surgical History: Other (Partial Hysterectomy, Right Femur ORIF)
Social History
Tobacco: Former Smoker (Quit in )
Living: With Family
Family History
Family History: Reviewed & Not Pertinent
Allergies / Home Medications
Allergy/AdvReac Type Severity Reaction Status Date / Time
No Known Allergies Allergy Verified 04/27/23 11:49
�Medication �Instructions �Recorded �Confirmed �Type
amlodipine 10 mg tablet 10 mg PO HS Blood Pressure 01/09/17 04/15/24 History
carbamazepine 200 mg tablet 200 mg PO TID Seizures 01/09/17 04/15/24 History
levothyroxine 100 mcg tablet 100 mcg PO DAILY AT 0700 Thyroid 01/09/17 04/15/24 History
atorvastatin 40 mg tablet 40 mg PO HS High Cholesterol 05/29/23 04/15/24 History
brimonidine 0.2 %-timolol 0.5 % 1 drp LEFT EYE BID Eye Condition 05/29/23 04/15/24 History
eye drops (Combigan)
brinzolamide 1 % eye 1 drp LEFT EYE BID Eye Condition 05/29/23 04/15/24 History
drops,suspension
divalproex 250 mg tablet,delayed 250 mg PO DAILY Seizures 05/29/23 04/15/24 History
release
donepezil 10 mg tablet 10 mg PO HS memory/dementia 05/29/23 04/15/24 History
latanoprost 0.005 % eye drops 1 drp BOTH EYES HS Eye Condition 05/29/23 04/15/24 History
trazodone 50 mg tablet 50 - 100 mg PO HS sleep 05/29/23 04/15/24 History
albuterol sulfate 90 mcg/actuation 2 puff inhalation R [id number] PRN SOB 04/14/24 04/15/24 History
aerosol inhaler
famotidine 20 mg tablet 20 mg PO BID Gastrointestinal Issue 04/14/24 04/15/24 History
potassium chloride 20 mEq 20 meq PO DAILY Electrolyte 04/14/24 04/15/24 History
tablet,extended release Repletion
umeclidinium 62.5 mcg-vilanterol 1 inh inhalation R DAILY 04/14/24 04/15/24 History
25 mcg/actuation powdr for Lung/Breathing Issues
inhalation (Anoro Ellipta)
divalproex 250 mg tablet,delayed 500 mg PO QPM Seizures 04/15/24 04/15/24 History
release
revefenacin 175 mcg/3 mL solution 175 mcg inhalation R DAILYPRN PRN 04/15/24 04/15/24 History
for nebulization (Yupelri) only if cannot inhale anoro
Review of Systems
-
History Source: Family
All other systems: Negative unless noted
Constitutional: Reports No Symptoms
EENT: Reports No Symptoms
Respiratory: Reports No Symptoms
Cardiac: Reports No Symptoms
Abdomen/GI: Reports No Symptoms
: Reports No Symptoms
Musculoskeletal: Reports No Symptoms
Skin: Reports No Symptoms
Neurological: Reports Weakness
Endocrine: Reports No Symptoms
Physical Exam
Vital Signs
Temp Pulse Resp BP Pulse Ox
97.7 F 83 16 126/66 93
04/21/24 07:41 04/21/24 08:16 04/21/24 08:16 04/21/24 08:54 04/21/24 08:16
Lab Results
04/21/24 07:29
04/21/24 07:29
Troponin I 0.023 ng/ml 04/14/24 20:50
Physical Exam
General: No Apparent Distress
HEENT: Normocephalic and Atraumatic
Respiratory: Non Labored Respirations
Cardiac: Negative JVD
Breast: Deferred by me
GI: Soft and Non Tender
Musculoskeletal: No Clubbing, No Cyanosis and No Edema
Skin: Warm
Neuro: Awake and Alert
Psych: Calm
Pulses: Left Dorsalis Pedis: +1 and Right Dorsalis Pedis: Doppler (nonpalpable)
Assessment / Plan
-
83 yo female with carotid stenosis, R subclavian steal, here with slurred speech, confusion
MRI suggests old infarcts, nothing acute
Carotid US:
RIGHT CAROTID: Low velocity is seen throughout the right common carotid artery, possibly related to brachiocephalic plaque/stenosis seen on prior CT dated 04/17/2024. This makes internal to common carotid ratios inaccurate to quantify carotid bulb
stenosis. Calcified plaque is seen within the right carotid bulb, however cannot be accurately quantified on ultrasound. Consider CTA or MRI of the neck for further characterization.
2. Retrograde flow within the right vertebral artery, and multifocal stenoses within the right subclavian artery, suggestive of subclavian steal.
3. LEFT CAROTID: Heavily calcified plaque within the left carotid bulb. Velocity measurements are suggestive of greater than 70% stenosis, however internal to common carotid ratio is suggestive of 50-69%. CTA or MRA may be helpful for further
characterization.
4. Multifocal plaque and stenosis within the left subclavian artery.
Plan:
-CTA head/neck
-Will follow up after scan complete
--- NOTE | 2024-04-21 11:21 | W.PN.UPDATE ---
Update Note
Progress Note Update
Seen and examined. Full consultation to follow. Briefly 83-year-old female with extensive medical history. History of recurrent strokes per her daughter who assists with providing the history and she was at the bedside. Patient presented with
weakness/confusion/slurred speech. The patient daughter notes that the patient chronically has episodes of some slurring of speech following her prior strokes. Often these occur in the setting of a UTI or other infectious process. However on New
Year's Day she had an acute episode that the daughter felt was distinct with somewhat aphasia difficulty getting any words out. Daughter noted that the patient generally became weak. Not unilateral. But generalized weakness overall. Therefore
presented to the hospital. Patient denies any prior recent episodes of amaurosis, unilateral numbness or weakness or any other expressive aphasia type episodes.
On exam/she is awake and alert. Head is normocephalic and atraumatic. Eyes are anicteric. Neck is soft without jugular venous distention. Speech slightly slow, mildly slurred at baseline. Breathing unlabored. Abdomen soft. Left foot with
palpable DP pulse. Nonpalpable right. Feet are both warm.
MRI brain report reviewed. Large area of encephalomalacia in left hemisphere compatible with old left MCA infarct. Right sided occipital lobe encephalomalacia compatible with old infarct as well. No acute infarcts noted. I reviewed CT scan of
the chest/abdomen/pelvis dated 04/17/2024. I also reviewed an old CT angiogram of the head and neck from 2017 that demonstrates significant near occlusive bulky innominate plaque. Moderate bilateral carotid plaque as well especially on the right
side bifurcation. Current carotid duplex demonstrates left-sided velocity measurements consistent with possible greater than 70% stenosis (although ratio and end-diastolic velocity may be consistent with lesser 50 to 69% stenosis). The right side
is difficult to interpret due to the inflow issues due to the innominate stenosis/occlusion.
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 I do not think that she had a definitive focal neurologic event related to one of her carotids or arch branch vessel disease. As would be expected her carotid duplex that she
completed demonstrates reversal of flow in the right vertebral artery (would be expected in the setting of innominate artery occlusive disease). Subclavian steal diagnosis is a clinical diagnosis not a radiographic or ultrasound based finding. The
patient does not demonstrate definitive clinical scenario of subclavian steal. She has chronically had an innominate stenosis/occlusion. I suspect her vertebral reversed flow has been chronic as well. Therefore, very unlikely to have subclavian
steal phenomenon. In addition subclavian steal typically does not result in an acute single focal event unless there was a acute posterior infarct. Her symptoms have not been posterior in nature. She had no vertigo/double vision/passing out.
Therefore, likely no intervention due to chronic findings. However, would favor CT angiogram of the head and neck to better delineate all her plaque disease and anatomy prior to definitively same that she would not benefit from an intervention. In
addition we will confirm with neurology that they do not think that she had an acute focal neurologic event.
[2024-04-21] MEDS: ProAmatine PO (17:33)
[2024-04-21] MEDS: DESYREL 50 MG PO (21:10)
[2024-04-21] MEDS: ARICEPT 10 MG PO (21:11)
[2024-04-21] MEDS: XALATAN OPHTHALMIC SOLUTION 1 DROP BOTH EYES (21:11)
[2024-04-21] MEDS: LIPITOR 40 MG PO (21:15)
[2024-04-22 03:38] VITALS: BP 131/46
[2024-04-22] MEDS: SYNTHROID 100 MCG PO (05:31)
[2024-04-22 06:00] VITALS: BMI 24.5
[2024-04-22 07:13] LABS: Hematocrit 32.3 % (37.0-47.0); Hemoglobin 11.3 g/dL (12.0-16.0); Mean Corpuscular Hgb 35.5 pg (27.0-31.0); Mean Corpuscular Volume 101.6 fL (81.0-99.0); Mean Platelet Volume 9.9 fL (7.4-10.4); Platelet Count 164 10^3/uL (130-400); Red Blood Cell Count 3.18 10^6/uL (4.20-5.40); Red Cell Dist. Width 12.3 % (11.5-14.5); White Blood Cell Count 8.2 10^3/uL (4.8-10.8)
[2024-04-22 07:32] LABS: Blood Urea Nitrogen 21 mg/dl (7-17); Calcium 8.3 mg/dl (8.4-10.2); Carbon Dioxide 25 mmol/L (22-30); Chloride 105 mmol/L (98-107); Estimated Creatinine Clearance 44 ml/min; Glucose 92 mg/dl (70-99); Potassium 3.9 mmol/L (3.5-5.1); Sodium 138 mmol/L (135-145); eGFR > 60.00
[2024-04-22 07:41] VITALS: BP 139/67
[2024-04-22] MEDS: ProAmatine 5 MG PO (07:50)
[2024-04-22] MEDS: DEPAKOTE (12 HR RELEASE) 250 MG PO (07:51)
[2024-04-22] MEDS: TEGRETOL 200 MG PO (07:51)
[2024-04-22] MEDS: PEPCID 20 MG PO (07:51)
[2024-04-22] MEDS: AZOPT 1% OPHTHALMIC SUSPENSION 1 DROP LEFT EYE (07:51)
[2024-04-22] MEDS: TIMOPTIC 0.5% OPHTHALMIC SOLUTION 1 DROP LEFT EYE (07:51)
[2024-04-22] MEDS: LOW STRENGTH ASPIRIN 81 MG PO (07:53)
[2024-04-22] MEDS: ALPHAGAN 0.2% EYE DROPS 1 DROP OPHTH (07:53)
[2024-04-22] MEDS: STRIVERDI RESPIMAT 2 PUFF INH (08:04)
[2024-04-22] MEDS: SPIRIVA RESPIMAT 2.5 MCG 2 PUFF INH (08:04)
--- NOTE | 2024-04-22 08:43 | W.PN.UPDATE ---
Update Note
Progress Note Update
I reviewed CT angiogram of the head and neck. Significant aortic arch vessel disease. There does not appear to be any acute findings. However there has been progression when I compare hpht-sd-hwbs to the CT scan from 2017 of the head and neck.
The innominate artery plaque has progressed. The right carotid bifurcation likely progressed some. Slightly diminutive flow beyond the carotid bifurcation likely secondary to poor inflow from the innominate as well as the carotid stenosis. On the
left side the common carotid artery has some plaque but no significant stenosis. (Proximally). The carotid bifurcation has a significant stenosis that has significantly progressed compared to the 2017 study. The left subclavian artery also has
progressive plaque and appears to be severely stenotic that has also progressed from 2017. There is plaque at the origin of the vertebral artery, but the vertebral artery is patent and at the dominant left vertebral artery. Right vertebral artery
appears occluded (this is chronic as it appears occluded as such on the 2017 scan). Based on all this, and my review of the neurologist note, I agree that I do not feel this is an acute cerebrovascular event that she suffered. (Neurologist noted
the same conclusion that they did not feel this was an acute cerebrovascular event as well). However, based on her risk factors, she potentially could benefit from revascularization of 1 or stage both carotids (would favor treating the left carotid
as there is no inflow disease on that side, and concomitantly potentially doing a carotid to subclavian bypass so that she would have reliable blood pressure readings at least in 1 upper extremity). However, she is 83 years old and she is certainly
not a low risk candidate. I discussed this all with the patient's daughter as per their request over the phone. Discussed that we would let her recover from this recent episode and I would see her back in the office in a few weeks and we could
further discuss risks and benefits of surgery versus continued conservative management. They are all in agreement. I will see her back in the office in a few weeks.
--- NOTE | 2024-04-22 09:28 | W.PN.CD ---
Today's Communication / Plan
-
comforatable. continue to use left arm for pressures
BPs appears stable
Complex vascular issues as outlined by Dr Urbano
call if addtional assistance required
Impression / Plan
-
83-year-old female (known to Dr. Mcclelland, her primary database manager), with HFpEF, COPD, prior CVA with chronic aphasia, LBBB, PAD, vascular dementia, and COPD who presented to the emergency department with a chief complaint of weakness. She has had
a steady decline since [place] with the of her roommate and subsequent depression.
Hypotension
-Review of imaging showed extensive atherosclerosis brachiocephalic, cartids and subclavians. seeupdate CTA from this admit and Dr Blackwood note from 04/21/23
-Continue to use left arm for BPs and then will await vascular input.
-Random cortisol 19
-arm BPs onleft currently stable , may be underestimate fo BP with vascular disease. Continued use of left arm
PAD, - complex issues as outiened by Dr Urbano 04/21/23. Addtional assessment of tx options as outaptient by Vascular surgery
HFpEF, chronic
- resp status stable
-Not in acute/decompensated HF, dry weight ~60-61kg
-Follow daily weight, I/O, and BMP
Prior CVAs, left MCA infarct, posterior right occipital infarct, MRI stable
LBBB, chronic
Vascular dementia
Mood disorder, on carbamazepine & divalproex
COPD, without acute exacerbation
Subjective:
she has expressive aphasia, but alert and comfortable
Data:
TTE 04/16/24: LV ejection fraction is 55-60%. No regional wall motion abnormalities are seen.
Normal right ventricular size and function.
Mild to moderate mitral regurgitation.
Aortic sclerosis without stenosis.
Mild tricuspid regurgitation. Estimated pulmonary artery pressure of 35-40
mmHg.
US artewrial lower ext04/20/23
1. Right ankle-brachial index measures 0.4, severely depressed. Right toe brachial index 0.17. Abnormal spectral Doppler waveforms throughout the arteries of the right lower extremity is suggestive of aortoiliac inflow disease. Moderate stenosis
within the proximal SFA, peak systolic velocity 411 cm/s. Mild stenosis near the origin of the profunda femoris artery. Infrapopliteal and small vessel disease may be present.
2. Left ankle brachial index 1.13, within normal limits. Left toe brachial index 0.67. Scattered arterial plaque. Mild stenosis within the left proximal SFA.
vascular US 04/20/23
1. RIGHT CAROTID: Low velocity is seen throughout the right common carotid artery, possibly related to brachiocephalic plaque/stenosis seen on prior CT dated 04/17/2024. This makes internal to common carotid ratios inaccurate to quantify carotid bulb
stenosis. Calcified plaque is seen within the right carotid bulb, however cannot be accurately quantified on ultrasound. Consider CTA or MRI of the neck for further characterization.
2. Retrograde flow within the right vertebral artery, and multifocal stenoses within the right subclavian artery, suggestive of subclavian steal.
3. LEFT CAROTID: Heavily calcified plaque within the left carotid bulb. Velocity measurements are suggestive of greater than 70% stenosis, however internal to common carotid ratio is suggestive of 50-69%. CTA or MRA may be helpful for further
characterization.
4. Multifocal plaque and stenosis within the left subclavian artery.
CT Chest; 07/09/23:
Vascular calcification with no thoracic aortic aneurysm. There is significant calcification at the origin of the right brachiocephalic artery, suggestive of a hemodynamically significant stenosis. No evidence for significant stenosis of the left
common carotid artery origin. There is focal calcification at the origin of the left subclavian artery, fairly significant, also raising concern for a hemodynamically significant stenosis.
CTA of head and neck 01/09/2017:The origins of the great vessels are remarkable for significant ossification at the origin of the RIGHT vertebral artery, with limited visualization, no definite contrast within the RIGHT vertebral artery at the mid
cervical neck region. The RIGHT vertebral artery is diminutive compared to the LEFT.
-There is significant atherosclerotic vascular disease, with calcification at the origin of the RIGHT vertebral artery suggesting occlusion at the origin with reconstitution in the mid cervical neck. There is also significant calcification at the
origin of the brachiocephalic artery.
CTA head and neck 04/21/23
IMPRESSION: No evidence of M1 or M2 occlusion. No carotid dissection.
greater than 70% distal right common carotid artery, proximal right internal carotid artery and mid left internal carotid artery stenosis. Stable on the right. Progressed on the left.
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 Hypoplastic remaining right vertebral artery. Stable
Moderate patchy groundglass opacities throughout the imaged lungs concerning for developing pneumonia. Interstitial lung disease not excluded. New.
Large area of encephalomalacia on the left. Stable
Multilevel degenerative disc disease. Progressed at all levels.
Straightening of the normal cervical spinal lordosis. This can be seen with muscular spasm. Stable
Physical Exam
Vital Signs/Labs
Vital Signs
Temp Pulse Resp BP Pulse Ox
98.0 F 81 16 139/67 95
04/22/24 07:41 04/22/24 08:05 04/22/24 08:05 04/22/24 07:41 04/22/24 08:05
04/21/24 04/22/24 04/23/24
06:59 06:59 06:59
Actual Weight 62.142 kg 62.596 kg
04/22/24 06:34
04/22/24 06:34
Triglycerides 78 mg/dl (10-149) 04/15/24 05:46
LDL Cholesterol, Calc 34 mg/dl 04/15/24 05:46
VLDL Cholesterol, Calc 15 mg/dl (0-30) 04/15/24 05:46
HDL Cholesterol 65 mg/dl 04/15/24 05:46
Physical Exam
Constitutional: No acute distress
Cardiovascular: Rhythm & rate is regular
Respiratory: Lungs clear to auscul.
GI: Non tender
Neuro/Psych: Alert
Data Reviewed
-
Date of Service: April 22, 2024
Medical Decision Making: Reviewed Test Results
Echo: Report Reviewed by me
Medical Tests (PFT, Pathology etc): Report Reviewed by me
Labs: Labs Reviewed by me
--- NOTE | 2024-04-22 10:34 | W.PN.HOSP.TC ---
Today's Communication/Plan
-
Discharge
Assessment / Plan
Assessment / Plan
Gen-awake, alert, NAD
HEENT-NC, AT, anicteric, clear oral mm
Neck-supple
CV-reg, no M, +S1/S2
Lungs-clear B/L
Abd-soft, NT, ND
Ext-no edema
Musculoskeletal-no cyanosis, clubbing
Skin-warm and dry
Neuro-grossly non-focal
Psych-calm, cooperative
Presentation with weakness/slurred speech -brain MRI completed, no stroke noted. Concern for subclavian steal syndrome as the cause.
Persistent hypotension -pressure in the left arm is higher than the right arm, concern for right subclavian arterial stenosis. Not orthostatic based on vitals. Seems asymptomatic from a hypotension standpoint. No evidence of adrenal
insufficiency. No evidence of infection. No evidence of volume depletion. Echocardiogram shows LVEF 55 to 60%, no regional wall motion abnormalities, normal RV size and function, mild to moderate MR, aortic sclerosis without stenosis. Mild TR.
Started on midodrine 5 mg 3 times daily.
Ultrasound of upper extremities concerning for subclavian steal syndrome, worse disease on the right side. Appreciate vascular surgery input. Discussed with Dr. Urbano. Follow-up in the office.
Hyperlipidemia - atorvastatin.
No history of epilepsy -confirmed with daughter and primary care physician. She has been on chronic carbamazepine and Depakote for mood stabilization. Carbamazepine dose was reduced to twice daily compared to 3 times daily prior to admission.
Hypothyroidism
-continue levothyroxine.
COPD without exacerbation
Glaucoma
Vascular dementia
DNR
Dispo -medically stable for discharge today. Follow-up with PCP, vascular surgery.
35 minutes spent in discharge process.
Anticipated Discharge: Today
Subjective/Interval History
-
Date of Service: April 22, 2024
Patient seen and examined. No complaints.
Objective Data
-
Labs:
Laboratory Results
04/22/24
06:34
WBC 8.2
Hgb 11.3 L
Hct 32.3 L
Plt Count 164
Sodium 138
Potassium 3.9
Chloride 105
Carbon Dioxide 25
BUN 21 H
Creatinine 0.8
Glucose 92
Calcium 8.3 L
Vital Signs:
Vital Signs
Temp Pulse Resp BP Pulse Ox
98.0 F 81 16 139/67 95
04/22/24 07:41 04/22/24 08:05 04/22/24 08:05 04/22/24 07:41 04/22/24 08:05
I&O
04/21/24 04/22/24 04/23/24
06:59 06:59 06:59
Intake Total 1240 / 1240 450 / 450
Balance 1240 / 1240 450 / 450
Review of Systems
-
Unable to obtain full review of systems at this time due to: Dementia
History Source: Patient
All other systems: Reviewed and negative
--- NOTE | 2024-04-22 10:35 | W.DS.TRANS ---
DC Summary - [employer]
-
Discharge Instructions:
Sleep Apnea Risk Low
Discharge Diagnosis/Procedures Subclavian steel syndrome
Diet As tolerated
Activity As tolerated
Driving Restrictions No driving
Bathing Restrictions None
Instructions:
Stand-Alone Forms:
Changes to Home Medications: No
Discharge Medications:
DC Medications w/original date entered in [employer]
carbamazepine 200 mg tablet 200 mg PO TID Seizures 01/09/17
levothyroxine 100 mcg tablet 100 mcg PO DAILY AT 0700 Thyroid 01/09/17
atorvastatin 40 mg tablet 40 mg PO HS High Cholesterol 05/29/23
brimonidine 0.2 %-timolol 0.5 % eye drops (Combigan) 1 drp LEFT EYE BID Eye Condition 05/29/23
brinzolamide 1 % eye drops,suspension 1 drp LEFT EYE BID Eye Condition 05/29/23
divalproex 250 mg tablet,delayed release 250 mg PO DAILY Seizures 05/29/23
donepezil 10 mg tablet 10 mg PO HS memory/dementia 05/29/23
latanoprost 0.005 % eye drops 1 drp BOTH EYES HS Eye Condition 05/29/23
trazodone 50 mg tablet 50 - 100 mg PO HS sleep 05/29/23
albuterol sulfate 90 mcg/actuation aerosol inhaler 2 puff inhalation R Q6HPRN PRN SOB 04/14/24
famotidine 20 mg tablet 20 mg PO BID Gastrointestinal Issue 04/14/24
potassium chloride 20 mEq tablet,extended release 20 meq PO DAILY Electrolyte Repletion 04/14/24
umeclidinium 62.5 mcg-vilanterol 25 mcg/actuation powdr for inhalation (Anoro Ellipta) 1 inh inhalation R DAILY Lung/Breathing Issues 04/14/24
divalproex 250 mg tablet,delayed release 500 mg PO QPM Seizures 04/15/24
revefenacin 175 mcg/3 mL solution for nebulization (Yupelri) 175 mcg inhalation R DAILYPRN PRN only if cannot inhale anoro 04/15/24
aspirin 81 mg chewable tablet 81 mg PO DAILY #0 tabs 04/22/24
midodrine 5 mg tablet 5 mg PO TID@0800,1300,1800 #90 tabs 04/22/24
Home Medication Changes
Pending Results: No
[2024-04-22 10:47] VITALS: BP 123/65
--- NOTE | 2024-04-22 12:15 | CM ---
Patient medically cleared for discharge. Placed a call to Awa Varghese at [facility] to update about discharge. Per RN, patient's friend will transport home.
Plan: Case management will continue to follow and assist with discharge planning. Home with VN services.
[2024-04-22] MEDS: ProAmatine PO (12:29)
== END 2024-04-22 13:14 | disposition home health service (06) | DRG 69 ==
LOC: 3 WEST ACU 13:03
PROVIDERS: Hospitalist; ADMITTING PHYSICIAN Hospitalist; ATTENDING PHYSICIAN Hospitalist; CONSULT PHYSICIAN Internal Medicine Cardiovascular Disease; CONSULT PHYSICIAN Psychiatry & Neurology Clinical Neurophysiology; EMERGENCY PHYSICIAN Emergency Medicine; FAMILY PHYSICIAN Family Medicine; OTHER PHYSICIAN Surgery Vascular Surgery
DX: G45.8 Other transient cerebral ischemic attacks and related syndromes (principal); I50.32 Chronic diastolic (congestive) heart failure; F01.53 Vascular dementia, unspecified severity, with mood disturbance; R62.7 Adult failure to thrive; G40.909 Epilepsy, unspecified, not intractable, without status epilepticus; I95.9 Hypotension, unspecified; I11.0 Hypertensive heart disease with heart failure; E03.9 Hypothyroidism, unspecified; J44.9 Chronic obstructive pulmonary disease, unspecified; Z66 Do not resuscitate; Z87.891 Personal history of nicotine dependence; Z11.52 Encounter for screening for COVID-19
CPT/HCPCS: 51701; 70450; 70496; 70498; 70551; 71045; 71046; 71260; 72125; 74177; 76700; 80048; 80053; 80061; 80156; 80164; 81003; 82533; 82805; 83036; 83605; 84145; 84443; 84484; 85025; 85027; 87040; 87502; 87811; 92526; 92610; 93005; 93306; 93880; 93922; 93925; 94640; 96360; 96361; 97167; 97530; 97535; 99285; Q9967

== ENCOUNTER 2024-06-23 06:02 | Inpatient (IN) | payer MEDICARE, OTHER, SELFPAY ==
[2024-06-18 09:36] VITALS: BMI 23.4
[2024-06-18 10:14] LABS: % Basophils 0.6 % (0-2); % Eosinophils 2.8 % (0-6); % Immature Granulocytes 0.3 % (0-0.5); % Lymphocytes 28.7 % (20.5-51.1); % Monocytes 17.1 % (1.7-9.3); % Neutrophils 50.5 % (42.2-75.2); Absolute Eosinophils 0.2 10^3/uL (0-0.7); Absolute Monocytes 1.2 10^3/uL (0.1-0.6); Absolute Neutrophils 3.6 10^3/uL (1.4-6.5); Hematocrit 37.5 % (37.0-47.0); Hemoglobin 12.6 g/dL (12.0-16.0); Mean Corp Hgb Conc. 33.6 g/dL (33.0-37.0); Mean Corpuscular Hgb 35.3 pg (27.0-31.0); Mean Platelet Volume 10.2 fL (7.4-10.4); Nucleated Red Blood Cells % 0 %; Platelet Count 180 10^3/uL (130-400); Red Blood Cell Count 3.57 10^6/uL (4.20-5.40); Red Cell Dist. Width 12.5 % (11.5-14.5); White Blood Cell Count 7.1 10^3/uL (4.8-10.8)
[2024-06-18 10:24] LABS: Blood Urea Nitrogen 19 mg/dl (7-17); Calcium 9.1 mg/dl (8.4-10.2); Carbon Dioxide 28 mmol/L (22-30); Chloride 105 mmol/L (98-107); Estimated Creatinine Clearance 39 ml/min; Glucose 95 mg/dl (70-99); Potassium 4.9 mmol/L (3.5-5.1); Sodium 139 mmol/L (135-145); eGFR > 60.00
[2024-06-18 10:25] LABS: APTT 27.4 Sec (23.4-35.0); INR 0.93; PT 12.8 Sec (11.4-14.6)
[2024-06-23] VITALS (15 sets, daily range): BP systolic 87–190; BP diastolic 24–168; BMI 23.4; BMI 24.1
[2024-06-23] MEDS: BACTROBAN NASAL 1 GRAM NASAL (06:57)
[2024-06-23] MEDS: PERIDEX 0.12% ORAL RINSE 15 ML PO (06:57)
[2024-06-23] MEDS: NSS 500 IV (06:58)
--- NOTE | 2024-06-23 07:09 | W.SUR.PREOP ---
Pre-Operative Surgical Note
-
I have examined this patient prior to the performance of the scheduled procedure.
The patient's condition is unchanged from the time of the current History and
Physical and the patient is able to undergo the scheduled procedure.
[2024-06-23 10:51] LABS: ACT-LR - POC 279 Seconds (116-155)
--- NOTE | 2024-06-23 11:40 | CON.INTV ---
Consultation
Consultation Request
Date/Time Consultation Requested: 06/23/2024 - 110
Date/Time Consultation Performed: 06/23/2024 - 153
Requesting Provider: CARLTON Thompson
Performing Provider: Dr. Cunha
Reason for Consultation: s/p left carotid subclavian bypass with left TCAR + left subclavian stent
Medical History
-
Chief Complaint: Elective left TCAR with left subclavian angioplasty + stent and bypass
History of Present Illness:
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
left knee OA, glaucoma and hearing loss who presents with left-sided vascular intervention of her carotid artery and left subclavian artery. Patient has a history of bilateral carotid artery stenosis and follows with Dr. Urbano in the office with last
visit on 06/01/2024. Patient's recent CTA head/neck from 04/21/2024 shows >70% distal right common carotid artery, proximal right internal carotid artery and mid left internal carotid artery stenosis which has progressed on the left compared to prior
imaging in 2017. 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 She also has subclavian artery occlusive disease on the left. Vascular surgery recommended an intervention with revascularization. The risks and
benefits of this procedure were discussed and today she underwent left common carotid artery to subclavian artery bypass with 8 mm Drummond Propaten graft, left carotid angioplasty followed by TCAR with stent and left distal subclavian artery
angioplasty and stenting. There were no immediate complications with an EBL of 300 cc, and the patient was transferred to the ICU postoperatively for further care. [employer] Equipment Repairer services were consulted for additional management/recommendations.
Patient arrived to the ICU at 1530 on 06/23/2024. When I saw the patient, she was resting in bed, currently on Miguel Angel-Synephrine at 40mcg/min, with unequal blood pressures on the left and the right upper extremity. A-line present in the left upper
extremity showed BP of 141/55, whereas NIBP on the RUE showed BP of 55/46. She saturating 95% on 2 L/min. Heart rate 78. She is lethargic, likely from recent anesthesia. She does easily awaken but then falls back asleep. She is in no acute
distress.
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
osteoarthritis, glaucoma, hearing loss
PSHx: ORIF left femur secondary to fracture, ORIF of left wrist, cataract extraction
Past Medical History
Past Medical History: Other (Above as per HPI)
Past Surgical History: Other (Above as per HPI)
Social History
Tobacco: Former Smoker (22-wuye-tgox history, quit in her early 50s)
Alcohol: None
Drug: None
Family History
Family History: CAD (Father: History of DE)
Allergies / Home Medications
Allergies
Allergy/AdvReac Type Severity Reaction Status Date / Time
No Known Allergies Allergy Verified 06/23/24 07:17
Home Medications
�Medication �Instructions �Recorded �Confirmed �Last Taken �Type
carbamazepine 200 mg tablet 200 mg PO TID Seizures 01/09/17 06/23/24 06/22/24 18:00 History
levothyroxine 100 mcg tablet 100 mcg PO DAILY AT 0700 Thyroid 01/09/17 06/23/24 06/23/24 05:00 History
atorvastatin 40 mg tablet 40 mg PO HS High Cholesterol 05/29/23 06/23/24 06/22/24 20:00 History
brimonidine 0.2 %-timolol 0.5 % 1 drp LEFT EYE BID Eye Condition 05/29/23 06/23/24 06/22/24 17:00 History
eye drops (Combigan)
brinzolamide 1 % eye 1 drp LEFT EYE BID Eye Condition 05/29/23 06/23/24 06/22/24 18:00 History
drops,suspension
divalproex 250 mg tablet,delayed 250 mg PO DAILY Seizures 05/29/23 06/23/24 06/22/24 08:00 History
release
donepezil 10 mg tablet 10 mg PO HS memory/dementia 05/29/23 06/23/24 06/22/24 19:00 History
latanoprost 0.005 % eye drops 1 drp BOTH EYES HS Eye Condition 05/29/23 06/23/24 06/22/24 08:00 History
trazodone 50 mg tablet 50 mg PO HS sleep 05/29/23 06/23/24 06/22/24 19:00 History
albuterol sulfate 90 mcg/actuation 2 puff inhalation R Q6HPRN PRN SOB 04/14/24 06/23/24 06/22/24 18:00 History
aerosol inhaler
famotidine 20 mg tablet 20 mg PO BID Gastrointestinal Issue 04/14/24 06/23/24 06/22/24 19:00 History
umeclidinium 62.5 mcg-vilanterol 1 inh inhalation R DAILY 04/14/24 06/23/24 06/22/24 10:00 History
25 mcg/actuation powdr for Lung/Breathing Issues
inhalation (Anoro Ellipta)
divalproex 250 mg tablet,delayed 500 mg PO QPM Seizures 04/15/24 06/23/24 06/22/24 18:00 History
release
revefenacin 175 mcg/3 mL solution 175 mcg inhalation R DAILYPRN PRN 04/15/24 06/23/24 06/22/24 08:00 History
for nebulization (Yupelri) only if cannot inhale anoro
aspirin 81 mg chewable tablet 81 mg PO DAILY #0 tabs 04/22/24 06/23/24 06/23/24 05:00 Rx
midodrine 5 mg tablet 5 mg PO TID@0800,1300,1800 #90 tabs 04/22/24 06/23/24 Unknown Rx
formoterol with nebulizer 20 mcg/2 2 ml inhalation PRN PRN If caoon 05/24/24 06/23/24 06/22/24 16:00 History
mL solution for nebulization take Anoro
multivitamin 1 tab PO DAILY 05/24/24 06/23/24 06/22/24 07:00 History
clopidogrel 75 mg tablet 75 mg PO DAILY 06/23/24 06/23/24 06/23/24 05:00 History
Review of Systems
-
Unable to Obtain full review of systems at this time due to: Dementia and Acuity
Vitals / Labs / Diagnostic Testing
Vital Signs
Temp Pulse Resp BP Pulse Ox
96.1 F L 72 20 139/52 100
06/23/24 16:03 06/23/24 15:15 06/23/24 15:15 06/23/24 15:15 06/23/24 15:00
Diagnostic Testing:
Physical Exam
-
HEENT: Normocephalic and Anicteric
Cardiovascular: S1/S2 and Peripheral Edema (negative)
Respiratory: Clear, Wheeze (negative), Rales (negative), Rhonchi (negative) and Non-Labored Respirations
GI: Soft, Non Distended, Non Tender and Normal Bowel Sounds
Neurology: Tremors (negative), Other (Pupils: 3 mm on the right, 4 mm on the left and brisk bilaterally) and Other (Lethargic although easily arousable but then quickly falls back asleep)
Skin: Warm and Dry
General: Respiratory Distress (negative), Comfortable, Chills (negative) and Sweats (negative)
Assessment
-
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
dementia, left knee OA, glaucoma and hearing loss who presents with left-sided vascular intervention of her carotid artery and left subclavian artery. Patient has a history of bilateral carotid artery stenosis and follows with Dr. Urbano in the office
with last visit on 06/01/2024. Patient's recent CTA head/neck from 04/21/2024 shows >70% distal right common carotid artery, proximal right internal carotid artery and mid left internal carotid artery stenosis which has progressed on the left compared
to prior imaging in 2017. 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 She also has subclavian artery occlusive disease on the left. Vascular surgery recommended an intervention with revascularization. The risks
and benefits of this procedure were discussed and on 06/23/2024, she underwent left common carotid artery to subclavian artery bypass with 8 mm Drummond Propaten graft, left carotid angioplasty followed by TCAR with stent and left distal subclavian
artery angioplasty and stenting. There were no immediate complications with an EBL of 300 cc, and the patient was transferred to the ICU postoperatively for further care. Demand Equipment Repairer services were consulted for additional
management/recommendations.
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
fractures, left knee osteoarthritis, glaucoma, hearing loss
Impression:
#Left carotid artery bifurcation stenosis with left subclavian stenosis with history of left hemispheric stroke s/p left carotid subclavian bypass with ringed Propaten graft, left TCAR + left subclavian stent placement with EEG monitoring (POD #0)
#Acute anemia due to above
#Acute thrombocytopenia due to above
#Metabolic acidosis with preserved anion gap
#Hyperglycemia likely due to acute stress due to operation
#Hypocalcemia
#History of left MCA infarction
#History of vascular dementia
#Chronic HFpEF
#Hypothyroidism
#Chronic HOPSON with suspected COPD on Anoro (Dr. Cunha previously tried to switch her to Perforomist + Oksana as an outpatient)
Plan:
Postoperative surgical intensive care unit monitoring
Supplemental oxygen as needed to maintain SpO2 >88%
While hospitalized, continuous with Spiriva respimat and add on Striverdi
prn nebulized bronchodilators � not currently bronchospastic
Incentive spirometry encouraged 10x per hour for at least 4 hrs a day
Aspiration precautions
Pain control
Neuro and vascular checks per protocol
Maintain MAP>65
Replete electrolytes with K>4, Mg>2
Maintain euglycemia with goal BG 140-180
Trend serum bicarbonate level with goal >18
Trend serum calcium level and replete as needed
Vascular surgery following-correspondence and operative notes reviewed
Transfuse blood products as needed to keep Hb>7g/dL, and plt>50k (given post-operative status)
DVT prophylaxis - HSQ
Early nutrition
Early mobilization
Critical care statement: A total of 44 minutes of critical care time was provided for this patient today. This includes management of unstable vital signs, evaluation of the patient at bedside, reviewing the patient's pertinent medical records
including radiographs, microbiology, laboratory evaluations, and discussion with primary team, consultants, pharmacy, nutrition, physical therapy, case management, charge nurse, critical care nursing, and respiratory therapy.
--- NOTE | 2024-06-23 13:00 | W.SUR.POST ---
Surgical Immediate Post Op
Note
Pre Op Diagnosis: Carotid stenosis, subclavian stenosis
Post Op Diagnosis: same
Procedure Performed: Left carotid subclavian bypass with ringed Propaten graft, left TCAR and left subclavian stent placement with EEG monitoring
Primary Surgeon: Sundeep
Assist: Ryan VINCENT
Anesthesia: General
Estimated Blood Loss: 300cc
Fluids: See anesthesia flow sheet
Drains/Shunts: None
Specimens/Cultures: None
Doppler/Duplex/Angio (Y/N): Y
Complications: none
Operative Findings: Woke from anesthesia following commands
[2024-06-23 13:25] LABS: Blood Urea Nitrogen 20 mg/dl (7-17); Calcium 6.7 mg/dl (8.4-10.2); Carbon Dioxide 16 mmol/L (22-30); Chloride 110 mmol/L (98-107); Estimated Creatinine Clearance 44 ml/min; Glucose 220 mg/dl (70-99); Potassium 4.4 mmol/L (3.5-5.1); Sodium 135 mmol/L (135-145); eGFR > 60.00
[2024-06-23] MEDS: NEO-SYNEPHRINE 250 IV (13:27)
[2024-06-23 13:48] LABS: Hematocrit 28.8 % (37.0-47.0); Hemoglobin 9.9 g/dL (12.0-16.0); Mean Corp Hgb Conc. 34.4 g/dL (33.0-37.0); Mean Corpuscular Hgb 34.1 pg (27.0-31.0); Mean Corpuscular Volume 99.3 fL (81.0-99.0); Red Cell Dist. Width 15.4 % (11.5-14.5); White Blood Cell Count 13.5 10^3/uL (4.8-10.8)
[2024-06-23 14:47] LABS: Mean Platelet Volume 10.2 fL (7.4-10.4); Platelet Count 101 10^3/uL (130-400)
--- NOTE | 2024-06-23 14:49 | SUR.PHASEI ---
Received pt from OR unresponsive and tongue deviated to left. Dr Urbano in to evaluate. Pt also had unequal pupils and Estefanía in to evaluate and Ct of head ordered. Pt had right sided weakness pre-op as reported by OR staff/ Anesthesia. Pt's speak
not clear pre-op. When pt more awake pt able to follow simple commands and able to squeeze left hand. Pt also able to wiggle b/l toes. Left le stronger than right. Pt not following commands to smile but tongue midline.
--- NOTE | 2024-06-23 16:15 | PTCARENOTE ---
Arrived to Rm [id number] via bed from PACU at 1530. Pt drowsy but arousable to loud verbal stimuli (pt Hx [place] [employer] and no hearing aides w/ pt). Oriented to name/place. Speech slurred and difficult to understand at times. Follows commands appropriately. Moves
all four extremities equally. Smile symmetrical, tongue midline. Pupils unequal in size (Rt= 3mm, Lt=4mm) but reactive to light. Pt received w/ Lt radial Jessie in place- transduced, leveled and zero-balanced. Neosynephrine gtt infusing at 20mcg/min
at time of arrival. Will titrate per ordered parameters. NS started infusing at ordered 80ml/hr. Thermistor Calero patent and draining clear yellow urine. Pt's core Temp= 95.9F on arrival. Dusty Hugger placed on pt. Pt received on simple O2 mask
6l/min- Pox 100%- pt placed on O2 at 2l/min via NC w/ POx 97-98%. Gauze dressing to Lt neck w/ ecchymosis noted - site soft to palpation. Ice pack to site per order. Rt groin dressing d/i. Bilateral DP/PT pulses weak by doppler. Generalized
ecchymosis noted to bilateral upper extremities at time of arrival. Hygiene and comfort care provided. Oral care completed. Pt too lethargic at this time to take PO- will continue to monitor. Pt's daughter in room to see pt- updated on pt's present
condition and plan of care. Dtr going home for evening- provided w/ phone number to ICU nurses station. Call regis w/in pt reach and safe environment maintained.
[2024-06-23] MEDS: NSS 1000 IV (16:18)
--- NOTE | 2024-06-23 16:45 | OR.RPT ---
Operative Report
Operative Report
PROCEDURE DATE: 06/23/2024
Preoperative diagnosis:
1. Severe left carotid bifurcation stenosis.
2. 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
3. Significant history of prior left hemispheric chronic stroke.
Postoperative diagnosis: Same
Procedure:
1. Left common carotid artery to subclavian artery bypass with 8 mm [place] Propaten graft.
2. Transcarotid left carotid artery revascularization with stent (TCAR) with Enroute 9 mm x 40 mm self-expanding stent, and utilizing Enroute MEDICAL ASSISTANT FLOAT flow reversal intraprocedural neuroprotection. Left carotid angioplasty prior to stent placement
with 6 mm x 3 cm angioplasty balloon.
3. Left distal subclavian artery angioplasty and stent with overlapping 8 mm Mobil[employer] Zilver PTX stents.
4. Intraoperative EEG/SSEP monitoring.
5. Supervision and interpretation.
Surgeon: Sundeep
Aquatics Director: ZECHARIAH Davis, required for all aspects of the procedure described below including traction/countertraction, following of suture line, assistance with closure, assistance with wire manipulation and tracking of catheters and balloon/stents.
Complications: None
Anesthesia: General
Indications for procedure:
Patient with history of significant left hemispheric stroke. Recent additional TIA type event. Severe atherosclerotic arch vessel and carotid bifurcation disease bilaterally. Given all of this we had an extensive discussion, and felt she may have
been symptomatic to the left carotid bifurcation stenosis. Therefore discussed risk/benefit/alternatives of TCAR. In addition given the fact that we were cutting down to the carotid artery to perform TCAR, given unreliable blood pressure
measurements due to bilateral arch atherosclerotic disease, and given that her left vertebral artery is dominant and had occlusive disease proximal to the vertebral artery in the subclavian artery, we felt that performing concomitant carotid to
subclavian artery bypass may be of benefit. Risk/benefits/alternatives of all of this extensively discussed. Patient understood all wished to proceed.
Description of procedure:
Patient was identified brought to the operating room placed on the table in supine position. After the adequate administration of anesthesia she was prepped and draped in the standard surgical fashion. A standard preoperative timeout was
undertaken and everybody was in agreement the plan. A transverse incision was made in the left neck about 1 fingerbreadth superior to the clavicle extending from the clavicular head of the sternocleidomastoid muscle out about 6 cm. This was
carried through skin subcutaneous tissue and with the electrocautery through the platysma muscle layer. Subplatysmal flaps were raised and self-retaining retractors were placed. The clavicular head of the sternocleidomastoid muscle was then
divided with the electrocautery. I then identified the scalene fat pad and the internal jugular vein. I dissected the scalene fat pad next extending medially from the internal jugular vein and dissecting it out laterally. Any lymphatic structures
were ligated between silk ties and divided. The thoracic duct and an additional lymphatic structure were clearly identified and ligated between silk ties and then divided. Once the fat pad was successfully retracted, identified the anterior
scalene muscle as well as the phrenic nerve. Without actual grasping of the nerve, the phrenic nerve was carefully circumferentially dissected (gently grasping the tissues around the nerve). A vessel loop was passed around it to allow gentle
manipulation. With careful retraction of the nerve medially, the anterior scalene was divided sharply and completely. Now deep to the scalene muscle, the subclavian artery was palpated. I then carefully circumferentially dissected it proximally
and passed a vessel loop around it taking great care to avoid any injury to surrounding structures. I then noted a mid subclavian artery branch which I passed a vessel loop around as well and then dissected just distal to here and passed a vessel
loop around distally. Now I had proximal and distal control in the subclavian artery.
At this point, I turned my attention to the jugular vein. I dissected just posterior to the jugular vein. And I identified the common carotid artery. Identified the vagus nerve coursing anteriorly on the common carotid artery and great care was
taken avoid any injury to this nerve. I carefully dissected a suitable portion of the common carotid artery and passed a vessel loop around approximately distally. Now that I had proximal and distal exposure for the bypass, I gave the patient 6000
units of intravenous heparin. I now clamped to the common carotid artery distally and then clamped the proximal common carotid artery. There is no EEG or SSEP changes. Of note we had driven the blood pressure up a little prior. I now made an
arteriotomy on the lateral wall of the artery with an 11 blade and extended using a Lara scissor. I then brought onto the field and 8 mm Vulcan Propaten graft which I beveled and fashioned an anastomosis in an end-to-side fashion to the sidewall of
the common carotid artery using a running Vulcan CV 6 suture. I completed and tied down the suture line. I then backbled each branch of the carotid through the graft. I then clamped the graft and released flow in the douglas carotid system. (I had
flushed heparinized saline through prior). There was good pulsatile flow in the common carotid artery. There had not been any EEG or SSEP changes. A couple of Vulcan CV 6 sutures in a [id number] fashion were placed along the suture line for
full hemostasis.
At this point, the graft was laid anterior to the phrenic nerve and brought over to the subclavian artery. (Of note the graft was posterior to the vagus nerve given the anterior location of the vagus nerve). At this point I clamped the proximal
subclavian artery and clamped distally as well. When I placed my distal clamp and noted that there was actually recurrent plaque rather hard and in the distal subclavian artery were clamped. The site I had exposed was very soft. I reviewed the
scan again and when I shadow it out some of the venous filling (on the scan the contrast had been administered through the left-sided venous system) I could see that there actually was a moderate stenosis in the subclavian artery just distal to
where it exposed. Therefore, at this point I elected to proceed with the bypass for now and then would address that distal area if needed. I therefore then made an arteriotomy on the subclavian artery with an 11 blade and extended using a Lara
scissor. I then beveled the graft and sewed an end-to-side anastomosis with a running Vulcan CV 6 suture. Prior to completing and tying down my suture line I backbled the douglas artery and flushed out the graft. I then completed and tied in my
suture line. There were a couple bleeding points that had to be repaired with [id number] Vulcan CV 6 sutures. Hemostasis was then noted except for some needle hole bleeding. There was an excellent pulse in the bypass graft. However when I
listen with a Doppler distal to the bypass graft there was an excellent Doppler signal, but when I compressed the graft it did not significantly dissipate. This suggested that that stenosis distal to the anastomosis was significant. Therefore I
felt that I would likely place a stent today. However, at this point I decided to focus on the TCAR.
Therefore, at this point the right common femoral vein was punctured with a micropuncture kit under direct duplex ultrasound guidance. An 8 [place] venous sheath was placed over 0.035 inch wire into the vein. The sheath was flushed.
Next, the carotid to subclavian artery bypass graft was punctured (towards the carotid anastomosis) with a micropuncture needle (premarked) to only 1 cm and a premarked 0.018 inch wire was inserted and then the needle was exchanged out for a
premarked micropuncture sheath and advanced to 3 cm nicholas. The dilator and wire were then removed. Left anterior oblique angiogram was performed. This delineated the carotid bifurcation. It confirmed the severe stenosis in the carotid
bulb/proximal internal carotid artery. The carotid bifurcation was marked on the screen, At this point, I then advanced a 0.035 inch wire with a J curve at the tip, and this was stopped just short of the heavy plaque at the carotid bulb. I then
exchanged for an [address] [place] [address] [place] [address] sheath, which was advanced to the footplate under fluoroscopy into the bypass graft. Once advanced to the footplate, the introducer and wire were removed. And the sheath was secured to the skin with
silk suture. The sheath was burped back and also flushed carefully. Next repeat imaging was undertaken confirming the best angulation of the gantry for imaging. At this point, the angioplasty balloon and stent were prepared. We pause to confirm
the plan regarding balloon/stent, and confirmed adequate ACT over 250. Next, I connected the arterial sheath to the venous sheath with the filter section. As such passive flow reversal was initiated. There were no evidence of any EEG or SSEP
changes. We flushed the venous sheath to confirm adequate passive flow reversal.
At this point given that we were otherwise ready, I tightened my double looped vessel loop on the common carotid artery (proximal to the bypass graft) and clamped they bypass graft on the subclavian artery, thereby initiating active flow reversal.
(Prior of note I confirmed optimization of blood pressure with anesthesiology colleagues, and glycopyrrolate had also been given). There was no EEG or SSEP changes. I now used a precurved 0.014 inch wire and roadmap assisted fluoroscopy guidance
to cannulate the internal carotid artery carefully. I was able to gain access into the distal cervical/proximal intracranial internal carotid artery. Next I used a balloon which was a 6 mm x 30 mm standard angioplasty balloon. I then
pre-angioplastied the stenosis. I then quickly exchanged out my balloon catheter for the stent (9mm x 40mm tapered Enroute stent). The stent was positioned under roadmap guidance. When I was happy with the positioning I then unsheathed in the
standard fashion. The stent delivery device was then removed. Completion angiography was undertaken after 1 to 2 minutes of waiting after deployment of the stent for the flow reversal to take effect. Completion angiogram demonstrated excellent
result and it was done in 2 obliquities to confirm. No residual stenosis was noted. Good intracranial filling was noted. At this point I was very satisfied. The 0.014 inch wire was then removed from the internal carotid artery. Next, the common
carotid artery was unclamped/vessel loop released. Finally I disconnected the flow reversal circuit.
At this point, I cut the sutures holding the sheath in place, and then I was able to actually pull the sheath back and reverse it so that it was now facing the subclavian artery anastomosis in the bypass graft. I now obtained subclavian artery
angiography identifying the area of stenosis and heavy plaque. I now used a flopping of hydrophilic wire and a glide catheter to traverse that area. Angiogram confirmed I was in the true lumen once I passed my catheter beyond that. I then
exchanged for a BioDtech wire. I now used a BioCatchlver 8 mm x 4 cm self-expanding stent. However I was careful to avoid getting too proximal, and the stent slightly lurched forward. I post angioplastied this with a 7 mm balloon. Completion
angiogram demonstrated good result but the edge of the stent was right at the edge of the stenosis. I felt that I needed to get slightly more proximally about 3 mm or so. Therefore I then used a second 8 mm stent (we only had an 8 mm x 6 cm
stent). I then overlapped that proximal enough such that it encompassed the entirety of the stenotic lesion. I was happy with its deployment and then postangioplasty with an 8 mm angioplasty balloon. Completion angiogram now demonstrated
excellent result. Of note there was excellent filling of the vertebral artery through all these angiographies. At this point I was very satisfied. I then withdrew wires and catheters. I then withdrew the sheath while clamping the bypass graft
proximally and distally. I then repaired the sheath entry site with interrupted [id number]-[id number] Vulcan CV 6 sutures. Clamps were removed and hemostasis was noted. Now there is an excellent pulse in the graft. There is an excellent Doppler signal
in the subclavian artery beyond the graft which was indeed graft augmented. At this point I was very satisfied. We now gave protamine to reverse the heparin and meticulously achieved full hemostasis. We irrigated copiously. Next we
reapproximated the scalene fat pad with 2-0 Vicryl suture. We attempted to reconnect the ends of the sternocleidomastoid (clavicular head) with interrupted 2-0 Vicryl suture. Finally we ran deep dermal running 3-0 Vicryl platysma layer followed by
4-0 Monocryl running subcuticular stitch. Dermabond was applied. The patient tolerated procedure well. She woke up at her neurologic baseline. She had a good brachial and radial pulse upon completion of the left upper extremity.
--- NOTE | 2024-06-23 17:50 | PTCARENOTE ---
Pt continues to rest quietly- denies c/o pain when questioned. Remains lethargic but arousable to loud name and follows commands appropriately. Dusty Hugger remains in use. Bilateral DP/PT pulses more pronounced by doppler as pt's core temp is
increasing. No changes in Lt neck incision/dressing or Rt groin dressing. Dr Cunha in room to see pt- aware of difference in pupil size.
[2024-06-23] MEDS: TEGRETOL PO (17:57)
--- NOTE | 2024-06-23 18:04 | PTCARENOTE ---
Pt's U/O 20ml/hr for last 3hrs. TT to Geovani VINCENT to make her aware.
[2024-06-23 18:49] LABS: Blood Urea Nitrogen 18 mg/dl (7-17); Calcium 8.5 mg/dl (8.4-10.2); Carbon Dioxide 20 mmol/L (22-30); Chloride 112 mmol/L (98-107); Estimated Creatinine Clearance 44 ml/min; Glucose 136 mg/dl (70-99); Sodium 136 mmol/L (135-145); eGFR > 60.00
[2024-06-23 18:56] LABS: Hematocrit 29.5 % (37.0-47.0); Hemoglobin 10.3 g/dL (12.0-16.0); Mean Corp Hgb Conc. 34.9 g/dL (33.0-37.0); Mean Corpuscular Hgb 33.9 pg (27.0-31.0); Mean Platelet Volume 10.1 fL (7.4-10.4); Platelet Count 132 10^3/uL (130-400); Red Blood Cell Count 3.04 10^6/uL (4.20-5.40); Red Cell Dist. Width 16.4 % (11.5-14.5); White Blood Cell Count 11.1 10^3/uL (4.8-10.8)
[2024-06-23] MEDS: HEPARIN 5000 UNITS SC (19:58)
[2024-06-23] MEDS: AZOPT 1% OPHTHALMIC SUSPENSION 1 DROP LEFT EYE (19:59)
[2024-06-23] MEDS: TIMOPTIC 0.5% OPHTHALMIC SOLUTION 1 DROP LEFT EYE (20:10)
[2024-06-23] MEDS: ProAmatine 5 MG PO (20:36)
[2024-06-23] MEDS: DEPAKOTE (12 HR RELEASE) 500 MG PO (20:37)
[2024-06-23] MEDS: ALPHAGAN 0.2% EYE DROPS 1 DROP LEFT EYE (20:38)
[2024-06-23] MEDS: XALATAN OPHTHALMIC SOLUTION 1 DROP BOTH EYES (21:59)
[2024-06-23] MEDS: LIPITOR 40 MG PO (21:59)
[2024-06-23] MEDS: TEGRETOL 200 MG PO (21:59)
[2024-06-23] MEDS: PEPCID 20 MG PO (21:59)
[2024-06-23] MEDS: ARICEPT 10 MG PO (21:59)
--- NOTE | 2024-06-23 22:33 | PTCARENOTE ---
Pt received drowsy but arousable. Hard of hearing. Speech slurred which is baseline per previous notes. tongue midline. Moves all extremities. Bilat pedal and post tib pulses obtainable by doppler. L radial pulse palpable. L radial mary lou intact
-zeroed per protocol. Non-invasive cuff pressure has not been compatible with a-line. Meds titrated per a-line readings. Pt able to sit up and take water and pills with applesauce. Assessment as charted.
[2024-06-24] VITALS (18 sets, daily range): BP systolic 55–144; BP diastolic 23–61; PULSE 74; O2SAT 99–100; BMI 24.3
[2024-06-24] MEDS: NSS 1000 IV ×2 (03:09→13:20)
[2024-06-24 04:59] LABS: Hematocrit 23.5 % (37.0-47.0); Hemoglobin 8.5 g/dL (12.0-16.0); Mean Corp Hgb Conc. 36.2 g/dL (33.0-37.0); Mean Corpuscular Hgb 35.6 pg (27.0-31.0); Mean Corpuscular Volume 98.3 fL (81.0-99.0); Platelet Count 124 10^3/uL (130-400); Red Blood Cell Count 2.39 10^6/uL (4.20-5.40); Red Cell Dist. Width 16.1 % (11.5-14.5); White Blood Cell Count 12.6 10^3/uL (4.8-10.8)
[2024-06-24 05:12] LABS: INR 1.11; PT 14.8 Sec (11.4-14.6)
[2024-06-24 05:22] LABS: Blood Urea Nitrogen 17 mg/dl (7-17); Calcium 7.8 mg/dl (8.4-10.2); Carbon Dioxide 20 mmol/L (22-30); Chloride 113 mmol/L (98-107); Estimated Creatinine Clearance 39 ml/min; Glucose 100 mg/dl (70-99); Potassium 4.5 mmol/L (3.5-5.1); Sodium 138 mmol/L (135-145); eGFR > 60.00
[2024-06-24] MEDS: SYNTHROID 100 MCG PO (05:55)
[2024-06-24] MEDS: SPIRIVA RESPIMAT 2.5 MCG 2 PUFF INH (07:31)
[2024-06-24] MEDS: STRIVERDI RESPIMAT 2 PUFF INH (07:31)
[2024-06-24] MEDS: ProAmatine 5 MG PO ×2 (07:54→12:30)
[2024-06-24] MEDS: HEPARIN 5000 UNITS SC ×2 (07:54→21:10)
[2024-06-24] MEDS: PLAVIX 75 MG PO (07:55)
[2024-06-24] MEDS: LOW STRENGTH ASPIRIN 81 MG PO (07:55)
[2024-06-24] MEDS: TEGRETOL 200 MG PO ×3 (07:55→21:12)
[2024-06-24] MEDS: THERAGRAN 1 TABLET PO (07:55)
[2024-06-24] MEDS: DEPAKOTE (12 HR RELEASE) 250 MG PO (07:56)
[2024-06-24] MEDS: ALPHAGAN 0.2% EYE DROPS 1 DROP LEFT EYE ×2 (07:57→21:09)
[2024-06-24] MEDS: TIMOPTIC 0.5% OPHTHALMIC SOLUTION 1 DROP LEFT EYE ×2 (07:57→21:07)
[2024-06-24] MEDS: AZOPT 1% OPHTHALMIC SUSPENSION 1 DROP LEFT EYE ×2 (07:57→21:06)
--- NOTE | 2024-06-24 08:13 | W.PN.VS ---
Addendum entered and electronically signed by Tito Urbano MD 06/24/24 14:55:
Seen and examined with ZECHARIAH Davis earlier this a.m. This is a late entry. Findings as noted below. Plan/as discussed and noted below.
Original Note:
Today's Communication / Plan
-
Seen and assessed with Dr. Urbano
Assessment/Plan
-
POD 1 Left common carotid artery to subclavian artery bypass with 8 mm [place] Propaten graft.
Transcarotid left carotid artery revascularization with stent (TCAR) with Enroute 9 mm x 40 mm self-expanding stent, and utilizing Enroute COMMERCIAL SALES CONSULTANT flow reversal intraprocedural neuroprotection. Left carotid angioplasty prior to stent placement with 6
mm x 3 cm angioplasty balloon.
Left distal subclavian artery angioplasty and stent with overlapping 8 mm BlogCNlver PTX stents.
Plan:
-Physical therapy/OT
-DC A-line/wean off caio as able
-Move BP cuff to left arm
-DC Calero
-Apply ice to left neck/chest as needed
-1 unit packed red blood cells
Subjective Data
-
Date of Service: June 24, 2024
Patient seen at bedside this a.m. with Dr. Urbano. Patient overnight this time. On caio drip overnight. No other events overnight.
Objective Data
-
Vital Signs
Temp Pulse Resp BP Pulse Ox
99.9 F 86 20 93/39 99
06/24/24 04:00 06/24/24 07:54 06/24/24 07:35 06/24/24 07:54 06/24/24 07:35
Intake and Output
06/23/24 06/24/24 06/25/24
06:59 06:59 06:59
Intake Total 2063 / 2063
Output Total 780 / 780
Balance 1284 / 1284
Intake:
Oral fluids 50 / 50
IV fluids (Total) 2013
NSS 1900 / 1900
Neosynephrine 114 / 114
Output:
Urine, Calero 780 / 780
Lab Results
06/24/24 04:23
06/24/24 04:22
Calcium 7.8 mg/dl (8.4-10.2) L 06/24/24 04:22
Physical Exam
-
Alert and awake
No tachypnea on 2 L nasal cannula
No tachycardia
Left neck/chest site ecchymotic, mild edema, no drainage noted, well-approximated
Left hand warm and pink
Follows commands
--- NOTE | 2024-06-24 08:17 | W.PN.INTV ---
Today's Communication / Plan
Recommendations
Up OOB as tolerated
Blood transfusion given this morning - continue to trend CBC (re-check CBC today after transfusion)
Keep MAP>65
Pain control
Aspiration precautions
Postoperative management as per vascular surgery
Maintain SpO2 >88%
Continue ICU level care until deemed stable for downgrade to telemetry per vascular surgery versus discharge home. Disposition deferred to vascular surgery. [facility] [employer] services will continue to follow along while she remains in the ICU. Once
she is downgraded or ready for discharge then we will sign off at that time.
Assessment
-
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
dementia, left knee OA, glaucoma and hearing loss who presents with left-sided vascular intervention of her carotid artery and left subclavian artery. Patient has a history of bilateral carotid artery stenosis and follows with Dr. Urbano in the office
with last visit on 06/01/2024. Patient's recent CTA head/neck from 04/21/2024 shows >70% distal right common carotid artery, proximal right internal carotid artery and mid left internal carotid artery stenosis which has progressed on the left compared
to prior imaging in 2017. 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 She also has subclavian artery occlusive disease on the left. Vascular surgery recommended an intervention with revascularization. The risks
and benefits of this procedure were discussed and on 06/23/2024, she underwent left common carotid artery to subclavian artery bypass with 8 mm [place] Propaten graft, left carotid angioplasty followed by TCAR with stent and left distal subclavian
artery angioplasty and stenting. There were no immediate complications with an EBL of 300 cc, and the patient was transferred to the ICU postoperatively for further care. [facility] [employer] services were consulted for additional
management/recommendations.
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
fractures, left knee osteoarthritis, glaucoma, hearing loss
Impression:
#Left carotid artery bifurcation stenosis with left subclavian stenosis with history of left hemispheric stroke s/p left carotid subclavian bypass with ringed Propaten graft, left TCAR + left subclavian stent placement with EEG monitoring (POD #1)
#Acute anemia due to above
#Acute thrombocytopenia due to above
#Metabolic acidosis with preserved anion gap
#Hyperglycemia likely due to acute stress due to operation - glucose now normalized
#Hypocalcemia
#History of left MCA infarction
#History of vascular dementia
#Chronic HFpEF
#Hypothyroidism
#Chronic HOPSON with suspected COPD on Anoro (Dr. Cunha previously tried to switch her to Perforomist + Yupelri as an outpatient)
Plan:
Postoperative surgical intensive care unit monitoring
Supplemental oxygen as needed to maintain SpO2 >88%
While hospitalized, continuous with Spiriva respimat and Striverdi
prn nebulized bronchodilators � not currently bronchospastic
Incentive spirometry encouraged 10x per hour for at least 4 hrs a day
Aspiration precautions
Pain control
Neuro and vascular checks per protocol
Maintain MAP>65
Replete electrolytes with K>4, Mg>2
Maintain euglycemia with goal BG 140-180
Trend serum bicarbonate level with goal >18
Trend serum calcium level and replete as needed
Vascular surgery following-correspondence and operative notes reviewed
Transfuse blood products as needed to keep Hb>7g/dL, and plt>50k (given post-operative status)
- Patient received 1 unit PRBC yesterday and another 1 this morning; continue to monitor with serial CBC
DVT prophylaxis - HSQ
Early nutrition
Early mobilization
Continue ICU level care until deemed stable for downgrade to telemetry per vascular surgery versus discharge home. Disposition deferred to vascular surgery. [facility] [employer] services will continue to follow along while she remains in the ICU. Once
she is downgraded or ready for discharge then we will sign off at that time.
Total time spent today was 56 minutes for this encounter. Time includes reviewing laboratory test/imaging results, reviewing pertinent medical records, obtaining and reviewing medical history, performing an appropriate exam, ordering medications,
tests and procedures. Time also includes documentation of this encounter, coordinating patient care and communicating with other healthcare professionals. Total time does not include separately billed tests performed on this date of service.
Subjective Dataa
Subjective Data
Date of Service:
Date of Service: June 24, 2024
Chief Complaint: [facility] [employer] Follow Up
Subjective:
Patient seen and evaluated this AM. Hb 8.5 this AM and she is getting 1 U PRBC this AM. Off Miguel Angel since this AM. She is more awake this AM - she even partially fed herself this AM. Heart rate 71, saturating 96% on 2 L/min nasal cannula and BP 95/35
via A line. She denies chest pain, SOB, nausea, fevers or chills.
Review of Systems
General: Other (Negative unless mentioned above)
Objective Data
Data Reviewed
Vital Signs / I&O / Oxygen:
Vital Signs
Temp Pulse Resp BP Pulse Ox
100.1 F 86 20 93/39 99
06/24/24 08:30 06/24/24 07:54 06/24/24 07:35 06/24/24 07:54 06/24/24 07:35
Intake and Output
06/23/24 06/24/24 06/25/24
06:59 06:59 06:59
Intake Total 2064 / 2150 246 / 246
Output Total 780 / 810 90 / 90
Balance 1284 / 1340 156 / 156
SaO2 99
Nasal Cannula flow liters per 2
minute
Physical Exam
General: Respiratory Distress (negative), Comfortable, Chills (negative) and Sweats (negative)
HEENT: Normocephalic and Anicteric
Cardiovascular: Peripheral Edema (negative)
Respiratory: Clear, Wheeze (negative), Crackles (negative), Rhonchi (negative) and Non-Labored Respirations
GI: Soft, Non Distended, Non Tender and Normal Bowel Sounds
Neurology: Tremors (negative) and Other (Sleeping in no acute distress, easily arousable and answering questions appropriately)
Skin: Warm, Dry, Cyanosis (negative) and Jaundice (negative)
Labs/Micro/Reports
Lab Data
06/24/24 04:23
06/24/24 04:22
Laboratory Results
06/24/24
04:22
PT 14.8 H
INR 1.11
APTT 30.0
[2024-06-24] MEDS: TYLENOL 650 MG PO (09:55)
--- NOTE | 2024-06-24 11:56 | PTCARENOTE ---
NIBP on L arm correlating w/ ABP. BP 101/56. Miguel Angel gtt has been off for 2.5hrs, BP remained wnl. A line dc'd at this time, Calero dc'd. Blood transfusing as ordered. Daughter at bedside. Updated and POC discussed.
--- NOTE | 2024-06-24 14:29 | PN.CDI ---
CDI
- -
CDI:
Physician Documentation Request
Admit Date: 06/23/24 06:02
Dear Estefanía VINCENT,
Patient admitted with left carotid stenosis and subclavian stenosis s/p left carotid subclavian bypass with ringed Propaten graft, left TCAR and left subclavian stent placement.
Patient received 2 unit packed red blood cells.
Hgb levels documented below:
Laboratory Tests
06/18/24 06/23/24 06/23/24
09:47 13:00 18:17
Hgb 12.6 9.9 L D 10.3 L
06/24/24
04:23
Hgb 8.5 L
Based on the above, please clarify, in your progress note, which of the following is the most likely diagnosis you are evaluating, monitoring and/or treating?
Acute blood loss anemia
Insignificant abnormal lab findings
Other
Use of terms such as suspected, likely, concern for, or probable (associated with a specific diagnosis that is being evaluated, monitored, or treated as if it exists) are acceptable and can be coded in the inpatient setting, when documented at the
time of discharge.
Thank you,
Mildred SIMMS,RN,CCDS
CDI Specialist
Available via [place] text
Please use your independent medical judgment in providing your response.
--- NOTE | 2024-06-24 14:39 | W.PN.UPDATE ---
Update Note
Progress Note Update
CDI:
Physician Documentation Request
Admit Date: 06/23/24 06:02
Patient admitted with left carotid stenosis and subclavian stenosis s/p left carotid subclavian bypass with ringed Propaten graft, left TCAR and left subclavian stent placement.
Patient received 2 unit packed red blood cells.
Hgb levels documented below:
Laboratory Tests
06/18/24 06/23/24 06/23/24
09:47 13:00 18:17
Hgb 12.6 9.9 L D 10.3 L
06/24/24
04:23
Hgb 8.5 L
Based on the above, please clarify, in your progress note, which of the following is the most likely diagnosis you are evaluating, monitoring and/or treating?
Acute blood loss anemia d/t surgical procedure, blood given, continuing to monitor, pt stable/
--- NOTE | 2024-06-24 16:32 | CM ---
chart reviewed.
IA completed
Spoke with daughter Negra & son in law Vinicius
Patient lives with daughter & LUISA in an apartment, no steps
Patient has private cg assistance 5 days/wk
PLOF: ambulates with walker
DME: walker
Has had [facility] in past, [facility] in past
PT rec SNF
Options reviewed with daughter/LUISA - prefer [facility] SNF - referral entered in [facility]
PCP: Kiana Dave
Pharmacy: [address], [place]
PLAN: SNF when medically stable, pending bed availability
[2024-06-24] MEDS: NSS 500 IV (17:13)
[2024-06-24] MEDS: ProAmatine PO (17:13)
[2024-06-24] MEDS: DEPAKOTE (12 HR RELEASE) 500 MG PO (17:13)
--- NOTE | 2024-06-24 18:19 | PTCARENOTE ---
Pt due to void, bladder scanned for only 71ml. Chelsie VINCENT notified. 500 ml NS bolus ordered. Will continue to monitor.
[2024-06-24 18:44] LABS: Hematocrit 30.5 % (37.0-47.0); Hemoglobin 10.4 g/dL (12.0-16.0); Mean Corp Hgb Conc. 34.1 g/dL (33.0-37.0); Mean Corpuscular Hgb 33.1 pg (27.0-31.0); Mean Corpuscular Volume 97.1 fL (81.0-99.0); Mean Platelet Volume 10.2 fL (7.4-10.4); Platelet Count 101 10^3/uL (130-400); Red Blood Cell Count 3.14 10^6/uL (4.20-5.40); Red Cell Dist. Width 17.1 % (11.5-14.5); White Blood Cell Count 12.3 10^3/uL (4.8-10.8)
--- NOTE | 2024-06-24 20:00 | PTCARENOTE ---
rec`d pt at 1900 sleeping in bed. arouses to verbal stimuli. drowsy. garbled speech at baseline. tongue midline. no facial droop. knows her name. left neck open to air, ecchymotic from previous shift. ice pack off and on for comfort. vascular
checks continued. hearing impaired at baseline. afebrile. SR on monitor. diminished lung sounds. RA. spot checked her with POX. takes pills in applesauce. bladder scanned. PIVS flushed and patent. call stacy in reach, safe environment maintained.
hearing aids in the manager roofing for the night.
[2024-06-24] MEDS: XALATAN OPHTHALMIC SOLUTION 1 DROP BOTH EYES (21:08)
[2024-06-24] MEDS: LIPITOR 40 MG PO (21:12)
[2024-06-24] MEDS: PEPCID 20 MG PO (21:12)
[2024-06-24] MEDS: ARICEPT 10 MG PO (21:12)
[2024-06-25] VITALS (18 sets, daily range): BP systolic 99–148; BP diastolic 46–82; BMI 24.6
--- NOTE | 2024-06-25 01:00 | PTCARENOTE ---
pt reassessed. denture care complete. +pulses via doppler. pt drowsy but AAO to self and place.
[2024-06-25 04:05] LABS: Hematocrit 25.5 % (37.0-47.0); Hemoglobin 8.7 g/dL (12.0-16.0); Mean Corp Hgb Conc. 34.1 g/dL (33.0-37.0); Mean Corpuscular Hgb 32.5 pg (27.0-31.0); Mean Corpuscular Volume 95.1 fL (81.0-99.0); Mean Platelet Volume 10.3 fL (7.4-10.4); Platelet Count 107 10^3/uL (130-400); Red Blood Cell Count 2.68 10^6/uL (4.20-5.40); White Blood Cell Count 11.5 10^3/uL (4.8-10.8)
[2024-06-25 04:31] LABS: Blood Urea Nitrogen 21 mg/dl (7-17); Calcium 7.5 mg/dl (8.4-10.2); Carbon Dioxide 18 mmol/L (22-30); Chloride 113 mmol/L (98-107); Estimated Creatinine Clearance 39 ml/min; Glucose 98 mg/dl (70-99); Potassium 3.9 mmol/L (3.5-5.1); Sodium 139 mmol/L (135-145); eGFR > 60.00
--- NOTE | 2024-06-25 04:40 | PTCARENOTE ---
no urine output. pt bladder scanned. i told pt to try and urinate. pt was able to urinate a moderate amount of urine in bed.
[2024-06-25] MEDS: SYNTHROID 100 MCG PO (06:14)
[2024-06-25] MEDS: SPIRIVA RESPIMAT 2.5 MCG 2 PUFF INH (07:39)
[2024-06-25] MEDS: STRIVERDI RESPIMAT 2 PUFF INH (07:39)
[2024-06-25] MEDS: AZOPT 1% OPHTHALMIC SUSPENSION 1 DROP LEFT EYE ×2 (07:45→20:28)
[2024-06-25] MEDS: ALPHAGAN 0.2% EYE DROPS 1 DROP LEFT EYE ×2 (07:45→20:27)
[2024-06-25] MEDS: THERAGRAN 1 TABLET PO (07:46)
[2024-06-25] MEDS: ProAmatine 5 MG PO ×3 (07:46→18:05)
[2024-06-25] MEDS: DEPAKOTE (12 HR RELEASE) 250 MG PO (07:46)
[2024-06-25] MEDS: LOW STRENGTH ASPIRIN 81 MG PO (07:46)
[2024-06-25] MEDS: TEGRETOL 200 MG PO ×3 (07:46→22:13)
[2024-06-25] MEDS: PLAVIX 75 MG PO (07:46)
[2024-06-25] MEDS: HEPARIN 5000 UNITS SC ×2 (07:46→20:28)
[2024-06-25] MEDS: TIMOPTIC 0.5% OPHTHALMIC SOLUTION 1 DROP LEFT EYE ×2 (07:50→20:28)
--- NOTE | 2024-06-25 08:16 | W.PN.VS ---
Addendum entered and electronically signed by Tito Urbano MD 06/25/24 08:53:
Seen and examined with ZECHARIAH Davis. Agree with findings as noted below. Patient much more awake and vibrant today. Left neck surgical site soft. No hematoma. Incision clean dry and intact. Ecchymosis unchanged. Neurologically stable. Moves all
extremities. Plan/as discussed and noted below. Repeat chest x-ray given slight hemoglobin drop to make sure no evidence of bleeding into chest. No obvious signs of bleeding. Likely dilutional. Remainder plan as noted below.
Original Note:
Today's Communication / Plan
-
Seen and assessed Dr. Urbano
Assessment/Plan
-
POD 2 Left common carotid artery to subclavian artery bypass with 8 mm [place] Propaten graft.
Transcarotid left carotid artery revascularization with stent (TCAR) with Enroute 9 mm x 40 mm self-expanding stent, and utilizing Enroute HAND CLOTH FOLDER flow reversal intraprocedural neuroprotection. Left carotid angioplasty prior to stent placement with 6
mm x 3 cm angioplasty balloon.
Left distal subclavian artery angioplasty and stent with overlapping 8 mm [place] Zilver PTX stents.
Plan:
-Out of bed/ambulate/PT/OT
-Chest x-ray this morning
-Hemoglobin recheck at 12
-Case management for SNF placement
Subjective Data
-
Date of Service: June 25, 2024
Patient seen at bedside exam with Dr. Urbano. Patient offers no complaints at this time. Patient noted to have increased strength to her right upper extremity. No events overnight.
Objective Data
-
Vital Signs
Temp Pulse Resp BP Pulse Ox
99.4 F 98 20 129/57 94
06/25/24 07:41 06/25/24 07:43 06/25/24 07:43 06/25/24 07:00 06/25/24 07:41
Intake and Output
06/24/24 06/25/24 06/26/24
06:59 06:59 06:59
Intake Total 2063 1616 / 1616
Output Total 780 / 810 120 / 120
Balance 1284 / 1340 1496 / 1496
Intake:
Oral fluids 50 / 50
IV fluids (Total) 2013 1066 / 1066
NSS 1899 1060 / 1060
Neosynephrine 114 / 120
Blood Products 300 / 300
Packed red blood cells 300 / 300
Blood Product Amount Infused ( 250 / 250
mL)
Packed Rbc Leukoreduced Unit 250 / 250
[id number]
Output:
Urine, Calero 780 / 810 120 / 120
Other:
How many times incontinent 1
MODERATE amount urine
Lab Results
06/25/24 03:38
06/25/24 03:38
Calcium 7.5 mg/dl (8.4-10.2) L 06/25/24 03:38
Physical Exam
-
Alert and awake
No tachypnea on room air
No tachycardia
Left neck/chest site ecchymotic, mild edema, no drainage noted, well-approximated
Left hand warm and pink
Follows commands
--- NOTE | 2024-06-25 08:22 | W.PN.INTV ---
Today's Communication / Plan
Recommendations
Up OOB as tolerated
Blood transfusion given yesterday morning - continue to trend CBC
Keep MAP>65
Pain control
Aspiration precautions
Postoperative management as per vascular surgery
Maintain SpO2 >88%
Patient is stable for downgrade out of ICU to telemetry as per vascular surgery. No additional recommendations at this time. Electrician Supervisor Airplane/Pulmonary service will now sign off. Please reconsult if there are any additional questions/concerns, or if
patient's respiratory status deteriorates.
Assessment
-
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
dementia, left knee OA, glaucoma and hearing loss who presents with left-sided vascular intervention of her carotid artery and left subclavian artery. Patient has a history of bilateral carotid artery stenosis and follows with Dr. Urbano in the office
with last visit on 06/01/2024. Patient's recent CTA head/neck from 04/21/2024 shows >70% distal right common carotid artery, proximal right internal carotid artery and mid left internal carotid artery stenosis which has progressed on the left compared
to prior imaging in 2017. 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 She also has subclavian artery occlusive disease on the left. Vascular surgery recommended an intervention with revascularization. The risks
and benefits of this procedure were discussed and on 06/23/2024, she underwent left common carotid artery to subclavian artery bypass with 8 mm [place] Propaten graft, left carotid angioplasty followed by TCAR with stent and left distal subclavian
artery angioplasty and stenting. There were no immediate complications with an EBL of 300 cc, and the patient was transferred to the ICU postoperatively for further care. Electrician Supervisor Airplane services were consulted for additional
management/recommendations.
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
fractures, left knee osteoarthritis, glaucoma, hearing loss
Impression:
#Left carotid artery bifurcation stenosis with left subclavian stenosis with history of left hemispheric stroke s/p left carotid subclavian bypass with ringed Propaten graft, left TCAR + left subclavian stent placement with EEG monitoring (POD #2)
#Acute anemia due to above
#Acute thrombocytopenia due to above
#Metabolic acidosis with preserved anion gap
#Hyperglycemia likely due to acute stress due to operation - glucose now normalized
#Hypocalcemia
#History of left MCA infarction
#History of vascular dementia
#Chronic HFpEF
#Hypothyroidism
#Chronic HOPSON with suspected COPD on Anoro (Dr. Cunha previously tried to switch her to Perforomist + Oksana as an outpatient)
Plan:
Postoperative surgical intensive care unit monitoring
Supplemental oxygen as needed to maintain SpO2 >88%
While hospitalized, continuous with Spiriva respimat and Striverdi --> resume Anoro on discharge
prn nebulized bronchodilators � not currently bronchospastic
Incentive spirometry encouraged 10x per hour for at least 4 hrs a day
Aspiration precautions
Pain control
Neuro and vascular checks per protocol
Maintain MAP>65
Replete electrolytes with K>4, Mg>2
Maintain euglycemia with goal BG 140-180
Trend serum bicarbonate level with goal >18
Trend serum calcium level and replete as needed
Vascular surgery following-correspondence and operative notes reviewed
Transfuse blood products as needed to keep Hb>7g/dL, and plt>50k (given post-operative status)
- Patient received 1 unit PRBC on 06/23 and another 1 unit on 06/24; continue to monitor with serial CBC
DVT prophylaxis - HSQ
Early nutrition
Early mobilization
Patient is stable for downgrade out of ICU to telemetry as per vascular surgery. No additional recommendations at this time. Electrician Supervisor Airplane/Pulmonary service will now sign off. Thank you for allowing us to be involved in the care of this patient.
Please reconsult if there are any additional questions/concerns, or if patient's respiratory status deteriorates.
Total time spent today was 38 minutes for this encounter. Time includes reviewing laboratory test/imaging results, reviewing pertinent medical records, obtaining and reviewing medical history, performing an appropriate exam, ordering medications,
tests and procedures. Time also includes documentation of this encounter, coordinating patient care and communicating with other healthcare professionals. Total time does not include separately billed tests performed on this date of service.
Subjective Dataa
Subjective Data
Date of Service:
Date of Service: June 25, 2024
Chief Complaint: Electrician Supervisor Airplane Follow Up
Subjective:
Pt seen and evaluated this AM. She is sitting in a chair no acute distress. Heart rate 70, BP 118/51 and on room air breathing comfortably. No acute events reported from overnight.
Review of Systems
General: Other (Negative unless mentioned above)
Objective Data
Data Reviewed
Vital Signs / I&O / Oxygen:
Vital Signs
Temp Pulse Resp BP Pulse Ox
99.4 F 75 19 107/50 94
06/25/24 07:41 06/25/24 09:00 06/25/24 09:00 06/25/24 09:00 06/25/24 08:22
Intake and Output
06/24/24 06/25/24 06/26/24
06:59 06:59 06:59
Intake Total 2064 / 2150 1616 / 1616
Output Total 780 / 810 120 / 120
Balance 1284 / 1340 1496 / 1496
SaO2 94
Nasal Cannula flow liters per 2
minute
Physical Exam
General: Respiratory Distress (negative), Comfortable, Chills (negative) and Sweats (negative)
HEENT: Normocephalic and Anicteric
Cardiovascular: Peripheral Edema (negative)
Respiratory: Clear, Wheeze (negative), Crackles (negative), Rhonchi (negative) and Non-Labored Respirations
GI: Soft, Non Distended, Non Tender and Normal Bowel Sounds
Neurology: Tremors (negative) and Other (Sleeping in no acute distress, easily arousable and answering questions appropriately)
Skin: Warm, Dry, Cyanosis (negative) and Jaundice (negative)
Labs/Micro/Reports
Lab Data
06/25/24 03:38
--- NOTE | 2024-06-25 08:28 | PTCARENOTE ---
Received pt @ change of shift; pt. drowsy, awakens to verbal stimuli, oriented x2; required reorientation to time; garbled speech denies pain. Neuro/neurovascular checks maintained per orders- see flow sheet. Vascular team to bedside, aware of
assessment. SR w BBB on monitor. SpO2 94% on RA. Auscultated dim breath sounds throughout. Hypoactive BS, abd soft/round. Tolerated pills whole in applesauce. Assisted w ordering breakfast. Assisted x2 w RW to BSC to void 250mL; PVR 239mL. S/P
BSC, assisted into chair, tolerating position. R groin dressing c/d/i. L subclavian surg site approx; ecchymotic. Chair alarm active. Pt. instructed on how to report care concerns and call stacy in reach.
--- NOTE | 2024-06-25 12:37 | CM ---
CM following re: discharge planning.
Reviewed pt's chart, met with pt.
According to pt will be ready for discharge tomorrow Friday06/26/24 and securing a bed at a SNF requested.
CM spoke to [facility] inventory control coordinator Awa Sharif and she confirmed that pt is accepted for admission to [facility] tomorrow Friday06/26/24.
CM spoke to pt's daughter Negra herrera she stated she works for [employer] and she is requested [facility]. CM explained admission criteria for acute level rehab and pt's daughter insisted to make a referral to [facility].
A referral to [facility] made.
IMM reviewed, placed on chart, pt has a copy.
D/C plan: Per daughter: Plan A: [facility] if pt is accepted
Plan B: [facility] SNF if [facility] denied.
CM will follow to assit pt with discharge to a preferred and accepted SNF.
[2024-06-25 12:53] LABS: Hematocrit 24.9 % (37.0-47.0); Hemoglobin 8.5 g/dL (12.0-16.0); Mean Corp Hgb Conc. 34.1 g/dL (33.0-37.0); Mean Corpuscular Hgb 32.7 pg (27.0-31.0); Mean Corpuscular Volume 95.8 fL (81.0-99.0); Platelet Count 97 10^3/uL (130-400); Red Cell Dist. Width 16.7 % (11.5-14.5); White Blood Cell Count 11.7 10^3/uL (4.8-10.8)
--- NOTE | 2024-06-25 13:35 | PTCARENOTE ---
No changes in assessment from previous. Vascular, Peter Nguyen, made aware of 1200 hgb results. Further orders received to downgrade to tele. Pt. remains OOB to chair; tolerating position. Pt.'s daughter updated on plan of care via phone. Chair
alarm remains active. Call stacy in reach.
[2024-06-25 13:39] LABS: Magnesium 1.9 mg/dl (1.6-2.3); Phosphorus 3.5 mg/dl (2.5-4.5)
--- NOTE | 2024-06-25 17:00 | PTCARENOTE ---
Report given to 2S RN and pt. transferred via bed on compliance monitor w belongings to rm 2110 @ 1650. Bedside hand off of neuro/neurovascular checks completed w on-coming RN; no changes from previous assessment. Pt. daughter, Negra, notified of
transfer. No further needs from this RN.
--- NOTE | 2024-06-25 17:40 | PTCARENOTE ---
pt received from ICU to room 2109 at 1650. pt transferred form bed to bed. handoff assessment completed with GRAZING EXAMINER. telemetry placed and reading SR 70's. bed alarm activated. pt oriented to new environment and plan of care. call stacy in
reach, bed locked and in lowest position. care ongoing.
[2024-06-25] MEDS: DEPAKOTE (12 HR RELEASE) 500 MG PO (18:05)
[2024-06-25] MEDS: XALATAN OPHTHALMIC SOLUTION 1 DROP BOTH EYES (22:12)
[2024-06-25] MEDS: PEPCID 20 MG PO (22:13)
[2024-06-25] MEDS: LIPITOR 40 MG PO (22:13)
[2024-06-25] MEDS: ARICEPT 10 MG PO (22:14)
[2024-06-26 03:23] VITALS: BP 139/51
[2024-06-26] MEDS: SYNTHROID 100 MCG PO (06:17)
[2024-06-26 07:13] VITALS: BP 131/51
[2024-06-26] MEDS: DEPAKOTE (12 HR RELEASE) 250 MG PO (08:47)
[2024-06-26] MEDS: HEPARIN 5000 UNITS SC ×2 (08:47→21:43)
[2024-06-26] MEDS: PLAVIX 75 MG PO (08:47)
[2024-06-26] MEDS: ProAmatine 5 MG PO ×3 (08:47→17:38)
[2024-06-26] MEDS: LOW STRENGTH ASPIRIN 81 MG PO (08:47)
[2024-06-26] MEDS: TEGRETOL 200 MG PO ×3 (08:47→21:43)
[2024-06-26 08:49] LABS: Hematocrit 26.1 % (37.0-47.0); Hemoglobin 9.2 g/dL (12.0-16.0); Mean Corp Hgb Conc. 35.2 g/dL (33.0-37.0); Mean Corpuscular Hgb 33.1 pg (27.0-31.0); Mean Corpuscular Volume 93.9 fL (81.0-99.0); Mean Platelet Volume 10.4 fL (7.4-10.4); Platelet Count 128 10^3/uL (130-400); Red Blood Cell Count 2.78 10^6/uL (4.20-5.40); White Blood Cell Count 8.2 10^3/uL (4.8-10.8)
[2024-06-26] MEDS: THERAGRAN 1 TABLET PO (08:50)
[2024-06-26] MEDS: STRIVERDI RESPIMAT 2 PUFF INH (08:52)
[2024-06-26] MEDS: ALPHAGAN 0.2% EYE DROPS 1 DROP LEFT EYE ×2 (08:52→19:42)
[2024-06-26] MEDS: SPIRIVA RESPIMAT 2.5 MCG 2 PUFF INH (08:52)
[2024-06-26] MEDS: TIMOPTIC 0.5% OPHTHALMIC SOLUTION 1 DROP LEFT EYE ×2 (08:53→19:42)
[2024-06-26] MEDS: AZOPT 1% OPHTHALMIC SUSPENSION 1 DROP LEFT EYE ×2 (08:53→19:42)
--- NOTE | 2024-06-26 09:37 | W.PN.VS ---
Addendum entered and electronically signed by Montana Calero III, MD 06/26/24 10:38:
This patient was seen and examined in collaboration with CARLTON Reina. I agree with the history and physical exam as well as the assessment and plan.
Signed:
Montana Calero III, MD
[facility] Vascular Surgery
[phone] ([phone])
Original Note:
Today's Communication / Plan
-
Patient seen and examined at bedside with Dr. Montana Calero III, below plan reviewed with attending.
Assessment/Plan
-
POD 3 Left common carotid artery to subclavian artery bypass with 8 mm [place] Propaten graft.
Transcarotid left carotid artery revascularization with stent (TCAR) with Enroute 9 mm x 40 mm self-expanding stent, and utilizing Enroute TIRE BUILDER flow reversal intraprocedural neuroprotection. Left carotid angioplasty prior to stent placement with 6
mm x 3 cm angioplasty balloon.
Left distal subclavian artery angioplasty and stent with overlapping 8 mm [place] Zilver PTX stents.
Plan:
-Out of bed/ambulate/PT/OT
-Repeat chest x-ray with 2 views given concern for possible small pleural effusion left side
-Hemoglobin stable
-Case management for SNF placement
-Continue DAPT of aspirin 81 mg p.o. daily and Plavix 75 mg p.o. daily
Subjective Data
-
Date of Service: June 26, 2024
Patient seen and examined at bedside, offers no complaints. Reports well-managed postoperative pain. Denies headache.
Objective Data
-
Vital Signs
Temp Pulse Resp BP Pulse Ox
97.7 F 75 18 131/51 99
06/26/24 07:13 06/26/24 08:58 06/26/24 08:58 06/26/24 07:13 06/26/24 08:58
Intake and Output
06/25/24 06/26/24 06/27/24
06:59 06:59 06:59
Intake Total 1616 / 1616 480 / 480
Output Total 120 / 120 550 / 550
Balance 1496 / 1496 -70 / -70
Intake:
Oral fluids 480 / 480
IV fluids (Total) 1066 / 1066
NSS 1060 / 1060
Neosynephrine 6 / 6
Blood Products 300 / 300
Packed red blood cells 300 / 300
Blood Product Amount Infused ( 250 / 250
mL)
Packed Rbc Leukoreduced Unit 250 / 250
[id number]
Output:
Urine, Calero 120 / 120
Urine, Voided 550 / 550
Other:
Number of approximated MODERATE 1
amounts of urine
How many times incontinent 1
MODERATE amount urine
Lab Results
06/26/24 08:30
Calcium Cancelled 06/26/24 08:30
Phosphorus 3.5 mg/dl (2.5-4.5) 06/25/24 03:38
Magnesium 1.9 mg/dl (1.6-2.3) 06/25/24 03:38
Physical Exam
-
Alert and awake
No tachypnea on room air
No tachycardia
Left neck/chest site ecchymotic, mild edema, no drainage noted, well-approximated
Left hand warm and pink
Follows commands
[2024-06-26 09:41] LABS: Blood Urea Nitrogen 19 mg/dl (7-17); Calcium 7.7 mg/dl (8.4-10.2); Carbon Dioxide 20 mmol/L (22-30); Chloride 112 mmol/L (98-107); Estimated Creatinine Clearance 39 ml/min; Glucose 119 mg/dl (70-99); Potassium 3.7 mmol/L (3.5-5.1); Sodium 138 mmol/L (135-145); eGFR > 60.00
[2024-06-26 11:30] VITALS: BP 134/55
[2024-06-26 15:30] VITALS: BP 123/80
[2024-06-26] MEDS: DEPAKOTE (12 HR RELEASE) 500 MG PO (17:38)
[2024-06-26 19:23] VITALS: BP 162/73
[2024-06-26] MEDS: DULCOLAX 10 MG RECTAL (19:42)
[2024-06-26] MEDS: ARICEPT 10 MG PO (21:42)
[2024-06-26] MEDS: TYLENOL 650 MG PO (21:42)
[2024-06-26] MEDS: XALATAN OPHTHALMIC SOLUTION 1 DROP BOTH EYES (21:43)
[2024-06-26] MEDS: LIPITOR 40 MG PO (21:43)
[2024-06-26] MEDS: PEPCID 20 MG PO (21:43)
[2024-06-26 23:20] VITALS: BP 166/64
[2024-06-27 00:15] VITALS: BP 162/60
[2024-06-27 03:42] VITALS: BP 147/54
[2024-06-27 05:35] LABS: Hematocrit 24.3 % (37.0-47.0); Hemoglobin 8.3 g/dL (12.0-16.0); Mean Corp Hgb Conc. 34.2 g/dL (33.0-37.0); Mean Corpuscular Hgb 32.8 pg (27.0-31.0); Mean Platelet Volume 10.6 fL (7.4-10.4); Platelet Count 137 10^3/uL (130-400); Red Blood Cell Count 2.53 10^6/uL (4.20-5.40); Red Cell Dist. Width 15.6 % (11.5-14.5)
[2024-06-27 05:56] LABS: Blood Urea Nitrogen 17 mg/dl (7-17); Calcium 7.7 mg/dl (8.4-10.2); Carbon Dioxide 22 mmol/L (22-30); Chloride 110 mmol/L (98-107); Estimated Creatinine Clearance 44 ml/min; Glucose 100 mg/dl (70-99); Potassium 4.1 mmol/L (3.5-5.1); Sodium 137 mmol/L (135-145); eGFR > 60.00
[2024-06-27] MEDS: SYNTHROID 100 MCG PO (06:23)
[2024-06-27 07:00] VITALS: BP 116/42
[2024-06-27] MEDS: STRIVERDI RESPIMAT 2 PUFF INH (08:00)
[2024-06-27] MEDS: SPIRIVA RESPIMAT 2.5 MCG 2 PUFF INH (08:00)
[2024-06-27] MEDS: HEPARIN 5000 UNITS SC ×2 (10:10→21:51)
[2024-06-27] MEDS: PLAVIX 75 MG PO (10:10)
[2024-06-27] MEDS: ProAmatine 5 MG PO ×2 (10:10→12:51)
[2024-06-27] MEDS: TEGRETOL 200 MG PO ×3 (10:10→22:02)
[2024-06-27] MEDS: DEPAKOTE (12 HR RELEASE) 250 MG PO (10:11)
[2024-06-27] MEDS: LOW STRENGTH ASPIRIN 81 MG PO (10:11)
[2024-06-27] MEDS: AZOPT 1% OPHTHALMIC SUSPENSION 1 DROP LEFT EYE ×2 (10:11→22:24)
[2024-06-27] MEDS: THERAGRAN 1 TABLET PO (10:11)
[2024-06-27] MEDS: ALPHAGAN 0.2% EYE DROPS 1 DROP LEFT EYE ×2 (10:11→21:48)
[2024-06-27] MEDS: TIMOPTIC 0.5% OPHTHALMIC SOLUTION 1 DROP LEFT EYE ×2 (10:12→21:55)
[2024-06-27 12:00] VITALS: BP 150/63
[2024-06-27 15:16] VITALS: BP 162/56
[2024-06-27] MEDS: ProAmatine PO (17:24)
[2024-06-27] MEDS: DEPAKOTE (12 HR RELEASE) 500 MG PO (17:25)
[2024-06-27] MEDS: ARICEPT 10 MG PO (22:01)
[2024-06-27] MEDS: LIPITOR 40 MG PO (22:02)
[2024-06-27] MEDS: PEPCID 20 MG PO (22:02)
[2024-06-27] MEDS: XALATAN OPHTHALMIC SOLUTION 1 DROP BOTH EYES (22:24)
[2024-06-27 23:20] VITALS: BP 120/69
--- NOTE | 2024-06-28 04:57 | PTCARENOTE ---
Large left abdominal bruise noted to LLQ. CARLTON, covering [place] in to evaluate. CARLTON sent pic to linda Vascular MD. Will reassess in am.
[2024-06-28 06:00] VITALS: BMI 24.6
[2024-06-28 06:51] LABS: Hematocrit 25.4 % (37.0-47.0); Hemoglobin 8.5 g/dL (12.0-16.0); Mean Corp Hgb Conc. 33.5 g/dL (33.0-37.0); Mean Corpuscular Hgb 33.1 pg (27.0-31.0); Mean Corpuscular Volume 98.8 fL (81.0-99.0); Mean Platelet Volume 9.7 fL (7.4-10.4); Platelet Count 173 10^3/uL (130-400); Red Blood Cell Count 2.57 10^6/uL (4.20-5.40); Red Cell Dist. Width 15.7 % (11.5-14.5); White Blood Cell Count 6.9 10^3/uL (4.8-10.8)
[2024-06-28 07:09] LABS: Blood Urea Nitrogen 15 mg/dl (7-17); Carbon Dioxide 25 mmol/L (22-30); Chloride 107 mmol/L (98-107); Estimated Creatinine Clearance 44 ml/min; Glucose 92 mg/dl (70-99); Potassium 4.3 mmol/L (3.5-5.1); Sodium 137 mmol/L (135-145); eGFR > 60.00
[2024-06-28] MEDS: SYNTHROID 100 MCG PO (07:33)
[2024-06-28 07:45] VITALS: BP 133/51
[2024-06-28] MEDS: SPIRIVA RESPIMAT 2.5 MCG 2 PUFF INH (08:11)
[2024-06-28] MEDS: STRIVERDI RESPIMAT 2 PUFF INH (08:11)
[2024-06-28] MEDS: AZOPT 1% OPHTHALMIC SUSPENSION 1 DROP LEFT EYE ×2 (08:56→19:51)
[2024-06-28] MEDS: HEPARIN 5000 UNITS SC ×2 (08:56→19:51)
[2024-06-28] MEDS: ALPHAGAN 0.2% EYE DROPS 1 DROP LEFT EYE ×2 (09:01→19:51)
[2024-06-28] MEDS: LOW STRENGTH ASPIRIN 81 MG PO (09:02)
[2024-06-28] MEDS: PLAVIX 75 MG PO (09:02)
[2024-06-28] MEDS: DEPAKOTE (12 HR RELEASE) 250 MG PO (09:02)
[2024-06-28] MEDS: ProAmatine 5 MG PO ×2 (09:02→12:15)
[2024-06-28] MEDS: THERAGRAN 1 TABLET PO (09:03)
[2024-06-28] MEDS: TIMOPTIC 0.5% OPHTHALMIC SOLUTION 1 DROP LEFT EYE ×2 (09:03→19:51)
[2024-06-28] MEDS: TEGRETOL 200 MG PO ×3 (09:03→22:25)
--- NOTE | 2024-06-28 09:39 | W.PN.VS ---
Today's Communication / Plan
-
Discussed with Dr Calero
Assessment/Plan
-
POD 5 Left common carotid artery to subclavian artery bypass with 8 mm [place] Propaten graft.
Transcarotid left carotid artery revascularization with stent (TCAR) with Enroute 9 mm x 40 mm self-expanding stent, and utilizing Enroute RUBY ENGINEER flow reversal intraprocedural neuroprotection. Left carotid angioplasty prior to stent placement with 6
mm x 3 cm angioplasty balloon.
Left distal subclavian artery angioplasty and stent with overlapping 8 mm Tissue [place] Zilver PTX stents.
Plan:
-Out of bed/ambulate/PT/OT
-Case management for SNF placement
-Continue DAPT of aspirin 81 mg p.o. daily and Plavix 75 mg p.o. daily
-OK for DC when bed avaliable
Subjective Data
-
Date of Service: June 28, 2024
Pt seen at bedside this am with Dr Calero. No events overnight. Offers no complaints at this time.
Objective Data
-
Vital Signs
Temp Pulse Resp BP Pulse Ox
98.0 F 71 18 133/51 98
06/28/24 07:45 06/28/24 08:15 06/28/24 08:15 06/28/24 07:45 06/28/24 08:15
Intake and Output
06/27/24 06/28/24 06/29/24
06:59 06:59 06:59
Intake Total 480 / 480 1620 / 1620 240 / 240
Output Total 350 / 350
Balance 130 / 130 1620 / 1620 240 / 240
Intake:
Oral fluids 480 / 480 1620 / 1620 240 / 240
Output:
UrineAbdias 350 / 350
Other:
Number of approximated MODERATE 2 2
amounts of urine
Number of approximated LARGE 1
amounts of urine
How many times incontinent 3
SATURATED amount urine
Lab Results
06/28/24 06:28
06/28/24 06:28
Calcium 8.0 mg/dl (8.4-10.2) L 06/28/24 06:28
Phosphorus 3.5 mg/dl (2.5-4.5) 06/25/24 03:38
Magnesium 1.9 mg/dl (1.6-2.3) 06/25/24 03:38
Physical Exam
-
Alert and awake
No tachypnea on room air
No tachycardia
Left neck/chest site mildly ecchymotic, mild edema, no drainage noted, well-approximated
Left hand warm and pink
Follows commands
--- NOTE | 2024-06-28 10:41 | CM ---
Addendum entered by Stella Askew 06/28/24 13:42:
CM spoke with patient daughter via phone. Patient daughter aware of request for PM&R assessment by PA and agreed to referral for [facility] and [facility] (SNF). CM will place referrals, first choice is still [facility]. CM will continue to
follow for discharge planning needs.
Original Note:
Patient seen at bedside. Patient stated her daughter would be in to see her later today. CM reviewed therapy assessments and recommendations, continue to recommend SNF. CM will reach out to [facility] liaison regarding status. CM will continue to follow
for discharge planning needs.
Plan; SNF vs Acute Rehab.
[2024-06-28 12:00] VITALS: BP 83/56; BP 85/56; BP 87/57; PULSE 77; PULSE 89; O2SAT 96
[2024-06-28 12:03] VITALS: BP 83/56; BP 85/56; BP 87/57; PULSE 79; PULSE 90; O2SAT 96
[2024-06-28 15:33] VITALS: BP 157/73
[2024-06-28] MEDS: DEPAKOTE (12 HR RELEASE) 500 MG PO (17:44)
--- NOTE | 2024-06-28 21:04 | VATNOTE ---
Called to assess for new PIV to be placed in left arm; left arm noted to be significantly swollen. Discussed with Primary RN, Ronda, who states the left arm IV was removed to it being displaced. This RN expressed concern for left arm swelling, and PCN
stated swelling is a known issue and appears improved to her. Patient with no current IV needs at this time. Will hold placement of new PIV at this time.
[2024-06-28] MEDS: LIPITOR 40 MG PO (22:20)
[2024-06-28] MEDS: TYLENOL 650 MG PO (22:21)
[2024-06-28] MEDS: ARICEPT 10 MG PO (22:21)
[2024-06-28] MEDS: PEPCID 20 MG PO (22:21)
[2024-06-28] MEDS: XALATAN OPHTHALMIC SOLUTION 1 DROP BOTH EYES (22:22)
[2024-06-28 23:20] VITALS: BP 119/57
[2024-06-29] MEDS: SYNTHROID 100 MCG PO (06:01)
[2024-06-29 06:12] LABS: Hematocrit 23.6 % (37.0-47.0); Hemoglobin 8.1 g/dL (12.0-16.0); Mean Corp Hgb Conc. 34.3 g/dL (33.0-37.0); Mean Corpuscular Hgb 33.5 pg (27.0-31.0); Mean Corpuscular Volume 97.5 fL (81.0-99.0); Mean Platelet Volume 9.9 fL (7.4-10.4); Platelet Count 196 10^3/uL (130-400); Red Blood Cell Count 2.42 10^6/uL (4.20-5.40); Red Cell Dist. Width 15.7 % (11.5-14.5); White Blood Cell Count 6.8 10^3/uL (4.8-10.8)
[2024-06-29 06:27] VITALS: BMI 24.5
[2024-06-29 06:28] LABS: Blood Urea Nitrogen 17 mg/dl (7-17); Calcium 8.1 mg/dl (8.4-10.2); Carbon Dioxide 27 mmol/L (22-30); Chloride 109 mmol/L (98-107); Estimated Creatinine Clearance 39 ml/min; Glucose 82 mg/dl (70-99); Potassium 4.1 mmol/L (3.5-5.1); Sodium 137 mmol/L (135-145); eGFR > 60.00
[2024-06-29] MEDS: STRIVERDI RESPIMAT 2 PUFF INH (07:48)
[2024-06-29] MEDS: SPIRIVA RESPIMAT 2.5 MCG 2 PUFF INH (07:48)
[2024-06-29 08:19] VITALS: BP 141/60
--- NOTE | 2024-06-29 08:55 | W.PN.VS ---
Addendum entered and electronically signed by Montana Calero III, MD 06/29/24 10:38:
This patient was seen and examined in collaboration with CARLTON Reina. I agree with the history and physical exam as well as the assessment and plan.
Signed:
Montana Calero III, MD
[facility] Vascular Surgery
[phone] ([phone])
Original Note:
Today's Communication / Plan
-
Patient seen and examined at bedside with Dr. Montana Calero III, below plan reviewed with attending
Assessment/Plan
-
POD 6 Left common carotid artery to subclavian artery bypass with 8 mm [place] Propaten graft.
Transcarotid left carotid artery revascularization with stent (TCAR) with Enroute 9 mm x 40 mm self-expanding stent, and utilizing Enroute GUN STRIPER flow reversal intraprocedural neuroprotection. Left carotid angioplasty prior to stent placement with 6
mm x 3 cm angioplasty balloon.
Left distal subclavian artery angioplasty and stent with overlapping 8 mm [place] Zilver PTX stents.
Plan:
-Out of bed/ambulate/PT/OT
-Case management for SNF placement, awaiting [facility] evaluation
-Continue DAPT of aspirin 81 mg p.o. daily and Plavix 75 mg p.o. daily
-OK for DC when bed available
Subjective Data
-
Date of Service: June 29, 2024
Patient seen examined bedside, offers no complaints.
Objective Data
-
Vital Signs
Temp Pulse Resp BP Pulse Ox
97.7 F 82 18 141/60 97
06/29/24 08:19 06/29/24 08:19 06/29/24 08:19 06/29/24 08:19 06/29/24 08:19
Intake and Output
06/28/24 06/29/24 06/30/24
06:59 06:59 06:59
Intake Total 1619 / 1619 480 / 480
Balance 1619 / 1619 480 / 480
Intake:
Oral fluids 1619 480 / 480
Other:
Number of approximated MODERATE 2
amounts of urine
Number of approximated LARGE 1
amounts of urine
How many times incontinent 3
MODERATE amount urine
How many times incontinent 3
SATURATED amount urine
Lab Results
06/29/24 05:25
06/29/24 05:25
Calcium 8.1 mg/dl (8.4-10.2) L 06/29/24 05:25
Phosphorus 3.5 mg/dl (2.5-4.5) 06/25/24 03:38
Magnesium 1.9 mg/dl (1.6-2.3) 06/25/24 03:38
Physical Exam
-
Alert and awake
No tachypnea on room air
No tachycardia
Left neck/chest site mildly ecchymotic, mild edema, no drainage noted, well-approximated
Left hand warm and pink
Follows commands
[2024-06-29] MEDS: PLAVIX 75 MG PO (09:58)
[2024-06-29] MEDS: TEGRETOL 200 MG PO ×3 (09:58→21:06)
[2024-06-29] MEDS: LOW STRENGTH ASPIRIN 81 MG PO (09:58)
[2024-06-29] MEDS: DEPAKOTE (12 HR RELEASE) 250 MG PO (09:58)
[2024-06-29] MEDS: THERAGRAN 1 TABLET PO (09:58)
[2024-06-29] MEDS: HEPARIN 5000 UNITS SC ×2 (09:59→20:12)
[2024-06-29] MEDS: AZOPT 1% OPHTHALMIC SUSPENSION 2 DROP LEFT EYE (10:00)
[2024-06-29] MEDS: ALPHAGAN 0.2% EYE DROPS 1 DROP LEFT EYE ×2 (10:00→20:13)
[2024-06-29] MEDS: TIMOPTIC 0.5% OPHTHALMIC SOLUTION 1 DROP LEFT EYE ×2 (10:03→20:13)
--- NOTE | 2024-06-29 15:12 | CM ---
Chart reviewed
PM&R consult pending
Accepted at [facility], pend bed availability on day at d/c
Discussed with daughter - requesting [facility] as 1st option
No auth required
Plan - Acute vs SNF pending PMR consult
[2024-06-29 15:37] VITALS: BP 122/77
[2024-06-29] MEDS: DEPAKOTE (12 HR RELEASE) 500 MG PO (17:04)
[2024-06-29] MEDS: AZOPT 1% OPHTHALMIC SUSPENSION 1 DROP LEFT EYE (20:12)
[2024-06-29] MEDS: LIPITOR 40 MG PO (21:06)
[2024-06-29] MEDS: ARICEPT 10 MG PO (21:07)
[2024-06-29] MEDS: XALATAN OPHTHALMIC SOLUTION 1 DROP BOTH EYES (21:07)
[2024-06-29] MEDS: PEPCID 20 MG PO (21:07)
[2024-06-29 23:12] VITALS: BP 142/53
--- NOTE | 2024-06-30 04:43 | DOWNTIME ---
There was a [employer] Specialist Downtime on 06/30/2024 from 0100 to 07/01/2023 at 0420 . Downtime documentation of patient's care, including medication administrations, has been reconciled in the electronic record per guidelines. Refer to the
patient's paper chart under the miscellaneous tab to see printed paper medication records and downtime forms.
[2024-06-30] MEDS: SYNTHROID 100 MCG PO (05:08)
[2024-06-30 07:20] VITALS: BP 163/68
[2024-06-30 07:21] LABS: Hematocrit 27.2 % (37.0-47.0); Hemoglobin 8.9 g/dL (12.0-16.0); Mean Corp Hgb Conc. 32.7 g/dL (33.0-37.0); Mean Corpuscular Hgb 32.6 pg (27.0-31.0); Mean Corpuscular Volume 99.6 fL (81.0-99.0); Mean Platelet Volume 9.2 fL (7.4-10.4); Platelet Count 222 10^3/uL (130-400); Red Blood Cell Count 2.73 10^6/uL (4.20-5.40); White Blood Cell Count 7.7 10^3/uL (4.8-10.8)
[2024-06-30] MEDS: SPIRIVA RESPIMAT 2.5 MCG 2 PUFF INH (07:23)
[2024-06-30] MEDS: STRIVERDI RESPIMAT 2 PUFF INH (07:25)
[2024-06-30] MEDS: PLAVIX 75 MG PO (07:51)
[2024-06-30] MEDS: THERAGRAN 1 TABLET PO (07:51)
[2024-06-30] MEDS: ALPHAGAN 0.2% EYE DROPS 1 DROP LEFT EYE (07:51)
[2024-06-30] MEDS: AZOPT 1% OPHTHALMIC SUSPENSION 1 DROP LEFT EYE (07:51)
[2024-06-30] MEDS: TEGRETOL 200 MG PO ×2 (07:51→16:29)
[2024-06-30] MEDS: DEPAKOTE (12 HR RELEASE) 250 MG PO (07:51)
[2024-06-30] MEDS: HEPARIN 5000 UNITS SC (07:52)
[2024-06-30] MEDS: LOW STRENGTH ASPIRIN 81 MG PO (07:52)
[2024-06-30] MEDS: TIMOPTIC 0.5% OPHTHALMIC SOLUTION 1 DROP LEFT EYE (07:57)
[2024-06-30 08:08] LABS: Blood Urea Nitrogen 17 mg/dl (7-17); Calcium 8.6 mg/dl (8.4-10.2); Carbon Dioxide 24 mmol/L (22-30); Chloride 106 mmol/L (98-107); Estimated Creatinine Clearance 35 ml/min; Glucose 97 mg/dl (70-99); Potassium 4.2 mmol/L (3.5-5.1); Sodium 139 mmol/L (135-145)
--- NOTE | 2024-06-30 10:04 | W.PN.VS ---
Today's Communication / Plan
-
Seen and assessed with Dr. Urbano
Assessment/Plan
-
POD 7 Left common carotid artery to subclavian artery bypass with 8 mm [place] Propaten graft.
Transcarotid left carotid artery revascularization with stent (TCAR) with Enroute 9 mm x 40 mm self-expanding stent, and utilizing Enroute COTTON BROKER flow reversal intraprocedural neuroprotection. Left carotid angioplasty prior to stent placement with 6
mm x 3 cm angioplasty balloon.
Left distal subclavian artery angioplasty and stent with overlapping 8 mm [employer] PTX stents.
Plan:
-Left upper extremity venous duplex this morning for some mild redness and swelling
-Out of bed/ambulate/PT/OT
-Case management for SNF placement
-Continue DAPT of aspirin 81 mg p.o. daily and Plavix 75 mg p.o. daily
-OK for DC when bed available
Subjective Data
-
Date of Service: June 30, 2024
Patient seen at bedside this a.m. with Dr. Urbano. Patient offers no complaints at this time. No events overnight. Awaiting bed availability for SNF
Objective Data
-
Vital Signs
Temp Pulse Resp BP Pulse Ox
97.9 F 83 16 163/68 98
06/30/24 07:20 06/30/24 07:29 06/30/24 07:29 06/30/24 07:20 06/30/24 07:29
Intake and Output
06/29/24 06/30/24 07/01/24
06:59 06:59 06:59
Intake Total 480 / 480 600 / 600 120 / 120
Balance 480 / 480 600 / 600 120 / 120
Intake:
Oral fluids 480 / 480 600 / 600 120 / 120
Other:
Number of approximated MODERATE 1
amounts of urine
Number of approximated LARGE 1
amounts of urine
How many times incontinent 3
MODERATE amount urine
How many times incontinent 3 3 1
SATURATED amount urine
Lab Results
06/30/24 06:39
06/30/24 06:39
Calcium 8.6 mg/dl (8.4-10.2) 06/30/24 06:39
Phosphorus 3.5 mg/dl (2.5-4.5) 06/25/24 03:38
Magnesium 1.9 mg/dl (1.6-2.3) 06/25/24 03:38
Physical Exam
-
Alert and awake
No tachypnea on room air
No tachycardia
Left neck/chest site mildly ecchymotic, mild edema, no drainage noted, well-approximated
Left hand warm and pink
Follows commands
--- NOTE | 2024-06-30 10:51 | CM ---
Addendum entered by Bridgette Alberto 06/30/24 15:25:
Transport at 5PM
Facility and family updated
Addendum entered by Bridgette Alberto 06/30/24 13:03:
Spoke with pts daughter regarding pts discharge - agreeable to transfer to [facility]
Shant at [facility] updated
Pt/family given IMM
Transport to be arranged
Plan - transfer to [facility]
R - [phone]
F - [phone]
Original Note:
Pt medically ready for discharge
Spoke with Shant at [facility] - requesting updates - sent in [facility]. Per Shant will call with determination after referral reviewed
Plan - anticipate transfer to [facility] pending review
[2024-06-30 12:04] VITALS: BMI 24.0
[2024-06-30 15:35] VITALS: BP 133/58
== END 2024-06-30 17:50 | DRG 35 ==
LOC: 2 SOUTH 06:02
PROVIDERS: Nurse Practitioner; Nurse Practitioner Acute Care; ADMITTING PHYSICIAN Surgery Vascular Surgery; CONSULT PHYSICIAN Internal Medicine Critical Care Medicine; PRIMARYCARE PHYSICIAN Family Medicine
PROC: X2AJ336 Cerebral Embolic Filtration, Extracorporeal Flow Reversal Circuit from Left Common Carotid Artery, Percutaneous Approach, New Technology Group 6 (ICD-10-PCS; 2024-06-23)
PROC: B3121ZZ Fluoroscopy of Left Subclavian Artery using Low Osmolar Contrast (ICD-10-PCS; 2024-06-23)
PROC: 031J0JY Bypass Left Common Carotid Artery to Upper Artery with Synthetic Substitute, Open Approach (ICD-10-PCS; 2024-06-23)
PROC: 037L3DZ Dilation of Left Internal Carotid Artery with Intraluminal Device, Percutaneous Approach (ICD-10-PCS; 2024-06-23)
PROC: 30233N1 Transfusion of Nonautologous Red Blood Cells into Peripheral Vein, Percutaneous Approach (ICD-10-PCS; 2024-06-23)
PROC: 037 Upper Arteries, Dilation (ICD-10-PCS; 2024-06-23)
DX: I65.23 Occlusion and stenosis of bilateral carotid arteries (principal); D62 Acute posthemorrhagic anemia; E87.20 Acidosis, unspecified; I50.32 Chronic diastolic (congestive) heart failure; I69.351 Hemiplegia and hemiparesis following cerebral infarction affecting right dominant side; I70.0 Atherosclerosis of aorta; I70.8 Atherosclerosis of other arteries; I11.0 Hypertensive heart disease with heart failure; J44.9 Chronic obstructive pulmonary disease, unspecified; E03.9 Hypothyroidism, unspecified; F01.50 Vascular dementia, unspecified severity, without behavioral disturbance, psychotic disturbance, mood disturbance, and anxiety; M81.0 Age-related osteoporosis without current pathological fracture; H91.90 Unspecified hearing loss, unspecified ear; M17.12 Unilateral primary osteoarthritis, left knee; H40.9 Unspecified glaucoma; D69.59 Other secondary thrombocytopenia; E83.51 Hypocalcemia; R73.9 Hyperglycemia, unspecified; Z87.891 Personal history of nicotine dependence; Z86.19 Personal history of other infectious and parasitic diseases; Z82.49 Family history of ischemic heart disease and other diseases of the circulatory system; Z79.890 Hormone replacement therapy; Z79.82 Long term (current) use of aspirin; Z79.02 Long term (current) use of antithrombotics/antiplatelets; Z87.311 Personal history of (healed) other pathological fracture
CPT/HCPCS: 35606; 36415; 37215; 37236; 70450; 71045; 71046; 80048; 83735; 84100; 85025; 85027; 85610; 85730; 86850; 86900; 86901; 86920; 93971; 94640; 95938; 95941; 95955; 97163; 97167; 97530; 97535; C1725; C1768; C1769; C1874; C1876; C1884; C1894; P9016; Q9967

== ENCOUNTER 2024-07-07 15:37 | Inpatient (IN) | payer MEDICARE, OTHER, SELFPAY ==
[2024-07-07] VITALS (76 sets, daily range): BP systolic 60–212; BP diastolic 30–106; BMI 25.4; BMI 23.0
--- NOTE | 2024-07-07 11:31 | ED.CVA ---
History of Present Illness
<Candy Zarate PA-C - Last Filed: 07/07/24 15:22>
General
Chief Complaint: CVA/TIA Symptoms
Source: patient, records and family
Exam Limitations: none
Time Seen by Provider: 07/07/24 11:20
Onset of Stroke Symptoms
Onset of symptoms known: Yes
Date of onset of symptoms: 07/07/24
Time of onset of symptoms: 11:00
History of Present Illness
History of Present Illness:
84yoF with a history of multiple prior strokes with baseline expressive aphasia, CHF with last EF of 55-60%, carotid stenosis s/p left carotid artery to subclavian artery bypass and L carotid and subclavian stent placement on 06/23/[address] Urbano
presenting with her son-in-law for evaluation after a syncopal episode. Patient was released from rehab yesterday after her recent surgery. She had a postoperative appointment with vascular surgery today. While she was leaving the office, she was
sitting on her rolling walker and her son-in-law was pushing her into the elevator. She slumped over and lost consciousness for about 30 seconds. Son states her L face looked droopy and she was drooling. She came immediately to the ED. Her
facial and speech symptoms have resolved. She does report feeling weaker today than she has been. No chest pain or shortness of breath.
Past History
<Candy Zarate PA-C - Last Filed: 07/07/24 15:22>
Past History
ED Past Medical History: CVA, HTN, Hypercholesterolemia and Hypothyroidism
ED Past Surgical History: Gynecological (partial hysterectomy) and Orthopedic (right hip fracture)
Social History
Tobacco: Former smoker
Alcohol: Occasional
Personal:
Living: alone (with aids)
Phy Exam
<Candy Zarate PA-C - Last Filed: 07/07/24 15:22>
Physical Exam
Physical Exam:
Appears chronically ill, non-toxic
General Physical Exam
General Presentation: no apparent distress
General Skin: warm, dry and pale
General Habitus: normal
General Mental: alert
ENT Exam
ENT Exam: normocephalic
Additional ENT: L neck surgical incision well healing, c/d/i, no swelling noted
Cardiovascular Exam
Cardiovascular Exam: regular rate/rhythm
Pulmonary Exam
Pulmonary Exam: lungs clear, no respiratory distress, no rales, no crackles and no rhonchi
Gastrointestinal Exam
Gastrointestinal Exam: non tender, soft and non distended
Neurological Exam
Neurological Exam: alert and other (No facial asymmetry noted. Negative drift x4.)
[place] Coma Scale
Eye Opening: Spontaneous
Verbal Response: Oriented
Motor Response: Obeys Commands
GCS Total Score: 15
Skin Exam
Skin Exam: warm/dry and pallor
<Abner Bansal DO - Last Filed: 07/07/24 15:50>
[place] Coma Scale
GCS Total Score: 15
Course
<Candy Zarate PA-C - Last Filed: 07/07/24 15:22>
Orders/Labs/Results
Orders:
Orders
07/07/24 11:21
ECG [Electrocardiogram (*1)] Urgent
Reason for Study: TIA/Stroke
Cardiac Monitoring- Treatment ONCE
EKG- Treatment ONCE
IV Insert/Care/Rem.- Treatment PRN
Vital Signs As Directed
Frequency: Other
Weight As Directed
Frequency: Once
Comment: ZERO STRETCHER SCALE FOR ACCURATE WEIGHT
07/07/24 11:22
PTT Urgent
Prothrombin Time Urgent
Troponin I Urgent
07/07/24 11:23
Complete Blood Count/With Diff Urgent
Comprehensive Metabolic Panel Urgent
07/07/24 11:30
0.9% Sodium Chloride 500 ml [Nss] 500 ml IV BOLUS
07/07/24 11:31
0.9% Sodium Chloride 500 ml [Nss] 500 ml IV BOLUS
07/07/24 11:45
NORepinephrine 4 MG/250 ML [Levophed] 4 mg in 250 ml IV PER PROTOCOL
Initial dose in mcg/min, then titrate:: 4
Titrate to keep:: SBP > 90 mmHg
Titrate by mcg/min:: 1-2 mcg/min
Frequency of titrations (minutes):: 5
Maximum dose in ICU in mcg/min:: 30
Maximum dose in IMU in mcg/min:: 8
Maximum dose in IVU in mcg/min:: 4
Begin to taper infusion when:: Remained at goal for 4hrs
Taper by mcg/min:: 1-2 mcg/min
Frequency of taper (minutes) if patient maintains goal:: 30
Taper to off?: Yes
If infusion off & no longer maintaining goal:: Contact Provider
07/07/24 13:25
Cr Chest Portable [CR Chest Portable - 1 View] Urgent
Comment:
Reason For Exam: SOB
Reason Study Needs to be Portable: Patient Unstable
07/07/24 13:30
Depakane Urgent
Tegretol (Carbamazepine) Urgent
07/07/24 13:40
COVID-19 Antigen Urgent
Source: Nasal Swab
Influenza A+B Rapid Molecular Urgent
IRVING Source: Nasal Swab
Specimen Description:
07/07/24 13:51
Silver Nitrate Applicator 1 each TOPICAL NOW STA
07/07/24 14:04
BNP [NT-proBNP] Urgent
Lactic Acid Urgent
07/07/24 14:21
Old Records Request [Obtain Records] As Directed
Dates of Information to be Released: june 2024
Type of Information Requested: Entire Record
Consults
Radiology Results
Obtain Records from: [facility]
07/07/24 14:32
Procalcitonin Urgent
07/07/24 14:35
VANCOMYCIN Pharmacy to Dose [VANCOCIN Pharmacy to Dose] 1 each Pharmacy To Prepare [Call Pharmacy To Prepare] 0 ml IV PER PROTOCOL
07/07/24 14:37
Urine Culture Reflexed from UA [Urinalysis Reflex To Culture] Urgent
Straight Cath As Directed
Frequency: One time now
Patient may straight cath themselves: No
Additional Instructions: obtaine u/a and urine culture
07/07/24 14:43
Dietetic Technician Consult Routine
Consulting Provider: Duane Cunha
Was physician already notified: Yes
Reason for consult: sirs, poss bilat pna, hypotension severe
07/07/24 14:46
Piperacillin/Tazo 3.375 Gram [Zosyn] 3.375 gram in 50 ml IV NOW
Vancomycin [Vancocin] 1,500 mg 0.9% Sodium Chloride 500 ml [Nss] 500 ml IV NOW
07/07/24 14:57
Admit/Transfer Patient As Directed
Co-Sign Provider:
Level of Care: Inpatient admission
Assign to:: ICU
Physician / Group: mark rangel
Diagnosis: severe hypotension conc viral vs bact pna, l facial droop conc cva
Reason for Hospitalization: severe hypotension conc viral vs bact pna, l facial droop conc cva
Expected length of stay greater than two midnights?: Yes
ELOS- Estimated Length of Stay in days: 5
I certify the patient meets the requirements for IP care: Yes
Code Status As Directed
Resuscitation Status: Do not resuscitate
Reached after discussion with pt or family/Healthcare POA: Yes
Based on pt advanced directive or healthcare POA form: Yes
Decision communicated with: Per daughter Adina DENIA on phone and son-in-law Vinicuis
07/07/24 14:58
DNR Bracelet Application ONCE
07/07/24 15:00
Vasopressin 20 Units/100 ml [Pitressin] 20 units in 100 ml IV PER PROTOCOL
Continuous dose without titration in units/min:: 0.030
07/07/24 15:03
PRN Pain Medication Management As Directed
May give lesser potent ordered pain med per pt: Yes
preference::
Protocol:: Medication orders for pain may be administered in a
manner that supports deferring to patient preference
when the pt is:
- Requesting an ordered lesser potent pain medication.
Least to most potent pain medications are defined
as: acetaminophen < NSAID < tramadol < opioids
(morphine, oxycodone, hydromorphone).
- Requesting a lesser dose of the same medication IF
ORDERED.
- Requesting a less intrusive route of administration
if both routes are prescribed by the provider (PO <
IV).
07/07/24 15:09
Midodrine [ProAmatine] 5 mg PO NOW STA
07/07/24 15:[address] [CT Head W/o Iv Contrast] Urgent
Comment:
Reason For Exam: facial droop
07/07/24 16:00
Piperacillin/Tazo 2.25 Gram [Zosyn] 2.25 grams in 50 ml IV Q6H
07/07/24 18:00
Midodrine [ProAmatine] 5 mg PO TID@0800,1300,1800
07/08/24 06:00
TSH Reflex To Free T4 IN AM
Abnormal Lab Results
07/07/24 07/07/24
11:23 13:30
RBC 3.02 L 10^6/uL
(4.20-5.40)
Hgb 10.2 L g/dL
(12.0-16.0)
Hct 31.2 L %
(37.0-47.0)
MCV 103.3 H fL
(81.0-99.0)
MCH 33.8 H pg
(27.0-31.0)
MCHC 32.7 L g/dL
(33.0-37.0)
RDW 17.8 H %
(11.5-14.5)
Abs Immat Gran (auto) 0.1 H 10^3/uL
(0-0.05)
Absolute Monos (auto) 1.5 H 10^3/uL
(0.1-0.6)
Immature Gran % 0.7 H %
(0-0.5)
Monocytes % 15.4 H %
(1.7-9.3)
Chloride 113 H mmol/L
(98-107)
Glucose 117 H mg/dl
(70-99)
AST 37 H U/L
(14-36)
Total Protein 6.1 L g/dl
(6.3-8.2)
Albumin 3.4 L g/dl
(3.5-5.0)
Valproic Acid 39.2 L ug/ml
(50.0-120.0)
07/07/24 11:23
07/07/24 11:23
Vital Signs
Initial and Last Documented VS:
Initial Vital Signs
Temp Pulse Resp BP Pulse Ox
97.4 F 82 18 146/62 98
07/07/24 11:10 07/07/24 11:10 07/07/24 11:10 07/07/24 11:10 07/07/24 11:10
Last Documented Vital Signs
Temp Pulse Resp BP Pulse Ox
97.4 F 105 23 99/70 95
07/07/24 11:10 07/07/24 15:45 07/07/24 15:45 07/07/24 15:45 07/07/24 15:45
<Abner Bansal, DO - Last Filed: 07/07/24 15:50>
Orders/Labs/Results
Orders:
Orders
07/07/24 11:21
ECG [Electrocardiogram (*1)] Urgent
Reason for Study: TIA/Stroke
Cardiac Monitoring- Treatment ONCE
EKG- Treatment ONCE
IV Insert/Care/Rem.- Treatment PRN
Vital Signs As Directed
Frequency: Other
Weight As Directed
Frequency: Once
Comment: ZERO STRETCHER SCALE FOR ACCURATE WEIGHT
07/07/24 11:22
PTT Urgent
Prothrombin Time Urgent
Troponin I Urgent
07/07/24 11:23
Complete Blood Count/With Diff Urgent
Comprehensive Metabolic Panel Urgent
07/07/24 11:30
0.9% Sodium Chloride 500 ml [Nss] 500 ml IV BOLUS
07/07/24 11:31
0.9% Sodium Chloride 500 ml [Nss] 500 ml IV BOLUS
07/07/24 11:45
NORepinephrine 4 MG/250 ML [Levophed] 4 mg in 250 ml IV PER PROTOCOL
Initial dose in mcg/min, then titrate:: 4
Titrate to keep:: SBP > 90 mmHg
Titrate by mcg/min:: 1-2 mcg/min
Frequency of titrations (minutes):: 5
Maximum dose in ICU in mcg/min:: 30
Maximum dose in IMU in mcg/min:: 8
Maximum dose in IVU in mcg/min:: 4
Begin to taper infusion when:: Remained at goal for 4hrs
Taper by mcg/min:: 1-2 mcg/min
Frequency of taper (minutes) if patient maintains goal:: 30
Taper to off?: Yes
If infusion off & no longer maintaining goal:: Contact Provider
07/07/24 13:25
Cr Chest Portable [CR Chest Portable - 1 View] Urgent
Comment:
Reason For Exam: SOB
Reason Study Needs to be Portable: Patient Unstable
07/07/24 13:30
Depakane Urgent
Tegretol (Carbamazepine) Urgent
07/07/24 13:40
COVID-19 Antigen Urgent
Source: Nasal Swab
Influenza A+B Rapid Molecular Urgent
IRVING Source: Nasal Swab
Specimen Description:
07/07/24 13:51
Silver Nitrate Applicator 1 each TOPICAL NOW STA
07/07/24 14:04
BNP [NT-proBNP] Urgent
Lactic Acid Urgent
07/07/24 14:21
Old Records Request [Obtain Records] As Directed
Dates of Information to be Released: june 2024
Type of Information Requested: Entire Record
Consults
Radiology Results
Obtain Records from: [facility]
07/07/24 14:32
Procalcitonin Urgent
07/07/24 14:35
VANCOMYCIN Pharmacy to Dose [VANCOCIN Pharmacy to Dose] 1 each Pharmacy To Prepare [Call Pharmacy To Prepare] 0 ml IV PER PROTOCOL
07/07/24 14:37
Urine Culture Reflexed from UA [Urinalysis Reflex To Culture] Urgent
Straight Cath As Directed
Frequency: One time now
Patient may straight cath themselves: No
Additional Instructions: obtaine u/a and urine culture
07/07/24 14:43
Dietetic Technician Consult Routine
Consulting Provider: Duane Cunha
Was physician already notified: Yes
Reason for consult: sirs, poss bilat pna, hypotension severe
07/07/24 14:46
Piperacillin/Tazo 3.375 Gram [Zosyn] 3.375 gram in 50 ml IV NOW
Vancomycin [Vancocin] 1,500 mg 0.9% Sodium Chloride 500 ml [Nss] 500 ml IV NOW
07/07/24 14:57
Admit/Transfer Patient As Directed
Co-Sign Provider:
Level of Care: Inpatient admission
Assign to:: ICU
Physician / Group: mark rangel
Diagnosis: severe hypotension conc viral vs bact pna, l facial droop conc cva
Reason for Hospitalization: severe hypotension conc viral vs bact pna, l facial droop conc cva
Expected length of stay greater than two midnights?: Yes
ELOS- Estimated Length of Stay in days: 5
I certify the patient meets the requirements for IP care: Yes
Code Status As Directed
Resuscitation Status: Do not resuscitate
Reached after discussion with pt or family/Healthcare POA: Yes
Based on pt advanced directive or healthcare POA form: Yes
Decision communicated with: Per daughter Adina NAYLA on phone and son-in-law Vinicius
07/07/24 14:58
DNR Bracelet Application ONCE
07/07/24 15:00
Vasopressin 20 Units/100 ml [Pitressin] 20 units in 100 ml IV PER PROTOCOL
Continuous dose without titration in units/min:: 0.030
07/07/24 15:03
PRN Pain Medication Management As Directed
May give lesser potent ordered pain med per pt: Yes
preference::
Protocol:: Medication orders for pain may be administered in a
manner that supports deferring to patient preference
when the pt is:
- Requesting an ordered lesser potent pain medication.
Least to most potent pain medications are defined
as: acetaminophen < NSAID < tramadol < opioids
(morphine, oxycodone, hydromorphone).
- Requesting a lesser dose of the same medication IF
ORDERED.
- Requesting a less intrusive route of administration
if both routes are prescribed by the provider (PO <
IV).
07/07/24 15:09
Midodrine [ProAmatine] 5 mg PO NOW STA
07/07/24 15:[address] [CT Head W/o Iv Contrast] Urgent
Comment:
Reason For Exam: facial droop
07/07/24 16:00
Piperacillin/Tazo 2.25 Gram [Zosyn] 2.25 grams in 50 ml IV Q6H
07/07/24 18:00
Midodrine [ProAmatine] 5 mg PO TID@0800,1300,1800
07/08/24 06:00
TSH Reflex To Free T4 IN AM
Abnormal Lab Results
07/07/24 07/07/24
11:23 13:30
RBC 3.02 L 10^6/uL
(4.20-5.40)
Hgb 10.2 L g/dL
(12.0-16.0)
Hct 31.2 L %
(37.0-47.0)
MCV 103.3 H fL
(81.0-99.0)
MCH 33.8 H pg
(27.0-31.0)
MCHC 32.7 L g/dL
(33.0-37.0)
RDW 17.8 H %
(11.5-14.5)
Abs Immat Gran (auto) 0.1 H 10^3/uL
(0-0.05)
Absolute Monos (auto) 1.5 H 10^3/uL
(0.1-0.6)
Immature Gran % 0.7 H %
(0-0.5)
Monocytes % 15.4 H %
(1.7-9.3)
Chloride 113 H mmol/L
(98-107)
Glucose 117 H mg/dl
(70-99)
AST 37 H U/L
(14-36)
Total Protein 6.1 L g/dl
(6.3-8.2)
Albumin 3.4 L g/dl
(3.5-5.0)
Valproic Acid 39.2 L ug/ml
(50.0-120.0)
07/07/24 11:23
07/07/24 11:23
Vital Signs
Initial and Last Documented VS:
Initial Vital Signs
Temp Pulse Resp BP Pulse Ox
97.4 F 82 18 146/62 98
07/07/24 11:10 07/07/24 11:10 07/07/24 11:10 07/07/24 11:10 07/07/24 11:10
Last Documented Vital Signs
Temp Pulse Resp BP Pulse Ox
97.4 F 105 23 99/70 95
07/07/24 11:10 07/07/24 15:45 07/07/24 15:45 07/07/24 15:45 07/07/24 15:45
<Candy Zarate PA-C - Last Filed: 07/07/24 15:22>
MDM/Problems Addressed
Differential Diagnosis Includes:
84yoF here after a syncopal episode. Recent L carotid/subclavian surgery 2 weeks ago. Getting out of an appt when she slumped over. Reported facial droop and drooling. Facial droop now resolved and no facial asymmetry noted on exam. No extremity
drift noted. She is chronically ill appearing and pale. BP 146/62 in triage. BP 79/56 on initial exam. Differential diagnosis includes but is not limited to: syncope, orthostatic hypotension, dehydration, acute blood loss anemia, arrhythmia,
infection
Initial ED plan: Check cardiac labs and EKG. IV fluid bolus and Levophed ordered. Patient also seen by Dr. Bansal.
<Candy Zarate PA-C - Last Filed: 07/07/24 15:22>
*EKG
Interpreted by ED Provider?: Yes
EKG Intrepretation Date: 07/07/24
Heart Rate: 80
Rate: normal
Rhythm: sinus
[place]: normal axis
QRS Pattern: left bundle branch block
*Critical Care Note
Total Time (30-74mins, 75-104mins- exclusive of procedures): 35
<Abner Bansal DO - Last Filed: 07/07/24 15:50>
*Radiology
Radiology exam reviewed: preliminary read by ED provider (cxr: initially no signs pulmonary edema; repeat: mild pulmonary edema)
*Pulse Oximetry
Patient hypoxic: no
*Clinical Nursing Instructor Interpretation
Rate: normal
Interpretation: normal
Heart Rate: 80
Rhythm: sinus
<Abner Bansal, - Last Filed: 07/07/24 15:50>
Patient Management
Social determinants of health affecting care: Living situation
Discussion with other providers: Hospitalist
Escalation/DeEscalation of care consider admission/obs:
admit indicated
<Candy Zarate PA-C - Last Filed: 07/07/24 15:22>
Update Note
Update Note:
White count normal. Hemoglobin actually improved from baseline. Renal function stable. Patient requiring Levophed for blood pressure support. Unclear etiology of hypotension. No obvious infectious source on history or exam. She was admitted
for further evaluation and management.
ED Attending Note
<Candy Zarate PA-C - Last Filed: 07/07/24 15:22>
-
Portions of this chart may have been created with voice recognition software.� Occasional wrong word or��sound alike� substitutions may have occurred due to the inherent limitations of voice recognition software.
<Abner Bansal DO - Last Filed: 07/07/24 15:50>
ED Attending Note
Patient seen and examined by attending physician: Yes
ED Attending Note:
I have reviewed and agree with history treatment plan by Candy Zarate PA-C. My exam revealed 84-year-old female, appears tired, lungs with faint Rales. Patient hypotensive, improving with Levophed. No source of infection found. Admit to
hospitalist.
Discharge Plan
Departure
Patient Disposition: Admit
Date of Disposition: 07/07/24
Time of Disposition: 12:31
Presentation/result/management discussed w/ accepting MD/DO: Hospitalist
Patient with high blood pressure during this ER visit?: Yes
Condition: Serious
Discharge Problem:
Syncope, Hypotension
Interventions
Interventions:
*Risk Screen - Suicide Last Done: 07/07/24 11:10
*General Assessment Last Done: 07/07/24 11:10
*ED- Fall Risk Assessment Last Done: 07/07/24 11:10
*ED COVID-19 Vaccine History Last Done: 07/07/24 11:10
ED- Pulmonary Assessment Last Done: 07/07/24 11:49
ED- Neurological Assessment Last Done: 07/07/24 11:49
ED- Cardiac Assessment Last Done: 07/07/24 11:49
ED Swallowing Screen Last Done: 07/07/24 11:49
[2024-07-07] MEDS: NSS 500 IV ×2 (11:34→11:35)
[2024-07-07 11:39] LABS: % Basophils 0.9 % (0-2); % Eosinophils 3.1 % (0-6); % Immature Granulocytes 0.7 % (0-0.5); % Lymphocytes 22.9 % (20.5-51.1); % Monocytes 15.4 % (1.7-9.3); Absolute Basophils 0.1 10^3/uL (0-0.2); Absolute Eosinophils 0.3 10^3/uL (0-0.7); Absolute Immature Granulocytes 0.1 10^3/uL (0-0.05); Absolute Lymphocytes 2.2 10^3/uL (1.2-3.4); Absolute Monocytes 1.5 10^3/uL (0.1-0.6); Absolute Neutrophils 5.5 10^3/uL (1.4-6.5); Hematocrit 31.2 % (37.0-47.0); Hemoglobin 10.2 g/dL (12.0-16.0); Mean Corp Hgb Conc. 32.7 g/dL (33.0-37.0); Mean Corpuscular Hgb 33.8 pg (27.0-31.0); Mean Corpuscular Volume 103.3 fL (81.0-99.0); Mean Platelet Volume 9.1 fL (7.4-10.4); Nucleated Red Blood Cells % 0 %; Platelet Count 293 10^3/uL (130-400); Red Blood Cell Count 3.02 10^6/uL (4.20-5.40); Red Cell Dist. Width 17.8 % (11.5-14.5); White Blood Cell Count 9.7 10^3/uL (4.8-10.8)
[2024-07-07] MEDS: LEVOPHED 250 IV (11:46)
[2024-07-07 11:55] LABS: ALT (SGPT) 23 U/L (0-35); AST (SGOT) 37 U/L (14-36); Albumin 3.4 g/dl (3.5-5.0); Alkaline Phosphatase 68 U/L (38-126); Blood Urea Nitrogen 15 mg/dl (7-17); Calcium 8.7 mg/dl (8.4-10.2); Carbon Dioxide 23 mmol/L (22-30); Chloride 113 mmol/L (98-107); Glucose 117 mg/dl (70-99); Potassium 4.4 mmol/L (3.5-5.1); Sodium 143 mmol/L (135-145); Total Bilirubin 0.6 mg/dl (0.2-1.3); Total Protein 6.1 g/dl (6.3-8.2); eGFR > 60.00
[2024-07-07 12:06] LABS: INR 0.98; PT 13.5 Sec (11.4-14.6); Troponin I 0.024 ng/ml
[2024-07-07 12:07] LABS: APTT 24.5 Sec (23.4-35.0)
--- NOTE | 2024-07-07 13:10 | HPS.HSE ---
Addendum entered and electronically signed by CARLTON Arreola 07/07/24 17:40:
Hypotension Hx and plan
Given changes with blood pressure
Will stop midodrine 5 mg 3 times daily scheduled and switch back to patient's home medication listed as midodrine 5 mg p.o. 3 times daily as needed SBP<140
May cancel critical care biodiesel operations manager consult as we no longer need to manage IV pressors
Addendum entered and electronically signed by CARLTON Arreola 07/07/24 16:34:
Received call at 1618 p.m. by Chelsie Dugan NP for vascular surgery Dr. Urbano who states the patient has Bilateral subclavian steal syndrome upper extremities they repaired the left side to be able to have accurate blood pressures for the patient. This
was never conveyed by the patient nor her family members that blood pressures can only be taken in her left arm. Her blood pressures had been taking in her right arm here with consistent hypotension and patient was placed on IV pressors.
We will discontinue all IV pressors ,downgrade to telemetry, monitor current blood pressure on telemetry. Nurse reports after stopping all pressors BP currently 160/69 we will continue to monitor.
Addendum medical problems list
#Subclavian steel Syndrome Right arm an right LEG
-CANNOT USE RIGHT ARM/or right lower extremity FOR BPS
#History of repaired subclavian steal syndrome left arm with subclavian bypass and stent
-May take blood pressures only in LEFT ARM
#Acute hypoxic respiratory insufficiency was secondary to right upper lobe pneumonia
91% on room air, 98% 2 L nasal cannula
-Continue IV vancomycin IV Zosyn given
CXR:New findings suggesting probable mild right upper pneumonia. Repeat exam in 2 weeks recommended after treatment to exclude an underlying
mass.
Original Note:
Family Physician
-
Family Physician: Kiana Dave
Chief Complaint
-
Brief episode left facial drooping with drooling, hypotension severe
History of Present Illness
84-year-old female while leaving her vascular surgeons office today she was sitting on her rolling walker and her son-in-law was pushing her into the elevator when she slumped over and lost consciousness for about 30 seconds. Her son states her
left face looked droopy and she was drooling. She came immediately to the ED when she arrived her facial and speech symptoms had resolved. She has past medical history of multiple strokes starting at age 30 with a massive stroke with baseline mild
expressive aphasia, however she is very clear when speaking with me. She does have history of vascular dementia but can recall recent events she has a little bit more difficulty with past medical history. According to her son-in-law Vinicius and
daughter Adina on the telephone they state she had this same symptom of facial droop with LOC and was admitted at [facility] where she had a workup for stroke versus seizure including an MRI and an EEG that were both negative. They are
unsure what her diagnosis was.
She is oriented to person place and time. She reports a dry cough for a couple weeks with some wheeze which is chronic per her son-in-law. She denies headache, fever, chills, chest pain, palpitations, shortness of breath, abdominal pain, nausea,
vomiting, diarrhea, blood in urine or stool, rash, sick contacts.
Status post her recent left subclavian stent and subclavian bypass on 312 she was sent to [facility] rehab from 06/30/24 yesterday 07/06/2024.
She has history of CHF with last EF 55-60%, carotid stenosis status post left carotid artery to subclavian artery bypass and left carotid and subclavian stent placement on 06/23/[address] Urbano. Other PMH includes Major CVA in her 30s, left mca
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
hypothyroidism, chronic heart failure preserved EF, GERD, COPD, glaucoma, history of DVT, osteoarthritis left knee wears Lidoderm patch, picks inside of nose as obsession per her son in law and daughter on phone, chronic ambulatory dysfunction uses
rollator at baseline
Medical History
Past Medical History
Past Medical History: Reports Other
Additional Past Medical History:
ASCVD (Major CVA in her 30s. Multiple smaller events since that time)
Seizure Disorder secondary to structural brain disease Started age 30's been on seizure meds now last 10 years
Vascular Dementia
Hypertension
Hypothyroidism
Chronic HFpEF
GERD
COPD
Glaucoma
History of DVT unknown years per family
CKD 3B
Left-sided carotid stenosis
Subclavian steal syndrome
picks inside of nose as obsession per her son in law and daughter via phone
Past Surgical History: Reports Other
Additional Past Surgical History:
Partial Hysterectomy
Right Femur ORIF
vein stripping 50 years ago
Carotid stenosis status post left carotid artery to subclavian artery bypass and left carotid and subclavian stent placement on 06/23/[address] Urbano during carotid pt required 2 units of prbc's
Social History
Tobacco: Former Smoker (Quit smoking in 1995)
Alcohol: None
Drug: None
Personal: Single
Living: With Family
Family History
Family History: Not pertinent
Allergies / Home Medications
Allergies reflects when Allergies were last updated in [employer].
Home Medications with original date entered in [employer]
Allergy/Medication List:
Allergies
Allergy/AdvReac Type Severity Reaction Status Date / Time
No Known Allergies Allergy Verified 07/07/24 11:10
Home Medications
carbamazepine 200 mg tablet 200 mg PO TID Seizures 01/09/17
levothyroxine 100 mcg tablet 100 mcg PO DAILY AT 0700 Thyroid 01/09/17
atorvastatin 40 mg tablet 40 mg PO HS High Cholesterol 05/29/23
brimonidine 0.2 %-timolol 0.5 % eye drops (Combigan) 1 drp LEFT EYE BID Eye Condition 05/29/23
brinzolamide 1 % eye drops,suspension 1 drp LEFT EYE BID Eye Condition 05/29/23
divalproex 250 mg tablet,delayed release 250 mg PO DAILY Seizures 05/29/23
donepezil 10 mg tablet 10 mg PO HS memory/dementia 05/29/23
latanoprost 0.005 % eye drops 1 drp BOTH EYES DAILY@2000 Eye Condition 05/29/23
trazodone 50 mg tablet 50 mg PO HS sleep 05/29/23
albuterol sulfate 90 mcg/actuation aerosol inhaler 2 puff inhalation R Q6HPRN PRN SOB 04/14/24
famotidine 20 mg tablet 40 mg PO HS Gastrointestinal Issue 04/14/24
umeclidinium 62.5 mcg-vilanterol 25 mcg/actuation powdr for inhalation (Anoro Ellipta) 1 inh inhalation R DAILY Lung/Breathing Issues 04/14/24
divalproex 250 mg tablet,delayed release 500 mg PO QPM Seizures 04/15/24
revefenacin 175 mcg/3 mL solution for nebulization (Yupelri) 175 mcg inhalation R DAILYPRN PRN only if cannot inhale anoro 04/15/24
formoterol with nebulizer 20 mcg/2 mL solution for nebulization 2 ml inhalation DAILYPRN PRN If cannot take Anoro 05/24/24
multivitamin 1 tab PO DAILY Supplement 05/24/24
clopidogrel 75 mg tablet 75 mg PO DAILY Blood Clot Prevention/Tx 06/23/24
aspirin 81 mg chewable tablet 81 mg PO DAILY Blood Clot Prevention/Tx 07/07/24
furosemide 20 mg tablet 20 mg PO MOWEFR Fluid Retention/Swelling 07/07/24
loratadine 10 mg tablet (Claritin) 10 mg PO DAILYPRN PRN ALLERGIES 07/07/24
midodrine 5 mg tablet 5 mg PO TIDPRN PRN SBP<140 07/07/24
potassium chloride 20 mEq tablet,extended release 20 meq PO DAILY Electrolyte Repletion 07/07/24
Review of Systems
-
History Source: Patient and Family (son in law and daughter on phone)
A 12 point ROS was completed and negative except as noted: Yes
Constitutional: Denies Fever or Chills
EENT: Reports Other (Right naris nosebleed after Q-tip light swab for COVID and flu patient has an ulceration on the medial aspect of nose present on admission); Denies Sore Throat
Respiratory: Reports Cough (Went sounding with expiratory wheeze) and Trouble Breathing
Cardiac: Reports Syncope (30 seconds with left-sided droop likely secondary to vasovagal syncope with severe hypotension); Denies Chest Pain, Diaphoresis or Palpitations
Abdomen/GI: Denies Abdominal Pain, Nausea, Vomiting, Diarrhea, Constipated or Bloody Stools
: Denies Dysuria, Frequency, Flank Pain, Incontinence or Difficulty Voiding
Musculoskeletal: Denies Joint Pain or Edema
Skin: Denies Itching or Rash
Neurological: Denies Dizzy, Headache or Weakness
Endocrine: Reports No Symptoms
Hematologic/Lymphatic: Reports No Symptoms
Psych: Reports Calm
Physical Exam
Vital Signs
Vital Signs
Temp Pulse Resp BP Pulse Ox
97.4 F 95 39 104/76 99
07/07/24 11:10 07/07/24 13:05 07/07/24 13:05 07/07/24 13:05 07/07/24 11:49
Physical Exam
General: Comfortable and Conversant; No Pain or Fever
HEENT: NormoCephalic, Anicteric, Moist mucous membranes, PERRLA, [place] Conjunctivae, No Ptosis, Neck Nontender and Other (No facial droop appreciated, tongue is midline, right naris with medial aspect ulceration POA that started bleeding post COVID
and flu light swab); No Pharyngeal Erythema
Respiratory: Rhonchi (Throughout both lung cuellar with expiratory wheezing)
Cardiac: S1/S2 and Regular Rhythm; No Murmur, Rub, Gallop or Peripheral Edema
Breast: Deferred by me
GI: Soft, Non Tender, Non Distended, Normal Bowel Sounds and No Hepatosplenomegaly
Genito-urinary: Deferred by me
Musculoskeletal: No Clubbing, No Cyanosis and No Edema
Skin: Warm and Dry; No Rash or Jaundice
Neuro: AO x 3 (Person, place, some of history but not all), No Motor Deficits (While in bed), Nonfocal/grossly intact, Cranial Nerves Intact and No Sensory Deficits; No Slurred Speech, Facial Droop, Tremors or Sedated
Psych: Calm
Laboratory Results
-
07/07/24 11:23
07/07/24 11:23
Laboratory Results
PT 13.5 Sec (11.4-14.6) 07/07/24 11:22
INR 0.98 07/07/24 11:22
APTT 24.5 Sec (23.4-35.0) 07/07/24 11:22
Total Bilirubin 0.6 mg/dl (0.2-1.3) 07/07/24 11:23
AST 37 U/L (14-36) H 07/07/24 11:23
ALT 23 U/L (0-35) 07/07/24 11:23
Alkaline Phosphatase 68 U/L (38-126) 07/07/24 11:23
Troponin I 0.024 ng/ml 07/07/24 11:22
Data Reviewed
-
Diagnostic Radiology: Report Reviewed by me
Lab Data: Labs Reviewed by me
Impression/Plan
-
Impression/plan:
Admit to ICU
#Brief LOC with facial droop likely secondary to vasovagal episode with current Severe hypotension
ASCVD (Major CVA in her 30s. Multiple smaller events since that time)
-Had left facial droop and LOC lasting 30 seconds
Had recent admission to [facility] beginning of June for above symptoms per son-in-law Vinicius negative MRI and negative EEG
-Obtain records from [facility] June 2024 admission including MRI and EEG results
-Consult Neurology
-Neurochecks every 4 hours
-Check CT brain
-continue aspirin 81 mg daily, atorvastatin 40 mg at bedtime, Plavix 75 mg daily
# Acute Hypotension unclear etiology concern for Pneumonia with bilateral interstitial opacities on cxr vs Viral(COVID/FLU) versus Bacterial source given recent left CEA, left carotid bypass/stent 2 weeks ago
#History Rrthostatic hypotension Dx 04/19/1910/01/2024
BP 60/38 on presentation > 104/76 status post 1 L IV NSS and pressor, limited on IV fluids secondary to possible CHF
-Hold Lasix 20 mg MOWEFR
-IV Levophed drip currently maxed at 12 mcg
-Will add Vasopressin 0.03mcg at constant rate
-Patient takes midodrine 5 mg 3 times daily as needed hold for SBP<140
-Continue midodrine 5 mg 3 times daily Was placed on prn midodrine [place] admit by Dr fernando
-Check COVID, influenza, blood cultures x 2, lactic acid, Pro-Rakan
-Check BNP
-Will give IV vancomycin, IV Zosyn
#Right naris epistaxis due to right Nares ulceration on the medial aspect of that nostril likely due to nose picking
Picks inside of nose as obsession per her son in law and daughter via phone
-Did examine with scope there is no obvious anterior bleed there is no concern for posterior bleed no blood dripping down back of throat
-Will apply silver nitrate
#History of Left carotid stenosis/subclavian steal syndrome
#S/p Carotid stenosis status post left carotid artery to subclavian artery bypass and left carotid and subclavian stent placement on 06/23/[address] Urbano during carotid pt required 2 units of PRBC's
-Patient had follow-up with Dr. Urbano today 07/07/2024 in office
#Seizure Disorder secondary to structural brain disease
-Check valproic acid level
-Continue divalproex acid to 50 mg in a.m., 500 mg every afternoon
-Continue carbamazepine 200 mg p.o. 3 times daily
-Check Depakote and Tegretol levels
#Vascular Dementia
Patient oriented to person place time but not all of her history
-Continue donepezil 10 mg at bedtime
#Hypothyroidism
-Check TSH with free T4
-Continue levothyroxine 100 mcg p.o. daily
#Chronic diastolic HFpEF
I/O, daily weights
-Hold furosemide 20 mg MOWEFR
2D echo 04/16/2024: EF 55-60%, no wall abnormalities, mild to moderate MR, mild TR, PASP 35-40 mmHg
#GERD
-Continue Pepcid 40 mg at bedtime
#COPD-no acute exacerbation
-Continue Anoro Ellipta daily albuterol inhaler every 6 hours as needed
-Continue Yupelri 1 seven 5 mcg daily inhalation if unable to tolerate Anoro patient may use own
#Glaucoma
-Continue latanoprost 1 drop both eyes daily at 8 Combigan left eye twice daily, brinzolamide left eye twice daily
#History of DVT many years ago family cannot recall
#Seasonal allergies
-Continue Claritin 10 mg daily
#Chronic ambulatory dysfunction
-Uses rollator at baseline
#Insomnia
-Continue trazodone hold if severe sedation
DVT prophylaxis
SCDs
DNR per daughter Adina WINSLOW and Vinicius son-in-law via phone
[2024-07-07 14:03] LABS: Tegretol (Carbamazepine) 7.8 ug/ml (4-12)
[2024-07-07 14:04] LABS: Depakane 39.2 ug/ml (50.0-120.0)
[2024-07-07 14:17] LABS: COVID-19 Antigen Negative (Negative)
[2024-07-07] MEDS: SILVER NITRATE APPLICATOR 1 EACH TOPICAL (14:26)
--- NOTE | 2024-07-07 14:36 | W.PN.UPDATE ---
Update Note
Progress Note Update
This is a an addendum to H&P written by Fawn Melo on 07/07/2024. Patient seen examined independent with PIER RUNNER.
84-year-old female past medical history of left carotid artery stenosis status post stent and subclavian artery bypass in 06/23 on aspirin, vascular dementia, CVA in 30s, multiple strokes, seizures, hypothyroidism, HFpEF, GERD, COPD, former smoker,
glucoma, DVT, presenting with hypotension. She was at vascular surgeons office today for follow-up after carotid/subclavian surgery and she slumped over and lost consciousness with left facial droop and drooling. Symptoms resolved here.
Dry cough for few weeks. No other infectious symptoms.
She had epistaxis from right nostril. Patient has cough with coarse rhonchi bilaterally on examination. Patient on 2 L of oxygen.
Patient hypotensive requiring IV fluids Levophed.
Concerning for potential sepsis from bacterial pneumonia versus COVID/influenza resulted in syncopal episode. Left neck incision site appears clean and crusted over, no clear reason that should be the source of potential bacteria. Doubt CVA but
may have had stroke recrudescence symptoms from hypotension. Presentation not consistent with cardiogenic shock either.
Check COVID and flu. Check blood cultures. Check cardiac BNP. Check lactic acid, calcitonin. Check urinalysis. Vancomycin/Zosyn. Hold off further fluids for now until cardiac BNP, chest x-ray report available.
[2024-07-07 14:41] LABS: Lactic Acid 1.2 mmol/L (0.7-2.0)
[2024-07-07 14:48] LABS: NT-proBNP 1750 pg/ml
[2024-07-07] MEDS: ZOSYN 50 IV ×2 (15:32→21:32)
[2024-07-07] MEDS: VANCOCIN 530 MG IV (15:32)
[2024-07-07] MEDS: ProAmatine 5 MG PO (15:35)
[2024-07-07] MEDS: PITRESSIN 100 IV (15:36)
--- NOTE | 2024-07-07 16:16 | PHA.VAN.IN ---
Assessment
- Assessment
Renal Function: Appears similar to baseline
Concomitant Antimicrobials: piperacillin/tazobactam
AUC Dosing Plan
- Dosing Variables
Dosing Weight (kg): 69
Dosing CrCl (ml/min): 42
Vd coefficient (L/kg): 0.7
- Empiric Dosing
Initial / Loading Dose: 1500mg - 07/07 15:32
Maintenance Regimen: Vanc 750mg Q24H starting 07/08 0600
Estimated AUC (mcg*h/mL): 403
Estimated Peak (mcg*h/mL): 25.4
Estimated Trough (mcg/ml): 10.3
Estimated Half Life (H): 17.7
- Monitoring
No levels ordered at this time: consider levels in next few days
MRSA Screen: Ordered per protocol
Pharmacokinetics Vancomycin I
- -
Patient Age: 84
Patient Sex: Female
Vancomycin Day #: 1
Indication: Pulmonary/Respiratory
Requesting Provider: Chris Melo
Pertinent Antimicrobial Allergies:
NKDA
Height / Weight:
Height 5 ft 5 in
Actual Weight 69.1 kg
- Vital Signs / Lab Results
Temp Pulse Resp BP Pulse Ox
97.4 F 105 23 99/70 95
07/07/24 11:10 07/07/24 15:45 07/07/24 15:45 07/07/24 15:45 07/07/24 15:45
Lab Results - Hematology
07/07/24
11:23
WBC 9.7
Lab Results - Chemistry
07/07/24
11:23
BUN 15
Creatinine 0.9
Albumin 3.4 L
07/07/24
14:04
Lactic Acid 1.2
Microbiology Results
07/07/24 13:40 Influenza Types A & B (LAURA) - Final
Nasal Swab Negative for Influenza A & B, NAAT
Negative results must be combined with clinical observations
and patient history.
Nucleic Acid Amplification test (NAAT)performed on the
[employer] platform.
[2024-07-07 18:59] LABS: Procalcitonin < 0.05 ng/ml (0.0-0.25)
[2024-07-07] MEDS: ALPHAGAN 0.2% EYE DROPS 1 DROP LEFT EYE (20:06)
[2024-07-07] MEDS: DEPAKOTE (12 HR RELEASE) 500 MG PO (20:06)
[2024-07-07] MEDS: AZOPT 1% OPHTHALMIC SUSPENSION 1 DROP LEFT EYE (20:07)
[2024-07-07] MEDS: ARICEPT 10 MG PO (20:07)
[2024-07-07] MEDS: TIMOPTIC 0.5% OPHTHALMIC SOLUTION 1 DROP LEFT EYE (20:07)
[2024-07-07] MEDS: XALATAN OPHTHALMIC SOLUTION 1 DROP BOTH EYES (20:07)
[2024-07-07] MEDS: TEGRETOL 200 MG PO (20:08)
[2024-07-07] MEDS: PEPCID 40 MG PO (21:31)
[2024-07-07] MEDS: LIPITOR 40 MG PO (21:31)
[2024-07-08] VITALS (9 sets, daily range): BP systolic 102–145; BP diastolic 49–71; PULSE 84–108; O2SAT 98; BMI 21.0
[2024-07-08 00:09] LABS: Urine Albumin Negative (Neg - Trace); Urine Bilirubin Negative (Negative); Urine Character Clear (Clear); Urine Color Yellow; Urine Glucose Negative (Negative); Urine Ketone Negative (Negative); Urine Leukocyte Negative (Negative); Urine Nitrite Negative (Negative); Urine Occult Blood Negative (Negative); Urine Urobilinogen Negative (Neg - 1+)
[2024-07-08] MEDS: DESYREL PO (03:52)
[2024-07-08] MEDS: SYNTHROID 100 MCG PO (05:01)
[2024-07-08] MEDS: ZOSYN 50 IV ×4 (05:01→23:50)
[2024-07-08] MEDS: VANCOCIN 150 IV (05:46)
[2024-07-08] MEDS: SPIRIVA RESPIMAT 2.5 MCG 2 PUFF INH (07:10)
[2024-07-08] MEDS: STRIVERDI RESPIMAT 2 PUFF INH (07:10)
[2024-07-08 07:16] LABS: % Basophils 0.5 % (0-2); % Eosinophils 3.2 % (0-6); % Immature Granulocytes 0.6 % (0-0.5); % Lymphocytes 16.1 % (20.5-51.1); % Monocytes 15.3 % (1.7-9.3); % Neutrophils 64.3 % (42.2-75.2); Absolute Eosinophils 0.3 10^3/uL (0-0.7); Absolute Immature Granulocytes 0.1 10^3/uL (0-0.05); Absolute Lymphocytes 1.4 10^3/uL (1.2-3.4); Absolute Monocytes 1.3 10^3/uL (0.1-0.6); Absolute Neutrophils 5.4 10^3/uL (1.4-6.5); Hematocrit 29.7 % (37.0-47.0); Hemoglobin 9.8 g/dL (12.0-16.0); Mean Corpuscular Hgb 33.6 pg (27.0-31.0); Mean Corpuscular Volume 101.7 fL (81.0-99.0); Mean Platelet Volume 9.1 fL (7.4-10.4); Nucleated Red Blood Cells % 0 %; Platelet Count 272 10^3/uL (130-400); Red Blood Cell Count 2.92 10^6/uL (4.20-5.40); Red Cell Dist. Width 17.8 % (11.5-14.5); White Blood Cell Count 8.4 10^3/uL (4.8-10.8)
[2024-07-08 07:55] LABS: ALT (SGPT) 18 U/L (0-35); AST (SGOT) 27 U/L (14-36); Albumin 2.7 g/dl (3.5-5.0); Alkaline Phosphatase 65 U/L (38-126); Blood Urea Nitrogen 13 mg/dl (7-17); Calcium 8.2 mg/dl (8.4-10.2); Carbon Dioxide 25 mmol/L (22-30); Chloride 114 mmol/L (98-107); Estimated Creatinine Clearance 42 ml/min; Glucose 85 mg/dl (70-99); HDL Cholesterol 48 mg/dl; LDL Cholesterol, Calculated 45 mg/dl; Magnesium 2.2 mg/dl (1.6-2.3); Potassium 3.8 mmol/L (3.5-5.1); Sodium 146 mmol/L (135-145); Total Bilirubin 0.5 mg/dl (0.2-1.3); Total Cholesterol 108 mg/dl (50-199); Total Protein 5.1 g/dl (6.3-8.2); Triglyceride 79 mg/dl (10-149); Very Low Density Lipoprotein 15 mg/dl (0-30); eGFR > 60.00
[2024-07-08 08:08] LABS: TSH Reflex To Free T4 1.43 uIU/ml (0.47-4.68)
[2024-07-08] MEDS: AZOPT 1% OPHTHALMIC SUSPENSION 1 DROP LEFT EYE ×2 (09:16→19:41)
[2024-07-08] MEDS: TIMOPTIC 0.5% OPHTHALMIC SOLUTION 1 DROP LEFT EYE ×2 (09:16→19:41)
[2024-07-08] MEDS: DEPAKOTE (12 HR RELEASE) 250 MG PO ×3 (09:17→16:44)
[2024-07-08] MEDS: LOW STRENGTH ASPIRIN 81 MG PO (09:17)
[2024-07-08] MEDS: PLAVIX 75 MG PO (09:17)
[2024-07-08] MEDS: ALPHAGAN 0.2% EYE DROPS 1 DROP LEFT EYE ×2 (09:19→19:41)
[2024-07-08] MEDS: TEGRETOL 200 MG PO ×3 (10:00→21:16)
--- NOTE | 2024-07-08 10:03 | PHA.VAN.FU ---
Vancomycin Assessment / Plan
- Assessment
Renal Function: Stable
WBC's are: WNL
In the past 24 hrs, patient has been: Afebrile
Concomitant Antimicrobials: piperacillin/tazobactam
- Dosing Plan
Continue: Vanc 750mg Q24H
- Monitoring Plan
No level(s) ordered at this time: consider levels in next few days
- Follow Up
Pharmacy will continue to follow.
Vancomycin Follow UP
- -
Patient Age: 84
Patient Sex: Female
Vancomycin Day #: 2
Indication: Pulmonary/Respiratory
Requesting Provider: Chris Melo
Pertinent Antimicrobial Allergies:
NKDA
Height / Weight:
Height 5 ft 5 in
Actual Weight 57.266 kg
- Vital Signs / Lab Results
Temp Pulse Resp BP Pulse Ox
97.9 F 86 18 145/71 93
07/08/24 07:30 07/08/24 07:30 07/08/24 07:30 07/08/24 07:30 07/08/24 07:30
Lab Results - Hematology
07/07/24 07/08/24
11:23 06:08
WBC 9.7 8.4
Lab Results - Chemistry
07/07/24 07/08/24
11:23 06:08
BUN 15 13
Creatinine 0.9 0.9
Estimated Creat Clear 42
Albumin 3.4 L 2.7 L
07/07/24
14:04
Lactic Acid 1.2
Lab Results - Urine
07/08/24
00:02
Urine Nitrite (Reflex) Negative
Leukocyte Esterase Rfl Negative
Microbiology Results
07/07/24 23:57 Nasal Screen MRSA (PCR) - Final
Nose
07/07/24 13:40 Influenza Types A & B (LAURA) - Final
Nasal Swab Negative for Influenza A & B, NAAT
Negative results must be combined with clinical observations
and patient history.
Nucleic Acid Amplification test (NAAT)performed on the
[employer] platform.
--- NOTE | 2024-07-08 11:24 | CM ---
Addendum entered by Anay Smiley 07/08/24 11:55:
Spoke with patients daughter Adina, she was very unhappy with the care her mother received at [facility] rehab ([facility]) and declined alternate facilities. Daughter will care for mother in the home with [facility].
Spoke with liaison for [facility]- current with [place] office.
Plan: home with [facility] when stable
[facility]
fax# [phone]
Original Note:
Patient seen bedside sitting in chair.
Patient IA completed.
patient lives with daughter and son in law in a 2nd floor apartment with elevator access.
Patient ambulates with a RW.
Does not drive.
Patient stated she had VN in the past, looks like [facility], will place referral via [facility].
Family will transport home.
PT recommending home with home care.
PCP: Dr Dave
Pharmacy: [facility]
Plan: home with [facility]
--- NOTE | 2024-07-08 15:33 | W.PN.HOSP.TC ---
Addendum entered and electronically signed by Martell Roblero DO 07/09/24 12:41:
Patient had hypotension only not shock, hypotension most likely due to hypovolemia. She was not septic as initially suspected and sepsis has now been ruled out.
Original Note:
Today's Communication/Plan
-
Assessment / Plan
Assessment / Plan
General: No Apparent Distress, Comfortable and Conversant
HEENT: NormoCephalic, Moist mucous membranes, Atraumatic
Respiratory: Clear and Non Labored Respirations
Cardiac: S1/S2 and Regular Rhythm; No Rub or Gallop
GI: Soft, Non Tender, Non Distended and Normal Bowel Sounds
Musculoskeletal: No Edema, no deformity
Skin: Warm, dry, left chest surgical incision clean dry intact
: NO Calero
Neuro: Awake, Alert, Nonfocal/grossly intact
Psych: Calm, confused
Ms. Wallace is a 84-year-old female with a medical history of carotid stenosis (left carotid to subclavian artery bypass and stent placement 06/23/[address] Urbano), HFpEF, vascular dementia, chronic hypotension (takes midodrine as needed for SBP less
than 140), CKD stage IIIb, COPD, subclavian steal syndrome (can only obtain accurate blood pressure and left arm), stroke (in her 30s, residual mild expressive aphasia), seizure disorder, and hypothyroidism who presented following an episode of
syncope. There was some concern about a possible left facial droop which apparently had completely resolved by the time she arrived in the ED. Her mental status appears to have recovered to her baseline. There was initially some concern for
septic shock secondary to pneumonia due to low blood pressure readings and chest imaging showing possible right-sided pneumonia. She was started on broad-spectrum antibiotics and vasopressors. However vasopressors were later discontinued after
staff was informed blood pressure readings are only accurate in her left upper extremity due to history of subclavian steal syndrome, now with left carotid to subclavian bypass and stenting which allows for accurate blood pressure readings in her
left upper extremity. She has been admitted for evaluation and treatment of syncope and suspected pneumonia.
Syncope:
-Witnessed loss of consciousness in physicians office prior to admission
-Recovered consciousness and is at baseline mental status with no specific intervention
-Likely the patient was hypovolemic in the setting of poor recent p.o. intake and possible developing pneumonia
-Will continue to check orthostatic vital signs which have been normal so far and patient has remained asymptomatic with ambulation
-Plan for discharge to home with family and home health care when otherwise medically stable
Pneumonia:
-Chest imaging suggestive of right-sided pneumonia
-Respiratory panel negative for COVID-19 and influenza
-Will continue broad-spectrum antibiotics for now
-Follow-up MRSA swab, strep pneumo and Legionella urinary antigens
-Give fluids cautiously as needed considering history of HFpEF
-Currently not requiring supplemental oxygen, will monitor
Carotid and subclavian artery disease:
-Status post recent left carotid to subclavian artery bypass and stent placement 06/23/[address] Urbano
-Continue DAPT with aspirin and Plavix, high intensity statin
-Accurate blood pressure readings can only be obtained in left upper extremity
Cerebrovascular disease:
-Remote history of massive stroke in her 30s with subsequent seizure disorder and residual expressive aphasia
-Already on DAPT and statin for her carotid artery disease
-At baseline, monitor
Seizure disorder:
-Continue home carbamazepine 200 mg p.o. 3 times daily and valproate 250 mg in the morning and 500 mg at night
-Stable
HFpEF:
-Stable
-Uses diuretic sparingly 3 times a week at home, currently on hold as she appeared hypovolemic
-Is not on afterload reduction and in fact is on midodrine as needed for SBP less than 140 which we will continue
-Does not appear to be on beta-rhonda as an outpatient, will defer to her primary toter
COPD:
-Currently stable respiratory status and-continue scheduled breathing treatments with additional as needed
CODE STATUS:
Anticipated Discharge: 24 - 48 hours
Subjective/Interval History
-
Date of Service: July 08, 2024
Patient was seen and examined at bedside this morning. Comfortable and eating breakfast. No acute distress.
Objective Data
-
Labs:
Laboratory Results
07/08/24
06:08
WBC 8.4
Hgb 9.8 L
Hct 29.7 L
Plt Count 272
Sodium 146 H
Potassium 3.8
Chloride 114 H
Carbon Dioxide 25
BUN 13
Creatinine 0.9
Glucose 85
Calcium 8.2 L
Total Bilirubin 0.5
AST 27
ALT 18
Alkaline Phosphatase 65
Vital Signs:
Vital Signs
Temp Pulse Resp BP Pulse Ox
97.8 F 68 18 113/51 92
07/08/24 11:05 07/08/24 11:05 07/08/24 11:05 07/08/24 11:05 07/08/24 11:05
I&O
07/07/24 07/08/24 07/09/24
06:59 06:59 06:59
Intake Total 250 / 250
Output Total 150 / 150
Balance 100 / 100
Review of Systems
-
Unable to obtain full review of systems at this time due to: Dementia
History Source: Patient
All other systems: Reviewed and negative
Physical Exam
-
General: No Apparent Distress
[2024-07-08] MEDS: DEPAKOTE (12 HR RELEASE) 500 MG PO (17:00)
--- NOTE | 2024-07-08 17:10 | PTCARENOTE ---
As per hospitalist (see verbal order from earlier today), discontinue NIH/Neuro checks.
[2024-07-08] MEDS: XALATAN OPHTHALMIC SOLUTION 1 DROP BOTH EYES (19:41)
[2024-07-08] MEDS: ARICEPT 10 MG PO (21:15)
[2024-07-08] MEDS: LIPITOR 40 MG PO (21:15)
[2024-07-08] MEDS: PEPCID 20 MG PO (21:15)
[2024-07-08] MEDS: DESYREL 50 MG PO (21:16)
[2024-07-09] VITALS (8 sets, daily range): BP systolic 79–166; BP diastolic 48–90; PULSE 77–100; O2SAT 95; BMI 22.0
[2024-07-09] MEDS: SYNTHROID 100 MCG PO (04:49)
[2024-07-09] MEDS: ZOSYN 50 IV ×2 (04:49→12:25)
[2024-07-09] MEDS: VANCOCIN 150 IV (05:04)
[2024-07-09] MEDS: STRIVERDI RESPIMAT 2 PUFF INH (07:15)
[2024-07-09] MEDS: SPIRIVA RESPIMAT 2.5 MCG 2 PUFF INH (07:16)
[2024-07-09 08:26] LABS: % Basophils 0.5 % (0-2); % Eosinophils 5.1 % (0-6); % Immature Granulocytes 0.4 % (0-0.5); % Lymphocytes 21.5 % (20.5-51.1); % Monocytes 15.8 % (1.7-9.3); % Neutrophils 56.7 % (42.2-75.2); Absolute Eosinophils 0.4 10^3/uL (0-0.7); Absolute Lymphocytes 1.7 10^3/uL (1.2-3.4); Absolute Monocytes 1.2 10^3/uL (0.1-0.6); Absolute Neutrophils 4.4 10^3/uL (1.4-6.5); Hematocrit 26.9 % (37.0-47.0); Hemoglobin 9.5 g/dL (12.0-16.0); Mean Corp Hgb Conc. 35.3 g/dL (33.0-37.0); Mean Corpuscular Hgb 34.5 pg (27.0-31.0); Mean Corpuscular Volume 97.8 fL (81.0-99.0); Mean Platelet Volume 9.5 fL (7.4-10.4); Nucleated Red Blood Cells % 0 %; Platelet Count 219 10^3/uL (130-400); Red Blood Cell Count 2.75 10^6/uL (4.20-5.40); Red Cell Dist. Width 17.5 % (11.5-14.5); White Blood Cell Count 7.7 10^3/uL (4.8-10.8)
[2024-07-09 09:48] LABS: ALT (SGPT) 17 U/L (0-35); AST (SGOT) 23 U/L (14-36); Albumin 2.7 g/dl (3.5-5.0); Alkaline Phosphatase 65 U/L (38-126); Blood Urea Nitrogen 15 mg/dl (7-17); Calcium 8.5 mg/dl (8.4-10.2); Carbon Dioxide 25 mmol/L (22-30); Chloride 111 mmol/L (98-107); Estimated Creatinine Clearance 38 ml/min; Glucose 86 mg/dl (70-99); Potassium 3.6 mmol/L (3.5-5.1); Sodium 142 mmol/L (135-145); Total Bilirubin 0.5 mg/dl (0.2-1.3); Total Protein 5.1 g/dl (6.3-8.2); eGFR 55.55
[2024-07-09] MEDS: LOW STRENGTH ASPIRIN 81 MG PO (10:00)
[2024-07-09] MEDS: TEGRETOL 200 MG PO ×3 (10:00→20:52)
[2024-07-09] MEDS: PLAVIX 75 MG PO (10:00)
[2024-07-09] MEDS: DEPAKOTE (12 HR RELEASE) 250 MG PO (10:01)
[2024-07-09] MEDS: ALPHAGAN 0.2% EYE DROPS 1 DROP LEFT EYE ×2 (10:02→19:18)
[2024-07-09] MEDS: TIMOPTIC 0.5% OPHTHALMIC SOLUTION 1 DROP LEFT EYE ×2 (10:02→19:18)
[2024-07-09] MEDS: AZOPT 1% OPHTHALMIC SUSPENSION 1 DROP LEFT EYE ×2 (10:02→19:18)
--- NOTE | 2024-07-09 10:23 | PHA.VAN.FU ---
Vancomycin Assessment / Plan
- Assessment
Renal Function: Stable
WBC's are: WNL
In the past 24 hrs, patient has been: Afebrile
Concomitant Antimicrobials: zosyn
- Dosing Plan
Continue: vancomycin 750 mg q24h
- Monitoring Plan
Peak Level: 07/10 @08:30
Trough Level: 07/11 @05:30
- Follow Up
Pharmacy will continue to follow.
Vancomycin Follow UP
- -
Patient Age: 84
Patient Sex: Female
Vancomycin Day #: 3
Indication: Pulmonary/Respiratory
Requesting Provider: Chris Melo
Pertinent Antimicrobial Allergies:
NKDA
Height / Weight:
Height 5 ft 5 in
Actual Weight 60.044 kg
- Vital Signs / Lab Results
Temp Pulse Resp BP Pulse Ox
97.5 F 86 16 133/69 97
07/09/24 07:55 07/09/24 07:55 07/09/24 07:55 07/09/24 07:55 07/09/24 07:55
Lab Results - Hematology
07/07/24 07/08/24 07/09/24
11:23 06:08 06:51
WBC 9.7 8.4 7.7
Lab Results - Chemistry
07/07/24 07/08/24 07/09/24
11:23 06:08 06:51
BUN 15 13 Cancelled
Creatinine 0.9 0.9 Cancelled
Estimated Creat Clear 42 Cancelled
Albumin 3.4 L 2.7 L Cancelled
07/09/24
09:25
BUN 15
Creatinine 1.0
Estimated Creat Clear 38
Albumin 2.7 L
07/07/24
14:04
Lactic Acid 1.2
Microbiology Results
07/07/24 23:57 Nasal Screen MRSA (PCR) - Final
Nose
07/07/24 13:40 Influenza Types A & B ([facility]URA) - Final
Nasal Swab Negative for Influenza A & B, NAAT
Negative results must be combined with clinical observations
and patient history.
Nucleic Acid Amplification test (NAAT)performed on the
[employer] platform.
--- NOTE | 2024-07-09 12:10 | PN.CDI ---
CDI
- -
CDI:
Physician Documentation Request
Admit Date: 07/07/24 15:37
Dear Doctor Annika ,
Please review the following and provide your response in the progress notes.
Current documentation includes a diagnosis of hypotension.
Clinical Indicators:
Pt admitted with Orthostatic hypotension/ Syncope / concern for bacterial pneumonia
Documented per ED, ' BP 79/56 on initial exam. ...Patient requiring Levophed for blood pressure support. Unclear etiology of hypotension....'
Documented per H&P, ' BP 60/38 on presentation > 104/76 status post 1 L IV NSS and pressor, limited on IV fluids secondary to possible CHF...-IV Levophed drip currently maxed at 12 mcg Will add Vasopressin 0.03mcg at constant rate Patient takes
midodrine 5 mg 3 times daily as needed hold for SBP<140...'
Progress note 07/08, ' Likely the patient was hypovolemic in the setting of poor recent p.o. intake and possible developing pneumonia...'
Selected Entries
07/07/24
11:30 07/07/24
11:43 07/07/24
11:48
Blood pressure 60/38 66/33
MAP (cuff-Tonio Monitor) 47 46 45
07/07/24
11:55 07/07/24
12:00 07/07/24
14:05
Blood pressure 63/31 66/58
MAP (cuff-Tonio Monitor) 42 54
07/07/24
14:35 07/07/24
15:35 07/07/24
15:55
Blood pressure 79/58 68/58
MAP (cuff-Tonio Monitor) 53
07/07/24
16:00 07/07/24
17:25 07/09/24
04:42
Blood pressure 79/53 79/48
MAP (cuff-Tonio Monitor) 55
Please clarify which of the following is the most likely etiology of the above symptoms and treatment rendered/IV pressors:
Hypovolemic shock
Septic Shock
Hypotension only
Other ( please specify)
Use of terms such as suspected, likely, concern for, or probable (associated with a specific diagnosis that is being evaluated, monitored, or treated as if it exists) are acceptable and can be coded in the inpatient setting, when documented at the
time of discharge.
Thank you,
Vicki Lechuga RN
CDI Specialist
[place] [facility]
Please use your independent medical judgment in providing your response.
--- NOTE | 2024-07-09 12:29 | PN.CDI ---
CDI
- -
CDI:
Physician Documentation Request
Admit Date: 07/07/24 15:37
Dear Doctor Annika,
Please review the following and provide your response in the progress notes.
Clinical Indicators:
Pt admitted with Orthostatic hypotension/ Syncope / concern for bacterial pneumonia
Documented per update note 07/07 ,' Concerning for potential sepsis from bacterial pneumonia versus COVID/influenza resulted in syncopal episode. ...'
On admission HR 109, Respirations 39
Please update the status of sepsis documented in update note:
Sepsis-POA till being monitored/treated
- Systemic manifestations of infection, with 2 or more SIRS criteria which include:
- Fever >100.4 degrees F or hypothermia < 96.8 degrees F
- Leukocytosis - WBC > 12,000 or leukopenia - WBC < 4,000 or > 10% bands
- Tachycardia > 90 beats per minute
- Tachypnea - RR > 20 breaths per minute or PaCO2 , 32mmHg
Source: Merck Manual 2013
Sepsis-POA -resolved
Sepsis -ruled out
Other ( please specify)
Use of terms such as suspected, likely, concern for, or probable (associated with a specific diagnosis that is being evaluated, monitored, or treated as if it exists) are acceptable and can be coded in the inpatient setting, when documented at the
time of discharge.
Thank you,
Vicki Lechuga RN
CDI Specialist
[place] [facility]
Please use your independent medical judgment in providing your response.
--- NOTE | 2024-07-09 13:47 | CM ---
Addendum entered by Anay Smiley 07/09/24 14:05:
IMM copy emailed to
Original Note:
Patient seen bedside.
IMM reviewed with daughter Adina via phone.
[facility] arranged and aware d/c is for tomorrow.
TT to MD, tentative d/c tomorrow.
Patients son in law will transport.
Plan: home with [facility]
Juan Carlos
fax# [phone]
--- NOTE | 2024-07-09 14:22 | W.PN.HOSP.TC ---
Today's Communication/Plan
-
Assessment / Plan
Assessment / Plan
General: No Apparent Distress, Comfortable and Conversant
HEENT: NormoCephalic, Moist mucous membranes, Atraumatic
Respiratory: Clear and Non Labored Respirations
Cardiac: S1/S2 and Regular Rhythm; No Rub or Gallop
GI: Soft, Non Tender, Non Distended and Normal Bowel Sounds
Musculoskeletal: No Edema, no deformity
Skin: Warm, dry, left chest surgical incision clean dry intact
: NO Calero
Neuro: Awake, Alert, Nonfocal/grossly intact
Psych: Calm, confused
Ms. Wallace is a 84-year-old female with a medical history of carotid stenosis (left carotid to subclavian artery bypass and stent placement 06/23/[address] Urbano), HFpEF, vascular dementia, chronic hypotension (takes midodrine as needed for SBP less
than 140), CKD stage IIIb, COPD, subclavian steal syndrome (can only obtain accurate blood pressure and left arm), stroke (in her 30s, residual mild expressive aphasia), seizure disorder, and hypothyroidism who presented following an episode of
syncope. There was some concern about a possible left facial droop which apparently had completely resolved by the time she arrived in the ED. Her mental status appears to have recovered to her baseline. There was initially some concern for
septic shock secondary to pneumonia due to low blood pressure readings and chest imaging showing possible right-sided pneumonia. She was started on broad-spectrum antibiotics and vasopressors. However vasopressors were later discontinued after
staff was informed blood pressure readings are only accurate in her left upper extremity due to history of subclavian steal syndrome, now with left carotid to subclavian bypass and stenting which allows for accurate blood pressure readings in her
left upper extremity. She has been admitted for evaluation and treatment of syncope and suspected pneumonia.
Syncope:
-Witnessed loss of consciousness in physicians office prior to admission
-Recovered consciousness and returned to baseline mental status with no specific intervention
-Likely the patient was hypovolemic in the setting of poor recent p.o. intake and possible developing pneumonia
-Orthostatic vital signs normal, no recurrent syncope
-Plan for discharge to home with family and home health care
Pneumonia:
-Chest imaging suggestive of right-sided pneumonia
-Respiratory panel negative for COVID-19 and influenza, MRSA swab negative
-Will transition antibiotics to cefuroxime to complete a 5-day course
-Currently not requiring supplemental oxygen, will monitor
Carotid and subclavian artery disease:
-Status post recent left carotid to subclavian artery bypass and stent placement 06/23/[address] Urbano
-Continue DAPT with aspirin and Plavix, high intensity statin
-Accurate blood pressure readings can only be obtained in left upper extremity
Cerebrovascular disease:
-Remote history of massive stroke in her 30s with subsequent seizure disorder and residual expressive aphasia
-Already on DAPT and statin for her carotid artery disease
-At baseline, monitor
Seizure disorder:
-Continue home carbamazepine 200 mg p.o. 3 times daily and valproate 250 mg in the morning and 500 mg at night
-Stable
HFpEF:
-Stable
-Uses diuretic sparingly 3 times a week at home, currently on hold as she appeared hypovolemic
-Is not on afterload reduction and in fact is on midodrine as needed for SBP less than 140 which we will continue
-Does not appear to be on beta-rhonda as an outpatient, will defer to her primary database manager
COPD:
-Currently stable respiratory status and-continue scheduled breathing treatments with additional as needed
CODE STATUS:
Anticipated Discharge: 24 - 48 hours
Subjective/Interval History
-
Date of Service: July 09, 2024
Patient was seen and examined at bedside this morning. Feeling well and vital signs remained stable.
Objective Data
-
Labs:
Laboratory Results
07/09/24 07/09/24
06:51 09:25
WBC 7.7
Hgb 9.5 L
Hct 26.9 L
Plt Count 219
Sodium Cancelled 142
Potassium Cancelled 3.6
Chloride Cancelled 111 H
Carbon Dioxide Cancelled 25
BUN Cancelled 15
Creatinine Cancelled 1.0
Glucose Cancelled 86
Calcium Cancelled 8.5
Total Bilirubin Cancelled 0.5
AST Cancelled 23
ALT Cancelled 17
Alkaline Phosphatase Cancelled 65
Vital Signs:
Vital Signs
Temp Pulse Resp BP Pulse Ox
97.4 F 77 18 121/90 98
07/09/24 11:55 07/09/24 11:55 07/09/24 11:55 07/09/24 11:55 07/09/24 11:55
I&O
07/08/24 07/09/24 07/10/24
06:59 06:59 06:59
Intake Total 250 / 250 980 / 980 180 / 180
Output Total 150 / 150
Balance 100 / 100 980 / 980 180 / 180
Review of Systems
-
History Source: Patient
All other systems: Reviewed and negative
Physical Exam
-
General: No Apparent Distress
[2024-07-09] MEDS: DEPAKOTE (12 HR RELEASE) 500 MG PO (17:59)
[2024-07-09] MEDS: XALATAN OPHTHALMIC SOLUTION 1 DROP BOTH EYES (19:18)
[2024-07-09] MEDS: CEFTIN 500 MG PO ×2 (19:18→20:52)
[2024-07-09] MEDS: ARICEPT 10 MG PO (20:52)
[2024-07-09] MEDS: LIPITOR 40 MG PO (20:52)
[2024-07-09] MEDS: DESYREL 50 MG PO (20:52)
[2024-07-10 03:12] VITALS: BP 132/53
[2024-07-10] MEDS: SYNTHROID 100 MCG PO (04:54)
[2024-07-10 06:00] VITALS: BMI 21.5
[2024-07-10 06:30] LABS: % Basophils 0.6 % (0-2); % Immature Granulocytes 0.4 % (0-0.5); % Lymphocytes 27.9 % (20.5-51.1); % Monocytes 16.8 % (1.7-9.3); % Neutrophils 48.3 % (42.2-75.2); Absolute Eosinophils 0.4 10^3/uL (0-0.7); Absolute Lymphocytes 1.9 10^3/uL (1.2-3.4); Absolute Monocytes 1.1 10^3/uL (0.1-0.6); Absolute Neutrophils 3.2 10^3/uL (1.4-6.5); Hematocrit 27.6 % (37.0-47.0); Hemoglobin 9.3 g/dL (12.0-16.0); Mean Corp Hgb Conc. 33.7 g/dL (33.0-37.0); Mean Corpuscular Hgb 34.2 pg (27.0-31.0); Mean Corpuscular Volume 101.5 fL (81.0-99.0); Mean Platelet Volume 9.4 fL (7.4-10.4); Nucleated Red Blood Cells % 0 %; Platelet Count 230 10^3/uL (130-400); Red Blood Cell Count 2.72 10^6/uL (4.20-5.40); Red Cell Dist. Width 17.4 % (11.5-14.5); White Blood Cell Count 6.7 10^3/uL (4.8-10.8)
[2024-07-10 07:11] LABS: ALT (SGPT) 15 U/L (0-35); AST (SGOT) 24 U/L (14-36); Albumin 2.7 g/dl (3.5-5.0); Alkaline Phosphatase 60 U/L (38-126); Blood Urea Nitrogen 18 mg/dl (7-17); Calcium 8.7 mg/dl (8.4-10.2); Carbon Dioxide 23 mmol/L (22-30); Chloride 112 mmol/L (98-107); Estimated Creatinine Clearance 42 ml/min; Glucose 89 mg/dl (70-99); Potassium 4.3 mmol/L (3.5-5.1); Sodium 141 mmol/L (135-145); Total Bilirubin 0.4 mg/dl (0.2-1.3); Total Protein 5.1 g/dl (6.3-8.2); eGFR > 60.00
[2024-07-10 07:22] VITALS: BP 136/59
[2024-07-10] MEDS: TIMOPTIC 0.5% OPHTHALMIC SOLUTION 1 DROP LEFT EYE (07:56)
[2024-07-10] MEDS: AZOPT 1% OPHTHALMIC SUSPENSION 1 DROP LEFT EYE (07:56)
[2024-07-10] MEDS: ALPHAGAN 0.2% EYE DROPS 1 DROP LEFT EYE (07:56)
[2024-07-10] MEDS: DEPAKOTE (12 HR RELEASE) 250 MG PO (07:57)
[2024-07-10] MEDS: CEFTIN 500 MG PO (07:58)
[2024-07-10] MEDS: STRIVERDI RESPIMAT 2 PUFF INH (07:59)
[2024-07-10] MEDS: SPIRIVA RESPIMAT 2.5 MCG 2 PUFF INH (07:59)
[2024-07-10] MEDS: PLAVIX 75 MG PO (08:09)
[2024-07-10] MEDS: LOW STRENGTH ASPIRIN 81 MG PO (08:09)
[2024-07-10] MEDS: TEGRETOL 200 MG PO (08:09)
[2024-07-10 11:43] VITALS: BP 127/57
--- NOTE | 2024-07-10 11:44 | W.DCSUMMARY ---
Discharge Summary
Discharge Data
Date of Admission: 07/07/24
Date of Discharge: 07/10/24
-
Pending Results: No
Hospital Course
Ms. Wallace is a 84-year-old female with a medical history of carotid stenosis (left carotid to subclavian artery bypass and stent placement 06/23/[address] Urbano), HFpEF, vascular dementia, chronic hypotension (takes midodrine as needed for SBP less
than 140), CKD stage IIIb, COPD, subclavian steal syndrome (can only obtain accurate blood pressure and left arm), stroke (in her 30s, residual mild expressive aphasia), seizure disorder, and hypothyroidism who presented following an episode of
syncope. There was some concern about a possible left facial droop which apparently had completely resolved by the time she arrived in the ED. Her mental status appears to have recovered to her baseline. CT imaging of her brain showed no acute
abnormalities. X-ray of her chest showed probable mild right upper lobe pneumonia. There was initially some concern for septic shock secondary to pneumonia due to low blood pressure readings and chest imaging showing possible right-sided
pneumonia. She was started on broad-spectrum antibiotics and vasopressors. However vasopressors were later discontinued after staff was informed blood pressure readings are only accurate in her left upper extremity due to history of subclavian
steal syndrome, now with left carotid to subclavian bypass and stenting which allows for accurate blood pressure readings in her left upper extremity. She was admitted for evaluation and treatment of syncope and suspected pneumonia.
Her syncope was likely due to hypovolemia in the setting of poor recent p.o. intake and possible developing pneumonia. She was treated with broad-spectrum antibiotics first and later transitioned to cefuroxime to complete a 5-day course. She was
encouraged to increase her p.o. intake. Her overall clinical status improved. Her orthostatic vital signs are normal and she was asymptomatic when ambulating with assistance. Her family have made arrangements for home care after hospital
discharge. She will be continued on her home medications with the addition of a short course of antibiotics. At time of hospital discharge she was medically stable. She will need close follow-up with her primary care physician and with her
vascular surgeon after hospital discharge. She will also need to repeat chest imaging in approximately 2 weeks to evaluate for resolution and to exclude any possible underlying mass.
General: No Apparent Distress, Comfortable and Conversant
HEENT: NormoCephalic, Moist mucous membranes, Atraumatic
Respiratory: Clear and Non Labored Respirations
Cardiac: S1/S2 and Regular Rhythm; No Rub or Gallop
GI: Soft, Non Tender, Non Distended and Normal Bowel Sounds
Musculoskeletal: No Edema, no deformity
Skin: Warm, dry, left chest surgical incision clean dry intact
: NO Calero
Neuro: Awake, Alert, Nonfocal/grossly intact
Psych: Calm, cooperative
Discharge Plan
-
Patient Disposition: Home with Home Care
Discharge Diagnosis/Procedures: Syncope
Diet: Low Cholesterol
Activity: With assistance and As tolerated
Other Services: VN
Activity Restrictions/Additional Instructions:
Ms. Wallace is a 84-year-old female with a medical history of carotid stenosis (left carotid to subclavian artery bypass and stent placement 06/23/[address] Urbano), HFpEF, vascular dementia, chronic hypotension (takes midodrine as needed for SBP less
than 140), CKD stage IIIb, COPD, subclavian steal syndrome (can only obtain accurate blood pressure and left arm), stroke (in her 30s, residual mild expressive aphasia), seizure disorder, and hypothyroidism who presented following an episode of
syncope. There was some concern about a possible left facial droop which apparently had completely resolved by the time she arrived in the ED. Her mental status appears to have recovered to her baseline. CT imaging of her brain showed no acute
abnormalities. X-ray of her chest showed probable mild right upper lobe pneumonia. There was initially some concern for septic shock secondary to pneumonia due to low blood pressure readings and chest imaging showing possible right-sided
pneumonia. She was started on broad-spectrum antibiotics and vasopressors. However vasopressors were later discontinued after staff was informed blood pressure readings are only accurate in her left upper extremity due to history of subclavian
steal syndrome, now with left carotid to subclavian bypass and stenting which allows for accurate blood pressure readings in her left upper extremity. She was admitted for evaluation and treatment of syncope and suspected pneumonia.
Her syncope was likely due to hypovolemia in the setting of poor recent p.o. intake and possible developing pneumonia. She was treated with broad-spectrum antibiotics first and later transitioned to cefuroxime to complete a 5-day course. She was
encouraged to increase her p.o. intake. Her overall clinical status improved. Her orthostatic vital signs are normal and she was asymptomatic when ambulating with assistance. Her family have made arrangements for home care after hospital
discharge. She will be continued on her home medications with the addition of a short course of antibiotics. At time of hospital discharge she was medically stable. She will need close follow-up with her primary care physician and with her
vascular surgeon after hospital discharge. She will also need to repeat chest imaging in approximately 2 weeks to evaluate for resolution and to exclude any possible underlying mass.
Referrals:
Kiana Dave MD [Family Provider] -
Prescriptions:
New
cefuroxime axetil 500 mg Tablet
500 mg PO BID 2 Days Qty: 4 0RF
Continued
levothyroxine 100 MCG tablet
100 mcg PO DAILY AT 0700
carbamazepine 200 MG tablet
200 mg PO TID
latanoprost 0.005 % drops
1 drp BOTH EYES DAILY@2000
divalproex 250 mg tablet,delayed release (DR/EC)
250 mg PO DAILY
trazodone 50 mg tablet
50 mg PO HS
brinzolamide 1 % drops,suspension
1 drp LEFT EYE BID
donepezil 10 mg tablet
10 mg PO HS
brimonidine-timolol [Combigan] 0.2-0.5 % drops
1 drp LEFT EYE BID
atorvastatin 40 MG tablet
40 mg PO HS
famotidine 20 mg Tablet
40 mg PO HS
albuterol sulfate 90 mcg/actuation Hfa Aerosol Inhaler
2 puff INHALATION R Q6HPRN PRN (Reason: SOB)
Anoro Ellipta 62.5-25 mcg/actuation Blister With Device
1 inh INHALATION R DAILY
divalproex 250 mg Tablet,Delayed Release (Dr/Ec)
500 mg PO QPM
Yupelri 175 mcg/3 mL Solution For Nebulization
175 mcg INHALATION R DAILYPRN PRN (Reason: only if cannot inhale anoro)
formoterol fumarate-nebulizer 20 mcg/2 mL Solution For Nebulization
2 ml INHALATION DAILYPRN PRN (Reason: If cannot take Anoro)
Patient Comments:
Takes with Yuperli
multivitamin Tablet
1 tab PO DAILY
clopidogrel 75 mg Tablet
75 mg PO DAILY
furosemide 20 mg tablet
20 mg PO MOWEFR
loratadine [Claritin] 10 mg Tablet
10 mg PO DAILYPRN PRN (Reason: ALLERGIES)
potassium chloride 20 mEq tablet extended release
20 meq PO DAILY
midodrine 5 mg tablet
5 mg PO TIDPRN PRN (Reason: SBP<140)
aspirin 81 mg tablet,chewable
81 mg PO DAILY
Discharge Orders:
Discharge Patient (As Directed); Ordered 07/10/24
Ordered By: Martell Roblero
Discharge Date and Time
Print Language: THAI
--- NOTE | 2024-07-10 12:03 | CM ---
Patient for d/c today. [facility] accepted for services.
Son-in-law will transport home
Juan Carlos
fax# [phone]
Plan: Home w/ [facility]
--- NOTE | 2024-07-10 14:20 | PTCARENOTE ---
Pt discharged. DC instructions went over with son in law. No questions at this time. Removed both IV sites. Removed tele. Pt dressed in own clothes. Hearing aids in ears, hearing aid shopfitter in bag. Denture supplies in bag. All belongings with
patient.
== END 2024-07-10 13:54 | disposition home health service (06) | DRG 194 ==
LOC: 4 EAST ACU 15:37
PROVIDERS: Clinical Nurse Specialist Family Health; Physician Assistant; ADMITTING PHYSICIAN Hospitalist; ATTENDING PHYSICIAN Internal Medicine; EMERGENCY PHYSICIAN Emergency Medicine; FAMILY PHYSICIAN Family Medicine
DX: J15.9 Unspecified bacterial pneumonia (principal); F01.518 Vascular dementia, unspecified severity, with other behavioral disturbance; G45.8 Other transient cerebral ischemic attacks and related syndromes; I50.32 Chronic diastolic (congestive) heart failure; I13.0 Hypertensive heart and chronic kidney disease with heart failure and stage 1 through stage 4 chronic kidney disease, or unspecified chronic kidney disease; J44.0 Chronic obstructive pulmonary disease with (acute) lower respiratory infection; Z66 Do not resuscitate; I95.1 Orthostatic hypotension; E78.00 Pure hypercholesterolemia, unspecified; E03.9 Hypothyroidism, unspecified; G40.909 Epilepsy, unspecified, not intractable, without status epilepticus; I69.320 Aphasia following cerebral infarction; E86.1 Hypovolemia; R06.89 Other abnormalities of breathing; R09.02 Hypoxemia; R29.810 Facial weakness; N18.32 Chronic kidney disease, stage 3b; G47.00 Insomnia, unspecified; K21.9 Gastro-esophageal reflux disease without esophagitis; F98.8 Other specified behavioral and emotional disorders with onset usually occurring in childhood and adolescence; R04.0 Epistaxis; Z95.828 Presence of other vascular implants and grafts; Z87.891 Personal history of nicotine dependence; Z86.718 Personal history of other venous thrombosis and embolism; Z79.899 Other long term (current) drug therapy; Z79.890 Hormone replacement therapy; Z79.82 Long term (current) use of aspirin; Z79.02 Long term (current) use of antithrombotics/antiplatelets; Z11.52 Encounter for screening for COVID-19
CPT/HCPCS: 70450; 71045; 80053; 80061; 80156; 80164; 81003; 83605; 83735; 83880; 84145; 84443; 84484; 85025; 85610; 85730; 87070; 87502; 87641; 87811; 93005; 94640; 96361; 96365; 96367; 96375; 97163; 97167; 97530; 99291

== ENCOUNTER → 2024-08-23 08:28 | Outpatient (REF) | payer MEDICARE, OTHER, SELFPAY | LOC: RAD 08:28 | PROVIDERS: ATTENDING PHYSICIAN Physician Assistant; FAMILY PHYSICIAN Family Medicine | DX: I65.23 Occlusion and stenosis of bilateral carotid arteries (principal) | CPT/HCPCS: 93880; 93931 ==

== ENCOUNTER 2024-10-09 13:15 | Inpatient (IN) | payer MEDICARE, OTHER, SELFPAY ==
[2024-10-09] VITALS (9 sets, daily range): BP systolic 91–142; BP diastolic 43–58; BMI 18.0
--- NOTE | 2024-10-09 10:43 | ED.GENMED ---
History of Present Illness
General
Chief Complaint: Seizure
Source: patient and ambulance crew
Exam Limitations: none
Time Seen by Provider: 10/09/24 10:39
History of Present Illness
History of Present Illness:
See MDM
Past History
Past History
ED Past Medical History: CVA, HTN, Hypercholesterolemia and Hypothyroidism
ED Past Surgical History: Gynecological (partial hysterectomy) and Orthopedic (right hip fracture)
Social History
Tobacco: Former smoker
Alcohol: Occasional
Personal:
Living: alone (with aids)
Phy Exam
Physical Exam
Physical Exam:
See MDM
Course
Orders/Labs/Results
Orders:
Orders
10/09/24 10:49
Complete Blood Count/With Diff Urgent
Comprehensive Metabolic Panel Urgent
10/09/24 11:05
CR Chest - 2 Views Urgent
Comment:
Reason For Exam: cough and wheeze
10/09/24 11:07
Tegretol (Carbamazepine) Urgent
Valproic Acid Level [Depakane] Urgent
10/09/24 11:16
Urinalysis Reflex To Culture Urgent
Date Specimen was Collected: 10/09/24
Time Specimen was Collected: 11:15
Urine Microscopic Reflex Cult Urgent
Urine Culture Urgent
IRVING Source: U
Specimen Description:
Date Specimen was Collected: 10/09/24
Time Specimen was Collected: 11:15
10/09/24 11:41
0.9% Sodium Chloride 500 ml [Nss] 500 ml IV BOLUS
10/09/24 12:39
Valproate Sodium [Depacon] 500 mg 0.9% Sodium Chloride 50 ml [Nss] 50 ml IV NOW
Abnormal Lab Results
10/09/24 10/09/24 10/09/24
10:49 11:07 11:16
RBC 3.66 L 10^6/uL
(4.20-5.40)
Hct 35.9 L %
(37.0-47.0)
MCH 34.7 H pg
(27.0-31.0)
Absolute Lymphs (auto) 0.7 L 10^3/uL
(1.2-3.4)
Absolute Monos (auto) 1.0 H 10^3/uL
(0.1-0.6)
Lymphocytes % 9.9 L %
(20.5-51.1)
Monocytes % 15.3 H %
(1.7-9.3)
Chloride 110 H mmol/L
(98-107)
Carbon Dioxide 20 L mmol/L
(22-30)
Glucose 142 H mg/dl
(70-99)
Total Protein 5.9 L g/dl
(6.3-8.2)
Albumin 3.3 L g/dl
(3.5-5.0)
Urine Ketones 1+ A
(Negative)
Urine Bilirubin 1+ A
(Negative)
Leukocyte Esterase Rfl 1+ A
(Negative)
Urine Bacteria (Reflex) Few A
(Negative)
Urine Albumin (Reflex) 2+ A
(Neg - Trace)
Valproic Acid 33.7 L ug/ml
(50.0-120.0)
10/09/24 10:49
10/09/24 10:49
Vital Signs
Initial and Last Documented VS:
Initial Vital Signs
BP
102/56
10/09/24 10:31
Last Documented Vital Signs
Temp Pulse Resp BP Pulse Ox
97.8 F 68 14 122/47 97
10/09/24 10:36 10/09/24 12:15 10/09/24 12:15 10/09/24 12:00 10/09/24 12:15
MDM/Problems Addressed
Differential Diagnosis Includes:
HPI and MDM Narrative:
33-year-old female presenting for evaluation of witnessed seizure. She does have a history of seizure disorder. Per EMS, patient had a witnessed seizure at home by the daughter. EMS stated that the daughter had raised concern for possible UTI.
The last time patient had a breakthrough seizure, she was diagnosed with UTI. On exam, patient is somewhat postictal. She is answering questions appropriately. She complains of feeling tired and fatigued. Abdomen soft and nontender. Will start
with basic blood work and urinalysis
Patient apparently had COVID and RSV vaccine yesterday in her left arm. There is very mild erythema by the injection site but no clinical concern for cellulitis
Patient is a history of COPD and received albuterol per EMS for mild wheeze.
Physical exam
General: Weak and fatigued
HEENT: protecting airway. Pupils equal reactive
Neck: appears supple
CV: No evidence of cyanosis. Regular rate and rhythm
Resp: No accessory muscle use. Very faint wheeze
Abd: Non-distended and nontender
Extremities: No deformities
Neuro: alert
Psych: Flat affect
Skin: Intact
Problems Addressed including Acute and Chronic Conditions affecting care:
1. Breakthrough seizure
Acuity: acute
Prognosis: stable
Details: Given her prior history, will look for infectious etiology. Will start with urinalysis. Lungs are clear
2. Cough and wheeze
Acuity: acute
Prognosis: stable
Details: Will obtain chest x-ray
Updates
Depakote level subtherapeutic. Will give IV dose of Depakote. Chest x-ray and urinalysis negative. Son-in-law at bedside and believes that the inciting event could be the vaccines given yesterday. Regardless, patient does have prolonged
postictal period. Given this in addition to decreased p.o. intake, will admit
Differential Diagnosis (but not limited to): Breakthrough seizure, UTI, pneumonia
Testing considered: CT head
Drug therapy (if applicable): OTC meds, please see d/c instruction regarding Rx drugs
Amount and/or Complexity of Data Reviewed
Clinical info obtained from: Patient. Son-in-law witnessed the seizure and denies strokelike symptoms
External data reviewed: N/A
Labs I independently reviewed (but not limited to): Subtherapeutic Depakote
Radiology: X-ray independently reviewed: Chest x-ray clear
Pulse Ox: not hypoxic
EKG independently reviewed: N/A
[place]: N/A
Critical Care: N/A
Risk of Complication:
Social Determinants of health: Good social support
Discussed with other providers: Hospitalist
Escalation of Care includes Admit/Obs: Given the prolonged postictal period in addition to decreased p.o. intake, will admit
Occasional wrong word or 'sound a like' substitutions may have occurred due to the inherent limitations of voice recognition software. Read the chart carefully and recognize, using context, where substitutions have occurred.
*Pulse Oximetry
Patient hypoxic: no
*Critical Care Note
Total Time (30-74mins, 75-104mins- exclusive of procedures): Not Applicable
ED Attending Note
-
Portions of this chart may have been created with voice recognition software.� Occasional wrong word or��sound alike� substitutions may have occurred due to the inherent limitations of voice recognition software.
Discharge Plan
Departure
Patient Disposition: Admit
Date of Disposition: 10/09/24
Time of Disposition: 12:44
Admit to: Med/Surg
Presentation/result/management discussed w/ accepting MD/DO: Hospitalist
Discharge Problem:
Breakthrough seizure, Postictal confusion
Prescriptions:
No Action
levothyroxine 100 MCG tablet
100 mcg PO DAILY AT 0700
carbamazepine 200 MG tablet
200 mg PO TID
latanoprost 0.005 % drops
1 drp BOTH EYES DAILY@1999
divalproex 250 mg tablet,delayed release (DR/EC)
250 mg PO DAILY
trazodone 50 mg tablet
50 mg PO HS
brinzolamide 1 % drops,suspension
1 drp LEFT EYE BID
donepezil 10 mg tablet
10 mg PO HS
brimonidine-timolol [Combigan] 0.2-0.5 % drops
1 drp LEFT EYE BID
atorvastatin 40 MG tablet
40 mg PO HS
famotidine 20 mg Tablet
40 mg PO HS
albuterol sulfate 90 mcg/actuation Hfa Aerosol Inhaler
2 puff INHALATION R Q6HPRN PRN (Reason: SOB)
Anoro Ellipta 62.5-25 mcg/actuation Blister With Device
1 inh INHALATION R DAILY
divalproex 250 mg Tablet,Delayed Release (Dr/Ec)
500 mg PO QPM
Yupelri 175 mcg/3 mL Solution For Nebulization
175 mcg INHALATION R DAILYPRN PRN (Reason: only if cannot inhale anoro)
formoterol fumarate-nebulizer 20 mcg/2 mL Solution For Nebulization
2 ml INHALATION DAILYPRN PRN (Reason: If cannot take Anoro)
Patient Comments:
Takes with Yuisabel
multivitamin Tablet
1 tab PO DAILY
clopidogrel 75 mg Tablet
75 mg PO DAILY
furosemide 20 mg tablet
20 mg PO MOWEFR
loratadine [Claritin] 10 mg Tablet
10 mg PO DAILYPRN PRN (Reason: ALLERGIES)
potassium chloride 20 mEq tablet extended release
20 meq PO DAILY
midodrine 5 mg tablet
5 mg PO TIDPRN PRN (Reason: SBP<140)
aspirin 81 mg tablet,chewable
81 mg PO DAILY
cefuroxime axetil 500 mg Tablet
500 mg PO BID 2 Days Qty: 4 0RF
Referrals:
Kiana Dave MD [Family Provider, Family Practice]
Interventions
Interventions:
*Risk Screen - Suicide Last Done: 10/09/24 10:36
*General Assessment Last Done: 10/09/24 10:36
*Neglect/Abuse Screening Last Done: 10/09/24 10:36
*ED- Fall Risk Assessment Last Done: 10/09/24 10:36
*ED COVID-19 Vaccine History Last Done: 10/09/24 10:36
ED- Cardiac Assessment Last Done: 10/09/24 11:00
ED- Neurological Assessment Last Done: 10/09/24 11:00
ED- Pulmonary Assessment Last Done: 10/09/24 11:00
Discharge Date and Time
Print Language: SLOVAK
[2024-10-09 10:59] LABS: % Basophils 0.6 % (0-2); % Eosinophils 0.6 % (0-6); % Immature Granulocytes 0.4 % (0-0.5); % Lymphocytes 9.9 % (20.5-51.1); % Monocytes 15.3 % (1.7-9.3); % Neutrophils 73.2 % (42.2-75.2); Absolute Lymphocytes 0.7 10^3/uL (1.2-3.4); Hematocrit 35.9 % (37.0-47.0); Hemoglobin 12.7 g/dL (12.0-16.0); Mean Corp Hgb Conc. 35.4 g/dL (33.0-37.0); Mean Corpuscular Hgb 34.7 pg (27.0-31.0); Mean Corpuscular Volume 98.1 fL (81.0-99.0); Nucleated Red Blood Cells % 0 %; Platelet Count 153 10^3/uL (130-400); Red Blood Cell Count 3.66 10^6/uL (4.20-5.40); Red Cell Dist. Width 12.6 % (11.5-14.5); White Blood Cell Count 6.8 10^3/uL (4.8-10.8)
[2024-10-09 11:24] LABS: Urine Albumin 2+ (Neg - Trace); Urine Bilirubin 1+ (Negative); Urine Character Clear (Clear); Urine Color Yellow; Urine Glucose Negative (Negative); Urine Ketone 1+ (Negative); Urine Leukocyte 1+ (Negative); Urine Nitrite Negative (Negative); Urine Occult Blood Negative (Negative); Urine Urobilinogen 1+ (Neg - 1+); Urine pH 6.5 (5.0-9.0)
[2024-10-09 11:29] LABS: ALT (SGPT) 20 U/L (0-35); AST (SGOT) 30 U/L (14-36); Albumin 3.3 g/dl (3.5-5.0); Alkaline Phosphatase 62 U/L (38-126); Blood Urea Nitrogen 17 mg/dl (7-17); Calcium 8.6 mg/dl (8.4-10.2); Carbon Dioxide 20 mmol/L (22-30); Chloride 110 mmol/L (98-107); Estimated Creatinine Clearance 38 ml/min; Glucose 142 mg/dl (70-99); Potassium 4.3 mmol/L (3.5-5.1); Sodium 137 mmol/L (135-145); Total Bilirubin 0.6 mg/dl (0.2-1.3); Total Protein 5.9 g/dl (6.3-8.2); eGFR > 60.00
[2024-10-09 11:38] LABS: Tegretol (Carbamazepine) 6.6 ug/ml (4-12)
[2024-10-09 11:40] LABS: Depakane 33.7 ug/ml (50.0-120.0)
[2024-10-09] MEDS: NSS 500 IV (11:47)
[2024-10-09 12:19] LABS: Urine Bacteria Few (Negative); Urine Mucus Many; Urine Red Blood Cell 0-2 /HPF (0-2); Urine Squamous Cell 0-2 /LPF (Few); Urine White Cell 0-2 /HPF (0-5)
--- NOTE | 2024-10-09 12:29 | EDRN ---
Dr. Kim in w/ pt and son in law at this time.
--- NOTE | 2024-10-09 12:55 | EDRN ---
in to see pt.
--- NOTE | 2024-10-09 13:13 | HPS.HSE ---
Family Physician
-
Family Physician: Kiana Dave
Chief Complaint
-
seizure
History of Present Illness
84-year-old female past medical history of left carotid artery stenosis status post stent and subclavian artery bypass in 06/23 on aspirin, bilateral subclavian steal syndrome, vascular dementia, CVA in 30s, multiple strokes, seizures,
hypothyroidism, HFpEF, GERD, COPD, former smoker, glucoma, DVT, presenting with witnessed seizure at home. Per daughter rwhole body stiffened and jerked. She was unresponsive. Lasted 5 minutes.
She got COVID and RSV vaccines yesterday. She has been compliant with her seizure medications. No recent urinary tract infections or antibiotics.
Patient has chronic cough.
Patient was noted to be postictal in the emergency room afterwards. Currently she feels tired but denies any headache or symptoms. Denies cough or shortness of breath.
Medical History
Past Medical History
Past Medical History: Reports Other ( left carotid artery stenosis status post stent and subclavian artery bypass in 06/23 on aspirin, bilateral subclavian steal syndrome, vascular dementia, CVA in 30s, multiple strokes, seizures, hypothyroidism,
HFpEF, GERD, COPD, former smoker, glucoma, DVT,)
Past Surgical History: Reports None
Social History
Tobacco: Non-smoker
Alcohol: None
Drug: None
Family History
Family History: Not pertinent
Allergies / Home Medications
Allergies reflects when Allergies were last updated in [facility].
Home Medications with original date entered in [facility]
Allergy/Medication List:
Allergies
Allergy/AdvReac Type Severity Reaction Status Date / Time
No Known Allergies Allergy Verified 10/09/24 10:36
Home Medications
carbamazepine 200 mg tablet 200 mg PO TID Seizures 01/09/17
levothyroxine 100 mcg tablet 100 mcg PO DAILY AT 0700 Thyroid 01/09/17
atorvastatin 40 mg tablet 40 mg PO HS High Cholesterol 05/29/23
brimonidine 0.2 %-timolol 0.5 % eye drops (Combigan) 1 drp LEFT EYE BID Eye Condition 05/29/23
brinzolamide 1 % eye drops,suspension 1 drp LEFT EYE BID Eye Condition 05/29/23
divalproex 250 mg tablet,delayed release 250 mg PO DAILY Seizures 05/29/23
donepezil 10 mg tablet 10 mg PO HS memory/dementia 05/29/23
latanoprost 0.005 % eye drops 1 drp BOTH EYES DAILY@2000 Eye Condition 05/29/23
trazodone 50 mg tablet 50 mg PO HSPRN PRN sleep 05/29/23
albuterol sulfate 90 mcg/actuation aerosol inhaler 2 puff inhalation R Q6HPRN PRN SOB 04/14/24
famotidine 20 mg tablet 40 mg PO HS Gastrointestinal Issue 04/14/24
umeclidinium 62.5 mcg-vilanterol 25 mcg/actuation powdr for inhalation (Anoro Ellipta) 1 inh inhalation R DAILY Lung/Breathing Issues 04/14/24
divalproex 250 mg tablet,delayed release 500 mg PO QPM Seizures 04/15/24
revefenacin 175 mcg/3 mL solution for nebulization (Yupelri) 175 mcg inhalation R DAILYPRN PRN only if cannot inhale anoro 04/15/24
formoterol with nebulizer 20 mcg/2 mL solution for nebulization 2 ml inhalation R DAILYPRN PRN If cannot take Anoro 05/24/24
multivitamin 1 tab PO DAILY Supplement 05/24/24
clopidogrel 75 mg tablet 75 mg PO DAILY Blood Clot Prevention/Tx 06/23/24
aspirin 81 mg chewable tablet 81 mg PO DAILY Blood Clot Prevention/Tx 07/07/24
furosemide 20 mg tablet 20 mg PO MOWEFR Fluid Retention/Swelling 07/07/24
loratadine 10 mg tablet (Claritin) 10 mg PO DAILYPRN PRN ALLERGIES 07/07/24
midodrine 5 mg tablet 5 mg PO TIDPRN PRN SBP<140 07/07/24
potassium chloride 20 mEq tablet,extended release 20 meq PO DAILY Electrolyte Repletion 07/07/24
Review of Systems
-
History Source: Patient
A 12 point ROS was completed and negative except as noted: Yes
Constitutional: Reports No Symptoms
EENT: Reports No Symptoms
Respiratory: Reports No Symptoms
Cardiac: Reports No Symptoms
Abdomen/GI: Reports No Symptoms
: Reports No Symptoms
Musculoskeletal: Reports No Symptoms
Skin: Reports No Symptoms
Neurological: Reports No Symptoms
Endocrine: Reports No Symptoms
Hematologic/Lymphatic: Reports No Symptoms
Psych: Reports No Symptoms
Physical Exam
Vital Signs
Vital Signs
Temp Pulse Resp BP Pulse Ox
97.8 F 65 19 128/45 98
10/09/24 10:36 10/09/24 13:00 10/09/24 13:00 10/09/24 13:00 10/09/24 12:45
Physical Exam
General: Well Developed, Well Nourished and No Apparent Distress
HEENT: NormoCephalic, Moist mucous membranes and Atraumatic
Respiratory: Clear
Cardiac: S1/S2 and Regular Rhythm; No Murmur or Rub
GI: Soft, Non Tender, Non Distended and Normal Bowel Sounds; No Organomegaly
Rectal: Deferred by Provider
Musculoskeletal: No Clubbing, No Cyanosis and No Edema
Skin: No Rash
Neuro: Nonfocal/grossly intact
Laboratory Results
-
10/09/24 10:49
10/09/24 10:49
Laboratory Results
Total Bilirubin 0.6 mg/dl (0.2-1.3) 10/09/24 10:49
AST 30 U/L (14-36) 10/09/24 10:49
ALT 20 U/L (0-35) 10/09/24 10:49
Alkaline Phosphatase 62 U/L (38-126) 10/09/24 10:49
Data Reviewed
-
Lab Data: Labs Reviewed by me
Old Records: Reviewed
Impression/Plan
-
IMPRESSION:
PLAN:
# Witnessed seizure possibly secondary to COVID/RSV vaccines/subtherapeutic Depakote level
-IV fluids given
- Valproic acid level of 33.7 which is low
- Carbamazepine level of 6.6
- Given valproic acid 500 mg IV, increased dose to 500 twice daily from 250 daily, 500 p.m.
- Neurology consulted
# Chronic cough
- Patient denies cough or shortness of breath
- Chest x-ray unremarkable
Left carotid artery stenosis status post stent/subclavian artery bypass
Bilateral subclavian steal syndrome
Vascular dementia
- Continue donepezil
History of multiple CVAs
- Continue aspirin, Plavix, statin
History of seizures
Hypothyroidism
- Continue levothyroxine
Chronic HFpEF
- Hold Lasix
GERD
- Continue famotidine
COPD
- Continue albuterol, Anoro Ellipta, formoterol fumarate, Yupelri
Former smoker
Glucoma
History of DVT
Insomnia
- Hold trazodone
Full Code
Regular diet
DVT prophylaxis heparin
--- NOTE | 2024-10-09 13:29 | EDRN ---
Pharmacy called to mix and send depakote IV.
--- NOTE | 2024-10-09 13:33 | CON.NEURO ---
Neuro Assessment/Plan
Assessment
MRI brain in April 2024 at which time the patient of change in mental status was suggestive of a large area of encephalomalacia in the left MCA territory as well as a right occipital lobe area of encephalomalacia compatible with old cerebral
infarction.
Generalized tonic-clonic seizure
Prior history of left frontal stroke and vascular dementia
Plan
Advance the patient's valproic acid dosing from 250 mg in the morning and 500 mg at bedtime to dosing of 1000 mg at bedtime extended release
Continue carbamazepine at current dosing as levels appear to be normal
Continue combined aspirin and clopidogrel based on recurrent stroke
Check lipid profile to determine if the use of atorvastatin has been successful, continue atorvastatin 40 mg daily
Check blood work for potential metabolic abnormalities producing dementia
Will follow as needed. Patient should follow-up with her usual outpatient neurologist
Consultation
Order
Date of Consultation: 10/09/24
Requesting Provider: Hospitalist
Reason for Consult: Seizure
Subjective/Objective
Subjective Data
Date of Service: October 09, 2024
From the consultation performed in April 2024 by yahir fofana physician:
'Patient is an 83y F with PMH significant for ASCVD / prior CVAs, vascular dementia and hypertension who presents to ED for evaluation of weakness, confusion and slurred speech. History obtained primarily from family via phone. Patient offers
no complaints at present. She does not recall or cannot convey what events led to this hospitalization.
Family states that patient has seemed increasingly weak and confused over the past few days.
found to be hypotensive
today patient offers no complaints, feels at her baseline'
Subsequently, patient was not found to have an acute cerebral lesion and medications utilized for seizures were not altered.
Patient returned to this hospital's emergency department today due to history of generalized tonic-clonic events and new episode of similar event. It is not clear as to the duration of the event. It is not clear if the patient lost control of
bowels or bladder or had tongue biting at the time. It is not clear if this event was similar to prior events. Of note is that the patient received 2 vaccinations 1 day ago without obvious erythema at the site. The patient herself is unable to
recount her own medical history.
Objective Data
Vital Signs
Temp Pulse Resp BP Pulse Ox
36.6 C 65 19 128/45 98
10/09/24 10:36 10/09/24 13:00 10/09/24 13:00 10/09/24 13:00 10/09/24 12:45
Lab Results
10/09/24 10:49
10/09/24 10:49
Sodium 137 mmol/L (135-145) 10/09/24 10:49
Potassium 4.3 mmol/L (3.5-5.1) 10/09/24 10:49
BUN 17 mg/dl (7-17) 10/09/24 10:49
Glucose 142 mg/dl (70-99) H 10/09/24 10:49
Calcium 8.6 mg/dl (8.4-10.2) 10/09/24 10:49
Patient Allergies
No Known Allergies Allergy (Verified 10/09/24 10:36)
Review of Systems
-
Unable to obtain full review of systems at this time due to: Dementia
History Source: Patient
All other systems: Reviewed and negative
Physical Exam
-
General: No Apparent Distress and Appears Stated Age
Eyes: Able to visualize OU, Round OU, [place] Conjunctivae and No Ptosis
HEENT: Anicteric and Moist Mucous Membranes
Neck: Full Range of Motion
Respiratory: No Dyspnea
Cardiac: No JVD
GI: Non-distended
Skin: Unremarkable
Extremities: No Clubbing, No Cyanosis and No Edema
Psych: Intact Judgement/Insight
Extended Neurological Exam
Mood & Affect: Mood Unremarkable and Affect Unremarkable
Attention Span & Concentration: Awake, Alert, Interactive (Intermittently interactive and at times refusing examiners requests), Moderate Difficulty with 2 Step Request and Other (Mild difficulty with single step requests)
Memory: Able to Recall (Own name, For year as well as location), Reduced (For current month) and Unable to Recall Personal History (With regards to prior medical issues and events leading up immediately to her hospitalization)
Tremor: Hand Tremor Absent and Head Tremor Absent
Involuntary Movement: None
Speech: Moderately Reduced Output; Negative Quality Unremarkable (Minimal thickness at times)
Cranial Nerve II: Left Eye: Pupillary Reactivity Unremarkable, Pupillary Size Unremarkable and Visual Scott Grossly Intact
Cranial Nerve II: Right Eye: Pupillary Reactivity Unremarkable, Pupillary Size Unremarkable and Visual Scott Grossly Intact
Cranial Nerves III, IV, : Extraocular Movement: Grossly Intact
Cranial Nerve V: Facial Sensation: Unable to Assess
Cranial Nerve VII: Facial Symmetry: Normal Facial Symmetry
Cranial Nerve VIII: Hearing: Unremarkable Hearing to Normal Conversational Volume
Cranial Nerves IX, X: Palate Movement: Palate Elevation Symmetric
Cranial Nerve XI: Shoulder Shrug: Unremarkable
Cranial Nerve XII: Tongue Protusion: Midline
Muscle Strength, Overall: Full Throughout
Muscle Bulk & Tone: Bulk Unremarkable and Tone Unremarkable
Pronator Drift: Unable to Assess
Deep Tendon Reflexes: Absent Throughout
Cold Sensation: Unable to Assess
Vibration Sensation: Unable to Assess
Touch Sensation: Unremarkable and Double Simultaneous Stimulation Unremarkable
Coordination: Reaches for Objects without Difficulty
Babinski Sign: Absent Bilaterally
Gait & Station: Unable to Assess
Data Reviewed
-
MRI Head: Report Reviewed
Labs: Report Reviewed
Lipid Profile: Ordered
Reviewed with: Physician and Patient
Old Records: Summarized
Medications
-
Active Medications
Generic Name Dose Route Start Last Admin
Trade Name Freq PRN Reason Stop Dose Admin
Valproate Sodium 500 mg/ 55 mls @ 55 mls/hr 10/09/24 13:27
Sodium Chloride IV 10/09/24 14:26
NOW STA
Home Medications
�Medication �Instructions �Recorded
carbamazepine 200 mg tablet 200 mg PO TID Seizures 01/09/17
levothyroxine 100 mcg tablet 100 mcg PO DAILY AT 0700 Thyroid 01/09/17
atorvastatin 40 mg tablet 40 mg PO HS High Cholesterol 05/29/23
brimonidine 0.2 %-timolol 0.5 % 1 drp LEFT EYE BID Eye Condition 05/29/23
eye drops (Combigan)
brinzolamide 1 % eye 1 drp LEFT EYE BID Eye Condition 05/29/23
drops,suspension
divalproex 250 mg tablet,delayed 250 mg PO DAILY Seizures 05/29/23
release
donepezil 10 mg tablet 10 mg PO HS memory/dementia 05/29/23
latanoprost 0.005 % eye drops 1 drp BOTH EYES DAILY@2000 Eye 05/29/23
Condition
trazodone 50 mg tablet 50 mg PO HSPRN PRN sleep 05/29/23
albuterol sulfate 90 mcg/actuation 2 puff inhalation R Q6HPRN PRN SOB 04/14/24
aerosol inhaler
famotidine 20 mg tablet 40 mg PO HS Gastrointestinal Issue 04/14/24
umeclidinium 62.5 mcg-vilanterol 1 inh inhalation R DAILY 04/14/24
25 mcg/actuation powdr for Lung/Breathing Issues
inhalation (Anoro Ellipta)
divalproex 250 mg tablet,delayed 500 mg PO QPM Seizures 04/15/24
release
revefenacin 175 mcg/3 mL solution 175 mcg inhalation R DAILYPRN PRN 04/15/24
for nebulization (Yupelri) only if cannot inhale anoro
formoterol with nebulizer 20 mcg/2 2 ml inhalation R DAILYPRN PRN If 05/24/24
mL solution for nebulization cannot take Anoro
multivitamin 1 tab PO DAILY Supplement 05/24/24
clopidogrel 75 mg tablet 75 mg PO DAILY Blood Clot 06/23/24
Prevention/Tx
aspirin 81 mg chewable tablet 81 mg PO DAILY Blood Clot 07/07/24
Prevention/Tx
furosemide 20 mg tablet 20 mg PO MOWEFR Fluid 07/07/24
Retention/Swelling
loratadine 10 mg tablet (Claritin) 10 mg PO DAILYPRN PRN ALLERGIES 07/07/24
midodrine 5 mg tablet 5 mg PO TIDPRN PRN SBP<140 07/07/24
potassium chloride 20 mEq 20 meq PO DAILY Electrolyte 07/07/24
tablet,extended release Repletion
Past History
Past History
ED Past Medical History: CHF, COPD, CVA, HTN, Hypercholesterolemia, Hypothyroidism and Other (Vascular dementia, osteoporosis, ambulatory dysfunction, hepatitis A, thoracic and lumbar compression fractures, left knee osteoarthritis, hearing loss)
ED Past Surgical History: Gynecological (partial hysterectomy), Orthopedic (right hip fracture 2008, left femur ORIF, left wrist ORIF) and Other (Left common carotid artery to subclavian artery bypass 2024, cataract extraction)
Social History
Tobacco: Former smoker
Alcohol: Occasional
Personal:
Living: alone (with aids)
Family History
Family History: Other (Reviewed and noncontributory)
[2024-10-09] MEDS: DEPACON 55 MG IV (13:58)
--- NOTE | 2024-10-09 13:58 | EDRN ---
Dr. Murray in room w/ pt at this time.
--- NOTE | 2024-10-09 14:08 | CM ---
Addendum entered by Virginia Hardy 10/09/24 14:14:
[place]
[phone]

Original Note:
shelter case manager reviewed patient's chart and met with patient and patient states she lives with her daughter and son in law in a 2nd floor apartment that is elevator accessible, patient is independent with adl's and uses a walker with ambulation,
patient is current with [facility] visiting nurses, plan home with family supports and [facility] visiting nurses.
PCP: Dr. Dave
Pharmacy: [facility].
[2024-10-09 14:58] LABS: HDL Cholesterol 50 mg/dl; LDL Cholesterol, Calculated 42 mg/dl; Total Cholesterol 110 mg/dl (50-199); Triglyceride 92 mg/dl (10-149); Very Low Density Lipoprotein 18 mg/dl (0-30)
[2024-10-09] MEDS: TEGRETOL 200 MG PO ×2 (15:34→21:32)
[2024-10-09] MEDS: HEPARIN 5000 UNITS SC (19:54)
[2024-10-09] MEDS: DEPAKOTE (12 HR RELEASE) 500 MG PO (19:56)
[2024-10-09] MEDS: ALPHAGAN 0.2% EYE DROPS 1 DROP LEFT EYE (19:58)
[2024-10-09] MEDS: XALATAN OPHTHALMIC SOLUTION 1 DROP BOTH EYES (19:59)
[2024-10-09] MEDS: AZOPT 1% OPHTHALMIC SUSPENSION 1 DROP LEFT EYE (19:59)
[2024-10-09] MEDS: TIMOPTIC 0.5% OPHTHALMIC SOLUTION 1 DROP LEFT EYE (19:59)
[2024-10-09] MEDS: LIPITOR 40 MG PO (21:32)
[2024-10-09] MEDS: ARICEPT 10 MG PO (21:32)
[2024-10-09] MEDS: PEPCID 40 MG PO (21:33)
[2024-10-10] VITALS (7 sets, daily range): BP systolic 109–158; BP diastolic 48–88; PULSE 89; O2SAT 98
[2024-10-10] MEDS: SYNTHROID 100 MCG PO (06:25)
[2024-10-10 07:17] LABS: Hemoglobin 11.8 g/dL (12.0-16.0); Mean Corp Hgb Conc. 33.7 g/dL (33.0-37.0); Mean Corpuscular Hgb 34.1 pg (27.0-31.0); Mean Corpuscular Volume 101.2 fL (81.0-99.0); Mean Platelet Volume 10.2 fL (7.4-10.4); Platelet Count 140 10^3/uL (130-400); Red Blood Cell Count 3.46 10^6/uL (4.20-5.40); Red Cell Dist. Width 12.8 % (11.5-14.5); White Blood Cell Count 5.1 10^3/uL (4.8-10.8)
[2024-10-10 07:44] LABS: ALT (SGPT) 24 U/L (0-35); AST (SGOT) 32 U/L (14-36); Albumin 2.9 g/dl (3.5-5.0); Alkaline Phosphatase 75 U/L (38-126); Blood Urea Nitrogen 20 mg/dl (7-17); Calcium 8.1 mg/dl (8.4-10.2); Carbon Dioxide 25 mmol/L (22-30); Chloride 111 mmol/L (98-107); Estimated Creatinine Clearance 43 ml/min; Glucose 100 mg/dl (70-99); Potassium 4.6 mmol/L (3.5-5.1); Sodium 141 mmol/L (135-145); Total Bilirubin 0.2 mg/dl (0.2-1.3); Total Protein 5.4 g/dl (6.3-8.2); eGFR > 60.00
[2024-10-10] MEDS: THERAGRAN 1 TABLET PO (07:50)
[2024-10-10] MEDS: LOW STRENGTH ASPIRIN 81 MG PO (07:51)
[2024-10-10] MEDS: KCL 20 MEQ PO (07:51)
[2024-10-10] MEDS: PLAVIX 75 MG PO (07:51)
[2024-10-10] MEDS: DEPAKOTE (12 HR RELEASE) 500 MG PO ×2 (07:51→20:53)
[2024-10-10] MEDS: TEGRETOL 200 MG PO ×3 (07:52→21:00)
[2024-10-10] MEDS: HEPARIN 5000 UNITS SC ×2 (07:52→21:00)
[2024-10-10] MEDS: TIMOPTIC 0.5% OPHTHALMIC SOLUTION 1 DROP LEFT EYE ×2 (07:53→21:00)
[2024-10-10] MEDS: AZOPT 1% OPHTHALMIC SUSPENSION 1 DROP LEFT EYE ×2 (07:54→21:00)
[2024-10-10] MEDS: ALPHAGAN 0.2% EYE DROPS 1 DROP LEFT EYE ×2 (07:55→21:00)
[2024-10-10] MEDS: SPIRIVA RESPIMAT 2.5 MCG 2 PUFF INH (08:08)
[2024-10-10] MEDS: STRIVERDI RESPIMAT 2 PUFF INH (08:08)
[2024-10-10 08:38] LABS: Absolute Neutrophils -Man Diff 2.2 10^3/uL (1.4-6.5); Band Neutrophils 1 % (0-3); Eosinophils 3 % (0-6); Lymphocytes 30 % (20-51); Monocytes 22 % (2-9); Normal RBC Morphology Yes; Platelets Checked Yes; Segmented Neutrophils 43 % (42-75)
[2024-10-10 08:39] LABS: Total Cells Counted 100
--- NOTE | 2024-10-10 11:26 | W.PN.HOSP.TC ---
Addendum entered and electronically signed by Melia Jean MD 10/10/24 15:43:
Addendum
Spoke with daughter Negra and updated her, she is agreeable to take patient back home tomorrow if no seizure overnight.
End
Original Note:
Today's Communication/Plan
-
f/w neurology recommendations
PT/OT
Assessment / Plan
Assessment / Plan
Physical Exam
General: Well Developed, Well Nourished and No Apparent Distress
HEENT: NormoCephalic, Moist mucous membranes and Atraumatic
Respiratory: Clear
Cardiac: S1/S2 and Regular Rhythm; No Murmur or Rub
GI: Soft, Non Tender, Non Distended and Normal Bowel Sounds; No Organomegaly
Rectal: Deferred by Provider
Musculoskeletal: No Clubbing, No Cyanosis and No Edema
Skin: No Rash
Neuro: Nonfocal/grossly intact
Psych: calm
A/P:
# Witnessed seizure possibly secondary to COVID/RSV vaccines/subtherapeutic Depakote level
-IV fluids given
- Valproic acid level of 33.7 which is low
- Carbamazepine level of 6.6
- Given valproic acid 500 mg IV, increased dose to 500 twice daily from 250 daily, 500 p.m.
No fever. No leukocytosis. Urine culture no growth
- Neurology consulted
# Chronic cough
Patient denies chest pain, no hypoxia
- Patient denies cough or shortness of breath
- Chest x-ray unremarkable
Left carotid artery stenosis status post stent/subclavian artery bypass
Bilateral subclavian steal syndrome
Vascular dementia
- Continue donepezil
History of multiple CVAs
- Continue aspirin, Plavix, statin
Hypothyroidism
- Continue levothyroxine
Chronic HFpEF
- Hold Lasix
GERD
- Continue famotidine
COPD
- Continue albuterol, Anoro Ellipta, formoterol fumarate, Yupelri
Former smoker
Glucoma
History of DVT
Insomnia
- Hold trazodone
Full Code
Regular diet
DVT prophylaxis heparin
Total time spent to see the patient, examine the patient, review data and lab result, discuss treatment plan with patient, nursing staff around 55 minutes
Anticipated Discharge: 24 - 48 hours
Subjective/Interval History
-
Date of Service: October 10, 2024
No chest pain
No sob
No fevers
Objective Data
-
Labs:
Laboratory Results
10/10/24
06:30
WBC 5.1
Hgb 11.8 L
Hct 35.0 L
Plt Count 140
Sodium 141
Potassium 4.6
Chloride 111 H
Carbon Dioxide 25
BUN 20 H
Creatinine 0.8
Glucose 100 H
Calcium 8.1 L
Total Bilirubin 0.2
AST 32
ALT 24
Alkaline Phosphatase 75
Vital Signs:
Vital Signs
Temp Pulse Resp BP Pulse Ox
97.8 F 76 16 109/59 97
10/10/24 11:15 10/10/24 11:15 10/10/24 11:15 10/10/24 11:15 10/10/24 11:15
I&O
10/09/24 10/10/24 10/11/24
06:59 06:59 06:59
Output Total 325 / 325
Balance -325 / -325
[2024-10-10] MEDS: LIPITOR 40 MG PO (20:53)
[2024-10-10] MEDS: XALATAN OPHTHALMIC SOLUTION 1 DROP BOTH EYES (21:00)
[2024-10-10] MEDS: ARICEPT 10 MG PO (21:00)
[2024-10-11 02:49] VITALS: BP 121/52
[2024-10-11] MEDS: SYNTHROID 100 MCG PO (05:50)
[2024-10-11 06:00] VITALS: BMI 18.9
[2024-10-11 07:00] VITALS: BP 140/69
[2024-10-11] MEDS: DEPAKOTE (12 HR RELEASE) 500 MG PO (07:21)
[2024-10-11] MEDS: PLAVIX 75 MG PO (07:21)
[2024-10-11] MEDS: KCL 20 MEQ PO (07:21)
[2024-10-11] MEDS: TEGRETOL 200 MG PO (07:22)
[2024-10-11] MEDS: THERAGRAN 1 TABLET PO (07:22)
[2024-10-11] MEDS: LOW STRENGTH ASPIRIN 81 MG PO (07:22)
[2024-10-11] MEDS: HEPARIN 5000 UNITS SC (07:23)
[2024-10-11] MEDS: TIMOPTIC 0.5% OPHTHALMIC SOLUTION 1 DROP LEFT EYE (07:24)
[2024-10-11] MEDS: ALPHAGAN 0.2% EYE DROPS 1 DROP LEFT EYE (07:24)
[2024-10-11] MEDS: AZOPT 1% OPHTHALMIC SUSPENSION 1 DROP LEFT EYE (07:24)
[2024-10-11 07:58] LABS: Hematocrit 36.1 % (37.0-47.0); Hemoglobin 12.7 g/dL (12.0-16.0); Mean Corp Hgb Conc. 35.2 g/dL (33.0-37.0); Mean Corpuscular Hgb 34.4 pg (27.0-31.0); Mean Corpuscular Volume 97.8 fL (81.0-99.0); Mean Platelet Volume 10.5 fL (7.4-10.4); Platelet Count 125 10^3/uL (130-400); Red Blood Cell Count 3.69 10^6/uL (4.20-5.40); Red Cell Dist. Width 12.8 % (11.5-14.5); White Blood Cell Count 6.4 10^3/uL (4.8-10.8)
[2024-10-11] MEDS: SPIRIVA RESPIMAT 2.5 MCG 2 PUFF INH (08:02)
[2024-10-11] MEDS: STRIVERDI RESPIMAT 2 PUFF INH (08:02)
[2024-10-11 09:02] LABS: Blood Urea Nitrogen 20 mg/dl (7-17); Calcium 8.3 mg/dl (8.4-10.2); Carbon Dioxide 18 mmol/L (22-30); Chloride 115 mmol/L (98-107); Estimated Creatinine Clearance 52 ml/min; Glucose 81 mg/dl (70-99); Potassium 4.4 mmol/L (3.5-5.1); Sodium 140 mmol/L (135-145); eGFR > 60.00
[2024-10-11 11:39] VITALS: BP 130/51
--- NOTE | 2024-10-11 12:25 | CM ---
manager rail reviewed patient's chart and plan is to home with [facility] visiting nurses.
Jordan Schwartz
[phone]
--- NOTE | 2024-10-11 13:33 | W.PN.HOSP.TC ---
Today's Communication/Plan
-
continue new valproic acid dosing
F/u PCP, Neurology outpt
f/u cbc and bmp in 3-5 day swith pcp
Assessment / Plan
Assessment / Plan
Physical Exam
General: Well Developed, Well Nourished and No Apparent Distress
HEENT: NormoCephalic, Moist mucous membranes and Atraumatic
Respiratory: Clear
Cardiac: S1/S2 and Regular Rhythm; No Murmur or Rub
GI: Soft, Non Tender, Non Distended and Normal Bowel Sounds; No Organomegaly
Rectal: Deferred by Provider
Musculoskeletal: No Clubbing, No Cyanosis and No Edema
Skin: No Rash
Neuro: Nonfocal/grossly intact
Psych: calm
A/P:
# Witnessed seizure
-subtherapeutic Depakote level
-Increased Valproic acid to 500 mg BID
-Continue Carbamazepine
No fever. No leukocytosis. Urine culture no growth
- Neurology consulted
# Chronic cough
Patient denies chest pain, no hypoxia
- Patient denies cough or shortness of breath
- Chest x-ray unremarkable
-f/u outpt
Left carotid artery stenosis status post stent/subclavian artery bypass
Bilateral subclavian steal syndrome
Vascular dementia
- Continue donepezil
History of multiple CVAs
- Continue aspirin, Plavix, statin
-LDL <70
Hypothyroidism
- Continue levothyroxine
Chronic HFpEF
- Lasix
GERD
- Continue famotidine
COPD
- Continue albuterol, Anoro Ellipta, formoterol fumarate, Yupelri
Former smoker
Glucoma
History of DVT
Insomnia
- trazodone
Full Code
Regular diet
DVT prophylaxis heparin
More than 30 minutes spent in discharge including
Final examination of the patient
Summarizing hospital stay
Instructions for continuing care to all relevant caregivers
Preparation of discharge records, prescriptions, and referral forms
Total time spent (in minutes): 36
Anticipated Discharge: Today
Subjective/Interval History
-
Date of Service: October 11, 2024
No seizures overnight
Objective Data
-
Labs:
Laboratory Results
10/11/24
07:38
WBC 6.4
Hgb 12.7
Hct 36.1 L
Plt Count 125 L
Sodium 140
Potassium 4.4
Chloride 115 H
Carbon Dioxide 18 L
BUN 20 H
Creatinine 0.7
Glucose 81
Calcium 8.3 L
Vital Signs:
Vital Signs
Temp Pulse Resp BP Pulse Ox
97.4 F 73 20 130/51 97
10/11/24 11:39 10/11/24 11:39 10/11/24 11:39 10/11/24 11:39 10/11/24 11:39
I&O
10/10/24 10/11/24 10/12/24
06:59 06:59 06:59
Intake Total 920 / 920
Output Total 325 / 325
Balance -325 / -325 920 / 920
Review of Systems
-
History Source: Patient
All other systems: Reviewed and negative
Physical Exam
-
General: No Apparent Distress
Data Reviewed
-
Diagnostic Radiology: Report Reviewed by me
Labs: Labs Reviewed by me
--- NOTE | 2024-10-11 13:41 | W.DS.TRANS ---
DC Summary - Client Solutions Manager
-
Discharge Instructions:
Discharge Diagnosis/Procedures seizures
Diet Low Cholesterol,Low Fat,2 Gram Sodium
Activity As tolerated
Blood Work cbc and bmp with pcp in 3-5 days
Instructions:
Stand-Alone Forms:
Changes to Home Medications: Yes
Discharge Medications:
DC Medications w/original date entered in [employer]
carbamazepine 200 mg tablet 200 mg PO TID Seizures 01/09/17
levothyroxine 100 mcg tablet 100 mcg PO DAILY AT 0700 Thyroid 01/09/17
atorvastatin 40 mg tablet 40 mg PO HS High Cholesterol 05/29/23
brimonidine 0.2 %-timolol 0.5 % eye drops (Combigan) 1 drp LEFT EYE BID Eye Condition 05/29/23
brinzolamide 1 % eye drops,suspension 1 drp LEFT EYE BID Eye Condition 05/29/23
donepezil 10 mg tablet 10 mg PO HS memory/dementia 05/29/23
latanoprost 0.005 % eye drops 1 drp BOTH EYES DAILY@2000 Eye Condition 05/29/23
trazodone 50 mg tablet 50 mg PO HSPRN PRN sleep 05/29/23
albuterol sulfate 90 mcg/actuation aerosol inhaler 2 puff inhalation R Q6HPRN PRN SOB 04/14/24
famotidine 20 mg tablet 40 mg PO HS Gastrointestinal Issue 04/14/24
umeclidinium 62.5 mcg-vilanterol 25 mcg/actuation powdr for inhalation (Anoro Ellipta) 1 inh inhalation R DAILY Lung/Breathing Issues 04/14/24
revefenacin 175 mcg/3 mL solution for nebulization (Yupelri) 175 mcg inhalation R DAILYPRN PRN only if cannot inhale anoro 04/15/24
formoterol with nebulizer 20 mcg/2 mL solution for nebulization 2 ml inhalation R DAILYPRN PRN If cannot take Anoro 05/24/24
multivitamin 1 tab PO DAILY Supplement 05/24/24
clopidogrel 75 mg tablet 75 mg PO DAILY Blood Clot Prevention/Tx 06/23/24
aspirin 81 mg chewable tablet 81 mg PO DAILY Blood Clot Prevention/Tx 07/07/24
furosemide 20 mg tablet 20 mg PO MOWEFR Fluid Retention/Swelling 07/07/24
loratadine 10 mg tablet (Claritin) 10 mg PO DAILYPRN PRN ALLERGIES 07/07/24
midodrine 5 mg tablet 5 mg PO TIDPRN PRN SBP<140 07/07/24
potassium chloride 20 mEq tablet,extended release 20 meq PO DAILY Electrolyte Repletion 07/07/24
divalproex 500 mg tablet,delayed release 500 mg PO Q12H 30 days #60 tabs 10/11/24
Home Medication Changes
divalproex 500 mg tablet,delayed release 500 mg PO Q12H 30 days #60 tabs 10/11/24
Pending Results: No
== END 2024-10-11 14:10 | disposition home health service (06) | DRG 101 ==
LOC: 4 WEST ACU 13:15
PROVIDERS: Internal Medicine; ADMITTING PHYSICIAN Hospitalist; ATTENDING PHYSICIAN Internal Medicine; CONSULT PHYSICIAN Psychiatry & Neurology Neurology; EMERGENCY PHYSICIAN Student in an Organized Health Care Education/Training Program; FAMILY PHYSICIAN Family Medicine
DX: G40.909 Epilepsy, unspecified, not intractable, without status epilepticus (principal); F01.518 Vascular dementia, unspecified severity, with other behavioral disturbance; I50.32 Chronic diastolic (congestive) heart failure; G47.00 Insomnia, unspecified; E03.9 Hypothyroidism, unspecified; I11.0 Hypertensive heart disease with heart failure; K21.9 Gastro-esophageal reflux disease without esophagitis; J44.9 Chronic obstructive pulmonary disease, unspecified; Z87.891 Personal history of nicotine dependence; Z86.718 Personal history of other venous thrombosis and embolism; Z79.890 Hormone replacement therapy; E78.00 Pure hypercholesterolemia, unspecified; Z79.82 Long term (current) use of aspirin; Z79.899 Other long term (current) drug therapy; Z79.02 Long term (current) use of antithrombotics/antiplatelets; Z86.73 Personal history of transient ischemic attack (TIA), and cerebral infarction without residual deficits; M81.0 Age-related osteoporosis without current pathological fracture; H91.90 Unspecified hearing loss, unspecified ear; I25.10 Atherosclerotic heart disease of native coronary artery without angina pectoris; M17.12 Unilateral primary osteoarthritis, left knee; Z90.711 Acquired absence of uterus with remaining cervical stump; Z87.81 Personal history of (healed) traumatic fracture; T42.6X6A Underdosing of other antiepileptic and sedative-hypnotic drugs, initial encounter
CPT/HCPCS: 51701; 71046; 80048; 80053; 80061; 80156; 80164; 81003; 81015; 85025; 85027; 87086; 94640; 96361; 96365; 97162; 97166; 99285

== ENCOUNTER 2024-11-25 20:01 | Emergency (ER) | payer MEDICARE, OTHER, SELFPAY ==
[2024-11-25 20:06] VITALS: BP 161/65
[2024-11-25 20:34] LABS: Hematocrit 36.3 % (37.0-47.0); Hemoglobin 12.2 g/dL (12.0-16.0); Mean Corp Hgb Conc. 33.6 g/dL (33.0-37.0); Mean Corpuscular Volume 102.5 fL (81.0-99.0); Nucleated Red Blood Cells % 0 %; Platelet Count 187 10^3/uL (130-400); Red Cell Dist. Width 13.4 % (11.5-14.5)
[2024-11-25 20:45] LABS: ALT (SGPT) 20 U/L (0-35); AST (SGOT) 31 U/L (14-36); Albumin 3.7 g/dl (3.5-5.0); Alkaline Phosphatase 88 U/L (38-126); Blood Urea Nitrogen 33 mg/dl (7-17); Calcium 8.4 mg/dl (8.4-10.2); Carbon Dioxide 27 mmol/L (22-30); Chloride 108 mmol/L (98-107); Glucose 115 mg/dl (70-99); Lipase 162 U/L (23-300); Potassium 4.6 mmol/L (3.5-5.1); Sodium 140 mmol/L (135-145); Total Protein 6.5 g/dl (6.3-8.2); eGFR 49.55
[2024-11-26 00:46] VITALS: BMI 22.8
[2024-11-26 00:47] VITALS: BP 157/63
[2024-11-26 00:48] VITALS: BP 157/63
[2024-11-26 01:00] VITALS: BP 188/75
[2024-11-26] MEDS: DUONEB 3 ML INH (01:39)
[2024-11-26 01:55] LABS: Urine Character Clear (Clear)
--- NOTE | 2024-11-26 02:17 | ED.GENMED ---
History of Present Illness
General
Chief Complaint: Weakness
Time Seen by Provider: 11/26/24 00:53
History of Present Illness
History of Present Illness:
84-year-old female with history of dementia, hypertension, COPD presenting to the emergency department for generalized weakness and shortness of breath. Patient arrives with her son-in-law. Patient lives with her daughter and her son-in-law. He
notes prior to arrival, patient ambulated to the bathroom. She had difficulty getting up from the toilet and seemed short of breath. They took an albuterol neb prior to arrival. Medics were called and upon their arrival, noted some improvement in
breathing. No report of any fever. She has had a mild cough. No report of any recent fall or trauma. Son-in-law reports that patient did have improved since arrival to the hospital. Patient denies any chest pain. No report of any abdominal
pain or vomiting. Notes history of urinary tract infections, denies any present urinary symptoms. Son-in-law reports that patient is at her baseline mental status. Denies additional acute medical complaints
Past History
Past History
ED Past Medical History: CHF, COPD, CVA, HTN, Hypercholesterolemia, Hypothyroidism and Other (Vascular dementia, osteoporosis, ambulatory dysfunction, hepatitis A, thoracic and lumbar compression fractures, left knee osteoarthritis, hearing loss)
ED Past Surgical History: Gynecological (partial hysterectomy), Orthopedic (right hip fracture 2008, left femur ORIF, left wrist ORIF) and Other (Left common carotid artery to subclavian artery bypass 2024, cataract extraction)
Social History
Tobacco: Former smoker
Alcohol: Occasional
Personal:
Living: alone (with aids)
Family History
Family History: Other (Reviewed and noncontributory)
Phy Exam
Physical Exam
Physical Exam:
General: Well-appearing, no clinical signs of dehydration, nontoxic and in no acute distress
HEENT: protecting airway
Neck: appears supple
CV: Normal heart rate, regular rhythm
Resp: No accessory muscle use, no increased work of breathing, lungs clear to auscultation bilaterally
Abd: Soft and non-distended, no tenderness to palpation
Extremities: No deformities, no swelling
Neuro: alert, disoriented to time
: deferred
Rectal: deferred
Psych: Normal affect
Skin: Intact
Course
Orders/Labs/Results
Orders:
Orders
11/25/24 20:16
Electrocardiogram (*1) Urgent
Reason for Study: Abdominal Pain
EKG- Treatment ONCE
11/25/24 20:22
Complete Blood Count/With Diff Urgent
Comprehensive Metabolic Panel Urgent
Lipase Urgent
11/26/24 01:29
Ipratropium/Albuterol Sulfate [Duoneb] 3 ml INH R NOW ONE
11/26/24 01:30
CR Chest - 2 Views Urgent
Comment:
Reason For Exam: cough
11/26/24 01:38
Urinalysis Reflex To Culture Urgent
Date Specimen was Collected: 11/26/24
Time Specimen was Collected: 01:36
Urine Microscopic Reflex Cult Urgent
Abnormal Lab Results
11/25/24 11/26/24
20:22 01:38
RBC 3.54 L 10^6/uL
(4.20-5.40)
Hct 36.3 L %
(37.0-47.0)
MCV 102.5 H fL
(81.0-99.0)
MCH 34.5 H pg
(27.0-31.0)
Absolute Monos (auto) 1.1 H 10^3/uL
(0.1-0.6)
Monocytes % 17.0 H %
(1.7-9.3)
Chloride 108 H mmol/L
(98-107)
BUN 33 H mg/dl
(7-17)
Creatinine 1.1 H mg/dL
(0.6-1.0)
Glucose 115 H mg/dl
(70-99)
Urine Albumin (Reflex) 1+ A
(Neg - Trace)
11/25/24 20:22
11/25/24 20:22
Vital Signs
Initial and Last Documented VS:
Initial Vital Signs
Temp Pulse Resp BP Pulse Ox
97.7 F 84 20 161/65 96
11/25/24 20:06 11/25/24 20:06 11/25/24 20:06 11/25/24 20:06 11/25/24 20:06
Last Documented Vital Signs
Temp Pulse Resp BP Pulse Ox
97.6 F 69 20 188/75 97
11/26/24 00:47 11/26/24 00:47 11/26/24 00:47 11/26/24 01:00 11/26/24 02:30
MDM/Problems Addressed
MDM/Problems Addressed:
84-year-old female with history of COPD, dementia, hypertension, CKD presenting for concern of weakness and shortness of breath.
Vital signs on arrival significant for mild hypertension. On exam, patient is resting comfortably, no acute distress. No increased work of breathing. Lungs are clear to auscultation. No active cough, afebrile. Lower suspicion for pneumonia.
Suspect preceding dyspnea could have been secondary to known history of COPD, improved after albuterol treatment. Will administer additional treatment for therapeutic and screen with chest x-ray imaging. EKG obtained on arrival, nonischemic,
unchanged from prior, known left bundle branch block. Without concern for acute cardiac process. No present focal neurologic deficits, intact strength and sensation bilaterally, no reported fall or trauma. Without concern for stroke or indication
for advanced head imaging. Labs obtained prior to my assessment, no acute abnormality, no electrolyte derangement or severe LIGIA. Reports history of UTIs in the past. Will screen with urinalysis.
02:30 - Chest x-ray appears unchanged from prior, no acute infiltrate or concern for pneumonia. Urine without sign of infection. On reassessment patient remains stable and son-in-law continues to report improvement in symptoms. Feel stable for
discharge. Return precautions discussed and son-in-law verbalized understanding
*Pulse Oximetry
SaO2: 97
Oxygen Mode of Delivery: Room air
Patient hypoxic: no
*EKG
Interpreted by ED Provider?: Yes
EKG Intrepretation Date: 11/26/24
EKG Intrepretation Time: 02:27
Interpretation: normal
Comparison EKG: no changes (07/07/24)
Heart Rate: 71
Rate: normal
Rhythm: sinus
QRS Pattern: left bundle branch block
Ischemia: no ischemia
*Critical Care Note
Total Time (30-74mins, 75-104mins- exclusive of procedures): Not Applicable
ED Attending Note
-
Portions of this chart may have been created with voice recognition software.� Occasional wrong word or��sound alike� substitutions may have occurred due to the inherent limitations of voice recognition software.
Discharge Plan
Departure
Patient Disposition: Home (Routine Discharge)
Date of Disposition: 11/26/24
Time of Disposition: 02:37
Patient with high blood pressure during this ER visit?: Yes
Condition: Good
Discharge Problem:
COPD (chronic obstructive pulmonary disease), Generalized weakness
Instructions: Generalized Weakness (DC), BLOOD PRESSURE
Prescriptions:
No Action
levothyroxine 100 MCG tablet
100 mcg PO DAILY AT 0700
carbamazepine 200 MG tablet
200 mg PO TID
latanoprost 0.005 % drops
1 drp BOTH EYES DAILY@1999
trazodone 50 mg tablet
50 mg PO HSPRN PRN (Reason: sleep)
brinzolamide 1 % drops,suspension
1 drp LEFT EYE BID
donepezil 10 mg tablet
10 mg PO HS
brimonidine-timolol [Combigan] 0.2-0.5 % drops
1 drp LEFT EYE BID
atorvastatin 40 MG tablet
40 mg PO HS
famotidine 20 mg Tablet
40 mg PO HS
albuterol sulfate 90 mcg/actuation Hfa Aerosol Inhaler
2 puff INHALATION R Q6HPRN PRN (Reason: SOB)
umeclidinium-vilanterol [Anoro Ellipta] 62.5-25 mcg/actuation Blister With Device
1 inh INHALATION R DAILY
Yupelri 175 mcg/3 mL Solution For Nebulization
175 mcg INHALATION R DAILYPRN PRN (Reason: only if cannot inhale anoro)
formoterol fumarate-nebulizer 20 mcg/2 mL Solution For Nebulization
2 ml INHALATION R DAILYPRN PRN (Reason: If cannot take Anoro)
multivitamin Tablet
1 tab PO DAILY
clopidogrel 75 mg Tablet
75 mg PO DAILY
furosemide 20 mg tablet
20 mg PO MOWEFR
loratadine [Claritin] 10 mg Tablet
10 mg PO DAILYPRN PRN (Reason: ALLERGIES)
potassium chloride 20 mEq tablet extended release
20 meq PO DAILY
midodrine 5 mg tablet
5 mg PO TIDPRN PRN (Reason: SBP<140)
aspirin 81 mg tablet,chewable
81 mg PO DAILY
divalproex 500 mg Tablet,Delayed Release (Dr/Ec)
500 mg PO Q12H 30 Days Qty: 60 0RF
Referrals:
UNKNOWN - PT DOES,NOT KNOW [Family Provider]
Activity Restrictions/Additional Instructions:
You were seen in the emergency department for weakness and shortness of breath
You were found to have reassuring laboratory analysis, urinalysis, EKG, chest x-ray imaging. You were given a breathing treatment in the emergency department.
Please follow-up closely with your primary care physician.
Return to the emergency department for any worsening of your symptoms, or any development of chest pain, difficulty breathing, abdominal pain with persistent vomiting and inability to tolerate food or liquid by mouth (concern for dehydration),
weakness, headache or confusion, fever greater than 100.4, or any additional symptoms that are concerning to you.
Thank you for choosing [facility].
Interventions
Interventions:
*Risk Screen - Suicide Last Done: 11/25/24 20:06
*General Assessment Last Done: 11/25/24 20:06
*Neglect/Abuse Screening Last Done: 11/25/24 20:06
*ED- Fall Risk Assessment Last Done: 11/25/24 20:06
*ED COVID-19 Vaccine History Last Done: 11/25/24 20:06
*Nursing Disposition Last Done: 11/26/24 03:12
ED- Cardiac Assessment Last Done: 11/26/24 00:51
ED- Neurological Assessment Last Done: 11/26/24 00:51
ED- Pulmonary Assessment Last Done: 11/26/24 00:51
Discharge Date and Time
Discharge Date/Time: 11/26/24 03:13
Print Language: [place]
[2024-11-26 02:21] LABS: Urine Red Blood Cell None Seen /HPF (0-2); Urine White Cell 0-2 /HPF (0-5)
== END 2024-11-26 03:13 | disposition home or self-care (01) ==
LOC: EMR 20:01
PROVIDERS: EMERGENCY PHYSICIAN Student in an Organized Health Care Education/Training Program
DX: J44.9 Chronic obstructive pulmonary disease, unspecified (principal); R53.1 Weakness; I13.0 Hypertensive heart and chronic kidney disease with heart failure and stage 1 through stage 4 chronic kidney disease, or unspecified chronic kidney disease; I50.9 Heart failure, unspecified; E03.9 Hypothyroidism, unspecified; E78.00 Pure hypercholesterolemia, unspecified; F03.90 Unspecified dementia, unspecified severity, without behavioral disturbance, psychotic disturbance, mood disturbance, and anxiety; Z87.891 Personal history of nicotine dependence; N18.9 Chronic kidney disease, unspecified; I44.7 Left bundle-branch block, unspecified
CPT/HCPCS: 99285; 94640; 71046; 80053; 81003; 81015; 83690; 85025; 93005